=== PATIENT | female | born 1960 | race Caucasian/White ===

== ENCOUNTER 2021-02-25 18:21 | Emergency (ER) | payer MEDICAID, SELFPAY ==
--- NOTE | ~2021-02-25 | XR_ITS ---
EXAMINATION: XR CHEST CLINICAL INFORMATION: Cough with back pain COMPARISON: None TECHNIQUE: 2 views of the chest were obtained. FINDINGS: Multifocal ill-defined patchy peripheral densities are seen in both lungs with a lower lobe predominance. The heart size is normal. No pleural effusions are seen. Degenerative changes noted in the spine. XR/XR chest 2V IMPRESSION: Commonly reported imaging features of Covid 19 or viral pneumonia are present. Other processes such as influenza pneumonia or organizing pneumonia, as can be seen with drug toxicity and connective tissue disease, can cause a similar imaging pattern.
[2021-02-25 19:04] VITALS: BP 133/79; PULSE 82; RESP 16; TEMP 37.1; O2SAT 99; BMI 32.1
--- NOTE | 2021-02-25 19:17 | ED.BACK ---
HPI - Back Pain/Injury General Chief Complaint: Back Pain/Injury Stated Complaint: back pain Time Seen by Provider: 02/25/21 19:17 Source: patient Mode of arrival: ambulatory Limitations: language barrier History of Present Illness HPI Narrative: Patient with history of breast cancer and did a reconstruction and cut her back for reconstruction. Now with pain in the reconstruction area. In addition patient states cough and chills MD elicited complaint: back pain Onset (ago): day(s) Timing: constant Quality: burning Related Data Previous Rx's Medication Instructions Recorded naproxen [Naprosyn] 500 mg PO BID #20 tab 02/25/21 Allergies Allergy/AdvReac Type Severity Reaction Status Date / Time No Known Allergies Allergy Verified 02/25/21 19:08 Review of Systems Constitutional: Constitutional: Reports no additional constitutional complaints Eyes: Eyes: Reports no additional eye complaints ENT: Denies dizziness Cardiovascular: Cardiovascular: Reports no additional cardiovascular complaints Respiratory: Respiratory: Reports as per HPI Gastrointestinal: Gastrointestinal: Reports no additional gastrointestinal complaints Genitourinary: Genitourinary: Reports no additional female genitourinary complaints Musculoskeletal: Musculoskeletal: Reports no additional musculoskeletal complaints Integumentary/Breasts: Skin/Breast: Denies rash Neurologic: Reports system reviewed and no additional complaints, except as documented, Denies dizziness and Denies Sensory deficit (Neuro) Psychiatric: Psychiatric: Denies anxiety PMFSH Past Medical History Medical History Breast calcification, right Diabetes Surgical History History of mastectomy Social History Social History Alcohol intake: never Smoked in Last 30 Days: No Use of substances other than those prescribed or required for medical reasons: No Any prior treatment program specific to substance use: No Advance Directives: No Advance Directives Information Provided: No Patient : No Physical Exam Vital Signs: Vital Signs: Last Vital Signs Temp 98.7 F 02/25/21 19:04 Pulse 82 02/25/21 19:04 Resp 16 02/25/21 19:04 BP 133/79 02/25/21 19:04 Pulse Ox 99 02/25/21 19:04 Body Mass Index 32.1 Const: General: healthy appearing Nutritional Appearance: average body habitus Orientation/consciousness: oriented to person and patient oriented x3 Limitations: no limitations HENMT: Head: Yes normal to inspection Ears: external ears normal General nose exam: Normal external nose present Mouth: Normal oral and palatal mucosa present and oropharynx normal Throat: Yes posterior oropharynx normal Eyes: General: appearance normal, both eyes and all related structures Neck: Other: supple Neck: Yes normal visual inspection Chest: Chest palpation & inspection: normal inspection of the chest Resp: Auscultation: clear to auscultation bilaterally Cardio: Jugular venous distension: no JVD Rate: regular rate Rhythm: regular rhythm Heart sounds: S1 normal heart sound present and S2 normal heart sound present GI: Inspection: Yes normal to inspection Palpation (GI): Soft to palpation, nontender and No hepatosplenomegaly present Auscultation: normal bowel sounds Back/Spine/Pelvis: Other: right latissimus dorsi recontstruction pain just superior to scar. Pain to palpation Skin: General skin exam: no rashes or lesions noted Neuro: General: oriented to person and patient oriented x3 Cranial nerves: Yes CN's II-XII intact bilaterally Motor exam (neuro): 5/5 motor strength present throughout Sensory Exam: No Sensory deficit (Neuro) Extrem: General: Yes normal to inspection Psych: Appearance: grossly normal Course Course Course Narrative: patient with evidence of COVID on xray, she is not hypoxic, will dc home Discharge Plan Discharge Clinical Impression: COVID-19 Thoracic back pain Qualifiers: Chronicity: chronic Back pain laterality: right Qualified Code(s): M54.6 - Pain in thoracic spine Patient Disposition: Home, Self-Care Instructions: Thoracic Back Strain (ED), COVID-19 (Coronavirus Disease 2019) (ED) Prescriptions: New naproxen [Naprosyn] 500 mg tablet 500 mg PO BID Qty: 20 RF: 0 Referrals: Physician,None [Primary Care Provider] - 2 days
[2021-02-25] MEDS: Ketorolac Tromethamine 60 MG/2 ML VIAL IM (20:11)
[2021-02-25 21:15] LABS: Influenza A PCR NEGATIVE (Negative); Influenza B PCR NEGATIVE (Negative); Resp Syncy Virus RNA Qual PCR NEGATIVE (Negative); SARS COV2 PCR INHOUSE POSITIVE (Negative)
== END 2021-02-25 21:18 | disposition home or self-care (01) ==
PROVIDERS: Emergency Provider Emergency Medicine
DX: U07.1 COVID-19 (principal); M54.6 Pain in thoracic spine; E11.9 Type 2 diabetes mellitus without complications; Z85.3 Personal history of malignant neoplasm of breast
CPT/HCPCS: 0241U; 36415; 71046; 96372; 99284; J1885

== ENCOUNTER 2021-06-30 19:14 | Emergency (ER) | payer MEDICAID, SELFPAY ==
--- NOTE | ~2021-06-30 | XR_ITS ---
EXAMINATION: XR KNEE, LEFT CLINICAL INFORMATION: Trauma COMPARISON: None TECHNIQUE: Two views of the left knee. FINDINGS: No significant joint effusion. Mild tricompartmental degenerative changes are seen with minimal joint space loss in the medial compartment. I do not appreciate any acute fracture or dislocation. No bony degenerative or destructive changes. Surrounding soft tissue unremarkable. XR/XR knee LT 2V IMPRESSION: Mild degenerative changes but no acute bony abnormality.
--- NOTE | ~2021-06-30 | XR_ITS ---
EXAMINATION: XR CHEST CLINICAL INFORMATION: Trauma. COMPARISON: Chest x-ray February 25, 2021 TECHNIQUE: 2 views of the chest were obtained. FINDINGS: Lungs are clear. No pulmonary vascular congestion. There is no pleural effusion. The heart size is normal. The cardiac and mediastinal contours are normal. There are calcifications of the thoracic aorta. There are multilevel degenerative changes of dorsal spine. XR/XR chest 2V IMPRESSION: Unremarkable examination.
--- NOTE | ~2021-06-30 | CT_ITS ---
EXAMINATION: CT HEAD WITHOUT CONTRAST CLINICAL INFORMATION: Trauma. COMPARISON: None TECHNIQUE: Contiguous axial imaging was performed from the skull base to vertex without intravenous administration of contrast. This CT examination was performed using dose optimization techniques as appropriate, variously including the following: *Automated exposure control *Adjustment of mA and/or kV according to patient size (this includes techniques or standardized protocols for targeted exams where dose is matched to indication/reason for exam; i.e. extremities or head) *Use of iterative reconstruction technique DLP: 663 mGy-cm FINDINGS: There is no evidence of acute intracranial hemorrhage or territorial infarction. No abnormal mass effect or midline shift is seen. Kowalski to white matter differentiation is well preserved. No extra-axial fluid collections are identified. The ventricles are normal in size. There is no abnormal attenuation within the brain parenchyma. The osseous structures and soft tissues are normal. The mastoid air cells and visualized portions of the paranasal sinuses are well aerated. CT/CT head/brain wo con IMPRESSION: No acute intracranial process seen.
[2021-06-30 21:39] VITALS: BP 139/72; PULSE 78; RESP 16; TEMP 36.9; O2SAT 98; BMI 36.6
--- NOTE | 2021-06-30 21:47 | ED.FALL ---
HPI - Fall General Chief Complaint: Fall Stated Complaint: headache/back pain Time Seen by Provider: 06/30/21 21:40 Source: patient Limitations: no limitations History of Present Illness HPI Narrative: Patient slipped and fell 3 days ago. Since that time she has had left-sided back pain, right-sided chest pain, headache, and left knee pain. She denies loss of consciousness. She complains of pain on the right side of her head and right face. No vision changes. No nausea. No weakness numbness or paresthesias. She has chronic knee pain but complains of worsening pain in her left knee. She has pain in the right chest wall due to the fall as well as the left thoracic back area. No difficulty breathing but it does hurt with deep inspiration. She is able to ambulate at home although with more pain than average. Related Data Previous Rx's Medication Instructions Recorded naproxen 500 mg tablet (Naprosyn) 500 mg PO BID #20 tab 02/25/21 Allergies Allergy/AdvReac Type Severity Reaction Status Date / Time No Known Allergies Allergy Verified 02/25/21 19:08 Review of Systems Constitutional: Constitutional: Denies fever(s), Reports headache(s) and Denies weakness Eyes: Comments: No vision changes ENT: Reports headache(s) Comments: Bruising right side of her face, lateral periorbital area. Cardiovascular: Comments: Right lateral chest wall pain Respiratory: Comments: No significant dyspnea Gastrointestinal: Comments: No abdominal pain Musculoskeletal: Comments: Left knee with tenderness to palpation laterally and over the patella Joint is stable in all 4 directions. No significant effusion. Integumentary/Breasts: Comments: Contusion right side of face. No hematoma. No lacerations or abrasions Neurologic: Reports headache(s) and Denies weakness Comments: Awake alert and oriented. No obvious focal weakness PMFSH Past Medical History Medical History Breast calcification, right Diabetes Surgical History History of mastectomy Social History Social History Alcohol intake: never Advance Directives: No Advance Directives Information Provided: No Physical Exam Vital Signs: Vital Signs: Last Vital Signs Temp 98.4 F 06/30/21 21:39 Pulse 71 06/30/21 22:34 Resp 16 06/30/21 22:34 BP 140/72 H 06/30/21 22:34 Pulse Ox 98 06/30/21 22:34 Body Mass Index 36.6 Const: Other: Awake alert no acute distress HENMT: Other: Ecchymosis right lateral face in the periorbital area. No bony crepitus or deformity. No significant swelling. It is tender over that area. It is also tender over the temporal area with no evidence of significant subgaleal hematoma. No bony crepitus noted Eyes: Other: Pupils equal round reactive to light. Vision grossly intact Neck: Other: No C-spine tenderness Chest: Other: Chest wall tender right lateral ribs. Left posterior ribs mildly tender as well. Resp: Other: Clear and equal bilaterally Cardio: Other: Regular rate and rhythm no murmurs rubs or gallops GI: Other: Soft nontender nondistended. No organomegaly Back/Spine/Pelvis: Other: No midline TL or S spine tenderness Skin: Other: Ecchymosis as noted above. No other significant abnormalities Neuro: Other: No focal deficits Extrem: Other: Left knee tender as mentioned above Course Course Course Narrative: Facial fracture Intracranial hemorrhage Rib fracture Pneumothorax Left knee fracture Left knee contusion CT brain given continued pain after a fall in a 61-year-old female. X-rays of chest and left knee. 11:19 p.m.. Workup shows no evidence of significant injury. Stable for discharge home. Final diagnosis multiple contusions Discharge Plan Discharge Clinical Impression: Contusion Qualifiers: Encounter type: initial encounter Contusion area: head Contusion of head detail: scalp Qualified Code(s): S00.03XA - Contusion of scalp, initial encounter Contusion of knee Qualifiers: Encounter type: initial encounter Laterality: left Qualified Code(s): S80.02XA - Contusion of left knee, initial encounter Patient Disposition: Home, Self-Care Instructions: Contusion in Adults (ED) Additional Instructions: Continue to take Naprosyn. See discharge instructions Prescriptions: No Action naproxen [Naprosyn] 500 mg tablet 500 mg PO BID Qty: 20 RF: 0
[2021-06-30] MEDS: Ibuprofen 800 MG TABLET PO (22:21)
[2021-06-30 22:34] VITALS: BP 140/72; PULSE 71; RESP 16; O2SAT 98
== END 2021-06-30 23:53 | disposition home or self-care (01) ==
PROVIDERS: Emergency Provider Emergency Medicine
DX: S00.03XA Contusion of scalp, initial encounter (principal); S80.02XA Contusion of left knee, initial encounter; M54.5 Low back pain; G44.309 Post-traumatic headache, unspecified, not intractable; M25.562 Pain in left knee; R07.89 Other chest pain; W01.0XXA Fall on same level from slipping, tripping and stumbling without subsequent striking against object, initial encounter; Y93.9 Activity, unspecified; Y92.9 Unspecified place or not applicable; Y99.9 Unspecified external cause status; Z79.899 Other long term (current) drug therapy
CPT/HCPCS: 70450; 71046; 73560; 99284

== ENCOUNTER 2021-12-01 10:45 | Outpatient (REF) | payer OTHER, SELFPAY ==
[2021-12-01 11:07] LABS: MANUAL DIFF FLAG NO
[2021-12-01 11:48] LABS: Basophils Percent Auto 0.4 % (0-2); Eosinophils Absolute Auto 0.3 X10*3/uL (0.0-0.4); Eosinophils Percent Auto 3.7 % (0-4); Hematocrit 37.9 % (37.0-47.0); Hemoglobin 12.1 g/dl (12.0-16.0); Imm Gran Abs Auto 0.01 X10*3/uL (0.00-0.03); Imm Gran Pct Auto 0.1 % (0.0-0.4); Lymphocytes Absolute Auto 2.8 X10*3/uL (1.2-4.9); Lymphocytes Percent Auto 37.4 % (20-40); Mean Corpuscular HGB Conc 31.9 g/dl (31.0-35.0); Mean Corpuscular Hemoglobin 25.6 pg (27.0-33.0); Mean Corpuscular Volume 80.1 fL (80.0-98.0); Mean Platelet Volume 10.2 fL (9.4-12.3); Monocytes Absolute Auto 0.6 X10*3/uL (0.1-1.2); Monocytes Percent Auto 8.5 % (2-11); Neutrophils Absolute Auto 3.7 x10*3/uL (2.0-8.3); Neutrophils Percent Auto 49.9 % (45-73); Platelet Count 280 X10*3/uL (160-400); Red Blood Count 4.73 X10*6/uL (4.20-5.50); Red Cell Distribution Width 13.3 % (11.0-16.0); White Blood Count 7.4 X10*3/uL (4.8-10.8)
[2021-12-01 11:54] LABS: Estimated Average Glucose 226 mg/dL; Hemoglobin A1c % 9.5 %
[2021-12-01 12:10] LABS: Alanine Aminotransferase 12 U/L (0-31); Albumin Level 3.9 g/dL (3.5-5.0); Alkaline Phosphatase 157 U/L (39-117); Anion Gap 11 (12-20); Aspartate Amino Transferase 18 U/L (5-31); Bilirubin Total 0.5 mg/dL (0.0-1.0); Blood Urea Nitrogen 19 mg/dL (9-16); Calcium 9.8 mg/dL (8.4-10.2); Carbon Dioxide 29 mmol/L (22-29); Chloride 105 mmol/L (96-108); Cholesterol 201 mg/dL; Estimated Glomerular Filt Rate 54; Glucose Fasting 102 mg/dL (60-99); HDL Cholesterol 52 mg/dL; LDL Cholesterol Calculated 128 mg/dl; Potassium 4.6 mmol/L (3.3-5.1); Sodium 140 mmol/L (135-145); Triglycerides 109 mg/dL
[2021-12-01 12:12] LABS: Creatinine Urine 73.95 mg/dL; Microalbum/Creatinine Ratio Ur 22.9 ug/mg cr
== END 2021-12-01 10:46 | disposition home or self-care (01) ==
LOC: HO.LAB 10:45
PROVIDERS: Visit Provider Nurse Practitioner Family
DX: E11.9 Type 2 diabetes mellitus without complications (principal); Z76.89 Persons encountering health services in other specified circumstances
CPT/HCPCS: 36415; 80053; 80061; 82043; 83036; 85025

== ENCOUNTER 2021-12-03 11:11 | Outpatient (REF) | payer OTHER, SELFPAY ==
[2021-12-04 13:32] LABS: C Peptide 1.35 ng/mL (0.80-3.85)
[2021-12-07 21:06] LABS: Glutamic acid decarboxylase Ab <5 IU/mL (<5)
== END 2021-12-03 11:12 | disposition home or self-care (01) ==
LOC: HO.LAB 11:11
PROVIDERS: PCP Internal Medicine; Visit Provider Internal Medicine
DX: E11.9 Type 2 diabetes mellitus without complications (principal)
CPT/HCPCS: 36415; 84681; 86341

== ENCOUNTER 2021-12-31 13:03 | Outpatient (REF) | payer OTHER, SELFPAY ==
--- NOTE | ~2021-12-31 | MM_ITS ---
EXAMINATION: MM SCREENING DIGITAL BREAST TOMOSYNTHESIS, BILATERAL CLINICAL INFORMATION: Screening mammography. History of right breast lumpectomy with bilateral breast implants. COMPARISON: Mammography: None. Old films in [place]. TECHNIQUE: Digital mammography is performed in craniocaudal and mediolateral oblique views along with computer-aided detection (CAD). Digital breast tomosynthesis is performed in implant-displaced craniocaudal and implant-displaced mediolateral oblique views along with computer-aided detection (CAD). Synthesized 2D images are generated from the tomosynthesis. FINDINGS: The breasts are heterogeneously dense, which may obscure small masses (ACR BI-RADS breast composition Category c). Patient appears be status post previous left breast lumpectomy with radiation therapy. There is region of architectural distortion seen about the medial aspect of the right breast which may be postoperative in nature. There are numerous bilateral benign-appearing calcifications present. A marking clip is seen about the inferior aspect of the right breast. There are 2 groupings of left breast calcifications about the deep inferior aspect adjacent to the capsule and mid inferior medial left breast which may be dystrophic. If old studies cannot be obtained, then I would recommend spot magnification film to ensure that they are vascular. MM/MM tomosynthesis screen imp BI IMPRESSION: 1. Postsurgical and radiation change right breast. 2. Probable dystrophic calcifications of the left breast for which spot magnification views are recommended if previous studies cannot be obtained for comparison. ASSESSMENT: BI-RADS 0: Incomplete - Need Additional Imaging Evaluation. RECOMMENDATION: 1. Additional views of the left breast. 2. Targeted ultrasound if warranted after review of the additional views. 3. Radiology department staff will contact the patient for additional imaging. This patient's information was entered into a reminder system with a target due date for their next mammogram.
== END 2021-12-31 13:04 | disposition home or self-care (01) ==
LOC: HO.MAMMO 13:03
PROVIDERS: PCP Nurse Practitioner Family; Visit Provider Nurse Practitioner Family
DX: Z12.31 Encounter for screening mammogram for malignant neoplasm of breast (principal)
CPT/HCPCS: 77063; 77067

== ENCOUNTER 2022-01-07 08:52 | Outpatient (REF) | payer OTHER, SELFPAY ==
--- NOTE | ~2022-01-07 | MM_ITS ---
EXAMINATION: MM DIAGNOSTIC DIGITAL MAMMOGRAPHY, LEFT CLINICAL INFORMATION: Calcifications. COMPARISON: Mammography: 12/31/2021. TECHNIQUE: Digital mammography is performed in the following views: Spot magnification views in craniocaudal and 90-degree mediolateral projections. FINDINGS: The breasts are heterogeneously dense, which may obscure small masses (ACR BI-RADS breast composition Category c). The views demonstrate some benign calcifications as well as probable dystrophic calcifications about the inferior medial aspect of the left breast. Recommend 6 month follow up magnification views of the left breast for further surveillance. Results are provided to the patient at time of visit by the technologist. MM/MM added views LT IMPRESSION: Probably benign left breast calcifications for six-month follow up magnification views. ASSESSMENT: BI-RADS 3: Probably Benign. RECOMMENDATION: Diagnostic mammography in 6 months. This patient's information was entered into a reminder system with a target due date for their next mammogram.
== END 2022-01-07 08:53 | disposition home or self-care (01) ==
LOC: HO.MAMMO 08:52
PROVIDERS: Visit Provider Nurse Practitioner Family
DX: R92.1 Mammographic calcification found on diagnostic imaging of breast (principal)
CPT/HCPCS: 77065

== ENCOUNTER 2022-02-04 13:18 | Outpatient (REF) | payer OTHER, SELFPAY ==
[2022-02-05 12:09] LABS: CT PCR NOT DETECTED (Not Detect.); NG PCR NOT DETECTED (Not Detect.)
[2022-02-05 14:44] LABS: BV Int Neg Control Negative (Negative); BV Int Pos Control Positive (Positive)
[2022-02-10 04:17] LABS: HPV 16 RNA NOT DETECTED (NOT DETECTED); HPV mRNA E6/E7 rflx Detected (Not Detected)
== END 2022-02-04 13:19 | disposition home or self-care (01) ==
LOC: HO.LAB 13:18
PROVIDERS: PCP Nurse Practitioner Family; Visit Provider Advanced Practice Midwife
DX: Z01.419 Encounter for gynecological examination (general) (routine) without abnormal findings (principal); Z11.51 Encounter for screening for human papillomavirus (HPV); Z20.2 Contact with and (suspected) exposure to infections with a predominantly sexual mode of transmission
CPT/HCPCS: 87480; 87491; 87510; 87591; 87624; 87625; 87660; 88142

== ENCOUNTER 2022-05-17 11:02 | Outpatient (REF) | payer OTHER, SELFPAY ==
--- NOTE | ~2022-05-17 | XR_ITS ---
EXAMINATION: XR LUMBOSACRAL SPINE CLINICAL INFORMATION: Lower back pain. COMPARISON: None TECHNIQUE: AP and lateral views of the lumbar spine and lateral view of the lumbosacral junction. FINDINGS: Vertebral body heights are normal. There is a minimal lumbar rotatory levoscoliosis. At L4-L5, there is a 2 mm anterolisthesis. The remaining disc spaces are relatively well-maintained. No acute fracture or spondylolisthesis is seen. There is multi-level thoracolumbar spondylosis, most pronounced at L1-L2, where it is severe. The posterior elements are intact. The paravertebral soft tissues are unremarkable. XR/XR lumbar spine 2-3V IMPRESSION: 1. There is very mild degenerative disc disease L4-L5. 2. There is multi-level thoracolumbar spondylosis, most pronounced at L1-L2, where it is severe. 3. There is a minimal lumbar levoscoliosis, with rotatory component.
--- NOTE | 2022-05-17 11:16 | ECG_ITS ---
Test Reason : PREOP Blood Pressure : / mmHG Vent. Rate : 067 BPM Atrial Rate : 067 BPM P-R Int : 158 ms QRS Dur : 070 ms QT Int : 398 ms P-R-T Axes : 057 035 068 degrees QTc Int : 420 ms Normal sinus rhythm Normal ECG No previous ECGs available Referred By: Maye Hu Electronically Signed By:ANAMIKA GARCIA MD
[2022-05-17 11:50] LABS: Hematocrit 36.8 % (37.0-47.0); Hemoglobin 11.9 g/dl (12.0-16.0); Mean Corpuscular HGB Conc 32.3 g/dl (31.0-35.0); Mean Corpuscular Hemoglobin 25.5 pg (27.0-33.0); Mean Corpuscular Volume 78.8 fL (80.0-98.0); Mean Platelet Volume 10.3 fL (9.4-12.3); Platelet Count 264 X10*3/uL (160-400); Red Blood Count 4.67 X10*6/uL (4.20-5.50); Red Cell Distribution Width 14.3 % (11.0-16.0)
[2022-05-17 11:57] LABS: Estimated Average Glucose 123 mg/dL; Hemoglobin A1c % 5.9 %
[2022-05-17 12:02] LABS: Prothrombin Time 10.9 SEC (10.0-13.1)
[2022-05-17 12:38] LABS: Anion Gap 16 (12-20); Blood Urea Nitrogen 20 mg/dL (9-16); Calcium 9.4 mg/dL (8.4-10.2); Carbon Dioxide 22 mmol/L (22-29); Chloride 106 mmol/L (96-108); Estimated Glomerular Filt Rate 47; Glucose Random 160 mg/dL (60-115); Potassium 4.7 mmol/L (3.3-5.1); Sodium 139 mmol/L (135-145); TSH reflex Free T4 2.64 uIU/mL (0.32-4.0)
== END 2022-05-17 11:03 | disposition home or self-care (01) ==
LOC: HO.LAB 11:02
PROVIDERS: Absent Provider Internal Medicine; PCP Internal Medicine; Visit Provider Nurse Practitioner Family
DX: Z01.818 Encounter for other preprocedural examination (principal); M54.50 Low back pain, unspecified
CPT/HCPCS: 36415; 72100; 80048; 83036; 84443; 85027; 85610; 93005

== ENCOUNTER 2022-07-08 13:49 | Outpatient (REF) | payer OTHER, SELFPAY ==
--- NOTE | ~2022-07-08 | MM_ITS ---
EXAMINATION: MM DIAGNOSTIC DIGITAL BREAST TOMOSYNTHESIS, LEFT CLINICAL INFORMATION: Short interval follow-up probable benign calcifications superior medial left breast mid and posterior depth. Prior history contralateral right lumpectomy and radiation. COMPARISON: Mammography: 01/07/2022, 12/31/2021 (new baseline, BI-RADS 0). TECHNIQUE: Digital mammography is performed in craniocaudal and mediolateral oblique views. Digital breast tomosynthesis is performed in implant-displaced craniocaudal and implant-displaced mediolateral oblique views. Synthesized 2D images are generated from the tomosynthesis. Computer-aided detection (CAD) is performed for this exam. Additional left MLO view, magnification left CC and magnification left ML views are obtained. FINDINGS: The breasts are heterogeneously dense, which may obscure small masses (ACR BI-RADS breast composition Category c). There is a left implant with similar implant contours to prior new baseline exam. Parenchymal pattern is similar to the prior study. There is no interval mass or architectural abnormality or abnormal calcifications. Again, there are benign round and rim calcifications. Other benign appearing dystrophic calcifications mid lower inner left breast and posterior lower inner left breast are similar to prior diagnostic exam. Results are provided to the patient at time of visit by the technologist. MM/MM tomosynthesis diag imp LT IMPRESSION: No significant changes from prior study. ASSESSMENT: BI-RADS 3: Probably Benign RECOMMENDATION: Diagnostic mammography at time of bilateral mammography, due in 6 months. This patient's information was entered into a reminder system with a target due date for their next mammogram.
== END 2022-07-08 13:50 | disposition home or self-care (01) ==
LOC: HO.MAMMO 13:49
PROVIDERS: PCP Internal Medicine; Visit Provider Internal Medicine
DX: R92.1 Mammographic calcification found on diagnostic imaging of breast (principal)
CPT/HCPCS: 77061; 77065

== ENCOUNTER 2022-07-15 07:57 | Day surgery (SDC) | payer OTHER, SELFPAY ==
[2022-07-12 09:51] VITALS: BMI 35.4
--- NOTE | 2022-07-14 11:43 | HO.ANESPROP2 ---
Documented by User: Clare Mathur NP 07/14/22 11:47 HPI - Anesthesia Eval Consult details Narrative: 62yo F for Colonoscopy PMFSH Active Problems Active Problems: All Active Problems (Updated 07/12/22 @ 09:43 by Caryl Herrera RN) COVID-19 (Acute) Encounter to establish care (Acute ~11/19/21) BMI 33.0-33.9,adult (Acute) Diabetes type 2, controlled (Acute) Environmental and seasonal allergies (Acute) Preoperative examination (Acute) Cataract (Acute) Low back pain with left-sided sciatica (Acute) Anemia (Acute) Dyslipidemia (Acute) Lumbar degenerative disc disease (Acute) Allergic rhinitis (Acute) Constipation (Acute) Cancer of right breast (Acute) Obesity (BMI 30-39.9) (Acute) Diabetes mellitus with hyperglycemia (Acute) Past Medical History Medical History (Updated 07/12/22 @ 09:43 by Caryl Herrera RN) Allergic rhinitis Calcification of left breast Cancer of right breast Constipation Diabetes mellitus with hyperglycemia History of COVID-19 Lumbar degenerative disc disease Malignant neoplasm of breast Obesity (BMI 30-39.9) Family History Family History Sister Breast cancer Surgical History Surgical History (Updated 07/12/22 @ 09:48 by Caryl Herrera RN) History of cataract surgery History of mastectomy Social History Social History Housing: Apartment Alcohol intake: never Patient Tobacco Use Status: Never used Tobacco e-Cigarette/Vaping Use: Never Used Second Hand Smoke Exposure: No Use of substances other than those prescribed or required for medical reasons: No Are you DNR?: No Advance Directives: No Advance Directives Information Provided: Yes service: No Current occupational status: employed Cognitive needs: No Hearing needs: No Vision needs: Yes Meds Allergies Allergy/AdvReac Type Severity Reaction Status Date / Time No Known Allergies Allergy Verified 07/08/22 15:49 Exam Exam Date and Time: July 14, 2022 1143 Height,Weight and Vital Signs: Height 5 ft 2 in Weight 87.997 kg Pertinent Lab Results Pertinent Lab Results: Laboratory Tests 05/17/22 05/17/22 11:15 11:15 WBC 7.0 Hgb 11.9 L Hct 36.8 L Plt Count 264 Sodium 139 Potassium 4.7 Chloride 106 Carbon Dioxide 22 BUN 20 H Creatinine 1.16 Narrative Narrative: EKG 05/2022 Vent. Rate : 067 BPM ? ? Atrial Rate : 067 BPM ?? P-R Int : 158 ms? QRS Dur : 070 ms ? ? QT Int : 398 ms ? ? ? P-R-T Axes : 057 035 068 degrees ?? QTc Int : 420 ms ? Normal sinus rhythm Normal ECG No previous ECGs available Assessment and Plan Assessment Anesthesia Assessment: Chart Reviewed Documented by User: Patricia Colvin MD 07/15/22 09:11 PMFSH Past Medical History Medical History (Updated 07/12/22 @ 09:43 by Caryl Herrera RN) Allergic rhinitis Calcification of left breast Cancer of right breast Constipation Diabetes mellitus with hyperglycemia History of COVID-19 Lumbar degenerative disc disease Malignant neoplasm of breast Obesity (BMI 30-39.9) Family History Family History Sister Breast cancer Family history of problems with anesthesia: No Surgical History Surgical History (Updated 07/12/22 @ 09:48 by Caryl Herrera RN) History of cataract surgery History of mastectomy History of Problems with Anesthesia: No Social History Social History Housing: Apartment Alcohol intake: never Patient Tobacco Use Status: Never used Tobacco e-Cigarette/Vaping Use: Never Used Second Hand Smoke Exposure: No Use of substances other than those prescribed or required for medical reasons: No Are you DNR?: No Advance Directives: No Advance Directives Information Provided: Yes service: No Current occupational status: employed Cognitive needs: No Hearing needs: No Vision needs: Yes Meds Allergies Allergy/AdvReac Type Severity Reaction Status Date / Time No Known Allergies Allergy Verified 07/08/22 15:49 Exam Airway Mallampati Class: II TM Dist: >3cm Neck ROM: Full Heart: rrr Lungs: cta Assessment and Plan Assessment Anesthesia Assessment: Anesthesia Plan Discussed Final Anesthetic Review Family History of Problems with Anesthesia: No History of Problems with Anesthesia: No NPO: Yes ASA Class: II Final Preanesthetic Review: No Changes in Pt Med Stat, Meds/Allgs Chart Reviewed and Consent Obtained/Reviewed Patient Risk: Intermediate Procedure Risk: Intermediate Anesthetic Plan Anesthetic Plan: MAC: Disposition: Standard PACU
[2022-07-15 08:18] VITALS: PULSE 79; RESP 18; TEMP 36.8; O2SAT 97
--- NOTE | 2022-07-15 08:37 | P.HPSUR_ITS ---
Pre-Procedural Eval Section A Date of Service: 07/15/22 The patient is an INPATIENT: No The History & Physical has been completed within 30 days and I have reviewed it.: No Section B Chief Complaint: screening Relevant Family History (Specify if Yes): No Relevant Social History: None Present Medications: see Short Stay Collaborative assessment Medical History: Significant History (Allergic rhinitis Calcification of left breast Cancer of right breast Constipation Diabetes mellitus with hyperglycemia Lumbar degenerative disc disease Malignant neoplasm of breast Obesity (BMI 30- 39.9)) History of Previous Operations: Relevant previous surgery/procedure and date(s) (History of cataract surgery History of mastectomy) Allergies: Allergies Allergy/AdvReac Type Severity Reaction Status Date / Time No Known Allergies Allergy Verified 07/08/22 15:49 Review of Systems Sugical H&P ROS: Negative: Constitution, Cardiovascular, Respiratory and Gastrointestinal Exam Surgical H&P Exam: Normal: Heart, Normal: Lungs, Normal: Extremities and Normal: Abdomen Plan Diagnosis/Plan: Unchanged I have reviewed the history and physical and performed a pertinent physical examination on my patient. No changes have occurred unless specified.
[2022-07-15] MEDS: Lactated Ringers 1,000 ML 100 ML IVCONT (08:49)
--- NOTE | 2022-07-15 09:17 | W.PM.OPN ---
Operative Note Operative Note Date of Service: 07/15/22 Narrative: Pre-op diagnosis: Colon cancer screening.? Patient denies any GI symptoms, personal of family history of colon cancer. Per patient negative colonoscopy 20 years ago. Post-op diagnosis:?other (Colon polyps, diverticulosis) Procedure: COLONOSCOPY TILL CECUM WITH BIOPSIES, SNARE POLYPECTOMY, SUBMUCOSAL INJECTION AND HEMOCLIP PLACEMENT Consent: Indications for the procedure and potential complications of bleeding, perforation, reaction to medications and missed diagnosis were discussed with the patient and informed consent was obtained. Instrument: Olympus PCF H 190 L variable stiffness pediatric colonoscope Monitoring: Vital signs and clinical assessment, intermittent blood pressure monitoring, continuous EKG monitoring, Pulse oximetry and Carbon Dioxide monitoring were done throughout the procedure. Colon withdrawl time was 22 minutes. Procedure: The patient was placed in the left lateral decubitis position and pre-procedure medications were administered. After a digital rectal examination of the ano-rectum, the video colonoscope was inserted into the rectum and advanced through the colon to the cecum. The colonoscope was slowly withdrawn in a retrograde panoramic fashion and the colon mucosa was carefully examined including a retroflexed view of the rectum. Findings and interventions are described below. Procedure Difficulty: Without difficulty Findings: Terminal Ileum: Not evaluated Cecum:? A 4-5 mm diminutive appearing polyp close to the appendicular orifice - removed with a cold bx Ascending Colon:? Normal Transverse Colon:? A 15 mm flat polyp in the distal TC at 75 cms.? Polyp was raised with 3 cc of orise solution and removed with a hot snare.? Polypectomy site was closed with 1 hemoclip. Descending Colon:? Normal Sigmoid Colon:? Moderate diverticulosis Rectum:? Normal Ano-rectum:? Normal Colon preparation:? Good? Impression and Post Procedure Diagnosis: Colonoscopy Findings: One small and one medium sized polyps removed Moderate diverticulosis seen in the sigmoid colon Plan: I will send a letter with pathology results Repeat Colonoscopy interval based on path results - in 3 years if polyps are adenomatous and 10 years if polyps are hyperplastic. Above findings were reviewed with the patient and colon polyps and diverticulosis handouts were given in the discharge area Surgeon: Mira Reagan MD Anesthesia:?MAC Was an Clinical Reimbursement Specialist used for this Procedure?:?Yes Clinical Reimbursement Specialist:?Karel Truong Estimated blood loss (mL):?0 Pathology:?other (A- CECAL POLYP? B- TRANSVERSE COLON POLYP? O-RISE USED) Condition:?stable Disposition:?PACU
[2022-07-15 09:55] VITALS: BP 114/68; PULSE 91; RESP 16; TEMP 36.7; O2SAT 96
[2022-07-15 10:10] VITALS: BP 136/78; PULSE 86; RESP 14; TEMP 36.6; O2SAT 98
[2022-07-15 10:47] LABS: Glucose, Whole Blood 178 mg/dL (60-115)
== END 2022-07-15 10:45 | disposition home or self-care (01) ==
PROVIDERS: PCP Internal Medicine; Visit Provider Internal Medicine Gastroenterology
PROC: 0DJD8ZZ Inspection of Lower Intestinal Tract, Via Natural or Artificial Opening Endoscopic (ICD-10-PCS; CPT 45378; principal; 2022-07-15 09:20)
DX: Z12.11 Encounter for screening for malignant neoplasm of colon (principal); D12.0 Benign neoplasm of cecum; K63.5 Polyp of colon; K57.30 Diverticulosis of large intestine without perforation or abscess without bleeding; E11.9 Type 2 diabetes mellitus without complications; J30.89 Other allergic rhinitis; Z79.84 Long term (current) use of oral hypoglycemic drugs; Z85.3 Personal history of malignant neoplasm of breast; Z90.11 Acquired absence of right breast and nipple; Z86.16 Personal history of COVID-19
CPT/HCPCS: 45385; 45380; 45381; 82947; 88305

== ENCOUNTER 2022-07-22 15:18 | Emergency (ER) | payer OTHER, SELFPAY | END 2022-07-22 20:44 | disposition left against medical advice (07) | PROVIDERS: Emergency Provider Emergency Medicine; PCP Internal Medicine | DX: R50.9 Fever, unspecified (principal) ==

== ENCOUNTER 2022-07-22 15:48 | Outpatient (REF) | payer OTHER, SELFPAY ==
[2022-07-22 16:36] LABS: COVID-19 Test Negative (Negative)
== END 2022-07-22 15:49 | disposition home or self-care (01) ==
LOC: HO.LAB 15:48
PROVIDERS: Visit Provider Internal Medicine
DX: Z20.822 Contact with and (suspected) exposure to COVID-19 (principal)
CPT/HCPCS: 87635; C9803

== ENCOUNTER 2022-10-23 12:00 | Emergency (ER) | payer OTHER, SELFPAY ==
--- NOTE | ~2022-10-23 | XR_ITS ---
EXAMINATION: XR CHEST CLINICAL INFORMATION: Productive cough COMPARISON: Chest radiograph 06/30/2021 TECHNIQUE: 2 views of the chest were obtained. FINDINGS: Normal appearance of the cardiomediastinal structures. No effusions or pneumothoraces. No focal pulmonary consolidation. Normal pattern of pulmonary vasculature. XR/XR chest 2V IMPRESSION: No acute cardiopulmonary abnormalities.
--- NOTE | 2022-10-23 12:05 | ED.URI ---
HPI - URI/Sore Throat General Chief Complaint: Upper Respiratory Symptoms <VELVET López - Last Filed: 10/23/22 12:10> Stated Complaint: flu like symptoms <VELVET López Last Filed: 10/23/22 12:10> Time Seen by Provider: 10/23/22 13:27 <VELVET López Last Filed: 10/23/22 12:10> Source: patient <VELVET Cooney Last Filed: 10/23/22 14:58> Mode of arrival: ambulatory <VELVET Cooney Last Filed: 10/23/22 14:58> History of Present Illness HPI Narrative: 62-year-old female with a past medical history of breast cancer in remission, allergic rhinitis, constipation, diabetes, degenerative disc disease, obesity, presenting to the ED complaining of productive cough, chills, myalgias, SOB, rhinorrhea, sore throat since yesterday. Denies CP, fever, recent travel, pedal edema/ calf pain, denies taking anticoagulation. <VELVET Cooney - Last Filed: 10/23/22 14:58> MD elicited complaint: cough, sore throat, rhinorrhea and nasal congestion <VELVET Cooney Last Filed: 10/23/22 14:58> Onset (ago): hour(s) <VELVET Cooney - Last Filed: 10/23/22 14:58> Related Data Home Medications: Previous Rx's Medication Instructions Recorded blood sugar diagnostic (ReliOn #100 ea 11/19/21 Prime Test Strips) blood-glucose meter (Blood Glucose #1 ea 11/19/21 Monitoring kit) lancets 26 gauge #100 ea 11/19/21 cetirizine 10 mg tablet 10 mg PO DAILY PRN allergy 03/18/22 symptoms 90 days #90 tabs insulin glargine 100 unit/mL (3 20 unit (0.2 mL) subcut BEDTIME 30 03/18/22 mL) subcutaneous pen (Lantus days #6 mL Solostar U-100 Insulin) atorvastatin 10 mg tablet 10 mg PO BEDTIME 30 days #30 tabs 07/08/22 glimepiride 1 mg tablet 1 mg PO QAM 90 days #90 tabs 07/08/22 linagliptin 5 mg tablet (Tradjenta) 5 mg PO QAM 90 days #90 tabs 07/08/22 pen needle, diabetic 32 gauge x #100 ea 07/08/22 (BD Ultra-Fine Beatriz Pen Needle) trazodone 50 mg tablet 50 mg PO BEDTIME PRN sleep 30 days 07/08/22 #30 tabs benzonatate 100 mg capsule 100 mg PO TID PRN cough #14 caps 10/23/22 fluticasone propionate 50 2 spray intranasal DAILY #16 grams 10/23/22 mcg/actuation nasal spray,suspension (Flonase Allergy Relief) hydrocodone-homatropine 5 mg-1.5 5 ml PO Q4-6H PRN cough 3 days #60 10/23/22 mg/5 mL (5 mL) oral syrup (Hycodan) mL <VELVET López Last Filed: 10/23/22 12:10> Allergies/Adverse Reactions: Allergies Allergy/AdvReac Type Severity Reaction Status Date / Time No Known Allergies Allergy Verified 07/08/22 15:49 <VELVET López Last Filed: 10/23/22 12:10> Review of Systems Review of Systems: Constitutional: No Fever, + Chills, No Night Sweats, + Fatigue, No Malaise ENT/Mouth: No Ear Pain, + Nasal Congestion, No Sinus Pain, No Hoarseness, + sore throat, + Rhinorrhea, No Swallowing Difficulty Eyes: No Eye Pain, No Swelling, No Redness,No Vision Changes Cardiovascular: No Chest Pain, + SOB, No Dyspnea on Exertion, No Orthopnea, No Edema, No Palpitations Respiratory: + Cough, + Sputum, No Wheezing, No Dyspnea Gastrointestinal: No Nausea, No Vomiting, No Diarrhea, No Constipation, No Abdominal pain Genitourinary: No Dysuria, No Urinary Frequency, No Hematuria,No Flank Pain Musculoskeletal: No joint pain, No Myalgias, No Joint Swelling Skin: No Skin Lesions, No rash Neuro: No Weakness, No Numbness, No Paresthesias, No Loss of Consciousness, No Dizziness, No Headache <VELVET Cooney Last Filed: 10/23/22 14:58> Yes all other systems are reviewed and are negative <VELVET Cooney Last Filed: 10/23/22 14:58> Constitutional: Constitutional: Reports as per HPI <VELVET Cooney - Last Filed: 10/23/22 14:58> [facility]LY [facility] Past Medical History Attestation statement: The following information was validated with the patient. <VELVET Cooney - Last Filed: 10/23/22 14:58> Medical History: Medical History Allergic rhinitis Calcification of left breast Cancer of right breast Constipation Diabetes mellitus with hyperglycemia History of COVID-19 Lumbar degenerative disc disease Malignant neoplasm of breast Obesity (BMI 30-39.9) <VELVET López - Last Filed: 10/23/22 12:10> Surgical History: Surgical History History of cataract surgery History of mastectomy <VELVET López - Last Filed: 10/23/22 12:10> Family History Family History: Family History Sister Breast cancer <VELVET López - Last Filed: 10/23/22 12:10> Social History Social History: Social History Housing: Apartment Alcohol intake: never Patient Tobacco Use Status: Never used Tobacco e-Cigarette/Vaping Use: Never Used Second Hand Smoke Exposure: No Advance Directives: No Advance Directives Information Provided: Yes service: No Current occupational status: employed Cognitive needs: No Hearing needs: No Vision needs: Yes <VELVET López - Last Filed: 10/23/22 12:10> Physical Exam Vital Signs: Vital Signs: Last Vital Signs Temp 96.3 F L 10/23/22 14:53 Pulse 90 10/23/22 14:53 Resp 18 10/23/22 14:53 BP 140/70 H 10/23/22 14:53 Pulse Ox 99 10/23/22 14:53 O2 Del Method 10/23/22 14:53 BMI result Body Mass Index 32.9 <VELVET López - Last Filed: 10/23/22 12:10> Vital Signs: Last Vital Signs Temp 96.3 F L 10/23/22 14:53 Pulse 90 10/23/22 14:53 Resp 18 10/23/22 14:53 BP 140/70 H 10/23/22 14:53 Pulse Ox 99 10/23/22 14:53 O2 Del Method 10/23/22 14:53 BMI result Body Mass Index 32.9 <VELVET Cooney - Last Filed: 10/23/22 14:58> Const: General: cooperative, healthy appearing and no acute distress <VELVET Cooney - Last Filed: 10/23/22 14:58> Orientation/consciousness: patient oriented x3 <VELVET Cooney - Last Filed: 10/23/22 14:58> Limitations: no limitations <VELVET Cooney - Last Filed: 10/23/22 14:58> HEENT: Head: Yes normal to inspection and Yes atraumatic <VELVET Cooney - Last Filed: 10/23/22 14:58> Ears: hearing grossly normal bilaterally <VELVET Cooney - Last Filed: 10/23/22 14:58> General nose exam: Normal external nose present <VELVET Cooney - Last Filed: 10/23/22 14:58> Face and sinus: Yes normal facial exam <VELVET Cooney - Last Filed: 10/23/22 14:58> Throat: Yes uvula midline, No peritonsillar mass, Yes posterior oropharynx abnormal (mild erythema), No uvula laterally displaced and No uvular edema <VELVET Cooney - Last Filed: 10/23/22 14:58> Eyes: General: appearance normal, both eyes and all related structures <VELVET Cooney - Last Filed: 10/23/22 14:58> EOM: EOMs intact bilaterally <VELVET Cooney - Last Filed: 10/23/22 14:58> Neck: Neck: Yes normal visual inspection and Yes no meningeal signs <VELVET Cooney - Last Filed: 10/23/22 14:58> Resp: Effort & Inspection: normal respiratory effort, Actively coughing Quality: dry and no respiratory distress <VELVET Cooney - Last Filed: 10/23/22 14:58> Auscultation: clear to auscultation bilaterally, no crackles, no rales and no rhonchi <VELVET Cooney - Last Filed: 10/23/22 14:58> Cardio: Rate: regular rate <VELVET Cooney - Last Filed: 10/23/22 14:58> Heart sounds: S1 normal heart sound present and S2 normal heart sound present <VELVET Cooney - Last Filed: 10/23/22 14:58> Skin: Rashes: no rashes <VELVET Cooney - Last Filed: 10/23/22 14:58> Wounds: no wounds <VELVET Cooney - Last Filed: 10/23/22 14:58> Neuro: General: patient oriented x3, tone normal and no meningeal signs <VELVET Cooney - Last Filed: 10/23/22 14:58> Gait exam (Neuro): Normal gait present <VELVET Cooney - Last Filed: 10/23/22 14:58> Extrem: General: Yes normal to inspection, Yes no pedal edema and Yes no calf tenderness <VELVET Cooney - Last Filed: 10/23/22 14:58> Course Course Course Narrative: RME- 12:10pm - 62yoF presenting to the ED c c/o fevers, body aches, headaches, sore throat, nasal congestion, cough c sputum production since yesterday. Sister with similar symptoms although she never came to the hospital and she is better per patient. Denies recent travel. On exam patient is alert and oriented x3. Not in any acute distress. Patient noted to be tachycardic at 115 in triage otherwise all other vitals are within normal limits. Lungs clear to auscultation. Plan: EKG due to Tachycardia. COVID/RSV/FLU ordered at this time. Patient is stable to go back to the waiting room to be evaluated in [facility]. <VELVET López - Last Filed: 10/23/22 12:10> RME- 12:10pm - 62yoF presenting to the ED c c/o fevers, body aches, headaches, sore throat, nasal congestion, cough c sputum production since yesterday. Sister with similar symptoms although she never came to the hospital and she is better per patient. Denies recent travel. On exam patient is alert and oriented x3. Not in any acute distress. Patient noted to be tachycardic at 115 in triage otherwise all other vitals are within normal limits. Lungs clear to auscultation. Plan: EKG due to Tachycardia. COVID/RSV/FLU ordered at this time. Patient is stable to go back to the waiting room to be evaluated in [facility]. -1444-- COVID-19/influenza/ RSV negative. Rapid strep negative. Chest x-ray unremarkable > vital signs improved without intervention. Tachycardia resolved Results discussed with patient with diplomatic interpreter/translator including worrisome signs and symptoms and strict return precautions, and when to return to the emergency department. They verbalized understanding and feel safe for discharge at this time. <VELVET Cooney - Last Filed: 10/23/22 14:58> Medications Administered Discontinued Medications Generic Name Dose Route Start Last Admin Trade Name Freq PRN Reason Stop Dose Admin Albuterol Sulfate 4 puff 10/23/22 13:40 10/23/22 14:19 Albuterol Sulfate 90 Mcg 8 Gm Inhaler INHALE 10/23/22 13:41 4 puff ONCE ONE Administration Benzonatate 100 mg 10/23/22 13:40 10/23/22 14:19 Benzonatate 100 Mg Capsule PO 10/23/22 13:41 100 mg ONCE ONE Administration Hydrocodone Bit/Homatropine Methylb 5 ml 10/23/22 13:40 10/23/22 14:19 Hydrocodone/Homat 5/1.5/5 Ml 5 Ml Syrup PO 10/23/22 13:41 5 ml ONCE ONE Administration <VELVET López - Last Filed: 10/23/22 12:10> Medications Administered Discontinued Medications Generic Name Dose Route Start Last Admin Trade Name Freq PRN Reason Stop Dose Admin Albuterol Sulfate 4 puff 10/23/22 13:40 10/23/22 14:19 Albuterol Sulfate 90 Mcg 8 Gm Inhaler INHALE 10/23/22 13:41 4 puff ONCE ONE Administration Benzonatate 100 mg 10/23/22 13:40 10/23/22 14:19 Benzonatate 100 Mg Capsule PO 10/23/22 13:41 100 mg ONCE ONE Administration Hydrocodone Bit/Homatropine Methylb 5 ml 10/23/22 13:40 10/23/22 14:19 Hydrocodone/Homat 5/1.5/5 Ml 5 Ml Syrup PO 10/23/22 13:41 5 ml ONCE ONE Administration <VLEVET Cooney - Last Filed: 10/23/22 14:58> Medical Decision Making Medical Decision Making MDM Narrative: 62-year-old female with a past medical history of breast cancer in remission, allergic rhinitis, constipation, diabetes, degenerative disc disease, obesity, presenting to the ED complaining of productive cough, chills, myalgias, SOB, rhinorrhea, sore throat since yesterday. On exam mildly tachycardic likely from active cough during evaluation, NAD, nontoxic appearing, lungs CTA, no pedal edema/calf tenderness. Mild posterior or pharyngeal erythema noted without tonsillar exudates. Uvula midline. Concern for viral illness vs bronchitis. Rule out pneumonia. Low suspicion for ACS/ PE. Low suspicion for severe sepsis plan: EKG, COVID 19/influenza/ RSV testing, CXR, albuterol inhaler Please refer to course for remaining clinical decision making, interpretation of labs/imaging results, and discussions with consultants and/or family members. <VELVET Cooney - Last Filed: 10/23/22 14:58> Differential Diagnosis Differential Diagnoses: The differential diagnosis associated with the presentation includes <VELVET Cooney - Last Filed: 10/23/22 14:58> as above <VELVET Cooney - Last Filed: 10/23/22 14:58> Lab Data Labs: Lab Results 10/23/22 10/23/22 Range/Units 13:11 13:11 Influenza Type A (PCR) NEGATIVE (Negative) Influenza Type B (PCR) NEGATIVE (Negative) RSV RNA Qual (PCR) NEGATIVE (Negative) SARS-CoV-2 RNA (RT-PCR) NEGATIVE (Negative) S. pyogenes GrpA MYNOR Negative (Negative) <VELVET López - Last Filed: 10/23/22 12:10> Lab Results 10/23/22 10/23/22 Range/Units 13:11 13:11 Influenza Type A (PCR) NEGATIVE (Negative) Influenza Type B (PCR) NEGATIVE (Negative) RSV RNA Qual (PCR) NEGATIVE (Negative) SARS-CoV-2 RNA (RT-PCR) NEGATIVE (Negative) S. pyogenes GrpA MYNOR Negative (Negative) <VELVET Cooney - Last Filed: 10/23/22 14:58> Independent Interpretation I performed an independent interpretation of an: EKG <VELVET Cooney - Last Filed: 10/23/22 14:58> Interpretation: my interpretation: EKG is sinus tachycardia rate of 102. Artifact present. DE interval 162. QRS 66. QTC 430. No STEMI <VELVET Cooney Last Filed: 10/23/22 14:58> Radiology Impression Discussion of test interpretation with radiology: I have reviewed the radiologist's reading. <VELVET Cooney - Last Filed: 10/23/22 14:58> External Record Review External record reviewed: Office record, Outpatient record, Prior outpatient labs and Prior outpatient radiology <VELVET Cooney Last Filed: 10/23/22 14:58> Prescription Management I considered prescription management with: Antiviral and Antibiotic <VELVET Cooney Last Filed: 10/23/22 14:58> Chronic Conditions Patient?s care impacted by: Diabetes <VELVET Cooney Last Filed: 10/23/22 14:58> breast CA <VELVET Cooney - Last Filed: 10/23/22 14:58> Discharge Plan Discharge Clinical Impression: Acute viral syndrome <VELVET López Last Filed: 10/23/22 12:10> Patient Disposition: Home, Self-Care <VELVET López Last Filed: 10/23/22 12:10> Instructions: Viral Syndrome (ED) <VELVET López Last Filed: 10/23/22 12:10> Additional Instructions: you tested negative for COVID-19, the flu, RSV, and strep throat. Her x-ray does not show pneumonia Use albuterol inhaler you were supplied at home for shortness of breath/wheeze Flonase is a nasal decongestant Tessalon Perles are for cough. Hycodan is a cough medication containing codeine, take as needed for severe cough for the next 3 days please have close follow-up with her doctor. If symptoms persist or worsen return to the emergency department tc negativo en la prueba de COVID-19, gripe, RSV y faringitis estreptoc?cica. Garcia radiograf?a no muestra neumon?a. Use el inhalador de albuterol que le dieron en casa para la dificultad para respirar/sibilancias Flonase es un descongestionante nasal Tessalon Perles son para la tos. Hycodan es un medicamento para la tos que contiene code?na, t?maguire seg?n sea necesario para la tos intensa ly los pr?ximos 3 d?as por favor tenga un seguimiento cercano con garcia m?dico. Si los s?ntomas persisten o empeoran, regrese al servicio de urgencias. <VELVET López - Last Filed: 10/23/22 12:10> Prescriptions: New benzonatate 100 mg capsule 100 mg PO TID PRN (Reason: cough) Qty: 14 0RF fluticasone propionate [Flonase Allergy Relief] 50 mcg/actuation spray,suspension 2 spray intranasal DAILY Qty: 16 0RF Rx Instructions: administer into each nostril hydrocodone-homatropine [Hycodan] 5-1.5 mg/5 mL (5 mL) syrup 5 ml PO Q4-6H PRN (Reason: cough) 3 Days Qty: 60 0RF Rx Instructions: Partial Fill upon patient request. No Action (DME) blood-glucose meter [Blood Glucose Monitoring] Kit See Rx Instructions miscellaneous .MEDSUPPLY Qty: 1 0RF Rx Instructions: As directed (DME) ReliOn Prime Test Strips Strip See Rx Instructions miscellaneous .MEDSUPPLY Qty: 100 0RF Rx Instructions: As directed (DME) lancets 26 gauge misc See Rx Instructions miscellaneous .MEDSUPPLY Qty: 100 0RF Rx Instructions: As directed Lantus Solostar U-100 Insulin 100 unit/mL (3 mL) insulin pen 20 unit subcut BEDTIME 30 Days Qty: 6 3RF cetirizine 10 mg tablet 10 mg PO DAILY PRN (Reason: allergy symptoms) 90 Days Qty: 90 1RF glimepiride 1 mg tablet 1 mg PO QAM 90 Days Qty: 90 1RF Rx Instructions: administer with breakfast Tradjenta 5 mg tablet 5 mg PO QAM 90 Days Qty: 90 1RF (DME) pen needle, diabetic [BD Ultra-Fine Beatriz Pen Needle] 32 gauge x 5/32 needle See Rx Instructions .Route Qty: 100 5RF Rx Instructions: As directed once a day trazodone 50 mg tablet 50 mg PO BEDTIME PRN (Reason: sleep) 30 Days Qty: 30 3RF atorvastatin 10 mg tablet 10 mg PO BEDTIME 30 Days Qty: 30 3RF <VELVET López - Last Filed: 10/23/22 12:10> Referrals: Mehrdad Chavez MD [Primary Care Provider] - 5 days <VELVET López - Last Filed: 10/23/22 12:10> Print Language: Belarusian <VELVET López - Last Filed: 10/23/22 12:10>
[2022-10-23 12:06] VITALS: BP 163/88; PULSE 115; RESP 16; TEMP 36.8; O2SAT 97; BMI 32.9
--- NOTE | 2022-10-23 12:08 | ECG_ITS ---
Test Reason : tackycardia Blood Pressure : / mmHG Vent. Rate : 102 BPM Atrial Rate : 102 BPM P-R Int : 162 ms QRS Dur : 066 ms QT Int : 330 ms P-R-T Axes : 062 033 053 degrees QTc Int : 430 ms Sinus tachycardia Otherwise normal ECG When compared with ECG of 17-MAY-2022 11:14, Vent. rate has increased BY 35 BPM Referred By: Joanna Hines Electronically Signed By:Fred Zaldivar
[2022-10-23 13:24] LABS: IDNOW Serial# 6674DD1D; Strep A Nucleic Acid Negative (Negative)
[2022-10-23 13:56] LABS: Influenza A PCR NEGATIVE (Negative); Influenza B PCR NEGATIVE (Negative); Resp Syncy Virus RNA Qual PCR NEGATIVE (Negative); SARS COV2 PCR INHOUSE NEGATIVE (Negative)
[2022-10-23] MEDS: Albuterol Sulfate 90 MCG 8 GM INHALER 4 PUFF INHALE (14:19)
[2022-10-23] MEDS: Benzonatate 100 MG CAPSULE PO (14:19)
[2022-10-23] MEDS: HYDROcodone/Homat 5/1.5/5 ML 5 ML SYRUP PO (14:19)
[2022-10-23 14:53] VITALS: BP 140/70; PULSE 90; RESP 18; TEMP 35.7; O2SAT 99
== END 2022-10-23 15:15 | disposition home or self-care (01) ==
PROVIDERS: Physician Assistant Medical; Emergency Provider Emergency Medicine Emergency Medical Services; PCP Internal Medicine
DX: B34.9 Viral infection, unspecified (principal); R00.0 Tachycardia, unspecified; R05.9 Cough, unspecified; J02.9 Acute pharyngitis, unspecified; Z20.822 Contact with and (suspected) exposure to COVID-19; Z20.828 Contact with and (suspected) exposure to other viral communicable diseases; Z79.899 Other long term (current) drug therapy
CPT/HCPCS: 0241U; 36415; 71046; 87651; 93005; 99284

== ENCOUNTER 2022-10-26 10:03 | Emergency (ER) | payer OTHER, SELFPAY ==
--- NOTE | 2022-10-26 | ECG_ITS ---
Test Reason : upper respiratory Blood Pressure : / mmHG Vent. Rate : 101 BPM Atrial Rate : 101 BPM P-R Int : 144 ms QRS Dur : 070 ms QT Int : 338 ms P-R-T Axes : 038 011 046 degrees QTc Int : 438 ms Sinus tachycardia Otherwise normal ECG When compared with ECG of 23-OCT-2022 13:15, No significant change was found Referred By: Generic ED Physician Electronically Signed By:Fred Zaldivra
--- NOTE | ~2022-10-26 | XR_ITS ---
EXAMINATION: XR CHEST CLINICAL INFORMATION: Cough x5 days COMPARISON: Chest 10/23/2022 TECHNIQUE: Frontal view of the chest was obtained. FINDINGS: The lungs are well-expanded and clear. The heart size and pulmonary vascularity is normal. There is moderate spondylosis dorsal spine. No aggressive lytic or sclerotic process seen. XR/XR chest 1V IMPRESSION: Unremarkable chest examination.
[2022-10-26 10:14] VITALS: BP 116/73; PULSE 103; RESP 18; TEMP 36.8; O2SAT 95; BMI 32.9
--- NOTE | 2022-10-26 10:38 | ED.URI ---
HPI - URI/Sore Throat General Chief Complaint: Upper Respiratory Symptoms Stated Complaint: Cp, flu symptoms Time Seen by Provider: 10/26/22 10:28 Source: patient Mode of arrival: ambulatory Limitations: language barrier History of Present Illness HPI Narrative: 62-year-old Faroese-speaking female with past medical history of allergic rhinitis, COPD (per patient), and DM, presents to the emergency department screw with complaints of chest pain, cough, and sore throat with a red and bilateral weeping eyes. She reports when she woke this morning she had yellow/adair discharge in bilateral eyes with crusting. She denies any foreign body sensation or pain in the eyes. She states she was here on Monday for similar symptoms and tested negative for influenza, COVID, RSV or strep. Mild posterior and pharyngeal erythema noted without tonsillar exudates and patient treated for viral illness versus bronchitis and discharge with benzonatate capsules, Flonase, and Hycodan cough syrup. Patient says she picked up the benzonatate and Flonase and not the Hycodan cough syrup, however; she states she has not had any decrease or relief in symptoms. She denies any headache, vision changes, nausea, vomiting, or changes in bowel consistency or pattern. MD elicited complaint: cough Onset (ago): day(s) (5) Consistency: constant Severity: moderate Description of mucous: clear Able to tolerate fluids by mouth: Yes Exacerbating factors: deep breaths Relieving factors: nothing Context: sick contacts Associated symptoms: denies other symptoms Treatments prior to arrival: none Related Data Previous Rx's Medication Instructions Recorded blood sugar diagnostic (ReliOn #100 ea 11/19/21 Prime Test Strips) blood-glucose meter (Blood Glucose #1 ea 11/19/21 Monitoring kit) lancets 26 gauge #100 ea 11/19/21 cetirizine 10 mg tablet 10 mg PO DAILY PRN allergy 03/18/22 symptoms 90 days #90 tabs insulin glargine 100 unit/mL (3 20 unit (0.2 mL) subcut BEDTIME 30 03/18/22 mL) subcutaneous pen (Lantus days #6 mL Solostar U-100 Insulin) atorvastatin 10 mg tablet 10 mg PO BEDTIME 30 days #30 tabs 07/08/22 glimepiride 1 mg tablet 1 mg PO QAM 90 days #90 tabs 07/08/22 linagliptin 5 mg tablet (Tradjenta) 5 mg PO QAM 90 days #90 tabs 07/08/22 pen needle, diabetic 32 gauge x #100 ea 07/08/22 (BD Ultra-Fine Beatriz Pen Needle) trazodone 50 mg tablet 50 mg PO BEDTIME PRN sleep 30 days 07/08/22 #30 tabs benzonatate 100 mg capsule 100 mg PO TID PRN cough #14 caps 10/23/22 fluticasone propionate 50 2 spray intranasal DAILY #16 grams 10/23/22 mcg/actuation nasal spray,suspension (Flonase Allergy Relief) hydrocodone-homatropine 5 mg-1.5 5 ml PO Q4-6H PRN cough 3 days #60 10/23/22 mg/5 mL (5 mL) oral syrup (Hycodan) mL albuterol sulfate 90 mcg/actuation 1 inh inhalation Q4-6H PRN 10/26/22 breath activated powder inhaler shortness of breath #1 ea amoxicillin 875 mg-potassium 1 tab PO BID 5 days #10 tabs 10/26/22 clavulanate 125 mg tablet Allergies Allergy/AdvReac Type Severity Reaction Status Date / Time No Known Allergies Allergy Verified 10/26/22 10:18 Review of Systems Review of Systems: In addition to documented HPI above, the additional ROS was obtained: Constitutional: No Weight loss, No Fever, No Chills ENT/Mouth: No Ear Pain, No Nasal Congestion, No Sinus Pain, No Hoarseness, No sore throat, No Rhinorrhea, No Swallowing Difficulty Cardiovascular: No Chest Pain, No SOB Respiratory: No Sputum, No Wheezing Gastrointestinal: No Nausea, No Vomiting, No Diarrhea, No Constipation, No Abdominal pain Genitourinary: No Dysuria, No Urinary Frequency, No Hematuria, No Urinary Incontinence/retention, No Urgency, No Flank Pain Musculoskeletal: No joint pain, No Myalgias, No Joint Swelling Skin: No Skin Lesions, No rash Neuro: No Weakness, No Numbness, No Paresthesias Yes all other systems are reviewed and are negative [facility] Past Medical History Attestation statement: The following information was validated with the patient. Source: old records reviewed and obtained from family Medical History Allergic rhinitis Calcification of left breast Cancer of right breast Constipation Diabetes mellitus with hyperglycemia History of COVID-19 Lumbar degenerative disc disease Malignant neoplasm of breast Obesity (BMI 30-39.9) Surgical History History of cataract surgery History of mastectomy Family History Family History Sister Breast cancer Social History Social History Housing: Apartment Alcohol intake: never Patient Tobacco Use Status: Never used Tobacco Smoked in Last 30 Days: No e-Cigarette/Vaping Use: Never Used Second Hand Smoke Exposure: No Advance Directives: No Advance Directives Information Provided: No Patient : No service: No Current occupational status: employed Cognitive needs: No Hearing needs: No Vision needs: Yes Physical Exam Vital Signs: Vital Signs: Last Vital Signs Temp 100.0 F 10/26/22 11:54 Pulse 104 H 10/26/22 13:56 Resp 16 10/26/22 13:56 BP 131/67 10/26/22 13:56 Pulse Ox 100 10/26/22 13:56 O2 Del Method 10/26/22 13:56 BMI result Body Mass Index 32.9 Nursing notes and vital signs reviewed. GENERAL APPEARANCE: A&0 x 4, generally well appearing, no acute distress HENMT: Normal to inspection, atraumatic, face symmetrical. Normal external ears, nose, and oropharynx clear. EYE: PERRLA, EOM intact, structures appear normal NECK: Supple without lymphadenopathy. No stiffness or restricted ROM. CHEST: Normal to inspection HEART: Normal rate and regular rhythm, normal S1/S2, no M/R/G LUNGS: LS CTA, moving air well. Able to speak in complete sentences. No crackles, wheezes, or rhonchi auscultated ABDOMEN: Soft, nontender, nondistended. Normal bowel sounds noted BACK: No CVAT, no obvious deformity EXTREMITIES: Moving all extremities without difficulty. No cyanosis, clubbing, or edema. Normal capillary refill. NEUROLOGICAL: Alert and oriented, moving all 4 extremities with equal strength. CN not formally tested but appearing grossly intact. Observed to ambulate with normal gait. Cognition normal SKIN: Warm and dry without any lesions, rash, or visible sores PSYCH: Cooperative, normal affect, normal thought process Course Course Course Narrative: 1015: Plan to rule in/out RSV, influenza, COVID-19. Chest x-ray to rule in/out pneumonia or cardio pulmonary disease. EKG ordered 1030: EKG sinus tachycardia at 101 BPM, no significant change found when compared to EKG of 10/23/2022 1245: Chest x-ray unremarkable, lungs well expanded and clear, heart size and pulmonary vascularity normal. Medical Decision Making Medical Decision Making [facility] Narrative: 62-year-old Faroese-speaking female with past medical history of allergic rhinitis, COPD (per patient), and DM, presents to the emergency department screw with complaints of chest pain, cough, and sore throat with a red and bilateral weeping eyes. She reports when she woke this morning she had yellow/daair discharge in bilateral eyes with crusting. She denies any foreign body sensation or pain in the eyes. She states she was here on Monday for similar symptoms and tested negative for influenza, COVID, RSV or strep. Mild posterior and pharyngeal erythema noted without tonsillar exudates and patient treated for viral illness versus bronchitis and discharge with benzonatate capsules, Flonase, and Hycodan cough syrup. Patient says she picked up the benzonatate and Flonase and not the Hycodan cough syrup, however; she states she has not had any decrease or relief in symptoms. Serology negative for influenza a/B, RSV, and COVID-19. Chest x-ray unremarkable with no signs of pneumonia. EKG sinus tachycardia with no changes compared to previous EKG done 10/23/2022. History, physical exam, diagnostic testing consistent with bronchitis secondary to upper respiratory infection. Low suspicion for ACS, PE, pneumonia, or costochondritis. Patient is safe for discharge at this time with plan to manage symptoms the [id number] Tylenol and/or cough/cold medication for relief of symptoms. Plan to continue benzonatate capsules, and Flonase as needed. Five-day course of Augmentin ordered for treatment of bronchitis. HPI, PE, diagnostics, and plan discussed with patient and family with no unanswered questions at this time. Discussed with patient that she has an upper respiratory infection, most likely viral and that no prescriptions are needed at this time. Patient educated to return to the emergency department with chest pain, increased shortness of breath, cough lasting greater than 1 week, fever despite taking antipyretics, or any other concerning emergent symptoms. Recommended to follow-up with her primary care provider for further treatment and management. *Refer to Course for additional information on consultations, diagnostic interpretation, consultations, emergency department stay, conversations with patient and family, shared decision making with patient, and more information on medical decision making* Lab Data MDM Lab Attestation statement: I reviewed the patient's lab results. Labs: Lab Results 10/26/22 Range/Units 10:30 Influenza Type A (PCR) NEGATIVE (Negative) Influenza Type B (PCR) NEGATIVE (Negative) RSV RNA Qual (PCR) NEGATIVE (Negative) SARS-CoV-2 RNA (RT-PCR) NEGATIVE (Negative) Independent Interpretation I performed an independent interpretation of an: EKG Interpretation: Have independently reviewed the EKG showing sinus tachycardia with no changes compared to previous EKG done 10/23/2022. No STEMI noted Vent. Rate : 101 BPM ? ? Atrial Rate : 101 BPM ?? P-R Int : 144 ms? QRS Dur : 070 ms ? ? QT Int : 338 ms ? ? ? P-R-T Axes : 038 011 046 degrees ?? QTc Int : 438 ms ? Sinus tachycardia Otherwise normal ECG When compared with ECG of 23-OCT-2022 13:15, No significant change was found Radiology Impression Discussion of test interpretation with radiology: I have reviewed the radiologist's reading. Radiologist Impression: I have independently reviewed the chest x-ray showing no cardiopulmonary disease. EXAMINATION: XR CHEST CLINICAL INFORMATION: Cough x5 days COMPARISON: Chest 10/23/2022 TECHNIQUE: Frontal view of the chest was obtained. FINDINGS: The lungs are well-expanded and clear. The heart size and pulmonary vascularity is normal. There is moderate spondylosis dorsal spine. No aggressive lytic or sclerotic process seen. XR/XR chest 1V IMPRESSION: Unremarkable chest examination. ? Dictated By: Rojelio Min MD Signed By: <Electronically signed by Rojelio Min MD in [place]> 10/26/22 1237 DD/ 1130 TD/TT:? 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 Your chest x-ray is negative for pneumonia.? Your history, physical exam, and diagnostic exams are consistent with bronchitis.? Plan is for a 5 day course of Augmentin, rescue inhaler for shortness of breath, and recommendation to continue benzonatate capsules.? Please use these medications as prescribed. You are safe for discharge at this time with plan to manage symptoms the [id number] Tylenol, Motrin, and/or cough/cold medication for relief of symptoms. Please return to the emergency department with chest pain, increased shortness of breath, worsening cough, fever despite taking antipyretics, or any other concerning emergent symptoms.? Recommended to follow-up with her primary care provider for further treatment and management. Prescriptions: New amoxicillin-pot clavulanate 875-125 mg tablet 1 tab PO BID 5 Days Qty: 10 0RF albuterol sulfate 90 mcg/actuation aerosol powdr breath activated 1 inh inhalation Q4-6H PRN (Reason: shortness of breath) Qty: 1 0RF No Action benzonatate 100 mg capsule 100 mg PO TID PRN (Reason: cough) Qty: 14 0RF fluticasone propionate [Flonase Allergy Relief] 50 mcg/actuation spray,suspension 2 spray intranasal DAILY Qty: 16 0RF Rx Instructions: administer into each nostril hydrocodone-homatropine [Hycodan] 5-1.5 mg/5 mL (5 mL) syrup 5 ml PO Q4-6H PRN (Reason: cough) 3 Days Qty: 60 0RF Rx Instructions: Partial Fill upon patient request. (DME) blood-glucose meter [Blood Glucose Monitoring] Kit See Rx Instructions miscellaneous .MEDSUPPLY Qty: 1 0RF Rx Instructions: As directed (DME) ReliOn Prime Test Strips Strip See Rx Instructions miscellaneous .MEDSUPPLY Qty: 100 0RF Rx Instructions: As directed (DME) lancets 26 gauge misc See Rx Instructions miscellaneous .MEDSUPPLY Qty: 100 0RF Rx Instructions: As directed Lantus Solostar U-100 Insulin 100 unit/mL (3 mL) insulin pen 20 unit subcut BEDTIME 30 Days Qty: 6 3RF cetirizine 10 mg tablet 10 mg PO DAILY PRN (Reason: allergy symptoms) 90 Days Qty: 90 1RF glimepiride 1 mg tablet 1 mg PO QAM 90 Days Qty: 90 1RF Rx Instructions: administer with breakfast Tradjenta 5 mg tablet 5 mg PO QAM 90 Days Qty: 90 1RF (DME) pen needle, diabetic [BD Ultra-Fine Beatriz Pen Needle] 32 gauge x 5/32 needle See Rx Instructions .Route Qty: 100 5RF Rx Instructions: As directed once a day trazodone 50 mg tablet 50 mg PO BEDTIME PRN (Reason: sleep) 30 Days Qty: 30 3RF atorvastatin 10 mg tablet 10 mg PO BEDTIME 30 Days Qty: 30 3RF
[2022-10-26 11:32] LABS: Influenza A PCR NEGATIVE (Negative); Influenza B PCR NEGATIVE (Negative); Resp Syncy Virus RNA Qual PCR NEGATIVE (Negative); SARS COV2 PCR INHOUSE NEGATIVE (Negative)
--- NOTE | 2022-10-26 11:35 | PC.NURSE ---
patient primary language Vietnamese . assessed with use of library science professor Felipa mata . heart rate regular at 100 beats per minute . breathing even and unlabored . lungs sounds diminished throughout . dry non productive cough . abdomen soft . positive bowel sounds throughout . portable Chest Xray done at bedside . patient aware of plan of care .
[2022-10-26 11:54] VITALS: BP 166/56; PULSE 104; RESP 16; TEMP 37.8; O2SAT 100
[2022-10-26 13:56] VITALS: BP 131/67; PULSE 104; RESP 16; O2SAT 100
--- NOTE | 2022-10-26 15:22 | PC.NURSE ---
patient discharged with use of administrative services manager . VSS . went over discharge instructions as ordered by provider . patient to follow up with primary care . patient to return to ED if symptoms worsen .no questions at this time .
== END 2022-10-26 15:24 | disposition home or self-care (01) ==
PROVIDERS: Emergency Provider Student in an Organized Health Care Education/Training Program; PCP Internal Medicine
DX: J40 Bronchitis, not specified as acute or chronic (principal); R07.89 Other chest pain; Z20.822 Contact with and (suspected) exposure to COVID-19; Z20.828 Contact with and (suspected) exposure to other viral communicable diseases
CPT/HCPCS: 0241U; 71045; 93005; 99283; 99284

== ENCOUNTER 2022-11-11 11:38 | Emergency (ER) | payer OTHER, SELFPAY ==
--- NOTE | ~2022-11-11 | CT_ITS ---
EXAMINATION: CT ABDOMEN AND PELVIS WITHOUT CONTRAST CLINICAL INFORMATION: Right upper quadrant abdominal COMPARISON: None TECHNIQUE: Multidetector volumetric imaging was performed from the superior aspect of the liver through the pubic symphysis. Sagittal and coronal reformatted images were obtained on the technologist's workstation. This CT examination was performed using dose optimization techniques as appropriate, variously including the following: *Automated exposure control *Adjustment of mA and/or kV according to patient size (this includes techniques or standardized protocols for targeted exams where dose is matched to indication/reason for exam; i.e. extremities or head) *Use of iterative reconstruction technique DLP: 929 mGy-cm FINDINGS: LUNG BASES: Mild bronchial wall thickening at the lung bases. No consolidation. Bilateral breast implants partially visualized, asymmetric in appearance. LIVER, GALLBLADDER, AND BILIARY TREE: The liver is normal in size, shape, and attenuation. No focal hepatic lesion or biliary ductal dilatation is present. Cholecystectomy. PANCREAS: Unremarkable. SPLEEN: Unremarkable. ADRENAL GLANDS: Unremarkable. KIDNEYS AND URETERS: The kidneys are normal in size, shape, and attenuation. No hydronephrosis, hydroureter, or calculi seen. No perinephric stranding. Simple cyst at the upper pole of the left kidney. No specific follow-up recommended. BLADDER: Unremarkable. GASTROINTESTINAL TRACT: The stomach is unremarkable. Normal caliber small bowel. No obstruction. No colonic wall thickening or inflammation. Normal appendix. No free air or free fluid. ABDOMINAL WALL: No significant hernia is appreciated. LYMPH NODES: Normal. VASCULAR: Normal caliber aorta with mild atherosclerotic calcification. PELVIC VISCERA: The uterus and adnexa are unremarkable. OSSEOUS STRUCTURES: No acute or suspicious osseous abnormality. Mild degenerative change throughout the spine. CT/CT abdomen pelvis wo IV con IMPRESSION: 1. No acute findings in the abdomen or pelvis. No inflammatory changes. 2. Bronchial wall thickening at the lung bases could be associated with a small airways process such as asthma or atypical/viral infection. Fleischner guidelines were followed.
--- NOTE | ~2022-11-11 | XR_ITS ---
EXAMINATION: XR CHEST CLINICAL INFORMATION: Cough COMPARISON: 10/26/2022 TECHNIQUE: 2 views of the chest were obtained. FINDINGS: The lungs are well expanded. There is no focal consolidation, edema, or effusion. No pneumothorax. The cardiomediastinal silhouette is within normal limits. No acute osseous abnormality. Degenerative change throughout the spine. XR/XR chest 2V IMPRESSION: Clear lungs.
[2022-11-11 11:43] VITALS: BP 133/83; PULSE 92; RESP 18; TEMP 36.4; O2SAT 97; BMI 32.7
--- NOTE | 2022-11-11 11:43 | ED_ITS ---
HPI - General Adult General Chief complaint: Dyspnea <VELVET Thayer - Last Filed: 11/11/22 11:45> Stated complaint: Sore throat <VELVET Thayer - Last Filed: 11/11/22 11:45> Time Seen by Provider: 11/11/22 13:36 <VELVET Thayer - Last Filed: 11/11/22 11:45> Source: patient <VELVET López Last Filed: 11/11/22 15:21> Mode of arrival: ambulatory <VELVET López Last Filed: 11/11/22 15:21> Limitations: language barrier (Sudanese-speaking) <VELVET López Last Filed: 11/11/22 15:21> History of Present Illness HPI narrative: 62-year-old female with a past medical history of breast cancer in remission, degenerative disc disease, obesity, constipation, allergic rhinitis, COPD and diabetes presenting to the ED with complaints of generalized fatigue/malaise, nasal congestion/rhinorrhea, sore throat, productive cough with yellow/green color sputum with intermittent wheezing/shortness of breath and chest tightness since 10/22/2022. Reports that she was seen here and diagnosed with a viral syndrome on 10/23/2022 and then again on 10/26/2022 although she reports no symptomatic relief in her symptoms continued to persist although not worsened in nature. She reports on 10/26/2022 they gave her course of antibiotics and albuterol inhaler and she took them as prescribed although no symptomatic relief. She reports that now she has hoarseness. She also is complaining of right upper quadrant abdominal pain. Reports that she had her gallbladder removed years ago. She denies any fevers, dizziness, headaches, neck pain/stiffness, trouble swallowing, chest pain, dyspnea on exertion, orthopnea, palpitations, paresthesias, nausea/vomiting, diarrhea constipation, black or bloody stools, radiation of the abdominal pain, flank pain, dysuria, hematuria, abnormal vaginal discharge, recent travel or sick contacts that she is aware of or any other symptoms complaints or concerns at this time. <VELVET López Last Filed: 11/11/22 15:21> MD complaint: URI symptoms and abdominal pain <VELVET López Last Filed: 11/11/22 15:21> Related Data Home medications: Previous Rx's Medication Instructions Recorded blood sugar diagnostic (ReliOn #100 ea 11/19/21 Prime Test Strips) blood-glucose meter (Blood Glucose #1 ea 11/19/21 Monitoring kit) lancets 26 gauge #100 ea 11/19/21 cetirizine 10 mg tablet 10 mg PO DAILY PRN allergy 03/18/22 symptoms 90 days #90 tabs insulin glargine 100 unit/mL (3 20 unit (0.2 mL) subcut BEDTIME 30 03/18/22 mL) subcutaneous pen (Lantus days #6 mL Solostar U-100 Insulin) atorvastatin 10 mg tablet 10 mg PO BEDTIME 30 days #30 tabs 07/08/22 glimepiride 1 mg tablet 1 mg PO QAM 90 days #90 tabs 07/08/22 linagliptin 5 mg tablet (Tradjenta) 5 mg PO QAM 90 days #90 tabs 07/08/22 pen needle, diabetic 32 gauge x #100 ea 07/08/2232 (BD Ultra-Fine Beatriz Pen Needle) trazodone 50 mg tablet 50 mg PO BEDTIME PRN sleep 30 days 07/08/22 #30 tabs benzonatate 100 mg capsule 100 mg PO TID PRN cough #14 caps 10/23/22 fluticasone propionate 50 2 spray intranasal DAILY #16 grams 10/23/22 mcg/actuation nasal spray,suspension (Flonase Allergy Relief) hydrocodone-homatropine 5 mg-1.5 5 ml PO Q4-6H PRN cough 3 days #60 10/23/22 mg/5 mL (5 mL) oral syrup (Hycodan) mL albuterol sulfate 90 mcg/actuation 1 inh inhalation Q4-6H PRN 10/26/22 breath activated powder inhaler shortness of breath #1 ea amoxicillin 875 mg-potassium 1 tab PO BID 5 days #10 tabs 10/26/22 clavulanate 125 mg tablet benzonatate 100 mg capsule 100 mg PO TID PRN cough #14 caps 10/26/22 erythromycin 5 mg/gram (0.5 %) eye 0.5 inch ophthalmic (eye) TID #3.5 10/26/22 ointment grams albuterol sulfate 90 mcg/actuation 1 inh inhalation QID PRN shortness 11/11/22 aerosol inhaler of breath or wheezing #8.5 grams azithromycin 250 mg tablet See Rx Instructions PO .COMPLEX #6 11/11/22 tabs codeine 10 mg-guaifenesin 100 mg/5 5 ml PO Q6H PRN cold symptoms #120 11/11/22 mL oral liquid (Guaifenesin AC) mL prednisone 20 mg tablet 40 mg PO DAILY inflammation 5 days 11/11/22 #10 tabs <VELVET Thayer - Last Filed: 11/11/22 11:45> Allergies/adverse reactions: Allergies Allergy/AdvReac Type Severity Reaction Status Date / Time No Known Allergies Allergy Verified 10/26/22 10:18 <VELVET Thayer - Last Filed: 11/11/22 11:45> Review of Systems Review of Systems: Constitutional : + generalize malaise/fatigue, No Weight loss, No Fever, No Chills, No Night Sweats ENT/Mouth : + sore throat/nasal congestion/rhinorrhea, No Hearing loss, No Ear Pain, No Sinus Pain, No Hoarseness, No Swallowing Difficulty Eyes: No Eye Pain, No Swelling, No Redness, No Foreign Body, No Discharge, No Vision Changes Cardiovascular : No Chest Pain, + SOB, No Dyspnea on Exertion, No Orthopnea, No Edema, No Palpitations Respiratory : + Cough, + Sputum, + Wheezing, No Smoke Exposure, + Dyspnea Gastrointestinal : No Nausea, No Vomiting, No Diarrhea, No Constipation, + abdominal Pain, No Hematochezia, No Melena Genitourinary : no irregular bleeding, No Dysuria, No Urinary Frequency, No Hematuria, No Urinary Incontinence, No Urgency, No Flank Pain, No Urinary Flow Changes, No Hesitancy Musculoskeletal : No joint pain, + Myalgias, No Joint Swelling Skin : No Skin Lesions, No rash Neuro : No Weakness, No Numbness, No Paresthesias, No Loss of Consciousness, No Dizziness, No Headache Psych : No Anxiety/Panic, No Depression, No SI/HI/AH/VH, No Social Issues, Heme/Lymph: No Bruising, No Bleeding,No Lymphadenopathy Endocrine : No Polyuria, No Polydipsia, No Temperature Intolerance <VELVET López - Last Filed: 11/11/22 15:21> Yes all other systems are reviewed and are negative <VELVET López - Last Filed: 11/11/22 15:21> [facility] Past Medical History Attestation statement: The following information was validated with the patient. <VELVET López - Last Filed: 11/11/22 15:21> Source: old records reviewed and nursing notes reviewed <VELVET López - Last Filed: 11/11/22 15:21> Medical History: Medical History Allergic rhinitis Calcification of left breast Cancer of right breast Constipation Diabetes mellitus with hyperglycemia History of COVID-19 Lumbar degenerative disc disease Malignant neoplasm of breast Obesity (BMI 30-39.9) <VELVET Thayer - Last Filed: 11/11/22 11:45> Surgical History: Surgical History History of cataract surgery History of mastectomy <VELVET Thayer - Last Filed: 11/11/22 11:45> Family History Family History: Family History Sister Breast cancer <VELVET Thayer - Last Filed: 11/11/22 11:45> Social History Social History: Social History Housing: Apartment Alcohol intake: never Patient Tobacco Use Status: Never used Tobacco e-Cigarette/Vaping Use: Never Used Second Hand Smoke Exposure: No Advance Directives: No Advance Directives Information Provided: No service: No Current occupational status: employed Cognitive needs: No Hearing needs: No Vision needs: Yes <VELVET Thayer - Last Filed: 11/11/22 11:45> Physical Exam ED Vital Signs: Vital Signs - 24 hr 11/11/22 11:43 Temperature 97.5 F Pulse Rate 92 Respiratory Rate 18 Blood Pressure 133/83 Pulse Oximetry 97 Oxygen Delivery Method Room Air BMI result Body Mass Index 32.7 <VELVET Thayer - Last Filed: 11/11/22 11:45> Vital Signs - 24 hr 11/11/22 11:43 Temperature 97.5 F Pulse Rate 92 Respiratory Rate 18 Blood Pressure 133/83 Pulse Oximetry 97 Oxygen Delivery Method Room Air BMI result Body Mass Index 32.7 Vital signs have been reviewed and all within normal limits <VELVET López - Last Filed: 11/11/22 15:21> Appearance: Alert. Oriented X3. No acute distress. Head: Normal external exam. Normocephalic. Eyes: PERRLA. EOMI. Conjunctiva and sclera normal. Eyelids normal. ENT: Tympanic membranes within normal limits. External ear canal within normal limits. Pharynx normal. Uvula midline. Moist mucous membranes. No trismus noted. No drooling noted. No muffled voice noted. Patient with hoarseness. Neck: Normal inspection. Neck supple. FROM. No adenopathy. No meningeal signs. CVS: Normal heart rate and rhythm. Heart sound normal. No murmurs noted. Pulses normal throughout. Respiratory: No respiratory distress. Painless inspiration. Breath sounds normal. No wheezes/rales/rhonchi noted. Chest nontender. No accessory muscle usage noted or decreased air movement noted. Abdomen: Soft and mild tenderness to palpation to right upper quadrant. Nondistended. No guarding. No rigidity. Bowel sounds normal in all 4 quadrants. No distention noted. No organomegaly noted. No visible injury noted. No rebound tenderness. Negative Rovsing sign. Negative obturator's sign. Negative psoas sign. Negative [place] sign. Back: No CVA tenderness. Full range of motion noted. Skin: Skin warm and dry. Normal skin color. Normal skin turgor. No rashes/lesions/lacerations noted. Extremities: Extremities exhibit normal range of motion. Extremities nontender. Neuro: Oriented X 3. No motor deficit. No sensory deficit. Reflexes normal. Normal steady gait. CN's II-XII intact bilaterally? <VELVET López - Last Filed: 11/11/22 15:21> Course Course Course Narrative: RME performed by Lolly Tellez PA-C. Patient is a 62 year old female presenting to the emergency department with a sore throat, cough, and feeling generally unwell. Patient states that she has been here twice for this issue and it does not seem to be getting better. Labs ordered. Patient placed back in the waiting room pending room availability. <VELVET Thayer - Last Filed: 11/11/22 11:45> Reevaluation(s) Reevaluation #1: 62-year-old female with a past medical history of breast cancer in remission, degenerative disc disease, obesity, constipation, allergic rhinitis, COPD and diabetes presenting to the ED with complaints of generalized fatigue/malaise, nasal congestion/rhinorrhea, sore throat, productive cough with yellow/green color sputum with intermittent wheezing/shortness of breath and chest tightness since 10/22/2022. Reports that she was seen here and diagnosed with a viral syndrome on 10/23/2022 and then again on 10/26/2022 although she reports no symptomatic relief in her symptoms continued to persist although not worsened in nature. She reports on 10/26/2022 they gave her course of antibiotics and albuterol inhaler and she took them as prescribed although no symptomatic relief. She reports that now she has hoarseness. She also is complaining of right upper quadrant abdominal pain. Labs reviewed and BUN 21. Random glucose 227. Alkaline phosphate 157. Otherwise all other labs are within normal limits. Respiratory panel still pending at this time although patient has been negative for COVID/RSV/flu twice in the past month. Chest x-ray within normal limits no acute processes are noted. Abdominal CT negative for any acute processes although reviewed bronchial wall thickening at the lung bases which could be related with small airway process such as asthma or atypical/viral infection. Therefore at this time patient will be discharged with antibiotics and steroids and cough medicine for bronchitis with instructions to follow-up with PCP and to return if any new or worsening symptoms patient understands agrees with this plan. <VELVET López - Last Filed: 11/11/22 15:21> Time: 15:16 <VELVET López - Last Filed: 11/11/22 15:21> Medical Decision Making Lab Data MDM Lab Attestation statement: I reviewed the patient's lab results. <VELVET López - Last Filed: 11/11/22 15:21> Result Diagrams: 11/11/22 11:51 11/11/22 11:51 <VELVET Thayer - Last Filed: 11/11/22 11:45> Labs: Lab Results 11/11/22 11/11/22 Range/Units 11:51 11:51 WBC 10.6 (4.8-10.8) X10*3/uL RBC 4.78 (4.20-5.50) X10*6/uL Hgb 12.2 (12.0-16.0) g/dl Hct 37.1 (37.0-47.0) % MCV 77.6 L (80.0-98.0) fL MCH 25.5 L (27.0-33.0) pg MCHC 32.9 (31.0-35.0) g/dl RDW 14.4 (11.0-16.0) % Plt Count 344 D (160-400) X10*3/uL MPV 9.9 (9.4-12.3) fL Immature Gran % (Auto) 0.3 (0.0-0.4) % Neut % (Auto) 55.7 (45-73) % Lymph % (Auto) 33.6 (20-40) % [place] % (Auto) 7.4 (2-11) % Eos % (Auto) 2.4 (0-4) % Baso % (Auto) 0.6 (0-2) % Lymph # (Auto) 3.6 (1.2-4.9) X10*3/uL [place] # (Auto) 0.8 (0.1-1.2) X10*3/uL Eos # (Auto) 0.3 (0.0-0.4) X10*3/uL Baso # (Auto) 0.1 (0.0-0.2) X10*3/uL Abs Immat Gran (auto) 0.03 (0.00-0.03) X10*3/uL Absolute Neuts (auto) 5.9 (2.0-8.3) x10*3/uL Absolute Nucleated RBC 0.000 (0.0-0.012) X10*3/uL Nucleated RBC % (auto) 0.0 (0.0-0.2) /100WBC Sodium 138 (135-145) mmol/L Potassium 4.5 (3.3-5.1) mmol/L Chloride 104 (96-108) mmol/L Carbon Dioxide 25 (22-29) mmol/L Anion Gap 14 (12-20) BUN 21 H (9-16) mg/dL Creatinine 1.32 (0.5-1.4) mg/dL Estim Creat Clear Calc 44.1 Estimated GFR 41 Random Glucose 227 H (60-115) mg/dL Calcium 9.6 (8.4-10.2) mg/dL Magnesium 1.9 (1.6-2.6) mg/dL Total Bilirubin 0.3 (0.0-1.0) mg/dL AST 15 (5-31) U/L ALT 14 (0-31) U/L Alkaline Phosphatase 157 H (39-117) U/L Total Protein 8.1 H (6.5-8.0) g/dL Albumin 3.8 (3.5-5.0) g/dL Lipase 19 (8-78) U/L <VELVET Thayer - Last Filed: 11/11/22 11:45> Lab Results 11/11/22 11/11/22 Range/Units 11:51 11:51 WBC 10.6 (4.8-10.8) X10*3/uL RBC 4.78 (4.20-5.50) X10*6/uL Hgb 12.2 (12.0-16.0) g/dl Hct 37.1 (37.0-47.0) % MCV 77.6 L (80.0-98.0) fL MCH 25.5 L (27.0-33.0) pg MCHC 32.9 (31.0-35.0) g/dl RDW 14.4 (11.0-16.0) % Plt Count 344 D (160-400) X10*3/uL MPV 9.9 (9.4-12.3) fL Immature Gran % (Auto) 0.3 (0.0-0.4) % Neut % (Auto) 55.7 (45-73) % Lymph % (Auto) 33.6 (20-40) % [place] % (Auto) 7.4 (2-11) % Eos % (Auto) 2.4 (0-4) % Baso % (Auto) 0.6 (0-2) % Lymph # (Auto) 3.6 (1.2-4.9) X10*3/uL [place] # (Auto) 0.8 (0.1-1.2) X10*3/uL Eos # (Auto) 0.3 (0.0-0.4) X10*3/uL Baso # (Auto) 0.1 (0.0-0.2) X10*3/uL Abs Immat Gran (auto) 0.03 (0.00-0.03) X10*3/uL Absolute Neuts (auto) 5.9 (2.0-8.3) x10*3/uL Absolute Nucleated RBC 0.000 (0.0-0.012) X10*3/uL Nucleated RBC % (auto) 0.0 (0.0-0.2) /100WBC Sodium 138 (135-145) mmol/L Potassium 4.5 (3.3-5.1) mmol/L Chloride 104 (96-108) mmol/L Carbon Dioxide 25 (22-29) mmol/L Anion Gap 14 (12-20) BUN 21 H (9-16) mg/dL Creatinine 1.32 (0.5-1.4) mg/dL Estim Creat Clear Calc 44.1 Estimated GFR 41 Random Glucose 227 H (60-115) mg/dL Calcium 9.6 (8.4-10.2) mg/dL Magnesium 1.9 (1.6-2.6) mg/dL Total Bilirubin 0.3 (0.0-1.0) mg/dL AST 15 (5-31) U/L ALT 14 (0-31) U/L Alkaline Phosphatase 157 H (39-117) U/L Total Protein 8.1 H (6.5-8.0) g/dL Albumin 3.8 (3.5-5.0) g/dL Lipase 19 (8-78) U/L <VELVET López - Last Filed: 11/11/22 15:21> Independent Interpretation I performed an independent interpretation of an: Plain X-Ray and CT Scan <VELVET López - Last Filed: 11/11/22 15:21> Interpretation: FINDINGS: LUNG BASES: Mild bronchial wall thickening at the lung bases. No consolidation. Bilateral breast implants partially visualized, asymmetric in appearance.? LIVER, GALLBLADDER, AND BILIARY TREE: The liver is normal in size, shape, and attenuation. No focal hepatic lesion or biliary ductal dilatation is present. Cholecystectomy.? PANCREAS: Unremarkable.? SPLEEN: Unremarkable.? ADRENAL GLANDS: Unremarkable.? KIDNEYS AND URETERS: The kidneys are normal in size, shape, and attenuation. No hydronephrosis, hydroureter, or calculi seen. No perinephric stranding. Simple cyst at the upper pole of the left kidney. No specific follow-up recommended.? BLADDER: Unremarkable.? GASTROINTESTINAL TRACT: The stomach is unremarkable. Normal caliber small bowel. No obstruction. No colonic wall thickening or inflammation. Normal appendix. No free air or free fluid.? ABDOMINAL WALL: No significant hernia is appreciated.? LYMPH NODES: Normal. VASCULAR: Normal caliber aorta with mild atherosclerotic calcification. PELVIC VISCERA: The uterus and adnexa are unremarkable.? OSSEOUS STRUCTURES: No acute or suspicious osseous abnormality. Mild degenerative change throughout the spine.? CT/CT abdomen pelvis wo IV con IMPRESSION: 1.? No acute findings in the abdomen or pelvis. No inflammatory changes. 2.? Bronchial wall thickening at the lung bases could be associated with a small airways process such as asthma or atypical/viral infection. ? Fleischner guidelines were followed. FINDINGS: The lungs are well expanded. There is no focal consolidation, edema, or effusion. No pneumothorax. The cardiomediastinal silhouette is within normal limits. No acute osseous abnormality. Degenerative change throughout the spine. XR/XR chest 2V IMPRESSION: Clear lungs. <VELVET López - Last Filed: 11/11/22 15:21> Radiology Impression Discussion of test interpretation with radiology: I have reviewed the radiologist's reading. <VELVET López - Last Filed: 11/11/22 15:21> External Record Review External record reviewed: Inpatient record, Office record, Outpatient record, Prior outpatient labs, Prior outpatient radiology, Primary care record and Outside ED record <VELVET López Last Filed: 11/11/22 15:21> Prescription Management I considered prescription management with: Antibiotic <VELVET López Last Filed: 11/11/22 15:21> Chronic Conditions Patient?s care impacted by: Diabetes <VELVET López Last Filed: 11/11/22 15:21> Discharge Plan Discharge Clinical Impression: Abdominal pain of unknown cause, Acute bronchitis with bronchospasm <VELVET Thayer - Last Filed: 11/11/22 11:45> Patient Disposition: Home, Self-Care <VELVET Thayer - Last Filed: 11/11/22 11:45> Prescriptions: New azithromycin 250 mg tablet See Rx Instructions .ROUTE .COMPLEX Qty: 6 0RF Rx Instructions: take 500 mg today (day 1), then 250 mg for 4 days (days 2-5) codeine-guaifenesin [Guaifenesin AC] 10-100 mg/5 mL liquid 5 ml PO Q6H PRN (Reason: cold symptoms) Qty: 120 0RF albuterol sulfate 90 mcg/actuation HFA aerosol inhaler 1 inh inhalation QID PRN (Reason: shortness of breath or wheezing) Qty: 8.5 0RF prednisone 20 mg tablet 40 mg PO DAILY 5 Days Qty: 10 0RF No Action benzonatate 100 mg capsule 100 mg PO TID PRN (Reason: cough) Qty: 14 0RF fluticasone propionate [Flonase Allergy Relief] 50 mcg/actuation spray,suspension 2 spray intranasal DAILY Qty: 16 0RF Rx Instructions: administer into each nostril hydrocodone-homatropine [Hycodan] 5-1.5 mg/5 mL (5 mL) syrup 5 ml PO Q4-6H PRN (Reason: cough) 3 Days Qty: 60 0RF Rx Instructions: Partial Fill upon patient request. amoxicillin-pot clavulanate 875-125 mg tablet 1 tab PO BID 5 Days Qty: 10 0RF albuterol sulfate 90 mcg/actuation aerosol powdr breath activated 1 inh inhalation Q4-6H PRN (Reason: shortness of breath) Qty: 1 0RF erythromycin 5 mg/gram (0.5 %) ointment 0.5 inch ophthalmic (eye) TID Qty: 3.5 0RF benzonatate 100 mg capsule 100 mg PO TID PRN (Reason: cough) Qty: 14 0RF (DME) blood-glucose meter [Blood Glucose Monitoring] Kit See Rx Instructions miscellaneous .MEDSUPPLY Qty: 1 0RF Rx Instructions: As directed (DME) ReliOn Prime Test Strips Strip See Rx Instructions miscellaneous .MEDSUPPLY Qty: 100 0RF Rx Instructions: As directed (DME) lancets 26 gauge misc See Rx Instructions miscellaneous .MEDSUPPLY Qty: 100 0RF Rx Instructions: As directed Lantus Solostar U-100 Insulin 100 unit/mL (3 mL) insulin pen 20 unit subcut BEDTIME 30 Days Qty: 6 3RF cetirizine 10 mg tablet 10 mg PO DAILY PRN (Reason: allergy symptoms) 90 Days Qty: 90 1RF glimepiride 1 mg tablet 1 mg PO QAM 90 Days Qty: 90 1RF Rx Instructions: administer with breakfast Tradjenta 5 mg tablet 5 mg PO QAM 90 Days Qty: 90 1RF (DME) pen needle, diabetic [BD Ultra-Fine Beatriz Pen Needle] 32 gauge x 5/32 needle See Rx Instructions .Route Qty: 100 5RF Rx Instructions: As directed once a day trazodone 50 mg tablet 50 mg PO BEDTIME PRN (Reason: sleep) 30 Days Qty: 30 3RF atorvastatin 10 mg tablet 10 mg PO BEDTIME 30 Days Qty: 30 3RF <VELVET Thayer - Last Filed: 11/11/22 11:45> Referrals: Mehrdad Chavez MD [Primary Care Provider] - 1 day <VELVET Thayer - Last Filed: 11/11/22 11:45> Print Language: Sudanese <VELVET Thayer - Last Filed: 11/11/22 11:45>
[2022-11-11 11:55] LABS: MANUAL DIFF FLAG NO
[2022-11-11 11:58] LABS: Basophils Absolute Auto 0.1 X10*3/uL (0.0-0.2); Basophils Percent Auto 0.6 % (0-2); Eosinophils Absolute Auto 0.3 X10*3/uL (0.0-0.4); Eosinophils Percent Auto 2.4 % (0-4); Hematocrit 37.1 % (37.0-47.0); Hemoglobin 12.2 g/dl (12.0-16.0); Imm Gran Abs Auto 0.03 X10*3/uL (0.00-0.03); Imm Gran Pct Auto 0.3 % (0.0-0.4); Lymphocytes Absolute Auto 3.6 X10*3/uL (1.2-4.9); Lymphocytes Percent Auto 33.6 % (20-40); Mean Corpuscular HGB Conc 32.9 g/dl (31.0-35.0); Mean Corpuscular Hemoglobin 25.5 pg (27.0-33.0); Mean Corpuscular Volume 77.6 fL (80.0-98.0); Mean Platelet Volume 9.9 fL (9.4-12.3); Monocytes Absolute Auto 0.8 X10*3/uL (0.1-1.2); Monocytes Percent Auto 7.4 % (2-11); Neutrophils Absolute Auto 5.9 x10*3/uL (2.0-8.3); Neutrophils Percent Auto 55.7 % (45-73); Platelet Count 344 X10*3/uL (160-400); Red Blood Count 4.78 X10*6/uL (4.20-5.50); Red Cell Distribution Width 14.4 % (11.0-16.0); White Blood Count 10.6 X10*3/uL (4.8-10.8)
[2022-11-11 12:13] LABS: Alanine Aminotransferase 14 U/L (0-31); Albumin Level 3.8 g/dL (3.5-5.0); Alkaline Phosphatase 157 U/L (39-117); Anion Gap 14 (12-20); Aspartate Amino Transferase 15 U/L (5-31); Bilirubin Total 0.3 mg/dL (0.0-1.0); Blood Urea Nitrogen 21 mg/dL (9-16); Calcium 9.6 mg/dL (8.4-10.2); Carbon Dioxide 25 mmol/L (22-29); Chloride 104 mmol/L (96-108); Creatinine Clr Calc Pharmacy 44.1; Estimated Glomerular Filt Rate 41; Glucose Random 227 mg/dL (60-115); Potassium 4.5 mmol/L (3.3-5.1); Sodium 138 mmol/L (135-145); Total Protein 8.1 g/dL (6.5-8.0)
[2022-11-11 14:27] LABS: Lipase 19 U/L (8-78); Magnesium 1.9 mg/dL (1.6-2.6)
[2022-11-11 15:21] LABS: Adenovirus PCR Not Detected (Not Detect.); Bordetella parapertussis PCR Not Detected (Not Detect.); Bordetella pertussis PCR Not Detected (Not Detect.); Chlamydia pneumoniae PCR Not Detected (Not Detect.); Coronavirus 229E PCR Not Detected (Not Detect.); Coronavirus HKU1 PCR Not Detected (Not Detect.); Coronavirus NL63 PCR Not Detected (Not Detect.); Coronavirus OC43 PCR Not Detected (Not Detect.); Human metapneumovirus PCR Not Detected (Not Detect.); Influenza A PCR Not Detected (Not Detect.); Influenza B PCR Not Detected (Not Detect.); Rhino/Enterovirus PCR Not Detected (Not Detect.); SARS-CoV-2 PCR Not Detected (Not Detect.)
[2022-11-11 15:22] LABS: Mycoplasma pneumoniae PCR Not Detected (Not Detect.); Parainfluenza 1 PCR Not Detected (Not Detect.); Parainfluenza 2 PCR Not Detected (Not Detect.); Parainfluenza 3 PCR Not Detected (Not Detect.); Parainfluenza 4 PCR Not Detected (Not Detect.); RSV PCR Not Detected (Not Detect.)
== END 2022-11-11 15:26 | disposition home or self-care (01) ==
PROVIDERS: Physician Assistant Medical; Emergency Provider Student in an Organized Health Care Education/Training Program; PCP Internal Medicine
DX: J20.9 Acute bronchitis, unspecified (principal); R10.11 Right upper quadrant pain; Z20.822 Contact with and (suspected) exposure to COVID-19; E11.9 Type 2 diabetes mellitus without complications; E78.5 Hyperlipidemia, unspecified; E66.9 Obesity, unspecified; Z68.32 Body mass index [BMI] 32.0-32.9, adult; Z79.4 Long term (current) use of insulin; Z79.899 Other long term (current) drug therapy; Z79.02 Long term (current) use of antithrombotics/antiplatelets
CPT/HCPCS: 36415; 71046; 74176; 80053; 83690; 83735; 85025; 87633; 99282; 99284

== ENCOUNTER 2022-11-21 11:36 | Outpatient (REF) | payer OTHER, SELFPAY ==
[2022-11-21 12:01] LABS: MANUAL DIFF FLAG NO
[2022-11-21 12:29] LABS: Basophils Percent Auto 0.3 % (0-2); Eosinophils Absolute Auto 0.4 X10*3/uL (0.0-0.4); Eosinophils Percent Auto 4.7 % (0-4); Hematocrit 39.2 % (37.0-47.0); Hemoglobin 12.6 g/dl (12.0-16.0); Imm Gran Abs Auto 0.03 X10*3/uL (0.00-0.03); Imm Gran Pct Auto 0.3 % (0.0-0.4); Lymphocytes Absolute Auto 2.9 X10*3/uL (1.2-4.9); Lymphocytes Percent Auto 32.1 % (20-40); Mean Corpuscular HGB Conc 32.1 g/dl (31.0-35.0); Mean Corpuscular Hemoglobin 25.5 pg (27.0-33.0); Mean Corpuscular Volume 79.4 fL (80.0-98.0); Mean Platelet Volume 10.2 fL (9.4-12.3); Neutrophils Absolute Auto 4.6 x10*3/uL (2.0-8.3); Neutrophils Percent Auto 51.6 % (45-73); Platelet Count 281 X10*3/uL (160-400); Red Blood Count 4.94 X10*6/uL (4.20-5.50); Red Cell Distribution Width 14.7 % (11.0-16.0); White Blood Count 8.9 X10*3/uL (4.8-10.8)
[2022-11-21 12:53] LABS: Estimated Average Glucose 203 mg/dL; Hemoglobin A1c % 8.7 %
[2022-11-21 12:58] LABS: Alanine Aminotransferase 28 U/L (0-31); Albumin Level 3.7 g/dL (3.5-5.0); Alkaline Phosphatase 129 U/L (39-117); Anion Gap 15 (12-20); Aspartate Amino Transferase 16 U/L (5-31); Bilirubin Total 0.6 mg/dL (0.0-1.0); Blood Urea Nitrogen 13 mg/dL (9-16); Calcium 9.5 mg/dL (8.4-10.2); Carbon Dioxide 27 mmol/L (22-29); Chloride 105 mmol/L (96-108); Cholesterol 213 mg/dL; Estimated Glomerular Filt Rate 53; Glucose Fasting 179 mg/dL (60-99); HDL Cholesterol 51 mg/dL; LDL Cholesterol Calculated 120 mg/dl; Sodium 142 mmol/L (135-145); Total Protein 7.3 g/dL (6.5-8.0); Triglycerides 212 mg/dL
[2022-11-21 13:16] LABS: TSH reflex Free T4 2.95 uIU/mL (0.32-4.0); Vitamin D 25-OH Total 16.5 ng/mL (>30)
[2022-11-21 14:49] LABS: Appearance Urine Clear; Color Urine Yellow; Glucose Urine UA Negative (Negative); Leukocyte Esterase Urine Negative (Negative); Nitrite Urine Negative (Negative); Specific Gravity - Urine 1.015 (1.005-1.025); Urine Blood Negative (Negative); Urine Ketones Negative (Negative); Urine Protein Negative (Neg-Trace)
[2022-11-21 15:34] LABS: Creatinine Urine 110.18 mg/dL; Microalbum/Creatinine Ratio Ur 26.3 ug/mg cr
== END 2022-11-21 11:37 | disposition home or self-care (01) ==
LOC: HO.LAB 11:36
PROVIDERS: PCP Internal Medicine; Visit Provider Internal Medicine
DX: E11.9 Type 2 diabetes mellitus without complications (principal); E55.9 Vitamin D deficiency, unspecified; I10 Essential (primary) hypertension; E78.00 Pure hypercholesterolemia, unspecified
CPT/HCPCS: 36415; 80053; 80061; 81003; 82043; 82306; 83036; 84443; 85025

== ENCOUNTER 2022-12-15 11:15 | Emergency (ER) | payer OTHER, SELFPAY ==
--- NOTE | ~2022-12-15 | XR_ITS ---
EXAMINATION: XR CHEST CLINICAL INFORMATION: Shortness of breath. COMPARISON: 11/11/2022 chest radiographs. TECHNIQUE: 2 views of the chest were obtained. FINDINGS: No significant abnormality is noted involving the heart, lungs, mediastinum, bony thorax or soft tissues. XR/XR chest 2V IMPRESSION: No acute cardiopulmonary process.
[2022-12-15 11:23] VITALS: BP 138/79; PULSE 111; RESP 20; TEMP 36.6; O2SAT 95; BMI 33.3
--- NOTE | 2022-12-15 11:25 | ED.GENADULT ---
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 Patient denies any sick contacts. Denies history of asthma or COPD. She has been using albuterol inhaler without any relief. Patient was seen on November 11 for similar symptoms and was treated with azithromycin, prednisone, guaifenesin with codeine, prednisone and inhaler. <VELVET Ford - Last Filed: 12/15/22 15:57> Onset (ago): day(s) <VELVET Ford - Last Filed: 12/15/22 15:57> Radiation: non-radiation <VELVET Ford - Last Filed: 12/15/22 15:57> Pain Consistency: intermittent <VELVET Ford Last Filed: 12/15/22 15:57> Relieving factors: none <VELVET Ford Last Filed: 12/15/22 15:57> Exacerbating factors: none <VELVET Ford Last Filed: 12/15/22 15:57> Associated symptoms: cough, fever/chills and headaches <VELVET Ford Last Filed: 12/15/22 15:57> Treatments prior to arrival: none <VELVET Ford - Last Filed: 12/15/22 15:57> Related Data Home medications: Home Medications Medication Instructions Recorded Confirmed omeprazole 20 mg capsule,delayed 20 mg PO DAILY 11/25/22 11/25/22 release Previous Rx's Medication Instructions Recorded blood sugar diagnostic (ReliOn #100 ea 11/19/21 Prime Test Strips) lancets 26 gauge #100 ea 11/19/21 cetirizine 10 mg tablet 10 mg PO DAILY PRN allergy 03/18/22 symptoms 90 days #90 tabs pen needle, diabetic 32 gauge x #100 ea 07/08/2232 (BD Ultra-Fine Beatriz Pen Needle) trazodone 50 mg tablet 50 mg PO BEDTIME PRN sleep 30 days 07/08/22 #30 tabs fluticasone propionate 50 2 spray intranasal DAILY #16 grams 10/23/22 mcg/actuation nasal spray,suspension (Flonase Allergy Relief) albuterol sulfate 90 mcg/actuation 1 inh inhalation Q4-6H PRN 10/26/22 breath activated powder inhaler shortness of breath #1 ea erythromycin 5 mg/gram (0.5 %) eye 0.5 inch ophthalmic (eye) TID #3.5 10/26/22 ointment grams albuterol sulfate 90 mcg/actuation 1 inh inhalation QID PRN shortness 11/11/22 aerosol inhaler of breath or wheezing #8.5 grams atorvastatin 10 mg tablet 10 mg PO BEDTIME 30 days #30 tabs 11/25/22 benzonatate 100 mg capsule 100 mg PO TID PRN cough #14 caps 11/25/22 blood-glucose meter (Blood Glucose #1 ea 11/25/22 Monitoring kit) cholecalciferol (vitamin D3) 50 50 mcg PO DAILY #90 tabs 11/25/22 mcg (2,000 unit) tablet glimepiride 1 mg tablet 1 mg PO QAM 90 days #90 tabs 11/25/22 insulin glargine 100 unit/mL (3 20 unit (0.2 mL) subcut BEDTIME 30 11/25/22 mL) subcutaneous pen (Lantus days #6 mL Solostar U-100 Insulin) linagliptin 5 mg tablet (Tradjenta) 5 mg PO QAM 90 days #90 tabs 11/25/22 azithromycin 250 mg tablet See Rx Instructions PO .COMPLEX #6 12/15/22 (Zithromax Z-Tj) tabs benzonatate 100 mg capsule 100 mg PO TID PRN cough #30 caps 12/15/22 hydrocodone-homatropine 5 mg-1.5 5 ml PO Q4-6H PRN cough #60 mL 12/15/22 mg/5 mL oral syrup prednisone 20 mg tablet 40 mg PO DAILY #8 tabs 12/15/22 <Bridger Chopra - Last Filed: 12/15/22 11:32> Allergies/adverse reactions: Allergies Allergy/AdvReac Type Severity Reaction Status Date / Time No Known Allergies Allergy Verified 11/25/22 10:34 <Bridger Chopra - Last Filed: 12/15/22 11:32> [facility] Past Medical History Medical History: Medical History (Updated 12/15/22 @ 14:45 by VELVET Ford) Allergic rhinitis Calcification of left breast Cancer of right breast Constipation COVID-19 Diabetes mellitus with hyperglycemia History of COVID-19 Lumbar degenerative disc disease Malignant neoplasm of breast Obesity (BMI 30-39.9) <Bridger Chopra - Last Filed: 12/15/22 11:32> Surgical History: Surgical History History of cataract surgery History of mastectomy <Bridger Chopra - Last Filed: 12/15/22 11:32> Family History Family History: Family History Sister Breast cancer <Bridger Chopra - Last Filed: 12/15/22 11:32> Social History Social History: Social History Housing: Apartment Alcohol intake: never Patient Tobacco Use Status: Never used Tobacco e-Cigarette/Vaping Use: Never Used Second Hand Smoke Exposure: No Advance Directives: No service: No Current occupational status: employed Cognitive needs: No Hearing needs: No Vision needs: Yes <Bridger Chopra - Last Filed: 12/15/22 11:32> Physical Exam ED Vital Signs: Vital Signs - 24 hr 12/15/22 11:23 12/15/22 12:25 12/15/22 13:00 Temperature 97.8 F Pulse Rate 111 H 111 H 108 H Respiratory Rate 20 20 20 Blood Pressure 138/79 Pulse Oximetry 95 Oxygen Delivery Method Room Air Oxygen Flow Rate 12/15/22 13:37 Temperature 98.3 F Pulse Rate 109 H Respiratory Rate 18 Blood Pressure 117/61 Pulse Oximetry 100 Oxygen Delivery Method Simple Mask Oxygen Flow Rate 5 BMI result Body Mass Index 33.3 <Bridger Chopra - Last Filed: 12/15/22 11:32> Vital Signs - 24 hr 12/15/22 11:23 12/15/22 12:25 12/15/22 13:00 Temperature 97.8 F Pulse Rate 111 H 111 H 108 H Respiratory Rate 20 20 20 Blood Pressure 138/79 Pulse Oximetry 95 Oxygen Delivery Method Room Air Oxygen Flow Rate 12/15/22 13:37 Temperature 98.3 F Pulse Rate 109 H Respiratory Rate 18 Blood Pressure 117/61 Pulse Oximetry 100 Oxygen Delivery Method Simple Mask Oxygen Flow Rate 5 BMI result Body Mass Index 33.3 <VELVET Ford - Last Filed: 12/15/22 15:57> Appearance: Alert. Oriented X3. No acute distress. HEENT: normal inspection CVS: Normal heart rate and rhythm. Pulses normal. Respiratory: Diffuse inspiratory and expiratory wheezes throughout. No respiratory distress. Skin: Skin warm and dry. Normal skin color. Normal skin turgor. No rashes. Extremities: Moving upper and lower extremities without difficulty. Neuro: Oriented X 3. No motor deficit. No sensory deficit. <VELVET Ford - Last Filed: 12/15/22 15:57> Course Course Course Narrative: 62-year-old female primarily Hong Konger-speaking presents for evaluation of cough, shortness of breath, headache and chest pain while coughing. She is wheezing exam. Reports history of COPD. A viral panel and chest x-ray was ordered. <Bridger Chopra - Last Filed: 12/15/22 11:32> Reevaluation(s) Reevaluation #1: Patient re-evaluated post albuterol updraft. Lung sounds with diffuse inspiratory and expiratory wheezes noted throughout, however better air movement throughout all lung matthews, and patient's symptoms improved. <VELVET Ford - Last Filed: 12/15/22 15:57> Time: 14:36 <VELVET Ford - Last Filed: 12/15/22 15:57> Medications Administered Discontinued Medications Generic Name Dose Route Start Last Admin Trade Name Freq PRN Reason Stop Dose Admin Albuterol Sulfate 5 mg 12/15/22 12:00 12/15/22 12:24 Albuterol Sulfate (0.083%) 2.5 Mg/3 Ml Vial.Neb INHALE 12/15/22 12:01 5 mg ONCE ONE Administration Albuterol Sulfate 5 mg 12/15/22 12:53 12/15/22 13:00 Albuterol Sulfate (0.083%) 2.5 Mg/3 Ml Vial.Neb INHALE 12/15/22 12:54 5 mg ONCE ONE Administration Guaifenesin/Codeine Phosphate 10 ml 12/15/22 12:55 12/15/22 13:11 Guaifen/Codeine Sf 200/20/10ml 10 Ml Liquid PO 12/15/22 12:56 10 ml ONCE ONE Administration Prednisone 40 mg 12/15/22 12:00 12/15/22 12:35 Prednisone 20 Mg Tablet PO 12/15/22 12:01 40 mg ONCE ONE Administration <Bridger Chopra - Last Filed: 12/15/22 11:32> Medications Administered Discontinued Medications Generic Name Dose Route Start Last Admin Trade Name Antonioq PRN Reason Stop Dose Admin Albuterol Sulfate 5 mg 12/15/22 12:00 12/15/22 12:24 Albuterol Sulfate (0.083%) 2.5 Mg/3 Ml Vial.Neb INHALE 12/15/22 12:01 5 mg ONCE ONE Administration Albuterol Sulfate 5 mg 12/15/22 12:53 12/15/22 13:00 Albuterol Sulfate (0.083%) 2.5 Mg/3 Ml Vial.Neb INHALE 12/15/22 12:54 5 mg ONCE ONE Administration Guaifenesin/Codeine Phosphate 10 ml 12/15/22 12:55 12/15/22 13:11 Guaifen/Codeine Sf 200/20/10ml 10 Ml Liquid PO 12/15/22 12:56 10 ml ONCE ONE Administration Prednisone 40 mg 12/15/22 12:00 12/15/22 12:35 Prednisone 20 Mg Tablet PO 12/15/22 12:01 40 mg ONCE ONE Administration <VELVET Ford - Last Filed: 12/15/22 15:57> Medical Decision Making Medical Decision Making MDM Narrative: This is a 78-rhem-zgv-female, with a past medical history diabetes, breast cancer in remission, degenerative disc disease, obesity, constipation, and allergic rhinitis, who presents today with complaints of productive cough, fevers, chest wall pain with coughing, and headache x 4 days. <VELVET Ford - Last Filed: 12/15/22 15:57> Differential Diagnosis Differential Diagnoses: The differential diagnosis associated with the presentation includes <VELVET Ford - Last Filed: 12/15/22 15:57> Upper respiratory infection, pneumonia, bronchitis, COVD-19, influenza, reactive airway disease vs asthma vs COPD exacerbations <VELVET Ford - Last Filed: 12/15/22 15:57> Admission/Observation Consideration of admission/observation: Escalation of care including admission/observation considered <VELVET Ford - Last Filed: 12/15/22 15:57> improved s/p neb x2, comfortable w/ d/c home <VELVET Ford - Last Filed: 12/15/22 15:57> Lab Data MDM Lab Attestation statement: I reviewed the patient's lab results. <VELVET Ford - Last Filed: 12/15/22 15:57> Negative viral panel. <VELVET Ford - Last Filed: 12/15/22 15:57> Labs: Lab Results 12/15/22 Range/Units 11:32 Influenza Type A (PCR) NEGATIVE (Negative) Influenza Type B (PCR) NEGATIVE (Negative) RSV RNA Qual (PCR) NEGATIVE (Negative) SARS-CoV-2 RNA (RT-PCR) NEGATIVE (Negative) <Bridger Chopra - Last Filed: 12/15/22 11:32> Lab Results 12/15/22 Range/Units 11:32 Influenza Type A (PCR) NEGATIVE (Negative) Influenza Type B (PCR) NEGATIVE (Negative) RSV RNA Qual (PCR) NEGATIVE (Negative) SARS-CoV-2 RNA (RT-PCR) NEGATIVE (Negative) <VELVET Ford - Last Filed: 12/15/22 15:57> Independent Interpretation I performed an independent interpretation of an: Plain X-Ray <VELVET Ford - Last Filed: 12/15/22 15:57> Interpretation: Chest x-ray with no acute consolidation or process. Agree with radiology reading. <VELVET Ford - Last Filed: 12/15/22 15:57> Radiology Impression Discussion of test interpretation with radiology: I have reviewed the radiologist's reading. <VELVET Ford - Last Filed: 12/15/22 15:57> Radiologist Impression: XR/XR chest 2V IMPRESSION: No acute cardiopulmonary process. <VELVET Ford - Last Filed: 12/15/22 15:57> External Record Review External record reviewed: Outpatient record and Prior outpatient labs <VELVET oFrd - Last Filed: 12/15/22 15:57> Prescription Management I considered prescription management with: Antibiotic <VELVET Ford - Last Filed: 12/15/22 15:57> Chronic Conditions Patient?s care impacted by: Diabetes <VELVET Ford - Last Filed: 12/15/22 15:57> Critical Care Time Critical Care Time Critical Care Time: Yes <VELVET Ford - Last Filed: 12/15/22 15:57> Total Critical Care Time: 35 <VELVET Ford - Last Filed: 12/15/22 15:57> Attestation: I have personally provided critical care time exclusive of time spent on separately billable procedures. Time includes review of lab data, radiology results, frequent bedside reassessments of cardiopulmonary status and monitoring for potential decompensation. Intervention performed as documented. <VELVET Ford - Last Filed: 12/15/22 15:57> Discharge Plan Discharge Clinical Impression: Upper respiratory infection <Bridger Chopra - Last Filed: 12/15/22 11:32> Patient Disposition: Home, Self-Care <Bridger Chopra - Last Filed: 12/15/22 11:32> Instructions: Upper Respiratory Infection (ED) <Bridger Chopra - Last Filed: 12/15/22 11:32> Additional Instructions: You tested negative for COVID-19, Influenza and RSV. Your chest x-ray performed today was normal. Take the prescribed medications as directed. Follow-up with your doctor on January 05 as scheduled. Recommend following up with a lung doctor and obtaining pulmonary function test. Closely monitor your blood sugar If you develop new or worsening symptoms call 911 or come back to the ER for further evaluation. Jarvis negativo para COVID-19, Influenza y RSV. Garcia radiograf?a de t?rax realizada hoy fue normal. [place] los medicamentos recetados seg?n las indicaciones. Seguimiento con garcia m?dico el seg?n lo programado. Recomendar el seguimiento con un neum?logo y obtener donald prueba de funci?n pulmonar. Controle de cerca garcia nivel de az?car en la james Si desarrolla s?ntomas nuevos o que empeoran, llame al 911 o regrese a la cindy de emergencias para donald evaluaci?n adicional. <Bridger Chopra - Last Filed: 12/15/22 11:32> Prescriptions: New azithromycin [Zithromax Z-Tj] 250 mg tablet See Rx Instructions .ROUTE .COMPLEX Qty: 6 0RF Rx Instructions: take 500 mg today (day 1), then 250 mg for 4 days (days 2-5) prednisone 20 mg tablet 40 mg PO DAILY Qty: 8 0RF hydrocodone-homatropine 5-1.5 mg/5 mL syrup 5 ml PO Q4-6H PRN (Reason: cough) Qty: 60 0RF Rx Instructions: Partial Fill upon patient request. benzonatate 100 mg capsule 100 mg PO TID PRN (Reason: cough) Qty: 30 0RF No Action fluticasone propionate [Flonase Allergy Relief] 50 mcg/actuation spray,suspension 2 spray intranasal DAILY Qty: 16 0RF Rx Instructions: administer into each nostril albuterol sulfate 90 mcg/actuation aerosol powdr breath activated 1 inh inhalation Q4-6H PRN (Reason: shortness of breath) Qty: 1 0RF erythromycin 5 mg/gram (0.5 %) ointment 0.5 inch ophthalmic (eye) TID Qty: 3.5 0RF albuterol sulfate 90 mcg/actuation HFA aerosol inhaler 1 inh inhalation QID PRN (Reason: shortness of breath or wheezing) Qty: 8.5 0RF (DME) ReliOn Prime Test Strips Strip See Rx Instructions miscellaneous .MEDSUPPLY Qty: 100 0RF Rx Instructions: As directed (DME) lancets 26 gauge misc See Rx Instructions miscellaneous .MEDSUPPLY Qty: 100 0RF Rx Instructions: As directed cetirizine 10 mg tablet 10 mg PO DAILY PRN (Reason: allergy symptoms) 90 Days Qty: 90 1RF (DME) pen needle, diabetic [BD Ultra-Fine Beatriz Pen Needle] 32 gauge x 5/32 needle See Rx Instructions .Route Qty: 100 5RF Rx Instructions: As directed once a day trazodone 50 mg tablet 50 mg PO BEDTIME PRN (Reason: sleep) 30 Days Qty: 30 3RF atorvastatin 10 mg tablet 10 mg PO BEDTIME 30 Days Qty: 30 3RF cholecalciferol (vitamin D3) 50 mcg (2,000 unit) tablet 50 mcg PO DAILY Qty: 90 0RF omeprazole 20 mg capsule,delayed release(DR/EC) 20 mg PO DAILY benzonatate 100 mg capsule 100 mg PO TID PRN (Reason: cough) Qty: 14 0RF (DME) blood-glucose meter [Blood Glucose Monitoring] Kit See Rx Instructions miscellaneous .MEDSUPPLY Qty: 1 0RF Rx Instructions: As directed glimepiride 1 mg tablet 1 mg PO QAM 90 Days Qty: 90 1RF Rx Instructions: administer with breakfast Lantus Solostar U-100 Insulin 100 unit/mL (3 mL) insulin pen 20 unit subcut BEDTIME 30 Days Qty: 6 3RF Tradjenta 5 mg tablet 5 mg PO QAM 90 Days Qty: 90 1RF <Bridger Chopra - Last Filed: 12/15/22 11:32> Referrals: [facility] [Provider Group] (?reactive airway disease vs asthma. recurrent wheezing, never smoker) <Bridger Chopra - Last Filed: 12/15/22 11:32> Stand Alone Forms: Work/School Release <Bridger Chopra - Last Filed: 12/15/22 11:32> Print Language: Hong [place]er <Bridger Chopra - Last Filed: 12/15/22 11:32>
[2022-12-15] MEDS: Albuterol Sulfate (0.083%) 2.5 MG/3 ML VIAL.NEB 5 MG INHALE ×2 (12:24→13:00)
[2022-12-15 12:25] VITALS: PULSE 111; RESP 20; O2SAT 98
[2022-12-15 12:28] LABS: Influenza A PCR NEGATIVE (Negative); Influenza B PCR NEGATIVE (Negative); Resp Syncy Virus RNA Qual PCR NEGATIVE (Negative); SARS COV2 PCR INHOUSE NEGATIVE (Negative)
[2022-12-15] MEDS: predniSONE 20 MG TABLET 40 MG PO (12:35)
[2022-12-15 13:00] VITALS: PULSE 108; RESP 20; O2SAT 98
[2022-12-15] MEDS: guaiFEN/Codeine SF 200/20/10ML 10 ML LIQUID PO (13:11)
[2022-12-15 13:37] VITALS: BP 117/61; PULSE 109; RESP 18; TEMP 36.8; O2SAT 100
--- NOTE | 2022-12-15 14:49 | MHC.EDTECH ---
patient ambulated with tech with os sat probe. patients o2 fluctuated from 93% to 96%.
== END 2022-12-15 16:12 | disposition home or self-care (01) ==
PROVIDERS: Physician Assistant; Emergency Provider Student in an Organized Health Care Education/Training Program; PCP Internal Medicine
DX: J06.9 Acute upper respiratory infection, unspecified (principal); R07.89 Other chest pain; R05.9 Cough, unspecified; R50.9 Fever, unspecified; R51.9 Headache, unspecified; Z20.822 Contact with and (suspected) exposure to COVID-19; Z20.828 Contact with and (suspected) exposure to other viral communicable diseases; Z79.899 Other long term (current) drug therapy
CPT/HCPCS: 0241U; 71046; 94640; 99284

== ENCOUNTER 2023-01-06 14:27 | Outpatient (REF) | payer OTHER, SELFPAY ==
--- NOTE | ~2023-01-06 | MM_ITS ---
EXAMINATION: MM DIAGNOSTIC DIGITAL BREAST TOMOSYNTHESIS, BILATERAL. US BREAST, TARGETED, RIGHT CLINICAL INFORMATION: Status post right lumpectomy and radiation therapy and bilateral breast implants. Follow-up of left breast calcifications. COMPARISON: Mammography: 07/08/2022 and 12/31/2021. TECHNIQUE: Digital mammography is performed in craniocaudal and mediolateral oblique views. Digital breast tomosynthesis is performed in implant-displaced craniocaudal and implant-displaced mediolateral oblique views. Synthesized 2D images are generated from the tomosynthesis. Computer-aided detection (CAD) is performed for this exam. Additional spot magnification views of the left breast in craniocaudal and 90 degree mediolateral views performed. Right breast rolled craniocaudal views also performed. FINDINGS: MAMMOGRAM: The breasts are heterogeneously dense, which may obscure small masses (ACR BI-RADS breast composition Category c). The implant contours are unremarkable. There are postsurgical and radiation changes seen within the right breast. Region of architectural distortion likely postoperative in nature is seen in the retroareolar region. There are a few rounded densities present and stable compared to study of 12/31/2021. There is a stable parenchymal pattern of the left breast. There is multiplicity and bilaterality of calcifications in the 2 groupings of calcifications about the inferior medial aspect of the left breast which appear to be related to fat necrosis. No new abnormal dominant mass is appreciated. No new more suspicious grouping of calcifications is noted. ULTRASOUND: Targeted ultrasound evaluation of the right breast was performed for the well-circumscribed rounded densities about the lateral aspect of the right breast. No abnormal cystic or solid lesion is identified. Recommend 1 year diagnostic mammography follow-up. Results are discussed with the patient at time of visit. MM/MM tomosynthesis diag imp BI IMPRESSION: No specific changes to suggest malignancy. Postsurgical change as described. ASSESSMENT: BI-RADS 3: Probably Benign RECOMMENDATION: Diagnostic mammography at time of next annual exam, due in 12 months. This patient's information was entered into a reminder system with a target due date for their next mammogram.
== END 2023-01-06 14:28 | disposition home or self-care (01) ==
LOC: HO.MAMMO 14:27
PROVIDERS: PCP Internal Medicine; Visit Provider Internal Medicine
DX: R92.2 Inconclusive mammogram (principal)
CPT/HCPCS: 76642; 77062; 77066

== ENCOUNTER 2023-02-10 12:57 | Outpatient (REF) | payer OTHER, SELFPAY ==
[2023-02-11 04:36] LABS: CT PCR NOT DETECTED (Not Detect.); NG PCR NOT DETECTED (Not Detect.)
[2023-02-11 11:54] LABS: BV Int Neg Control Negative (Negative); BV Int Pos Control Positive (Positive)
[2023-02-17 04:14] LABS: HPV 16 RNA NOT DETECTED (NOT DETECTED); HPV mRNA E6/E7 rflx Detected (Not Detected)
== END 2023-02-10 12:58 | disposition home or self-care (01) ==
LOC: HO.LNP 12:57
PROVIDERS: PCP Internal Medicine; Visit Provider Advanced Practice Midwife
DX: Z01.419 Encounter for gynecological examination (general) (routine) without abnormal findings (principal); Z11.51 Encounter for screening for human papillomavirus (HPV); R10.2 Pelvic and perineal pain
CPT/HCPCS: 0353U; 87480; 87510; 87624; 87625; 87660; 88142

== ENCOUNTER → 2023-02-24 14:26 | Outpatient (BNVA) | payer OTHER, SELFPAY | PROVIDERS: PCP Internal Medicine; Visit Provider Hospitalist | DX: J45.40 Moderate persistent asthma, uncomplicated (principal); K21.9 Gastro-esophageal reflux disease without esophagitis; R05.8 Other specified cough | CPT/HCPCS: 99202 ==

== ENCOUNTER 2023-02-28 09:51 | Outpatient (REF) | payer OTHER, SELFPAY ==
[2023-02-28 10:19] LABS: MANUAL DIFF FLAG NO
[2023-02-28 11:28] LABS: Basophils Absolute Auto 0.1 X10*3/uL (0.0-0.2); Basophils Percent Auto 0.7 % (0-2); Eosinophils Absolute Auto 0.3 X10*3/uL (0.0-0.4); Eosinophils Percent Auto 3.3 % (0-4); Hematocrit 40.3 % (37.0-47.0); Hemoglobin 13.1 g/dl (12.0-16.0); Imm Gran Abs Auto 0.02 X10*3/uL (0.00-0.03); Imm Gran Pct Auto 0.3 % (0.0-0.4); Lymphocytes Absolute Auto 2.9 X10*3/uL (1.2-4.9); Lymphocytes Percent Auto 38.4 % (20-40); Mean Corpuscular HGB Conc 32.5 g/dl (31.0-35.0); Mean Corpuscular Volume 77.1 fL (80.0-98.0); Mean Platelet Volume 10.3 fL (9.4-12.3); Monocytes Absolute Auto 0.7 X10*3/uL (0.1-1.2); Neutrophils Absolute Auto 3.7 x10*3/uL (2.0-8.3); Neutrophils Percent Auto 48.3 % (45-73); Platelet Count 293 X10*3/uL (160-400); Red Blood Count 5.23 X10*6/uL (4.20-5.50); Red Cell Distribution Width 13.2 % (11.0-16.0); White Blood Count 7.6 X10*3/uL (4.8-10.8)
[2023-02-28 11:31] LABS: Appearance Urine Clear; Color Urine Yellow; Glucose Urine UA 100 mg/dL (Negative); Leukocyte Esterase Urine Negative (Negative); Nitrite Urine Negative (Negative); Urine Blood Negative (Negative); Urine Ketones Negative (Negative); Urine Protein Trace mg/dL (Neg-Trace)
[2023-02-28 11:36] LABS: Estimated Average Glucose 200 mg/dL; Hemoglobin A1c % 8.6 %
[2023-02-28 12:09] LABS: Erythrocyte Sedimentation Rate 19 MM/HR (0-20)
[2023-02-28 12:13] LABS: Alanine Aminotransferase 23 U/L (0-31); Albumin Level 4.1 g/dL (3.5-5.0); Alkaline Phosphatase 144 U/L (39-117); Anion Gap 13 (12-20); Aspartate Amino Transferase 19 U/L (5-31); Bilirubin Total 0.5 mg/dL (0.0-1.0); Blood Urea Nitrogen 18 mg/dL (9-16); Calcium 9.9 mg/dL (8.4-10.2); Carbon Dioxide 28 mmol/L (22-29); Chloride 101 mmol/L (96-108); Cholesterol 179 mg/dL; Estimated Glomerular Filt Rate 48; Glucose Fasting 247 mg/dL (60-99); HDL Cholesterol 40 mg/dL; LDL Cholesterol Calculated 93 mg/dl; Potassium 4.8 mmol/L (3.3-5.1); Sodium 137 mmol/L (135-145); TSH reflex Free T4 2.99 uIU/mL (0.32-4.0); Total Protein 7.8 g/dL (6.5-8.0); Triglycerides 234 mg/dL; Vitamin D 25-OH Total 31.8 ng/mL (>30)
[2023-02-28 12:15] LABS: Alanine Aminotransferase 24 U/L (0-31); Albumin Level 4.2 g/dL (3.5-5.0); Alkaline Phosphatase 145 U/L (39-117); Anion Gap 14 (12-20); Aspartate Amino Transferase 19 U/L (5-31); Bilirubin Total 0.5 mg/dL (0.0-1.0); Blood Urea Nitrogen 17 mg/dL (9-16); Calcium 9.7 mg/dL (8.4-10.2); Carbon Dioxide 26 mmol/L (22-29); Chloride 101 mmol/L (96-108); Cholesterol 180 mg/dL; Estimated Glomerular Filt Rate 50; Glucose Fasting 245 mg/dL (60-99); HDL Cholesterol 41 mg/dL; Iron 42 mcg/dL (30-160); LDL Cholesterol Calculated 92 mg/dl; Percent Iron Saturation 14 % (15-50); Potassium 4.3 mmol/L (3.3-5.1); Sodium 137 mmol/L (135-145); TSH reflex Free T4 3.16 uIU/mL (0.32-4.0); Total Iron Binding Capacity 302 mcg/dL (228-428); Total Protein 7.8 g/dL (6.5-8.0); Triglycerides 235 mg/dL; Unsaturated Iron Binding 260 ug/dL; Vitamin D 25-OH Total 30.4 ng/mL (>30)
[2023-02-28 12:24] LABS: Creatinine Urine 114.53 mg/dL; Microalbum/Creatinine Ratio Ur 47.1 ug/mg cr
[2023-03-01 07:11] LABS: Estimated Average Glucose 200 mg/dL; Hemoglobin A1c % 8.6 %
[2023-03-02 14:38] LABS: Immunoglobulin G Subclass 1 942 mg/dL (382-929); Immunoglobulin G Subclass 2 440 mg/dL (241-700); Immunoglobulin G Subclass 3 79 mg/dL (22-178); Immunoglobulin G Subclass 4 35.4 mg/dL (4-86); Immunoglobulin G Total 1527 mg/dL (600-1540)
== END 2023-02-28 09:52 | disposition home or self-care (01) ==
LOC: HO.LAB 09:51
PROVIDERS: Absent Provider Hospitalist; PCP Internal Medicine; Visit Provider Nurse Practitioner Family
DX: E11.65 Type 2 diabetes mellitus with hyperglycemia (principal); E78.00 Pure hypercholesterolemia, unspecified; I10 Essential (primary) hypertension; E55.9 Vitamin D deficiency, unspecified; J45.909 Unspecified asthma, uncomplicated; R79.89 Other specified abnormal findings of blood chemistry; D64.9 Anemia, unspecified; E78.5 Hyperlipidemia, unspecified
CPT/HCPCS: 36415; 80053; 80061; 81003; 82043; 82306; 82784; 82785; 83036; 83540; 84443; 85025; 85652; 86003

== ENCOUNTER 2023-03-03 11:55 | Outpatient (REF) | payer OTHER, SELFPAY ==
--- NOTE | ~2023-03-03 | US_ITS ---
EXAMINATION: US PELVIS CLINICAL INFORMATION: Pelvic and perineal pain Postmenopausal patient COMPARISON: None available. TECHNIQUE: Ultrasound of the pelvis is performed using both transabdominal and transvaginal transducers along with Doppler. Transvaginal imaging is performed due to inadequate visualization transabdominally. FINDINGS: Uterus: The uterus is anteverted and measures 5.5 x 2.8 x 5.5 cm. The double wall endometrial thickness is 0.3 mm. The uterus is smooth in contour and has normal myometrial echogenicity. There is single subserosal fundal 0.3 x 0.3 x 0.5 cm uterine fibroid seen. Adnexa: Both ovaries are visualized. There is normal color flow to the adnexa. There is no ovarian torsion. There is no pelvic ascites or fluid collection. Right ovary measures 1.7 x 1.8 x 1.3 cm. With a volume of 2.1 mL Left ovary measures not seen. There is no fluid in cul-de-sac. There are a few nabothian cysts visualized. Calcifications seen in the myometrium there is small amount of fluid in endometrial. US/US pelvic and transvaginal IMPRESSION: 1. Small uterine fibroid and small amount of fluid in endometrial canal. 2. Nonvisualization of left ovary.
== END 2023-03-03 11:56 | disposition home or self-care (01) ==
LOC: HO.US 11:55
PROVIDERS: PCP Internal Medicine; Visit Provider Advanced Practice Midwife
DX: R10.2 Pelvic and perineal pain (principal)
CPT/HCPCS: 76830; 76856

== ENCOUNTER → 2023-03-17 11:03 | Outpatient (BNVA) | payer OTHER, SELFPAY | PROVIDERS: PCP Internal Medicine; Visit Provider Surgery | DX: C50.919 Malignant neoplasm of unspecified site of unspecified female breast (principal) | CPT/HCPCS: 99202 ==

== ENCOUNTER → 2023-03-24 10:46 | Outpatient (BNVA) | payer OTHER, SELFPAY | PROVIDERS: PCP Internal Medicine; Visit Provider Advanced Practice Midwife | DX: Z71.2 Person consulting for explanation of examination or test findings (principal); R87.619 Unspecified abnormal cytological findings in specimens from cervix uteri; D25.9 Leiomyoma of uterus, unspecified | CPT/HCPCS: 99212 ==

== ENCOUNTER 2023-06-02 14:00 | Outpatient (RCR) | payer OTHER, SELFPAY ==
--- NOTE | 2023-05-08 12:34 | MHC.PT.EP ---
[facility] [place] Office [place] Office [place] Office [address] Alicia Santa [address] [phone] F: [phone] F: [phone] F: [phone] F: [phone] Physical Therapy Plan of Care Date of Evaluation: Date of Surgery: Diagnosis: LEFT sided low back pain with sciatica Assessment: Patient is a pleasant English-speaking 63 y.o. female who is referred to PT by Dr. Mehrdad Chavez MD, with Dx of LEFT sided LBP with sciatica. On x-ray imaging there is very mild degenerative disc disease L4-L5. At L4-L5 there is a 2 mm anterolisthesis. There is multi-level thoracolumbar spondylosis, most pronounced at L1-L2, where it is severe. Patient impairments include pain, reduced ROM, weakness in hip and core, radiating LE sxs, antalgic gait. Patient current functional limitations are prolonged walking, cleaning home, bending/squatting, prolonged sitting, stairs are difficulty (uses elevator). Patient will benefit from skilled PT to address aforementioned impairments and functional limitations to meet established goals. Frequency and Duration: The patient will be seen 1-2x/week for 4 weeks Short Term Goals: 2 weeks Patient demonstrates consistency and independence with HEP to self manage symptoms. Patient demonstrates ability to centralized LE symptoms with exercise and posturing Prison Goals: 4 weeks Patient presents with increased L hip flexion 4+/5 to be able to perform reciprocal stairs with railing Patient presents with increased lumbar spine flexion 80 degrees to restore mobility for cleaning home. Treatment Plan: Modalities to reduce pain, spasms and effusion. Manual therapy to restore motion and function. Therapeutic exercise to improve strength and flexibility. Neuromuscular re-education for posture and balance. Therapeutic activities to return to functional activities of daily living. Electronically signed by: Rosa M Rocha, PT, DPT Please sign and return to therapist. Thank you for your referral.
--- NOTE | 2023-07-25 11:50 | MHC.PT.DC ---
[facility] [place] Office [place] Office [place] Office [address] Alicia Santa [address] [phone] F: [phone] F: [phone] F: [phone] F: [phone] Physical Therapy Discharge Report Diagnosis: LEFT sided low back pain with sciatica Date of Surgery: Date of Evaluation: 05/05/23 Date of Discharge: 07/25/23 Treatments to Date: 5 Cancellations to Date: 0 No Shows to Date: 1 Discharge Status: Independent with HEP Discharge Summary: Patient was consistent with PT attendance, she has been able to centralize LE symptoms with manual therapy and exercise. She has independent HEP. She ceased attending PT on her own accord as of 06/02/23. Electronically signed by: Rosa M Rocha, PT, DPT Please sign and return to therapist. Thank you for your referral.
== END 2023-07-25 11:50 | disposition home or self-care (01) ==
LOC: HO.PT 14:00
PROVIDERS: PCP Internal Medicine; Visit Provider Internal Medicine
DX: M54.42 Lumbago with sciatica, left side (principal)
CPT/HCPCS: 97110; 97161

== ENCOUNTER 2023-06-07 10:10 | Outpatient (REF) | payer OTHER, SELFPAY ==
[2023-06-07 10:54] LABS: MANUAL DIFF FLAG NO
[2023-06-07 11:06] LABS: Basophils Percent Auto 0.5 % (0-2); Eosinophils Absolute Auto 0.2 X10*3/uL (0.0-0.4); Eosinophils Percent Auto 2.7 % (0-4); Hematocrit 36.5 % (37.0-47.0); Hematocrit 36.8 % (37.0-47.0); Hemoglobin 11.7 g/dl (12.0-16.0); Hemoglobin 11.8 g/dl (12.0-16.0); Imm Gran Abs Auto 0.02 X10*3/uL (0.00-0.03); Imm Gran Abs Auto 0.03 X10*3/uL (0.00-0.03); Imm Gran Pct Auto 0.3 % (0.0-0.4); Imm Gran Pct Auto 0.4 % (0.0-0.4); Lymphocytes Absolute Auto 2.3 X10*3/uL (1.2-4.9); Lymphocytes Absolute Auto 2.4 X10*3/uL (1.2-4.9); Lymphocytes Percent Auto 30.6 % (20-40); Lymphocytes Percent Auto 31.8 % (20-40); Mean Corpuscular HGB Conc 32.1 g/dl (31.0-35.0); Mean Corpuscular Hemoglobin 25.2 pg (27.0-33.0); Mean Corpuscular Volume 78.6 fL (80.0-98.0); Mean Corpuscular Volume 78.7 fL (80.0-98.0); Mean Platelet Volume 10.3 fL (9.4-12.3); Mean Platelet Volume 10.8 fL (9.4-12.3); Monocytes Absolute Auto 0.7 X10*3/uL (0.1-1.2); Monocytes Absolute Auto 0.8 X10*3/uL (0.1-1.2); Monocytes Percent Auto 9.8 % (2-11); Monocytes Percent Auto 9.9 % (2-11); Neutrophils Absolute Auto 4.1 x10*3/uL (2.0-8.3); Neutrophils Absolute Auto 4.2 x10*3/uL (2.0-8.3); Neutrophils Percent Auto 54.4 % (45-73); Neutrophils Percent Auto 56.1 % (45-73); Platelet Count 248 X10*3/uL (160-400); Platelet Count 251 X10*3/uL (160-400); Red Blood Count 4.64 X10*6/uL (4.20-5.50); Red Blood Count 4.68 X10*6/uL (4.20-5.50); Red Cell Distribution Width 14.6 % (11.0-16.0); White Blood Count 7.5 X10*3/uL (4.8-10.8); White Blood Count 7.6 X10*3/uL (4.8-10.8)
[2023-06-07 11:19] LABS: Estimated Average Glucose 214 mg/dL; Hemoglobin A1c % 9.1 % (<6.0)
[2023-06-07 12:01] LABS: Appearance Urine Clear; Color Urine Yellow; Glucose Urine UA Negative (Negative); Leukocyte Esterase Urine Negative (Negative); Nitrite Urine Negative (Negative); PH 5.5 (5.0-9.0); Specific Gravity - Urine 1.015 (1.005-1.025); Urine Blood Negative (Negative); Urine Ketones Negative (Negative); Urine Protein Trace mg/dL (Neg-Trace)
[2023-06-07 12:20] LABS: Alanine Aminotransferase 15 U/L (0-31); Albumin Level 3.8 g/dL (3.5-5.0); Alkaline Phosphatase 142 U/L (39-117); Anion Gap 9 (12-20); Aspartate Amino Transferase 19 U/L (5-31); Bilirubin Total 0.3 mg/dL (0.0-1.0); Blood Urea Nitrogen 13 mg/dL (9-16); Calcium 9.7 mg/dL (8.4-10.2); Carbon Dioxide 28 mmol/L (22-29); Chloride 109 mmol/L (96-108); Cholesterol 181 mg/dL (<200); Estimated Glomerular Filt Rate > 60; Glucose Fasting 70 mg/dL (60-99); HDL Cholesterol 43 mg/dL (>40); LDL Cholesterol Calculated 113 mg/dL (<100); Potassium 4.4 mmol/L (3.3-5.1); Sodium 142 mmol/L (135-145); Total Protein 7.7 g/dL (6.5-8.0); Triglycerides 129 mg/dL (<150); Vitamin D 25-OH Total 29.4 ng/mL (>30)
[2023-06-07 13:12] LABS: Creatinine Urine 101.67 mg/dL; Microalbum/Creatinine Ratio Ur 39.3 ug/mg cr (<30)
[2023-06-08 22:54] LABS: Immunoglobulin E 128 kU/L (<OR=114)
[2023-06-09 12:43] LABS: Immunoglobulin G Subclass 1 876 mg/dL (382-929); Immunoglobulin G Subclass 2 522 mg/dL (241-700); Immunoglobulin G Subclass 3 117 mg/dL (22-178); Immunoglobulin G Subclass 4 41.1 mg/dL (4-86); Immunoglobulin G Total 1477 mg/dL (600-1540)
== END 2023-06-07 10:11 | disposition home or self-care (01) ==
LOC: HO.LAB 10:10
PROVIDERS: Hospitalist; PCP Internal Medicine; Visit Provider Internal Medicine
DX: E78.00 Pure hypercholesterolemia, unspecified (principal); I10 Essential (primary) hypertension; E11.9 Type 2 diabetes mellitus without complications; R30.0 Dysuria; E55.9 Vitamin D deficiency, unspecified; J45.909 Unspecified asthma, uncomplicated
CPT/HCPCS: 36415; 80053; 80061; 81003; 82043; 82306; 82784; 82785; 83036; 84443; 85025

== ENCOUNTER 2023-06-23 13:34 | Outpatient (REF) | payer OTHER, SELFPAY ==
--- NOTE | 2023-06-23 16:27 | PFT_ITS ---
Forced vital capacity 81%, FEV1 79%, FEV1/FVC ratio is 75. [id number] 88% and MVV is 59%. Post bronchodilator therapy, there is no improvement rather slight decrease in the flow volumes. Total lung capacity 82%. Residual volume 92%. Diffusion capacity 72%. CONCLUSION: There is no evidence of obstructive or restrictive pulmonary disorder. No positive response to bronchodilator therapy. Clinical correlation recommended. MD NIRAJ Johns/GERARD / [id number]
== END 2023-06-23 13:35 | disposition home or self-care (01) ==
LOC: HO.RESP 13:34
PROVIDERS: PCP Internal Medicine; Visit Provider Hospitalist
DX: J45.40 Moderate persistent asthma, uncomplicated (principal)
CPT/HCPCS: 94010; 94727; 94729

== ENCOUNTER → 2023-06-23 16:27 | Outpatient (BNV) | payer SELFPAY | PROVIDERS: PCP Internal Medicine; Visit Provider Internal Medicine | DX: J45.909 Unspecified asthma, uncomplicated (principal); Z86.16 Personal history of COVID-19 | CPT/HCPCS: 94060; 94727; 94729 ==

== ENCOUNTER 2023-07-21 10:22 | Outpatient (AMB) | payer OTHER, SELFPAY ==
[2023-07-21 10:35] VITALS: BP 110/60; PULSE 78; O2SAT 98; BMI 32.0
--- NOTE | 2023-07-21 10:35 | MHC.OFFVIS ---
Intake Vital Signs 07/21/23 10:35 Height 5 ft 2 in Weight 175 lb BMI 32.0 BP 110/60 Blood Pressure Location Lt brachial Position Sitting Pulse 78 Pulse Source Pulse Oximeter Pulse Oximetry (%) 98 Oxygen Delivery Method Room Air Intake Visit Reasons: Cough Powder Operator Required: No Allergies No Known Allergies Allergy (Verified 07/21/23 10:37) HPI HPI Comments History of Present Illness Details The patient is a 63 year woman was in the usual state health until sometime in December when she started developing worsening respiratory symptoms. She was diagnosed with acute bronchitis with bronchospasms. The patient was t antibiotics and prednisone. Patient did feel better although she still not at her baseline. Still having frequent coughing have episodes and also at times productive in nature. The mucus is clear. She also also complains of some chest tightness intermittently. Mkey-lb-brdiwrrb severity. She does get relief from using the albuterol inhaler. She does use it between 1 to 2 times a day. Her symptoms usually worse at nighttime. She does not have recent pulmonary function studies. She did have a CT scan of the abdomen back in November very demonstrated that she did have some evidence of thickened bronchial wall suggesting bronchitis at that point. Will go ahead and start her on Symbicort inhaler. In addition to that with his allergy testing blood work and pulmonary function studies. 07/21/2023 the patient is here for a pulmonary follow-up visit. She continues to be about the same. Complains of difficulty breathing and also cough. The Symbicort inhaler was not helpful. The patient did undergo a chest x-ray without any acute disease and also had a pulmonary function study which we reviewed together. It appears that she has very limited inspiratory and expiratory flows suggesting of an upper airway obstruction. Therefore will request a CT scan of the neck to further address for any are upper airway obstruction and then subsequently depending on those results will talk about performing a bronchoscopy. For now will place her on gabapentin to help with muscle relaxation specially at nighttime and she continues to use the Bentson aids cough drops to just give her some relief from the cough. [facility] Medical History (Updated 07/21/23 @ 10:50 by Nikhil Banuelos MD) Upper airway resistance syndrome Uterine fibroid Abnormal cervical cytology Abnormal Pap smear of cervix History of COVID-19 Lumbar degenerative disc disease Allergic rhinitis Constipation Calcification of left breast Malignant neoplasm of breast Obesity (BMI 30-39.9) Diabetes mellitus with hyperglycemia Cancer of right breast COVID-19 Surgical History History of cataract surgery History of mastectomy Family History Sister Breast cancer Father HTN (hypertension) Heart attack Mother Diabetes HTN (hypertension) Social History Household Members: None Housing: Apartment Alcohol intake: never Patient Tobacco Use Status: Never used Tobacco e-Cigarette/Vaping Use: Never Used Second Hand Smoke Exposure: No service: No Current occupational status: employed 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 Sexual orientation: Straight/Heterosexual Gender identity: Female Cognitive needs: No Hearing needs: No Vision needs: Yes Review of Systems Const All systems reviewed & are unremarkable except as noted in HPI and below Denies chills, Denies fever(s), Denies headache(s), Denies poor appetite and Denies weakness ENT Denies headache(s) Card Denies chest pain, Denies irregular heart rhythm, Denies palpitations and Reports dyspnea Resp Reports cough, Denies excessive phlegm production and Reports dyspnea GI Denies abdominal pain, Denies bloating, Denies change in bowel habits, Denies constipation, Denies heartburn, Denies diarrhea, Denies nausea and Denies vomiting Denies urinary frequency Musc Denies back pain, Denies muscle weakness and Denies numbness Skin/Breast Denies changing lesions and Denies unusual bruising Neuro Denies headache(s), Denies numbness, Denies paresthesias and Denies weakness Psych Denies anxiety and Denies depression Endo Denies palpitations Roc/Lymph Denies lymphadenopathy Physical Exam Vital Signs: Last Vital Signs Pulse 78 07/21/23 10:35 BP 110/60 07/21/23 10:35 Pulse Ox 98 07/21/23 10:35 Oxygen Delivery Method Room Air 07/21/23 10:35 BMI result Body Mass Index 32.0 Const General: cooperative, healthy appearing, no acute distress, well developed and alert Orientation/consciousness: patient oriented x3 HEENT Head: Yes normal to inspection Eyes General: appearance normal, both eyes and all related structures Neck Neck: Yes normal visual inspection Thyroid: Thyroid normal Chest Chest palpation & inspection: normal inspection of the chest Resp Effort & Inspection: normal respiratory effort Auscultation: diminished lung sounds GI Palpation (GI): Soft to palpation Skin General skin exam: no rashes or lesions noted Neuro General: patient oriented x3 Cognition (Neuro): normal cognition Extrem General: Yes normal to inspection Psych Attitude: cooperative Thought process: Normal thought process present Assessment & Plan Assessment & Plan (1) Asthma: Code(s): J45.909 - Unspecified asthma, uncomplicated Qualifiers: Asthma complication type: uncomplicated Asthma persistence: persistent Asthma severity: moderate Qualified Code(s): J45.40 - Moderate persistent asthma, uncomplicated (2) Recurrent productive cough: Code(s): R05.8 - Other specified cough (3) GERD (gastroesophageal reflux disease): Code(s): K21.9 - Gastro-esophageal reflux disease without esophagitis Qualifiers: Esophagitis presence: without esophagitis Qualified Code(s): K21.9 - Gastro-esophageal reflux disease without esophagitis (4) Upper airway resistance syndrome: Code(s): G47.8 - Other sleep disorders Plan stopped Symbicort PAUL as needed CT neck to assess for an upper airway obstruction based on the abnormal FVL consider bronchosocpy start Gabapentin at night to help with vocal cord dysfuction F/U 4-6 weeks Orders: Orders Basic Metabolic Panel Today G47.8 - Other sleep disorders CT soft tissue neck w IV con 07/21/23 G47.8 - Other sleep disorders Medications: New benzonatate 200 mg PO BID PRN 60 caps 6RF cough 30 days gabapentin 300 mg PO BEDTIME 30 caps 6RF 30 days Coding Level of Care Code Est Pt Level 4 (05140) Diagnoses Moderate persistent asthma without complication J45.40 Asthma complication type: uncomplicated Asthma persistence: persistent Asthma severity: moderate Recurrent productive cough R05.8 Gastroesophageal reflux disease without esophagitis K21.9 Esophagitis presence: without esophagitis Upper airway resistance syndrome G47.8 Time Spent (min) 18
== END 2023-07-21 10:54 | disposition home or self-care (01) ==
PROVIDERS: PCP Internal Medicine; Visit Provider Hospitalist
DX: J45.40 Moderate persistent asthma, uncomplicated (principal); R05.8 Other specified cough; K21.9 Gastro-esophageal reflux disease without esophagitis; G47.8 Other sleep disorders
CPT/HCPCS: 99214

== ENCOUNTER → 2023-07-21 10:22 | Outpatient (BNVA) | payer OTHER, SELFPAY | PROVIDERS: PCP Internal Medicine; Visit Provider Hospitalist | DX: J45.40 Moderate persistent asthma, uncomplicated (principal); R05.8 Other specified cough; K21.9 Gastro-esophageal reflux disease without esophagitis; G47.8 Other sleep disorders | CPT/HCPCS: 99212 ==

== ENCOUNTER 2023-09-21 08:00 | Outpatient (REF) | payer OTHER, SELFPAY | END 2023-09-21 08:01 | disposition home or self-care (01) | LOC: HO.LNP 08:00 | PROVIDERS: PCP Internal Medicine; Visit Provider Obstetrics & Gynecology | DX: A63.0 Anogenital (venereal) warts (principal) | CPT/HCPCS: 57454; 88305; 88342; 88360 ==

== ENCOUNTER 2023-09-21 08:00 | Outpatient (AMB) | payer OTHER, SELFPAY ==
[2023-09-21 08:13] VITALS: BMI 31.9
--- NOTE | 2023-09-21 08:13 | A.OFFVIS_ITS ---
Intake Vital Signs 09/21/23 08:13 Height 5 ft 2 in Weight 174 lb 2.643 oz BMI 31.9 Intake Visit Reasons: Colpo/Neg pap HPV pos x2/DO NOT RS Cathode Ray Tube Salvage Processor Required: Yes Cathode Ray Tube Salvage Processor Language: Tube Heater Name: Katelyn ROBERTSON Information Interpreted: non-clinical & clinical R D Manager: R D Manager Present (Katelyn ROBERTSON) Accompanied by: Self / Same As Patient Allergies No Known Allergies Allergy (Verified 09/21/23 08:14) Post menopausal: Yes HPI HPI Comments History of Present Illness Details Presenting referred from the [facility] the [facility] regarding Pap smear negative/HPV E6/E7 positive. Patient had Pap smear negative/HPV E6/E7 positive in 02/04, repeated in 02/05 was the same [facility] Medical History (Updated 09/21/23 @ 08:18 by Roman Martin MD) HPV in female Upper airway resistance syndrome Uterine fibroid Abnormal cervical cytology Abnormal Pap smear of cervix History of COVID-19 Lumbar degenerative disc disease Allergic rhinitis Constipation Calcification of left breast Malignant neoplasm of breast Obesity (BMI 30-39.9) Diabetes mellitus with hyperglycemia Cancer of right breast COVID-19 Surgical History History of cataract surgery History of mastectomy Family History Sister Breast cancer Father HTN (hypertension) Heart attack Mother Diabetes HTN (hypertension) Social History Household Members: None Housing: Apartment Alcohol intake: never Patient Tobacco Use Status: Never used Tobacco e-Cigarette/Vaping Use: Never Used Second Hand Smoke Exposure: No service: No Current occupational status: employed Current occupation: [employer] Sexual orientation: Straight/Heterosexual Gender identity: Female Cognitive needs: No Hearing needs: No Vision needs: Yes Review of Systems Const All systems reviewed & are unremarkable except as noted in HPI and below Physical Exam Vital Signs: BMI result Body Mass Index 31.9 General: Yes no CVA tenderness External Female Exam: normal external appearance and normal appearance of the urethra Speculum Exam - Vagina: normal appearance of the vagina, normal palpation, no lesions and no masses Speculum Exam - Cervix: normal appearance of the cervix, normal palpation, no lesions, no masses and nontender Bimanual exam- vagina & uterus: normal bimanual exam, normal palpation, uterine size normal, normal palpation, uterine shape normal, No Cervical tenderness present and non-tender Bimanual Exam- Adnexa, other: normal adnexae Back/Spine/Pelvis Back: no CVA tenderness Office Procedures Colposcopy Before the procedure was started discussed with the patient the procedure, alternatives & all the risks associated with the procedure (bleeding, infection, injury to vagina, bladder, vessels, possible need for transfusion with all its risks) then patient signed the consent Pap smear = negative/HPV E6 E7 positive Speculum inserted, acetic acid used Colposcopy done Transformation zone seen, acetowhite lesions identified at 6+7+11+12+3 o?clock, cervical biopsies taken from 6+7+11+12+3 o?clock, ECC done afterwards. Vaginoscopy of the upper vagina showed no evidence of any aceto-white lesions Monsel solution used for hemostasis. The patient tolerated well . At the end the patient was instructed to call if temp>100.4, abdominal pain, n/v, bleeding; The patient was given the following instructions: nothing per vagina, no intercourse or bath tub use. All questions answered the patient verbalized understanding. Instructed the patient to make an appointment in 2 weeks for follow-up This note was generated with a voice recognition program. Some errors may have been overlooked during the review of this note. Sometimes these errors may affect the content or meaning of a given sentence. [id number]-Sieushlma of cervix including upper vagina with biopsy and ECC Procedure code (CPT) selection complete Assessment & Plan Assessment & Plan (1) HPV in female: Comment: Negative Pap/HPV E6 E7 positive in 02/04 and in 02/05 Code(s): B97.7 - Papillomavirus as the cause of diseases classified elsewhere Plan: Discussed with the patient the result of her recurrent positive HPV, its significance, risk of progression, persistence, and regression. the false positive/negative rate being a screening test, the indication for diagnostic test -colposcopy, biopsy, endocervical curettage. Colpo/ biopsy/ECC done, see procedure note. The patient verbalized understanding and agreed with the plan, all questions answered. Orders: Orders AMB Colposcopy Today B97.7 - Papillomavirus as the cause of diseases classified elsewhere Coding Level of Care Code Procedure Only Diagnoses HPV in female B97.7 CPT Codes Colposcopy - CPT: 98818-Hsovvqumg of cervix including upper vagina with biopsy and ECC ([id number])
== END 2023-09-21 08:35 | disposition home or self-care (01) ==
PROVIDERS: PCP Internal Medicine; Visit Provider Obstetrics & Gynecology
DX: R87.810 Cervical high risk human papillomavirus (HPV) DNA test positive (principal)
CPT/HCPCS: 57454

== ENCOUNTER 2023-10-19 14:07 | Outpatient (AMB) | payer MEDICAID, SELFPAY ==
--- NOTE | 2023-10-19 14:18 | MHC.OFFVIS ---
Intake Vital Signs 10/19/23 14:19 Height 5 ft 2 in Weight 172 lb BMI 31.5 Pulse 78 Pulse Source Pulse Oximeter Pulse Oximetry (%) 99 Oxygen Delivery Method Room Air Intake Visit Reasons: cough:3 month f/u Nurse Leader Required: No Allergies No Known Allergies Allergy (Verified 10/19/23 14:20) HPI HPI Comments History of Present Illness Details The patient is a 63 year woman was in the usual state health until sometime in December when she started developing worsening respiratory symptoms. She was diagnosed with acute bronchitis with bronchospasms. The patient was t antibiotics and prednisone. Patient did feel better although she still not at her baseline. Still having frequent coughing have episodes and also at times productive in nature. The mucus is clear. She also also complains of some chest tightness intermittently. Hwln-ab-fbtttrrv severity. She does get relief from using the albuterol inhaler. She does use it between 1 to 2 times a day. Her symptoms usually worse at nighttime. She does not have recent pulmonary function studies. She did have a CT scan of the abdomen back in November very demonstrated that she did have some evidence of thickened bronchial wall suggesting bronchitis at that point. Will go ahead and start her on Symbicort inhaler. In addition to that with his allergy testing blood work and pulmonary function studies. 07/21/2023 the patient is here for a pulmonary follow-up visit. She continues to be about the same. Complains of difficulty breathing and also cough. The Symbicort inhaler was not helpful. The patient did undergo a chest x-ray without any acute disease and also had a pulmonary function study which we reviewed together. It appears that she has very limited inspiratory and expiratory flows suggesting of an upper airway obstruction. Therefore will request a CT scan of the neck to further address for any are upper airway obstruction and then subsequently depending on those results will talk about performing a bronchoscopy. For now will place her on gabapentin to help with muscle relaxation specially at nighttime and she continues to use the Bentson aids cough drops to just give her some relief from the cough. 10/19/2023 the patient is here for a pulmonary follow-up visit. She still about the same. Still complains of difficulty coughing and shortness of breath. We again talked about his spirometry with very limited inspiratory and also expiratory flows during her spirometry. We did request a CT scan of the neck to better address the possibility of an airway obstruction. Although denied. Therefore the best option would be to perform a bronchoscopy to further visualize the upper airway also visualized the lower airway to further address her respiratory complaints. The patient did have spirometry done today just to see if she continued to have limited flows. It appeared that the expiratory flows were little better although the inspiratory flows continue to be limited. Therefore will go ahead with a bronchoscopy at this time. In the meantime she does have a respiratory medications at partially helpful. After the bronchoscopy will further address her ongoing symptoms. [facility] Medical History (Updated 09/21/23 @ 08:18 by Roman Martin MD) HPV in female Upper airway resistance syndrome Uterine fibroid Abnormal cervical cytology Abnormal Pap smear of cervix History of COVID-19 Lumbar degenerative disc disease Allergic rhinitis Constipation Calcification of left breast Malignant neoplasm of breast Obesity (BMI 30-39.9) Diabetes mellitus with hyperglycemia Cancer of right breast COVID-19 Surgical History History of cataract surgery History of mastectomy Family History Sister Breast cancer Father HTN (hypertension) Heart attack Mother Diabetes HTN (hypertension) Social History Household Members: None Housing: Apartment Alcohol intake: never Patient Tobacco Use Status: Never used Tobacco e-Cigarette/Vaping Use: Never Used Second Hand Smoke Exposure: No service: No Current occupational status: employed 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 Sexual orientation: Straight/Heterosexual Gender identity: Female Cognitive needs: No Hearing needs: No Vision needs: Yes Review of Systems Const All systems reviewed & are unremarkable except as noted in HPI and below Denies chills, Denies fever(s), Denies headache(s), Denies poor appetite and Denies weakness ENT Denies headache(s) Card Denies chest pain, Denies irregular heart rhythm, Denies palpitations and Reports dyspnea Resp Reports cough, Denies excessive phlegm production and Reports dyspnea GI Denies abdominal pain, Denies bloating, Denies change in bowel habits, Denies constipation, Denies heartburn, Denies diarrhea, Denies nausea and Denies vomiting Denies urinary frequency Musc Denies back pain, Denies muscle weakness and Denies numbness Skin/Breast Denies changing lesions and Denies unusual bruising Neuro Denies headache(s), Denies numbness, Denies paresthesias and Denies weakness Psych Denies anxiety and Denies depression Endo Denies palpitations Roc/Lymph Denies lymphadenopathy Physical Exam Vital Signs: Last Vital Signs Pulse 78 10/19/23 14:19 Pulse Ox 99 10/19/23 14:19 Oxygen Delivery Method Room Air 10/19/23 14:19 BMI result Body Mass Index 31.5 Const General: cooperative, healthy appearing, no acute distress, well developed and alert Orientation/consciousness: patient oriented x3 HEENT Head: Yes normal to inspection Eyes General: appearance normal, both eyes and all related structures Neck Neck: Yes normal visual inspection Thyroid: Thyroid normal Chest Chest palpation & inspection: normal inspection of the chest Resp Effort & Inspection: normal respiratory effort Auscultation: diminished lung sounds GI Palpation (GI): Soft to palpation Skin General skin exam: no rashes or lesions noted Neuro General: patient oriented x3 Cognition (Neuro): normal cognition Extrem General: Yes normal to inspection Psych Attitude: cooperative Thought process: Normal thought process present Office Procedures Spirometry Testing Spirometry Comments: spirometry done in the office, Dr. Banuelos has the results results scanned to chart. 85898- Spirometry Results Reviewed Results Reviewed: Assessment & Plan Assessment & Plan (1) Asthma: Code(s): J45.909 - Unspecified asthma, uncomplicated Qualifiers: Asthma complication type: uncomplicated Asthma persistence: persistent Asthma severity: moderate Qualified Code(s): J45.40 - Moderate persistent asthma, uncomplicated (2) Recurrent productive cough: Code(s): R05.8 - Other specified cough (3) GERD (gastroesophageal reflux disease): Code(s): K21.9 - Gastro-esophageal reflux disease without esophagitis Qualifiers: Esophagitis presence: without esophagitis Qualified Code(s): K21.9 - Gastro-esophageal reflux disease without esophagitis (4) Upper airway resistance syndrome: Code(s): G47.8 - Other sleep disorders Plan PAUL as needed bronchosocpy to assess the airways and upper airway obstruction Increase Gabapentin 600mg at night to help with vocal cord dysfuction F/U 4-6 weeks Orders: Orders AMB Spirometry Testing Today J45.909 - Unspecified asthma, uncomplicated Medications: Changed From gabapentin 300 mg PO BEDTIME 30 days 30 caps 6RF To gabapentin 600 mg (2 x 300 mg) PO BEDTIME 30 days 60 caps 6RF Coding Level of Care Code Est Pt Level 4 (79765) Diagnoses Moderate persistent asthma without complication J45.40 Asthma complication type: uncomplicated Asthma persistence: persistent Asthma severity: moderate Recurrent productive cough R05.8 Gastroesophageal reflux disease without esophagitis K21.9 Esophagitis presence: without esophagitis Upper airway resistance syndrome G47.8 CPT Codes Spirometry - CPT: 79304- Spirometry ([id number]) Time Spent (min) 17
[2023-10-19 14:19] VITALS: PULSE 78; O2SAT 99; BMI 31.5
== END 2023-10-19 14:46 | disposition home or self-care (01) ==
PROVIDERS: PCP Internal Medicine; Visit Provider Hospitalist
DX: J45.40 Moderate persistent asthma, uncomplicated (principal); R05.8 Other specified cough; K21.9 Gastro-esophageal reflux disease without esophagitis; G47.8 Other sleep disorders
CPT/HCPCS: 94010; 99214

== ENCOUNTER → 2023-10-19 14:07 | Outpatient (BNVA) | payer OTHER, SELFPAY | PROVIDERS: PCP Internal Medicine; Visit Provider Hospitalist | DX: J45.40 Moderate persistent asthma, uncomplicated (principal); R05.8 Other specified cough; K21.9 Gastro-esophageal reflux disease without esophagitis; G47.8 Other sleep disorders | CPT/HCPCS: 94010; 99212 ==

== ENCOUNTER 2023-10-26 06:43 | Day surgery (SDC) | payer OTHER, SELFPAY ==
[2023-10-26] VITALS (8 sets, daily range): BP systolic 117–136; BP diastolic 71–78; PULSE 75–94; RESP 14–16; TEMP 36.1–37.1; O2SAT 93–97; BMI 34.6
--- NOTE | 2023-10-26 07:18 | MHC.SHP ---
Pre-Procedural Eval Section A Date of Service: 10/26/23 Changes since office visit: No Cold of Flu in the past 2 weeks, No New Medical Problems, No Changes in Medication and No Patient answered all questions The History & Physical has been completed within 30 days and I have reviewed it.: Yes Section B Chief Complaint: Other specified cough Allergies: Allergies Allergy/AdvReac Type Severity Reaction Status Date / Time No Known Allergies Allergy Verified 10/19/23 14:20 Plan I have reviewed the history and physical and performed a pertinent physical examination on my patient. No changes have occurred unless specified. Time Spent With Patient Time: Total time managing care of this patient today ____ minutes.
[2023-10-26 07:47] LABS: Glucose, Whole Blood 136 mg/dL (60-115)
--- NOTE | 2023-10-26 08:09 | HO.ANESPROP2 ---
[facility] Active Problems Active Problems: All Active Problems (Updated 09/21/23 @ 08:18 by Roman Martin MD) HPV in female (Acute) Upper airway resistance syndrome (Acute) Uterine fibroid (Acute) Abnormal cervical cytology (Acute) Malignant neoplasm of breast (Acute) Left-sided low back pain with sciatica (Acute) Breast density (Acute) Asthma (Acute) Recurrent productive cough (Acute) GERD (gastroesophageal reflux disease) (Acute) Left shoulder pain (Acute) Low vitamin D level (Acute) Encounter to establish care (Acute ~11/19/21) BMI 33.0-33.9,adult (Acute) Diabetes type 2, controlled (Acute) Environmental and seasonal allergies (Acute) Preoperative examination (Acute) Cataract (Acute) Low back pain with left-sided sciatica (Acute) Anemia (Acute) Dyslipidemia (Acute) Lumbar degenerative disc disease (Acute) Allergic rhinitis (Acute) Constipation (Acute) Cancer of right breast (Acute) Obesity (BMI 30-39.9) (Acute) Diabetes mellitus with hyperglycemia (Acute) Past Medical History Medical History HPV in female Upper airway resistance syndrome Uterine fibroid Abnormal cervical cytology Abnormal Pap smear of cervix History of COVID-19 Lumbar degenerative disc disease Allergic rhinitis Constipation Calcification of left breast Malignant neoplasm of breast Obesity (BMI 30-39.9) Diabetes mellitus with hyperglycemia Cancer of right breast COVID-19 Functional capacity: independent ambulation Patient : No Family History Family History Sister Breast cancer Father HTN (hypertension) Heart attack Mother Diabetes HTN (hypertension) Family history of problems with anesthesia: No Surgical History Surgical History History of cataract surgery History of mastectomy History of Problems with Anesthesia: No Social History Social History Household Members: None Housing: Apartment Alcohol intake: never Patient Tobacco Use Status: Never used Tobacco e-Cigarette/Vaping Use: Never Used Second Hand Smoke Exposure: No Use of substances other than those prescribed or required for medical reasons: No Are you DNR?: No Advance Directives: No Advance Directives Information Provided: Yes service: No Current occupational status: employed Current occupation: [employer] Sexual orientation: Straight/Heterosexual Gender identity: Female Cognitive needs: No Hearing needs: No Vision needs: Yes Meds Allergies Allergy/AdvReac Type Severity Reaction Status Date / Time No Known Allergies Allergy Verified 10/19/23 14:20 Home Medications Medication Instructions Recorded Confirmed Last Taken Type omeprazole 20 mg capsule,delayed 20 mg PO DAILY 11/25/22 03/20/23 Unknown History release Exam Height,Weight and Vital Signs: Height 5 ft 2 in Weight 85.899 kg Last Vital Signs Temp 98.7 F 10/26/23 07:33 Pulse 75 10/26/23 07:33 Resp 16 10/26/23 07:33 BP 132/73 10/26/23 07:33 Pulse Ox 97 10/26/23 07:33 O2 Del Method Room Air 10/26/23 07:33 Pertinent Lab Results Pertinent Lab Results: Laboratory Tests 10/26/23 07:44 POC Glucose 136 H Airway Mallampati Class: III TM Dist: >3cm Neck ROM: Full Heart: RRR Lungs: CTA Assessment and Plan Assessment Anesthesia Assessment: Anesthesia Plan Discussed Final Anesthetic Review Family History of Problems with Anesthesia: No History of Problems with Anesthesia: No NPO: Yes ASA Class: II Final Preanesthetic Review: Meds/Allgs Chart Reviewed, Consent Obtained/Reviewed and Anes Risks/Benef Reviewed Patient Risk: Low Procedure Risk: Low Anesthetic Plan Anesthetic Plan: MAC: Disposition: Standard PACU
--- NOTE | 2023-10-26 09:22 | PM.OP ---
Brief Operative Note Date of Service: 10/26/23 Pre-op diagnosis: cough, upper airway resistance Post-op diagnosis: other (proximal tracheal stenosis, mild) Procedure: Bronchoscopy with washings Implants: Surgeon: Nikhil Banuelos MD Anesthesia: GLMA Was an Commercial Real Estate Paralegal used for this Procedure?: No Estimated blood loss (mL): 0 Pathology: none sent Condition: stable Disposition: same day
--- NOTE | 2023-10-30 09:30 | OP_ITS ---
DATE OF SERVICE: 10/26/2023 SURGEON: Nikhil Banuelos MD PREOPERATIVE DIAGNOSIS: Upper airway resistance and cough. POSTOPERATIVE DIAGNOSIS: Proximal tracheal stenosis. PROCEDURE PERFORMED: Bronchoscopy with washings. ESTIMATED BLOOD LOSS: None. COMPLICATIONS: None. ANESTHESIA: LMA. ASSISTANTS: None. SPECIMENS: INTERPRETATION: A mild stenosis of the proximal trachea, likely resolving in the findings on the flow volume loop on the spirometry. DESCRIPTION OF PROCEDURE: After the patient was adequately sedated and LMA in placed, the flexible digital bronchoscope was inserted via the LMA to the level of the larynx. The larynx appeared to be normal. The vocal cords were symmetrical. After receiving lidocaine, the bronchoscope was then navigated to the level of the trachea. The subglottic area at the level of the cricoid and proximal trachea, appeared to be some narrowing of the tracheal mucosa, primarily in the posterior membrane, borderline minimal. After that, the trachea patency was normal. Trachea rings appeared normal. No evidence of any obstructions. No evidence of any significant dynamic obstruction either. The bronchoscope was navigated to the entire tracheobronchial tree. No evidence of any bronchial lesions or masses. No evidence of any secretions. A complete survey was done. Bronchial washings were collected bilaterally. The bronchoscope was then removed. The total endoscopic time approximately 10 minutes. The patient tolerated the procedure well. Vital signs were stable throughout the procedure. MD JOAQUINA Steve/GERARD / [id number]
== END 2023-10-26 10:19 | disposition home or self-care (01) ==
PROVIDERS: PCP Internal Medicine; Visit Provider Hospitalist
PROC: 0BJ08ZZ Inspection of Tracheobronchial Tree, Via Natural or Artificial Opening Endoscopic (ICD-10-PCS; CPT 31622; principal; 2023-10-26 08:30)
DX: J45.40 Moderate persistent asthma, uncomplicated (principal); R05.8 Other specified cough; J39.8 Other specified diseases of upper respiratory tract; G47.8 Other sleep disorders; E11.65 Type 2 diabetes mellitus with hyperglycemia; E66.9 Obesity, unspecified; Z68.31 Body mass index [BMI] 31.0-31.9, adult; K21.9 Gastro-esophageal reflux disease without esophagitis; Z85.3 Personal history of malignant neoplasm of breast; Z90.11 Acquired absence of right breast and nipple; Z92.21 Personal history of antineoplastic chemotherapy; Z86.16 Personal history of COVID-19
CPT/HCPCS: 31622; 82947; 87070; 87102; 87116; 87205; 87206; 88112; J0171; J1596; J2250; J2704; J3010

== ENCOUNTER → 2023-10-26 06:43 | Outpatient (BNV) | payer OTHER, SELFPAY | PROVIDERS: PCP Internal Medicine; Visit Provider Hospitalist | DX: J39.8 Other specified diseases of upper respiratory tract (principal); R05.9 Cough, unspecified | CPT/HCPCS: 31623 ==

== ENCOUNTER 2023-11-09 10:29 | Outpatient (AMB) | payer MEDICAID, SELFPAY ==
[2023-11-09 10:38] VITALS: PULSE 85; O2SAT 99; BMI 32.7
--- NOTE | 2023-11-09 10:38 | A.OFFVIS_ITS ---
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 She was diagnosed with acute bronchitis with bronchospasms. The patient was t antibiotics and prednisone. Patient did feel better although she still not at her baseline. Still having frequent coughing have episodes and also at times productive in nature. The mucus is clear. She also also complains of some chest tightness intermittently. Cmjp-fc-fnxzndps severity. She does get relief from using the albuterol inhaler. She does use it between 1 to 2 times a day. Her symptoms usually worse at nighttime. She does not have recent pulmonary function studies. She did have a CT scan of the abdomen back in November very demonstrated that she did have some evidence of thickened bronchial wall suggesting bronchitis at that point. Will go ahead and start her on Symbicort i nhaler. In addition to that with his allergy testing blood work and pulmonary function studies. 07/21/2023 the patient is here for a pulm onary follow-up visit. She continues to be about the same. Complains of difficulty breathing and also cough. The Symbicort inhaler was not helpful. The patient did undergo a chest x-ray without any acute disease and also had a pulmonary function study which we reviewed together. It appears that she has very limited inspiratory and expiratory flows suggesting of an upper airway obstruction. Therefore will request a CT scan of the neck to further address for any are upper airway obstruction and then subsequently depending on those results will talk about performing a bronchoscopy. For now will place her on gabapentin to help with muscle relaxation specially at nighttime and she continues to use the Bentson aids cough drops to just give her some relief from the cough. 10/19/2023 the patient is here for a pulmonary follow-up visit. She still about the same. Still complains of difficulty coughing and shortness of breath. We again talked about his spirometry with very limited inspiratory and also expiratory flows during her spirometry. We did request a CT scan of the neck to better address the possibility of an airway obstruction. Although denied. Therefore the best option would be to perform a bronchoscopy to further visualize the upper airway also visualized the lower airway to further address her respiratory complaints. The patient did have spirometry done today just to see if she continued to have limited flows. It appeared that the expiratory flows were little better although the inspiratory flows continue to be limited. Therefore will go ahead with a bronchoscopy at this time. In the meantime she does have a respiratory medications at partially helpful. After the bronchoscopy will further address her ongoing symptoms. 11/09/2023 the patient is here for a pulm onary follow-up visit. She is status post bronchoscopy. She tolerated procedure well. She continues to cough. The cough is aggravating to her periods moderate severity. She has not using anymore inhalers at this time. She ran out. We did perform a bronchoscopy. It demonstrated mild narrowing at the level of the cricoid area proximal trachea. This could be contributing to her symptoms in addition to the findings on the spirometry flow volume loop. Therefore, the patient was start Trelegy inhaler. She did not respond well to Symbicort. The hope is that we can decrease the swelling of that area and improve her symptoms. She can also try cough medications such as Tessalon Perles which also send to the pharmacy. We can try prednisone but the patient does have diabetes and that can raise her blood sugars and therefore will hold off on that. 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 Upper airway resistance syndrome Uterine fibroid Abnormal cervical cytology Abnormal Pap smear of cervix History of COVID-19 Lumbar degenerative disc disease Allergic rhinitis Constipation Calcification of left breast Malignant neoplasm of breast Obesity (BMI 30-39.9) Diabetes mellitus with hyperglycemia Cancer of right breast COVID-19 Surgical History History of cataract surgery History of mastectomy Family History Sister Breast cancer Father HTN (hypertension) Heart attack Mother Diabetes HTN (hypertension) Social History Household Members: None Housing: Apartment Alcohol intake: never Patient Tobacco Use Status: Never used Tobacco e-Cigarette/Vaping Use: Never Used Second Hand Smoke Exposure: No service: No Current occupational status: employed 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 Sexual orientation: Straight/Heterosexual Gender identity: Female Cognitive needs: No Hearing needs: No Vision needs: Yes Review of Systems Const All systems reviewed & are unremarkable except as noted in HPI and below Denies chills, Denies fever(s), Denies headache(s), Denies poor appetite and De nies weakness ENT Denies headache(s) Card Denies chest pain, Denies irregular heart rhythm, Denies palpitations and Reports dyspnea Resp Reports cough, Denies excessive phlegm production and Reports dyspnea GI Denies abdominal pain, Denies bloating, Denies change in bowel habits, Denies constipation, Denies heartburn, Denies diarrhea, Denies nausea and Denies vomiting Denies urinary frequency Musc Denies back pain, Denies muscle weakness and Denies numbness Skin/Breast Denies changing lesions and Denies unusual bruising Neuro Denies headache(s), Denies numbness, Denies paresthesias and Denies weakness Psych Denies anxiety and Denies depression Endo Denies palpitations Roc/Lymph Denies lymphadenopathy Physical Exam Vital Signs: Last Vital Signs Pulse 85 11/09/23 10:38 Pulse Ox 99 11/09/23 10:38 Oxygen Delivery Method Room Air 11/09/23 10:38 BMI result Body Mass Index 32.7 Const General: cooperative, healthy appearing, no acute distress, well developed and alert Orientation/consciousness: patient oriented x3 HEENT Head: Yes normal to inspection Eyes General: appearance normal, both eyes and all related structures Neck Neck: Yes normal visual inspection Thyroid: Thyroid normal Chest Chest palpation & inspection: normal inspection of the chest Resp Effort & Inspection: normal respiratory effort and Actively coughing Quality: actively coughing Auscultation: diminished lung sounds GI Palpation (GI): Soft to palpation Skin General skin exam: no rashes or lesions noted Neuro General: patient oriented x3 Cognition (Neuro): normal cognition Extrem General: Yes normal to inspection Psych Attitude: cooperative Thought process: Normal thought process present Assessment & Plan Assessment & Plan (1) Asthma: Code(s): J45.909 - Unspecified asthma, uncomplicated Qualifiers: Asthma severity: moderate Asthma persistence: persistent Asthma complication type: uncomplicated Qualified Code(s): J45.40 - Moderate persistent asthma, uncomplicated (2) Recurrent productive cough: Code(s): R05.8 - Other specified cough (3) GERD (gastroesophageal reflux disease): Code(s): K21.9 - Gastro-esophageal reflux disease without esophagitis Qualifiers: Esophagitis presence: without esophagitis Qualified Code(s): K21.9 - Gastro-esophageal reflux disease without esophagitis (4) Upper airway resistance syndrome: Code(s): G47.8 - Other sleep disorders (5) Tracheal stenosis: Comment: mild proximal trachea. Likely inflammatory Code(s): J39.8 - Other specified diseases of upper respiratory tract Plan PAUL as needed start Trelegy daily start Benzonates as needed continue Gabapentin 600mg at night to help with vocal cord dysfuction F/U 4-6 months Medications: New zlobawdphkt-gupedmqpi-lvglhtda 200-62.5-25 mcg (Trelegy Ellipta) 1 inh inhalation DAILY 30 days 60 ea 12RF benzonatate 200 mg PO BID 30 days PRN 60 caps 5RF cough Coding Level of Care Code Est Pt Level 4 (65826) Diagnoses Moderate persistent asthma without complication J45.40 Asthma severity: moderate Asthma persistence: persistent Asthma complication type: uncomplicated Recurrent productive cough R05.8 Gastroesophageal reflux disease without esophagitis K21.9 Esophagitis presence: without esophagitis Upper airway resistance syndrome G47.8 Tracheal stenosis J39.8 Time Spent (min) 17
== END 2023-11-09 11:02 | disposition home or self-care (01) ==
PROVIDERS: PCP Internal Medicine; Visit Provider Hospitalist
DX: J45.40 Moderate persistent asthma, uncomplicated (principal); R05.8 Other specified cough; K21.9 Gastro-esophageal reflux disease without esophagitis; G47.8 Other sleep disorders; J39.8 Other specified diseases of upper respiratory tract
CPT/HCPCS: 99214

== ENCOUNTER → 2023-11-09 10:29 | Outpatient (BNVA) | payer OTHER, SELFPAY | PROVIDERS: PCP Internal Medicine; Visit Provider Hospitalist | DX: J45.40 Moderate persistent asthma, uncomplicated (principal); J39.8 Other specified diseases of upper respiratory tract; R05.8 Other specified cough; G47.8 Other sleep disorders; K21.9 Gastro-esophageal reflux disease without esophagitis | CPT/HCPCS: 99212 ==

== ENCOUNTER 2023-11-13 08:22 | Outpatient (AMB) | payer OTHER, SELFPAY ==
--- NOTE | 2023-11-13 08:49 | MHC.OFFVIS ---
Intake Vital Signs 11/13/23 08:51 Height 5 ft 2 in Weight 178 lb 9.191 oz BMI 32.7 BP 110/72 Intake Visit Reasons: Colpo follow up Mental Health Specialist Required: Yes Mental Health Specialist Language: Defense Travel Administrator Name: Katelyn ROBERTSON Information Interpreted: non-clinical & clinical Research Dairy Farm Supervisor: Research Dairy Farm Supervisor Present Accompanied by: Self / Same As Patient Allergies oyster extract Allergy (Verified 11/13/23 08:51) Anaphylaxis Is last menstrual period known: Yes Last menstrual period: 08/13/20 Post menopausal: Yes Patient : No Do you need a note to return to daycare/school/sports/work: Yes (for surgery on monday) HPI HPI Comments History of Present Illness Details Presenting post colpo for follow-up. The patient is doing well with no complaints. The pathology showed the following: A. Endocervix, curettage: Few superficial strips of endocervical epithelium within normal limits; mucoinflammatory material. B. Cervix, 3 o'clock, biopsy: Inflamed squamous mucosa and endocervical epithelium with reactive changes. C. Cervix, 6 o'clock, biopsy: Squamous mucosa within normal limits; no endocervical epithelium identified. D. Cervix, 7 o'clock, biopsy: Squamous mucosa within normal limits; no endocervical epithelium identified. E. Cervix, 11 o'clock, biopsy: - Low-grade squamous intraepithelial lesion (MILY 1). - No endocervical epithelium identified. F. 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 Upper airway resistance syndrome Uterine fibroid Abnormal cervical cytology Abnormal Pap smear of cervix History of COVID-19 Lumbar degenerative disc disease Allergic rhinitis Constipation Calcification of left breast Malignant neoplasm of breast Obesity (BMI 30-39.9) Diabetes mellitus with hyperglycemia Cancer of right breast COVID-19 Surgical History History of cataract surgery History of mastectomy Family History Sister Breast cancer Father HTN (hypertension) Heart attack Mother Diabetes HTN (hypertension) Social History Household Members: None Housing: Apartment Alcohol intake: never Patient Tobacco Use Status: Never used Tobacco e-Cigarette/Vaping Use: Never Used Second Hand Smoke Exposure: No service: No Current occupational status: employed 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 Sexual orientation: Straight/Heterosexual Gender identity: Female Cognitive needs: No Hearing needs: No Vision needs: Yes Female Reproductive History Menstrual Date of last menstrual period: 08/13/20 Total pregnancies: 2 Full term: 2 Review of Systems Const All systems reviewed & are unremarkable except as noted in HPI and below Reports as per HPI and Reports no additional complaints Card Reports as per HPI and Reports no additional complaints Resp Reports as per HPI and Reports no additional complaints GI Reports no additional complaints Reports no additional complaints Physical Exam Const General: cooperative, healthy appearing and comfortable Resp Effort & Inspection: normal respiratory effort Auscultation: clear to auscultation bilaterally Percussion: percussion normal Cardio Palpation: normal PMI Rate: regular rate Rhythm: regular rhythm Heart sounds: no murmurs and no rubs Peripheral pulses: Peripheral pulses 2+ throughout GI Inspection: Yes normal to inspection Palpation (GI): Soft to palpation, nontender, no guarding, not rigid and No hepatosplenomegaly present Percussion: Yes normal to percussion Auscultation: normal bowel sounds Rectal Exam - Female: deferred Assessment & Plan Assessment & Plan (1) Dysplasia of cervix, low grade (MILY 1): Comment: persistent for than 2 years Code(s): N87.0 - Mild cervical dysplasia Plan: Discussed with the patient the pathology results of the colposcopy biopsies & endocervical curettage ( mild dysplasia-MILY 1). Discussed with the patient the sensitivity specificity, positive and negative predictive value in detecting cervical cancer in addition discussed the regression, persistence and progression rates. Since according to the patient the the MILY 1 lesions are persistent for the last 2 years , no reports available, biopsy done in [place], the options of treatment were discussed with the patient included the following continued observation versus excisional procedures, LEEP with possible cone and post cone ECC. All the pros, cons, risks and benefits of each approach were discussed with the patient, the patient decided to proceed with loop electric excision procedure. Discussed with the patient the procedure, its benefits and risks including bleeding, infection, possible need for blood transfusion with all its risk ( HIV, syphilis, Hepatitis, anaphylaxis shock, others..), injury to bladder, rectum, possible re-excision for positive margins, potential need for hysterectomy, possible positive margin necessitating re-excision. Also discussed the patient options of anesthesia either paracervical block versus IV sedation/MAC, prefers to proceed with IV sedation/MAC. All questions answered, the patient verbalized understanding and signed the consent. Coding Level of Care Code Est Pt Level 3 (47902) Diagnoses Dysplasia of cervix, low grade (MILY 1) N87.0
[2023-11-13 08:51] VITALS: BP 110/72; BMI 32.7
== END 2023-11-13 09:47 | disposition home or self-care (01) ==
LOC: HO.HWS 08:22
PROVIDERS: PCP Internal Medicine; Visit Provider Obstetrics & Gynecology
DX: N87.0 Mild cervical dysplasia (principal)
CPT/HCPCS: 99213

== ENCOUNTER → 2023-11-13 08:22 | Outpatient (BNVA) | payer OTHER, SELFPAY | PROVIDERS: PCP Internal Medicine; Visit Provider Obstetrics & Gynecology | DX: N87.0 Mild cervical dysplasia (principal) | CPT/HCPCS: 99212 ==

== ENCOUNTER 2023-11-24 09:50 | Day surgery (SDC) | payer SELFPAY ==
[2023-11-21 15:35] VITALS: BMI 32.7
--- NOTE | 2023-11-23 09:11 | P.CONAN_ITS ---
Documented by User: Clare Mathur NP 11/23/23 09:17 HPI - Anesthesia Eval Consult details Narrative: 63yo F for LEEP,poss loop electric excision,poss loop electrical,cone and post endocervical curettage s/p bronch 10/2023 with TIVA. Findings: A mild stenosis of the proximal trachea, likely resolving in the findings on the flow volume loop on the spirometry. Anesthesia Pre-Procedure Meds Is the patient on any of the following meds?: Any other SGL-1 drugs or drugs that delay gastric emptying (Linagliptin) PMFSH Active Problems Active Problems: All Active Problems (Updated 11/13/23 @ 09:03 by Roman Martin MD) Dysplasia of cervix, low grade (MILY 1) (Acute) Left-sided low back pain with sciatica (Acute) Breast density (Acute) Asthma (Acute) Recurrent productive cough (Acute) GERD (gastroesophageal reflux disease) (Acute) Left shoulder pain (Acute) Low vitamin D level (Acute) Dyslipidemia (Acute) Anemia (Acute) Low back pain with left-sided sciatica (Acute) Cataract (Acute) Preoperative examination (Acute) Environmental and seasonal allergies (Acute) Diabetes type 2, controlled (Acute) BMI 33.0-33.9,adult (Acute) Encounter to establish care (Acute ~11/19/21) Tracheal stenosis (Acute) HPV in female (Acute) Upper airway resistance syndrome (Acute) Uterine fibroid (Acute) Abnormal cervical cytology (Acute) Malignant neoplasm of breast (Acute) Lumbar degenerative disc disease (Acute) Allergic rhinitis (Acute) Constipation (Acute) Cancer of right breast (Acute) Obesity (BMI 30-39.9) (Acute) Diabetes mellitus with hyperglycemia (Acute) Past Medical History 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 Upper airway resistance syndrome Uterine fibroid Abnormal cervical cytology Abnormal Pap smear of cervix History of COVID-19 Lumbar degenerative disc disease Allergic rhinitis Constipation Calcification of left breast Malignant neoplasm of breast Obesity (BMI 30-39.9) Diabetes mellitus with hyperglycemia Cancer of right breast COVID-19 Family History Family History Sister Breast cancer Father HTN (hypertension) Heart attack Mother Diabetes HTN (hypertension) Family history of problems with anesthesia: No Surgical History Surgical History Hx of cholecystectomy History of bilateral tubal ligation History of bronchoscopy History of cataract surgery History of mastectomy History of Problems with Anesthesia: No Social History Social History Household Members: None Housing: Apartment Alcohol intake: never Patient Tobacco Use Status: Never used Tobacco e-Cigarette/Vaping Use: Never Used Second Hand Smoke Exposure: No service: No Current occupational status: employed Current occupation: [employer] Sexual orientation: Straight/Heterosexual Gender identity: Female Cognitive needs: No Hearing needs: No Vision needs: Yes Meds Allergies Allergy/AdvReac Type Severity Reaction Status Date / Time oyster extract Allergy Anaphylaxis Verified 11/24/23 10:30 Home Medications Medication Instructions Recorded Confirmed Last Taken Type omeprazole 20 mg capsule,delayed 20 mg PO DAILY 11/25/22 11/24/23 Unknown Histor y release Exam Height,Weight and Vital Signs: Height 5 ft 2 in Weight 81 kg Assessment and Plan Assessment Anesthesia Assessment: Chart Reviewed Final Anesthetic Review Family History of Problems with Anesthesia: No History of Problems with Anesthesia: No Documented by User: Esther Paredes MD 11/24/23 12:42 HPI - Anesthesia Eval Anesthesia Pre-Procedure Meds If Yes to any meds - educate patient: Pt education - increased risk of aspiration PMFSH Active Problems Active Problems: All Active Problems (Updated 11/24/23 @ 12:04 by MD Reinaldo) Dysplasia of cervix, low grade (MILY 1) (Acute) Left-sided low back pain with sciatica (Acute) Breast density (Acute) Asthma (Acute) Recurrent productive cough (Acute) GERD (gastroesophageal reflux disease) (Acute) Left shoulder pain (Acute) Low vitamin D level (Acute) Dyslipidemia (Acute) Anemia (Acute) Low back pain with left-sided sciatica (Acute) Cataract (Acute) Preoperative examination (Acute) Environmental and seasonal allergies (Acute) Diabetes type 2, controlled (Acute) BMI 33.0-33.9,adult (Acute) Encounter to establish care (Acute ~11/19/21) Tracheal stenosis (Acute) HPV in female (Acute) Upper airway resistance syndrome (Acute) Uterine fibroid (Acute) Abnormal cervical cytology (Acute) Malignant neoplasm of breast (Acute) Lumbar degenerative disc disease (Acute) Allergic rhinitis (Acute) Constipation (Acute) Cancer of right breast (Acute) Obesity (BMI 30-39.9) (Acute) Diabetes mellitus with hyperglycemia (Acute) Past Medical History 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 Upper airway resistance syndrome Uterine fibroid Abnormal cervical cytology Abnormal Pap smear of cervix History of COVID-19 Lumbar degenerative disc disease Allergic rhinitis Constipation Calcification of left breast Malignant neoplasm of breast Obesity (BMI 30-39.9) Diabetes mellitus with hyperglycemia Cancer of right breast COVID-19 Family History Family History Sister Breast cancer Father HTN (hypertension) Heart attack Mother Diabetes HTN (hypertension) Family history of problems with anesthesia: No Surgical History Surgical History Hx of cholecystectomy History of bilateral tubal ligation History of bronchoscopy History of cataract surgery History of mastectomy History of Problems with Anesthesia: No Social History Social History Household Members: None Housing: Apartment Alcohol intake: never Patient Tobacco Use Status: Never used Tobacco e-Cigarette/Vaping Use: Never Used Second Hand Smoke Exposure: No service: No Current occupational status: employed Current occupation: [employer] Sexual orientation: Straight/Heterosexual Gender identity: Female Cognitive needs: No Hearing needs: No Vision needs: Yes Meds Allergies Allergy/AdvReac Type Severity Reaction Status Date / Time oyster extract Allergy Anaphylaxis Verified 11/24/23 10:30 Home Medications Medication Instructions Recorded Confirmed Last Taken Type omeprazole 20 mg capsule,delayed 20 mg PO DAILY 11/25/22 11/24/23 Unknown History release Exam Height,Weight and Vital Signs: Height 5 ft 2 in Weight 81 kg Vital Signs Temp Pulse Resp BP Pulse Ox O2 Del Method 11/24/23 10:36 97.3 F 68 16 150/84 H 97 Room Air Pertinent Lab Results Pertinent Lab Results: Lab Results 11/24/23 Range/Units 10:51 POC Glucose 117 H (60-115) mg/dL Airway Mallampati Class: II TM Dist: >3cm Neck ROM: Full Loose/Missing/Broken Teeth: Yes (Missing molars. Denies broken or loose teeth) Heart: RRR Lungs: CTAB Assessment and Plan Assessment Anesthesia Assessment: Anesthesia Plan Discussed Final Anesthetic Review Family History of Problems with Anesthesia: No History of Problems with Anesthesia: No NPO: Yes ASA Class: III Final Preanesthetic Review: No Changes in Pt Med Stat, Meds/Allgs Chart Reviewed, Consent Obtained/Reviewed and Anes Risks/Benef Reviewed Patient Risk: Intermediate Procedure Risk: Low Assessment/Block/Sedation in SS: Assess/Block/Sedation-SS Anesthetic Plan Anesthetic Plan: GA Disposition: Standard PACU
[2023-11-24] VITALS (13 sets, daily range): BP systolic 113–150; BP diastolic 49–84; PULSE 63–90; RESP 12–16; TEMP 36.3–36.8; O2SAT 94–98; BMI 33.7
--- NOTE | 2023-11-24 10:40 | MHC.SHP ---
Pre-Procedural Eval Section A - 24 Hr Update-Section A only Date of Service: 11/24/23 The patient is an INPATIENT: No Changes since office visit: No Cold of Flu in the past 2 weeks, No New Medical Problems, No Changes in Medication and No Patient answered all questions The patient has been examined within 24 hours of the surgical procedure. The History & Physical has been completed within 30 days and I have reviewed it.: Yes Section B - Complete if H&P > 30 days Chief Complaint: Mild cervical dysplasia Allergies: Allergies Allergy/AdvReac Type Severity Reaction Status Date / Time oyster extract Allergy Anaphylaxis Verified 11/24/23 10:30 Plan Diagnosis/Plan: Unchanged I have reviewed the history and physical and performed a pertinent physical examination on my patient. No changes have occurred unless specified. Time Spent With Patient Time: Total time managing care of this patient today ____ minutes.
[2023-11-24] MEDS: Lactated Ringers 1,000 ML 100 ML IVCONT (10:49)
[2023-11-24 10:56] LABS: Glucose, Whole Blood 117 mg/dL (60-115)
--- NOTE | 2023-11-24 12:33 | PM.OP ---
Brief Operative Note Date of Service: 11/24/23 Pre-op diagnosis: Persistent MILY 1 Post-op diagnosis: same Procedure: LEEP CONE with post CONE ECC Surgeon: Roman Martin MD Anesthesia: GLMA and other (Paracervical block) Was an Ditto Machine Operator used for this Procedure?: No Estimated blood loss (mL): 0 Pathology: other (Cervical cone, top-hat, Post cone ECC) Condition: stable Disposition: other (Home)
--- NOTE | 2023-11-24 12:34 | P.OP_ITS ---
Operative Note Operative Note Date of Service: 11/24/23 Narrative: Pre op diagnosis: Persistent MILY 1 Operation: Colposcopy, Loop electrical excision procedure cone, top hat endocervical excision, post cone ECC Postop diagnosis: the same Quantitative blood loss: 50 cc Surgeon: Roman Martin MD, FACOG Dewatering Filtering Supervisor: None Pathology: Cervical cone, top-hat endo cervical excision, endo cervical curettage Complications: none Anesthesia: GLMA and Para cervical block Procedure: The patient was put in a dorsal lithotomy position, scrubbed and draped in the usual sterile fashion. A speculum was inserted inside the patient's vagina. The cervix is assessed using the colposcope with acetic acid , the lesions were seen, and at least 1 cm of the squamocolumnar junction was observed. 20 x 5 mm size loop was selected based upon the diameter of the lesion. Lugol solution was used to outline the lesions and area of the transformation zone order to be removed 10 cc of xylocaine with epinephrine were injected submucosally into the surface of the cervix (ectocervix) at the 3, 6, 9, and 12 o'clock positions. The electrosurgical generator is set at 30 to 40 tubbs on blend 1. The loop is carefully passed simultaneously around and under the transformation zone, in order to ensure excising it making sure the lesion is at least 5 mm far from the specimen margins . The loop was allowed to glide through the cervix from one side to the other, allowing the cutting current to divide the tissue. Additional tissue was excised from this area with a smaller-diameter loop , endo cervical top-hat excision was performed An endo cervical curettage is performed following completion of excision, and hemostasis is obtained with a Ball electrode or regular tip cautery. At the end, Monsel's solution was applied to the cone bed. The patient tolerated the procedure well and, all instruments were taken out of the patient vaginal cavity, and the patient was transferred to the PACU in stable condition.
[2023-11-24] MEDS: Ketorolac Tromethamine 30 MG/ML VIAL IVPUSH (13:00)
[2023-11-24] MEDS: Acetaminophen 325 MG TABLET 650 MG PO (13:00)
[2023-11-24] MEDS: ondansetron HCL 4 MG/2 ML VIAL IVPUSH (13:40)
[2023-11-24] MEDS: fentaNYL citrate/PF 100 MCG/2 ML VIAL 25 MCG IVPUSH (14:10)
== END 2023-11-24 14:55 | disposition home or self-care (01) ==
PROVIDERS: PCP Internal Medicine; Visit Provider Obstetrics & Gynecology
PROC: 0UBC7ZZ Excision of Cervix, Via Natural or Artificial Opening (ICD-10-PCS; CPT 57522; principal; 2023-11-24 11:50)
DX: N87.0 Mild cervical dysplasia (principal); E11.9 Type 2 diabetes mellitus without complications; E78.5 Hyperlipidemia, unspecified; Z79.4 Long term (current) use of insulin; Z79.02 Long term (current) use of antithrombotics/antiplatelets; Z79.899 Other long term (current) drug therapy
CPT/HCPCS: 57461; 82947; 88305; 88307; J1885; J2405; J2704; J3010

== ENCOUNTER → 2023-11-24 09:50 | Outpatient (BNV) | payer OTHER, SELFPAY | PROVIDERS: PCP Internal Medicine; Visit Provider Obstetrics & Gynecology | DX: N87.0 Mild cervical dysplasia (principal) | CPT/HCPCS: 57461 ==

== ENCOUNTER 2023-12-06 07:31 | Outpatient (AMB) | payer OTHER, SELFPAY ==
--- NOTE | 2023-12-06 07:32 | MHC.OFFVIS ---
Intake Vital Signs 12/06/23 07:35 Height 5 ft 2 in Weight 174 lb BMI 31.8 BP 132/86 Intake Visit Reasons: post op Operations Manager Assistant Required: Yes Operations Manager Assistant Language: Coloring Machine Operator Name: Katelyn ROBERTSON Information Interpreted: non-clinical & clinical Accompanied by: Self / Same As Patient Allergies oyster extract Allergy (Verified 12/06/23 07:36) Anaphylaxis Post menopausal: Yes HPI HPI Comments History of Present Illness Details The patient is presenting for follow-up post LEEP cone. The patient has no complaints. The patient had persistent MILY 1, LEEP cone with post cone ECC path showed the following: A. Cervix, cone excision: Mildly inflamed cervical transformation zone mucosa with reactive changes. B. Cervix, top hat, excision: Mildly inflamed endocervical mucosa with reactive changes. C. Endocervix, post cone curettage: - Scant strips of benign endocervical epithelium; mucoinflammatory material. - Fragment of benign lower uterine segment endometrium; no atypia identified. 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 Upper airway resistance syndrome Uterine fibroid Abnormal cervical cytology Abnormal Pap smear of cervix History of COVID-19 Lumbar degenerative disc disease Allergic rhinitis Constipation Calcification of left breast Malignant neoplasm of breast Obesity (BMI 30-39.9) Diabetes mellitus with hyperglycemia Cancer of right breast COVID-19 Surgical History Hx of cholecystectomy History of bilateral tubal ligation History of bronchoscopy History of cataract surgery History of mastectomy Family History Sister Breast cancer Father HTN (hypertension) Heart attack Mother Diabetes HTN (hypertension) Social History Household Members: None Housing: Apartment Alcohol intake: never Patient Tobacco Use Status: Never used Tobacco e-Cigarette/Vaping Use: Never Used Second Hand Smoke Exposure: No service: No Current occupational status: employed 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 Sexual orientation: Straight/Heterosexual Gender identity: Female Cognitive needs: No Hearing needs: No Vision needs: Yes Review of Systems Const All systems reviewed & are unremarkable except as noted in HPI and below Reports as per HPI and Reports no additional complaints GI Reports no additional complaints Reports no additional complaints Physical Exam Vital Signs: Last Vital Signs BP 132/86 12/06/23 07:35 BMI result Body Mass Index 31.8 Assessment & Plan Assessment & Plan (1) Dysplasia of cervix, low grade (MILY 1): Comment: persistent for than 2 years status post LEEP cone with post cone ECC was negative pathology with no residual dysplasia Code(s): N87.0 - Mild cervical dysplasia Plan: Discussed with the patient the results the pathology, no residual dysplasia. Sensitivity, specificity false-positive false-negative rate detecting cervical dysplasia assess cancer were discussed with the patient. Instructions given the patient to schedule a co testing appointment in 1 year. All questions answered, the patient verbalized understanding Coding Level of Care Code Est Pt Level 3 (44923) Diagnoses Dysplasia of cervix, low grade (MILY 1) N87.0
[2023-12-06 07:35] VITALS: BP 132/86; BMI 31.8
== END 2023-12-06 10:41 | disposition home or self-care (01) ==
LOC: HO.HWS 07:31
PROVIDERS: PCP Internal Medicine; Visit Provider Obstetrics & Gynecology
DX: N87.0 Mild cervical dysplasia (principal)
CPT/HCPCS: 99213

== ENCOUNTER → 2023-12-06 07:31 | Outpatient (BNVA) | payer OTHER, SELFPAY | PROVIDERS: PCP Internal Medicine; Visit Provider Obstetrics & Gynecology | DX: N87.0 Mild cervical dysplasia (principal) | CPT/HCPCS: 99212 ==

== ENCOUNTER 2023-12-29 13:53 | Outpatient (AMB) | payer OTHER, SELFPAY ==
--- NOTE | 2023-12-29 13:57 | A.OFFPC_ITS ---
Vital Signs 12/29/23 13:59 Height 5 ft 2 in Weight 183 lb 2 oz BMI 33.5 BP 110/70 Blood Pressure Location Lt brachial Position Sitting Pulse 82 Pulse Source Pulse Oximeter Pulse Oximetry (%) 96 Oxygen Delivery Method Room Air Intake Visit Reasons: Annual PE Intake Note: Patient is here today for a physical. Complaint of pain in right hip radiating down the legs and knee pain ongoing for 3 months. PT did not help with pain. Director Of Front Office Required: Yes Director Of Front Office Language: Assistant Professor Of Psychology Name: Jesus ([id number]) Information Interpreted: non-clinical & clinical Agriculture Extension Specialist: Not Required per policy Accompanied by: Self / Same As Patient Allergies oyster extract Allergy (Verified 12/29/23 15:06) Anaphylaxis Medication List - Last Reconciled 12/29/23 by Mehrdad Chavez MD albuterol sulfate 90 mcg/actuation (Ventolin HFA) 1 puff PO QID PRN atorvastatin 10 mg PO BEDTIME benzonatate 200 mg PO BID PRN 30 days blood sugar diagnostic (ReliOn Prime Test Strips) As directed blood-glucose meter (Blood Glucose Monitoring kit) As directed budesonide-formoterol 160-4.5 mcg/actuation (Symbicort) 2 puffs inhalation BID 30 days cetirizine 10 mg PO DAILY PRN 90 days cholecalciferol (vitamin D3) 50 mcg PO DAILY fluticasone propionate 50 mcg/actuation (Flonase Allergy Relief) 2 sprays intranasal DAILY qbnfzvyfgou-szocpvads-uwrtlhaf 200-62.5-25 mcg (Trelegy Ellipta) 1 inh inhalation DAILY 30 days gabapentin 600 mg (2 x 300 mg) PO BEDTIME 30 days glimepiride 1 mg PO QAM 90 days insulin glargine (Lantus Solostar U-100 Insulin) 20 units (0.2 mL) subcut BEDTIME 30 days lancets As directed linagliptin (Tradjenta) 5 mg PO QAM 90 days omeprazole 20 mg PO DAILY pen needle, diabetic (BD Ultra-Fine Beatriz Pen Needle) As directed once a day Tobacco use date assessed: 12/29/23 Dental Screening Dental Screen Date: 12/29/23 Did you have a dental visit in the last 12 months?: No Did you have a dental problem in the last 6 months where you did not have access to dental care?: No Was dental information given to patient?: Patient has dentist HPI Annual PE HPI Details Patient comes in today for her annual physical examination - patient has not been back since 03/03/2023 Relates that she was experiencing increased abdominal pain (involving her epigastric and periumbilical areas) a couple of weeks ago She denies any fever or chills Denies any nausea, vomiting, diarrhea or constipation States that she did not seek any medical attention at the time and her abdominal symptoms gradually subsided on their own Reports also that she has been out of all of her meds for at least the past couple of weeks as her health insurance coverage lapsed and she had a hard time getting it reinstated until recently; will need all of her Rx refilled today She denies any headaches or dizziness Denies any chest pains, no SOB She denies any acute urinary symptoms She is scheduled for her repeat mammogram on 01/12/2024 and her annual gynecology exam and pap smear on 02/15/2024 She had her colonoscopy last done by Dr. 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 Upper airway resistance syndrome Uterine fibroid Abnormal cervical cytology Abnormal Pap smear of cervix History of COVID-19 Lumbar degenerative disc disease Allergic rhinitis Constipation Calcification of left breast Malignant neoplasm of breast Obesity (BMI 30-39.9) Diabetes mellitus with hyperglycemia Cancer of right breast COVID-19 Surgical History Hx of cholecystectomy History of bilateral tubal ligation History of bronchoscopy History of cataract surgery History of mastectomy Family History Sister Breast cancer Father HTN (hypertension) Heart attack Mother Diabetes HTN (hypertension) Social History Household Members: None Housing: Apartment Alcohol intake: never Patient Tobacco Use Status: Never used Tobacco e-Cigarette/Vaping Use: Never Used Second Hand Smoke Exposure: No service: No Current occupational status: employed Current occupation: [employer] Sexual orientation: Straight/Heterosexual Gender identity: Female Cognitive needs: No Hearing needs: No Vision needs: Yes Questionnaire PHQ-9 Over the last 2 weeks, how often have you been bothered by any of the following problems? 1. Little interest or pleasure in doing things: not at all 2. Feeling down, depressed, or hopeless: not at all 3. Trouble falling or staying asleep, or sleeping too much: not at all 4. Feeling tired or having little energy: not at all 5. Poor appetite or overeating: not at all 6. Feeling bad about yourself - or that you are a failure or have let yourself or your family down: not at all 7. Trouble concentrating on things, such as reading the newspaper or watching television: not at all 8. Moving or speaking so slowly that other people could have noticed. Or the opposite - being so fidgety or restless that you have been moving around a lot more than usual: not at all 9. Thoughts that you would be better off or of hurting yourself in some way: not at all Total score: 0 Depression Screening Interpretation: Negative Depression Screening Done: Yes 28093 - PHQ-9 Billing: Yes Source: Developed by Drs. Errol Sheikh, Jimena Fraser, Jeffery Collins and colleagues, with an educational noni from [employer]. Thrive Questionnaire Date Thrive assessed: 12/29/23 I am a: Patient What is your living situation today?: I have a steady place to live Within the past 12 months, did the food you bought not last and you didn't have the money to get more?: Never true Within the past 12 months, did you worry whether your food would run out before you got money to buy more?: Never true Do you have trouble paying for medicines?: No Do you have trouble getting transportation to medical appointments?: No Do you have trouble paying your heating and electricity bill?: No Do you have trouble taking care of your child, family member or friend?: No Do you have trouble with day-to-day activities such as bathing, preparing meals, shopping, managing finances, etc.?: No Are you currently unemployed and looking for a job?: No Are you interested in more education?: No Currently or been in a relationship where the following occur: no concerns reported THRIVE Score: 0 AUDIT C Alcohol Use Questionnaire (AUDIT-C) 1. How often do you have a drink containing alcohol?: Never Total Score: 0 Score Reviewed/Action Taken: Yes LEANDRA-7 AMB Questionnaire LEANDRA-7 Date LEANDRA - 7 assessed: 12/29/23 Feeling nervous, anxious, or on edge: 0 = Not at all Not being able to stop or control worryin = Not at all Worrying too much about different things: 0 = Not at all Trouble relaxin = Not at all Being so restless that it is hard to sit still: 0 = Not at all Becoming easily annoyed or irritable: 0 = Not at all Feeling afraid as if something awful might happen: 0 = Not at all Total LEANDRA-7 score (0-4 normal; 5-9 mild; 10-14 moderate; 15-21 severe): 0 Source: Developed by Drs. Errol Sheikh, Jimena Fraser, Jeffery Collins and colleagues, with an educational noni from [employer]. Review of Systems Const Denies chills, Denies fatigue, Denies fever(s), Denies headache(s) and Denies malaise Eyes Denies blurry vision, Denies change in vision, Denies irritation and Denies itchy eyes ENT Denies dysphagia, Denies dizziness, Denies otalgia, Denies headache(s), Denies nasal congestion, Denies neck pain, Denies odynophagia, Denies sinus pain and Denies sore throat Card Denies chest pain, Denies rapid heart rate, Denies irregular heart rhythm, Denies palpitations and Denies dyspnea Resp Denies chest congestion, Denies cough, Denies dyspnea and Denies wheezing GI Reports abdominal pain (see HPI), Denies bloating, Denies constipation, Denies dysphagia, Denies heartburn, Denies diarrhea, Denies nausea, Denies odynophagia and Denies vomiting Denies hematuria, Denies urinary frequency, Denies dysuria, Denies urinary incontinence and Denies urinary urgency Musc Reports back pain (over the lower back), Denies arthralgias, Denies joint swelling, Denies muscle weakness and Denies neck pain Skin/Breast Denies breast pain, Denies breast mass, Denies change in pigmentation, Denies lesions, Denies rash and Denies unusual bruising Neuro Denies dizziness, Denies headache(s) and Denies paresthesias Psych Denies anxiety and Denies depression Endo Denies fatigue and Denies palpitations Roc/Lymph Denies easy bruising Aller/Immun Denies itchy eyes and Denies wheezing Physical exam (Primary Care) Vital Signs: Last Vital Signs Pulse 82 12/29/23 13:59 BP 110/70 12/29/23 13:59 Pulse Ox 96 12/29/23 13:59 Oxygen Delivery Method Room Air 12/29/23 13:59 BMI result Body Mass Index 33.5 Tobacco/Smoking Status: Tobacco use Status Tobacco use date assessed 12/29/23 12/29/23 14:00 Patient Tobacco Use Status Never used Tobacco 12/29/23 14:00 Tobacco use type 09/21/23 08:36 e-Cigarette/Vaping Use Never Used 12/29/23 14:00 PHQ-9: PHQ-9 Score PHQ-9: Total score 0 12/29/23 15:27 Depression Screening Interpretation: Negative Thrive Assessment: Date of Thrive Assessment Date Thrive assessed 12/29/23 12/29/23 14:00 Currently or been in a relationship where the following occur: no concerns reported Const General: no acute distress, alert and awake Orientation/consciousness: patient oriented x3 HENMT Head: Yes normocephalic and Yes atraumatic Ears: external ears normal, TM's normal bilaterally and EAC's normal General nose exam: No nasal discharge present Face and sinus: Yes normal facial exam and Yes sinuses nontender Teeth and gingiva: dentition normal Throat: Yes posterior oropharynx normal and Yes tonsils normal (no TP congestion) Eyes Eyelids: Yes eyelids normal Conjunctivae: conjunctivae normal Pupils: Equal, round and reactive pupils present EOM: EOMs intact bilaterally Neck Neck: Yes no lymphadenopathy and Yes supple Thyroid: Thyroid normal Resp Auscultation: clear to auscultation bilaterally, no rales and no wheezes Cardio Rate: regular rate Rhythm: regular rhythm Heart sounds: no murmurs GI Palpation (GI): Soft to palpation, nontender (no tenderness is elicited on exam at present) and No hepatosplenomegaly present Auscultation: normal bowel sounds General: Yes no CVA tenderness Back/Spine/Pelvis Back: no CVA tenderness Thoracic/Lumbar Spine: lumbar spinal tenderness Skin Lesions: no lesions Rashes: no rashes Neuro General: patient oriented x3, moves all extremities, no focal motor deficits and CN's II-XI intact bilaterally Cranial nerves: Yes Equal, round and reactive pupils present Cognition (Neuro): normal cognition Gait exam (Neuro): Normal gait present Extrem General: Yes no clubbing, cyanosis or edema Results AMB Hemoglobin A1c AMB Hemoglobin A1c 10.0 % Last Edit by MARCELO Garcia on 12/29/23 14:3 9 Results Reviewed Results Reviewed: Laboratory Last Values Hgb A1c (Clinic) 10.0 % (4.0-6.0) H 12/29/23 13:56 Assessment and Plan Assessment & Plan (1) Annual physical exam: Code(s): Z00.00 - Encounter for general adult medical examination without abnormal findings Plan: Check labs She is currently up-to-date with all of her cancer screenings - she is scheduled for her repeat mammogram on 01/12/2024 and her annual gynecology exam and pap smear on 02/15/2024 She had her colonoscopy last done by Dr. Reagan in 06/2022 - (+) tubular adenoma; was recommended to have repeat colonoscopy done in 3 years (2024) (2) Abdominal pain: Code(s): R10.9 - Unspecified abdominal pain Qualifiers: Abdominal location: upper abdomen, unspecified Qualified Code(s): R10.10 - Upper abdominal pain, unspecified Plan: She reports (+) upper abdominal pain a couple of weeks ago but this appears to have resolved with no recurrence since but she is concerned about why she had abdominal pain in the first place and would like to have some tests done to look into this further Will send her for some labs as well as an abdominal US for further evaluation (3) Diabetes mellitus with hyperglycemia: Code(s): E11.65 - Type 2 diabetes mellitus with hyperglycemia Qualifiers: Diabetes mellitus type: type 2 Diabetes mellitus intermediate project manager insulin use: without longterm use Qualified Code(s): E11.65 - Type 2 diabetes mellitus with hyperglycemia Plan: In-office HgbA1c done today is at 10.0% (HgbA1c was at 8.6% back in February 2023) - goal is <7.0% Patient states has not been able to take her meds for the past couple of months due to problems with her insurance and that it is now back and she would like to get her Rx refilled so she can go back on them immediately Will start her back on Lantus 20 units SQ Q HS, Tradjenta 5 mg QD and Glimepiride 1 mg Q AM for now Reinforced diabetic diet Will recheck her HgbA1c in 3 months for follow up (4) Dyslipidemia: Code(s): E78.5 - Hyperlipidemia, unspecified Plan: Will send patient for labs now to recheck her current fasting lipid profile Reinforced low-cholesterol diet Will start her back on Atorvastatin 10 mg QD Will recheck her labs and fasting lipids in 3 months for follow up (5) Constipation: Code(s): K59.00 - Constipation, unspecified Qualifiers: Constipation type: unspecified constipation type Qualified Code(s): K59.00 - Constipation, unspecified Plan: Encouraged again increased oral fluids and dietary fiber Continue Miralax powder 17 gm QD (6) Allergic rhinitis: Code(s): J30.9 - Allergic rhinitis, unspecified Qualifiers: Allergic rhinitis trigger: pollen Allergic rhinitis seasonality: seasonal Qualified Code(s): J30.1 - Allergic rhinitis due to pollen Plan: Continue Cetirizine 10 mg QD PRN (7) Low back pain with left-sided sciatica: Code(s): M54.42 - Lumbago with sciatica, left side Qualifiers: Chronicity: unspecified Back pain laterality: left Qualified Code(s): M54.42 - Lumbago with sciatica, left side Plan: Reinforced activity and weight-lifting restrictions Lumbar spine x-rays done last year revealed (+) very mild degenerative disc disease at L4-L5 and multi-level thoracolumbar spondylosis, most pronounced at L1-L2, where it is severe She was referred to physical therapy, which she states helped only slightly Discussed option of referring her back to PT or to pain management if her low back pain gets worse Patient opted to hold off on referrals for now and states that she will call if she feels that her low back pain is progressing (8) Obesity (BMI 30-39.9): Code(s): E66.9 - Obesity, unspecified Plan: Reinforced diet/exercise as tolerated/lose weight Plan Follow up in 3 months Orders: Orders Complete Blood Count Auto Diff 3 Months D64.9 - Anemia, unspecified [place]. Panel Fast 12/29/23 E78.00 - Pure hypercholesterolemia, unspecified, Z00.00 - Encounter for general adult medical examination without abnormal findings Vitamin D 25-OH Total 12/29/23 E55.9 - Vitamin D deficiency, unspecified, Z00.00 - Encounter for general adult medical examination without abnormal findings AMB Hemoglobin A1c 12/29/23 E11.9 - Type 2 diabetes mellitus without complications US abdomen complete 12/29/23 R10.9 - Unspecified abdominal pain Lipid Panel 3 Months E78.00 - Pure hypercholesterolemia, unspecified [place]. Panel Fast 3 Months E78.00 - Pure hypercholesterolemia, unspecified Complete Blood Count Auto Diff 12/29/23 D64.9 - Anemia, unspecified, Z00.00 - Encounter for general adult medical examination without abnormal findings Lipid Panel 12/29/23 E78.00 - Pure hypercholesterolemia, unspecified, Z00.00 - Encounter for general adult medical examination without abnormal findings Microalbumin, Random (w Creat) 12/29/23 E11.9 - Type 2 diabetes mellitus without complications, Z00.00 - Encounter for general adult medical examination without abnormal findings TSH reflex Free T4 12/29/23 E78.00 - Pure hypercholesterolemia, unspecified, Z00.00 - Encounter for general adult medical examination without abnormal findings UA CC w/rflx Micro + Cult 12/29/23 R30.0 - Dysuria, Z00.00 - Encounter for general adult medical examination without abnormal findings Lipase 12/29/23 R10.9 - Unspecified abdominal pain Medications: Changed From omeprazole 20 mg PO DAILY To omeprazole 20 mg PO DAILY 90 days 90 caps 1RF Refilled pen needle, diabetic (BD Ultra-Fine Beatriz Pen Needle) As directed once a day 100 ea 5RF E11.65 - Type 2 diabetes mellitus with hyperglycemia lancets As directed 100 ea 0RF zlddvfjrofl-uxsumxbdp-apwbkyjw 200-62.5-25 mcg (Trelegy Ellipta) 1 inh inhalation DAILY 30 days 60 ea 12RF insulin glargine (Lantus Solostar U-100 Insulin) 20 units (0.2 mL) subcut BEDTIME 30 days 6 mL 3RF atorvastatin 10 mg PO BEDTIME 90 tabs 1RF cetirizine 10 mg PO DAILY 90 days PRN 90 tabs 1RF allergy symptoms cholecalciferol (vitamin D3) 50 mcg PO DAILY 90 tabs 0RF R79.89 - Other specified abnormal findings of blood chemistry linagliptin (Tradjenta) 5 mg PO QAM 90 days 90 tabs 1RF Coding Level of Care Code Est Pt Prev Care 40-64y(24691) Diagnoses Annual physical exam Z00.00 Pain of upper abdomen R10.10 Abdominal location: upper abdomen, unspecified Type 2 diabetes mellitus with hyperglycemia, without long-term current use of insulin E11.65 Diabetes mellitus type: type 2 Diabetes mellitus longterm insulin use: without intermediate project manager use Dyslipidemia E78.5 Constipation, unspecified constipation type K59.00 Constipation type: unspecified constipation type Seasonal allergic rhinitis due to pollen J30.1 Allergic rhinitis trigger: pollen Allergic rhinitis seasonality: seasonal Left-sided low back pain with left-sided sciatica, unspecified chronicity M54.42 Chronicity: unspecified Back pain laterality: left Obesity (BMI 30-39.9) E66.9
[2023-12-29 13:59] VITALS: BP 110/70; PULSE 82; O2SAT 96; BMI 33.5
== END 2023-12-29 15:14 | disposition home or self-care (01) ==
PROVIDERS: PCP Internal Medicine; Visit Provider Internal Medicine
DX: Z00.00 Encounter for general adult medical examination without abnormal findings (principal); E11.65 Type 2 diabetes mellitus with hyperglycemia; R10.10 Upper abdominal pain, unspecified; E78.5 Hyperlipidemia, unspecified; K59.00 Constipation, unspecified; J30.1 Allergic rhinitis due to pollen; M54.42 Lumbago with sciatica, left side; E66.9 Obesity, unspecified
CPT/HCPCS: 83036; 99396

== ENCOUNTER 2024-01-19 08:35 | Outpatient (REF) | payer OTHER, SELFPAY ==
--- NOTE | ~2024-01-19 | US_ITS ---
EXAMINATION: US ABDOMEN COMPLETE CLINICAL INFORMATION: Unspecified abdominal pain. COMPARISON: CT abdomen and pelvis 11/11/2022. TECHNIQUE: Real-time imaging of the abdominal viscera. FINDINGS: PANCREAS: Normal. ABDOMINAL AORTA: The proximal, mid, and distal segments are normal in caliber. INFERIOR VENA CAVA: Visualized portions are normal. LIVER: The liver is normal in size. The liver contour is normal. There is diffuse increased liver parenchymal echogenicity, consistent with hepatic steatosis. No focal hepatic lesion. There is no intrahepatic biliary duct dilatation seen. GALLBLADDER: Surgically absent. COMMON BILE DUCT: Normal in caliber measuring 0.5 cm in diameter. RIGHT KIDNEY: Normal. No hydronephrosis. No renal calculi or focal parenchymal lesions. The kidney measures 10.2 cm in maximum dimension. LEFT KIDNEY: No hydronephrosis or renal calculi. The kidney measures 10.6 cm in maximum dimension. Complex 2.8 cm cyst with thin septations and focal 6 mm eccentric mural calcification. SPLEEN: Normal. The spleen measures 10.9 cm in maximum dimension. FREE FLUID: None. US/US abdomen complete IMPRESSION: Hepatic steatosis. No biliary ductal dilatation. Cholecystectomy. 2.8 cm complex septated cyst with mural calcification in the upper left kidney. Recommend further evaluation with renal protocol CT or MR abdomen without and with intravenous contrast to determine Bosniak classification and guide future management.
== END 2024-01-19 08:36 | disposition home or self-care (01) ==
LOC: HO.US 08:35
PROVIDERS: Visit Provider Internal Medicine
DX: R10.9 Unspecified abdominal pain (principal)
CPT/HCPCS: 76700

== ENCOUNTER 2024-02-12 10:20 | Outpatient (AMB) | payer SELFPAY ==
[2024-02-12 10:25] VITALS: BP 120/68; PULSE 100; O2SAT 97; BMI 33.9
--- NOTE | 2024-02-12 10:25 | A.OFFVIS_ITS ---
Vital Signs 02/12/24 10:25 Height 5 ft 2 in Weight 185 lb 3.013 oz BMI 33.9 BP 120/68 Blood Pressure Location Lt brachial Position Sitting Pulse 100 Pulse Source Pulse Oximeter Pulse Oximetry (%) 97 Oxygen Delivery Method Room Air Intake Visit Reasons: COPD Bridge Welder Required: No Supervisor Gas Meter Repair: Supervisor Gas Meter Repair offered & declined Accompanied by: Self / Same As Patient Allergies oyster extract Allergy (Verified 02/12/24 10:30) Anaphylaxis Medication List - Last Reconciled 02/12/24 by Amy El LPN albuterol sulfate 90 mcg/actuation (Ventolin HFA) 1 puff PO QID PRN atorvastatin 10 mg PO BEDTIME benzonatate 200 mg PO BID PRN 30 days blood sugar diagnostic ([email or web address] Prime Test Strips) As directed blood-glucose meter (Blood Glucose Monitoring kit) As directed budesonide-formoterol 160-4.5 mcg/actuation (Symbicort) 2 puffs inhalation BID 30 days cetirizine 10 mg PO DAILY PRN 90 days cholecalciferol (vitamin D3) 50 mcg PO DAILY fluticasone propionate 50 mcg/actuation (Flonase Allergy Relief) 2 sprays intranasal DAILY gbavvthjdcl-ouhhzladz-urqkgdlt 200-62.5-25 mcg (Trelegy Ellipta) 1 inh inhalation DAILY 30 days gabapentin 600 mg (2 x 300 mg) PO BEDTIME 30 days glimepiride 1 mg PO QAM 90 days insulin glargine (Lantus Solostar U-100 Insulin) 20 units (0.2 mL) subcut BEDTIME 30 days lancets As directed linagliptin (Tradjenta) 5 mg PO QAM 90 days omeprazole 20 mg PO DAILY 90 days pen needle, diabetic (BD Ultra-Fine Beatriz Pen Needle) As directed once a day HPI Comments Details: The patient is a 63 year woman was in the usual state health until sometime in December when she started developing worsening respiratory symptoms. She was diagnosed with acute bronchitis with bronchospasms. The patient was t antibiotics and prednisone. Patient did feel better although she still not at her baseline. Still having frequent coughing have episodes and also at times productive in nature. The mucus is clear. She also also complains of some chest tightness intermittently. Dyif-mr-jrsnboqf severity. She does get relief from using the albuterol inhaler. She does use it between 1 to 2 times a day. Her symptoms usually worse at nighttime. She does not have recent pulmonary function studies. She did have a CT scan of the abdomen back in November very demonstrated that she did have some evidence of thickened bronchial wall suggesting bronchitis at that point. Will go ahead and start her on Symbicort inhaler. In addition to that with his allergy testing blood work and pulmonary function studies. 07/21/2023 the patient is here for a pulmonary follow-up visit. She continues to be about the same. Complains of difficulty breathing and also cough. The Symbicort inhaler was not helpful. The patient did undergo a chest x-ray without any acute disease and also had a pulmonary function study which we reviewed together. It appears that she has very limited inspiratory and expiratory flows suggesting of an upper airway obstruction. Therefore will request a CT scan of the neck to further address for any are upper airway obstruction and then subsequently depending on those results will talk about performing a bronchoscopy. For now will place her on gabapentin to help with muscle relaxation specially at nighttime and she continues to use the [place] aids cough drops to just give her some relief from the cough. 10/19/2023 the patient is here for a pulmonary follow-up visit. She still about the same. Still complains of difficulty coughing and shortness of breath. We again talked about his spirometry with very limited inspiratory and also expiratory flows during her spirometry. We did request a CT scan of the neck to better address the possibility of an airway obstruction. Although denied. Therefore the best option would be to perform a bronchoscopy to further visualize the upper airway also visualized the lower airway to further address her respiratory complaints. The patient did have spirometry done today just to see if she continued to have limited flows. It appeared that the expiratory flows were little better although the inspiratory flows continue to be limited. Therefore will go ahead with a bronchoscopy at this time. In the meantime she does have a respiratory medications at partially helpful. After the bronchoscopy will further address her ongoing symptoms. 11/09/2023 the patient is here for a pulmonary follow-up visit. She is status post bronchoscopy. She tolerated procedure well. She continues to cough. The cough is aggravating to her periods moderate severity. She has not using anymore inhalers at this time. She ran out. We did perform a bronchoscopy. It demonstrated mild narrowing at the level of the cricoid area proximal trachea. This could be contributing to her symptoms in addition to the findings on the spirometry flow volume loop. Therefore, the patient was start Trelegy inhaler. She did not respond well to Symbicort. The hope is that we can decrease the swelling of that area and improve her symptoms. She can also try cough medications such as Tessalon Perles which also send to the pharmacy. We can try prednisone but the patient does have diabetes and that can raise her blood suga rs and therefore will hold off on that. 02/12/2024 the patient is here for a pulmonary follow-up visit. Overall she is doing okay. The gabapentin has been helping her. She is coughing little bit la st and she has sleeping a little bit more. Although is very hard for her to sleep. She can not sleep on her bed because she gets episodes of shortness of breath an apnea. She does wake up tired. She does have an elevated [place] score of 12/24. She actually never had a sleep study which I believe is very important for her. Therefore, we did talk about ordering a home sleep study and she is agreeable at this time. She does continue to use inhalers although she states that she does not use it regularly because it caused irritation her mouth. We emphasized making sure she rinses her mouth well after using the inhalers mouthwash or salt water benefit water. The patient also had an ultrasound of the abdomen she is going to be following up with her primary care doctor regarding what appears to be a complex cyst in the left kidney. Will go ahead and follow-up after sleep study at this time. 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 Upper airway resistance syndrome Uterine fibroid Abnormal cervical cytology Abnormal Pap smear of cervix History of COVID-19 Lumbar degenerative disc disease Allergic rhinitis Constipation Calcification of left breast Malignant neoplasm of breast Obesity (BMI 30-39.9) Diabetes mellitus with hyperglycemia Cancer of right breast COVID-19 Surgical History Hx of cholecystectomy History of bilateral tubal ligation History of bronchoscopy History of cataract surgery History of mastectomy Family History Sister Breast cancer Father HTN (hypertension) Heart attack Mother Diabetes HTN (hypertension) Social History Household Members: None Housing: Apartment Alcohol intake: never Patient Tobacco Use Status: Never used Tobacco e-Cigarette/Vaping Use: Never Used Second Hand Smoke Exposure: No service: No Current occupational status: employed 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 Sexual orientation: Straight/Heterosexual Gender identity: Female Cognitive needs: No Hearing needs: No Vision needs: Yes Review of Systems Const All systems reviewed & are unremarkable except as noted in HPI and below Denies chills, Reports daytime sleepiness, Reports difficulty sleeping, Denies fever(s), Reports headache(s), Denies poor appetite, Reports snoring, Reports stops breathing during sleep and Denies weakness ENT Reports headache(s) Card Denies chest pain, Denies irregular heart rhythm, Denies palpitations and Denies dyspnea Resp Reports cough, Denies excessive phlegm production, Denies dyspnea and Reports snoring GI Reports abdominal pain, Denies bloating, Denies change in bowel habits, Denies constipation, Denies heartburn, Denies diarrhea, Denies nausea and Denies vomiting Denies urinary frequency Musc Denies back pain, Denies muscle weakness and Denies numbness Skin/Breast Denies changing lesions and Denies unusual bruising Neuro Reports headache(s), Denies numbness, Denies paresthesias and Denies weakness Psych Denies anxiety and Denies depression Endo Denies palpitations Roc/Lymph Denies lymphadenopathy Physical Exam Vital Signs: Last Vital Signs Pulse 100 02/12/24 10:25 BP 120/68 02/12/24 10:25 Pulse Ox 97 02/12/24 10:25 Oxygen Delivery Method Room Air 02/12/24 10:25 BMI result Body Mass Index 33.9 Const General: cooperative, healthy appearing, no acute distress, well developed and alert Orientation/consciousness: patient oriented x3 HEENT Head: Yes normal to inspection Eyes General: appearance normal, both eyes and all related structures Neck Neck: Yes normal visual inspection Thyroid: Thyroid normal Chest Chest palpation & inspection: normal inspection of the chest Resp Effort & Inspection: normal respiratory effort Auscultation: clear to auscultation bilaterally GI Palpation (GI): Soft to palpation Skin General skin exam: no rashes or lesions noted Neuro General: patient oriented x3 Cognition (Neuro): normal cognition Extrem General: Yes normal to inspection Psych Attitude: cooperative Thought process: Normal thought process present Assessment & Plan Assessment & Plan (1) Asthma: Code(s): J45.909 - Unspecified asthma, uncomplicated Category: Medical Qualifiers: Asthma complication type: uncomplicated Asthma persistence: persistent Asthma severity: moderate Qualified Code(s): J45.40 - Moderate persistent asthma, uncomplicated (2) Recurrent productive cough: Code(s): R05.8 - Other specified cough Category: Medical (3) GERD (gastroesophageal reflux disease): Code(s): K21.9 - Gastro-esophageal reflux disease without esophagitis Category: Medical Qualifiers: Esophagitis presence: without esophagitis Qualified Code(s): K21.9 - Gastro-esophageal reflux disease without esophagitis (4) Upper airway resistance syndrome: Code(s): G47.8 - Other sleep disorders Category: Medical (5) Tracheal stenosis: Comment: mild proximal trachea. Likely inflammatory Code(s): J39.8 - Other specified diseases of upper respiratory tract Category: Medical (6) KAE (obstructive sleep apnea): Code(s): G47.33 - Obstructive sleep apnea (adult) (pediatric) Category: Medical Plan PAUL as needed Trelegy daily Benzonates as needed continue Gabapentin 600mg at night to help with vocal cord dysfuction home sleep study F/U 4-6 months Orders: Orders RT home sleep study Today G47.33 - Obstructive sleep apnea (adult) (pediatric) Medications: Refilled gabapentin 600 mg (2 x 300 mg) PO BEDTIME 30 days 60 caps 11RF Coding Level of Care Code Tele Est Pt Level 4 (92448) Diagnoses Moderate persistent asthma without complication J45.40 Asthma complication type: uncomplicated Asthma persistence: persistent Asthma severity: moderate Recurrent productive cough R05.8 Gastroesophageal reflux disease without esophagitis K21.9 Esophagitis presence: without esophagitis Upper airway resistance syndrome G47.8 Tracheal stenosis J39.8 KAE (obstructive sleep apnea) G47.33 Time Spent (min) 16
== END 2024-02-12 10:41 | disposition home or self-care (01) ==
PROVIDERS: PCP Internal Medicine; Visit Provider Hospitalist
DX: J45.40 Moderate persistent asthma, uncomplicated (principal); R05.8 Other specified cough; K21.9 Gastro-esophageal reflux disease without esophagitis; G47.8 Other sleep disorders; J39.8 Other specified diseases of upper respiratory tract; G47.33 Obstructive sleep apnea (adult) (pediatric)
CPT/HCPCS: 99214

== ENCOUNTER → 2024-02-12 10:20 | Outpatient (BNVA) | payer OTHER, SELFPAY | PROVIDERS: PCP Internal Medicine; Visit Provider Hospitalist | DX: J44.9 Chronic obstructive pulmonary disease, unspecified (principal); J45.40 Moderate persistent asthma, uncomplicated; J39.8 Other specified diseases of upper respiratory tract; R05.8 Other specified cough; K21.9 Gastro-esophageal reflux disease without esophagitis; G47.8 Other sleep disorders; G47.33 Obstructive sleep apnea (adult) (pediatric) | CPT/HCPCS: 99212 ==

== ENCOUNTER 2024-02-15 08:00 | Outpatient (REF) | payer OTHER, SELFPAY ==
[2024-02-23 04:14] LABS: HPV 16 RNA NOT DETECTED (NOT DETECTED); HPV mRNA E6/E7 rflx Detected (Not Detected)
== END 2024-02-15 08:01 | disposition home or self-care (01) ==
LOC: HO.LNP 08:00
PROVIDERS: PCP Internal Medicine; Visit Provider Obstetrics & Gynecology
DX: Z01.419 Encounter for gynecological examination (general) (routine) without abnormal findings (principal); Z11.51 Encounter for screening for human papillomavirus (HPV); N87.0 Mild cervical dysplasia
CPT/HCPCS: 87624; 87625; 88142; 99396

== ENCOUNTER 2024-02-15 08:00 | Outpatient (AMB) | payer OTHER, SELFPAY ==
--- NOTE | 2024-02-15 09:19 | A.OFFVIS_ITS ---
Vital Signs 02/15/24 09:22 Height 5 ft 2 in Weight 184 lb BMI 33.7 BP 150/74 H Intake Visit Reasons: Annual [place] Farmer Required: Yes [place]erne Farmer Language: Trains Dispatcher Supervisor Name: Deanna [phone] Information Interpreted: non-clinical & clinical Blood Bank Business Manager: Blood Bank Business Manager Present (Aidyn) Allergies oyster extract Allergy (Verified 02/15/24 09:24) Anaphylaxis Is last menstrual period known: No Post menopausal: Yes Patient : No HPI Comments Details: Presenting for annual exam. No complaints. 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 Upper airway resistance syndrome Uterine fibroid Abnormal cervical cytology Abnormal Pap smear of cervix History of COVID-19 Lumbar degenerative disc disease Allergic rhinitis Constipation Calcification of left breast Malignant neoplasm of breast Obesity (BMI 30-39.9) Diabetes mellitus with hyperglycemia Cancer of right breast COVID-19 Surgical History Hx of cholecystectomy History of bilateral tubal ligation History of bronchoscopy History of cataract surgery History of mastectomy Family History Sister Breast cancer Father HTN (hypertension) Heart attack Mother Diabetes HTN (hypertension) Social History Household Members: None Housing: Apartment Alcohol intake: never Patient Tobacco Use Status: Never used Tobacco e-Cigarette/Vaping Use: Never Used Second Hand Smoke Exposure: No service: No Current occupational status: employed 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 Sexual orientation: Straight/Heterosexual Gender identity: Female Cognitive needs: No Hearing needs: No Vision needs: Yes Female Reproductive History Menstrual Age of Menarche: 11 control method: permanent sterilization Total pregnancies: 3 Full term: 3 Number of Living Children: 3 Date of last pap smear: 02/10/23 (+HPV) History of abnormal pap smear: Yes Date of Mammogram: 01/06/23 Review of Systems Const All systems reviewed & are unremarkable except as noted in HPI and below Card Reports as per HPI Resp Reports as per HPI GI Reports as per HPI and Reports no additional complaints Reports as per HPI Physical Exam Vital Signs: Last Vital Signs BP 150/74 H 02/15/24 09:22 BMI result Body Mass Index 33.7 Const General: cooperative, healthy appearing and comfortable Chest Chest palpation & inspection: normal inspection of the chest and normal palpation of entire chest wall Breast/axilla inspection: normal inspection of the breasts and normal inspection of the axillae Breast/axilla palpation: normal palpation of the breasts, normal palpation of the axillae and no axillary lymphadenopathy Resp Effort & Inspection: normal respiratory effort Auscultation: clear to auscultation bilaterally Percussion: percussion normal Cardio Palpation: normal PMI Rate: regular rate Rhythm: regular rhythm Heart sounds: no murmurs and no rubs Peripheral pulses: Peripheral pulses 2+ throughout GI Inspection: Yes normal to inspection Palpation (GI): Soft to palpation, nontender, no guarding, not rigid and No hepatosplenomegaly present Percussion: Yes normal to percussion Auscultation: normal bowel sounds Rectal Exam - Female: deferred General: Yes bladder normal to palpation External Female Exam: No lesion Speculum Exam - Vagina: normal appearance of the vagina, normal palpation, normal vaginal discharge and not erythematous Speculum Exam - Cervix: normal appearance of the cervix and normal palpation Bimanual exam- vagina & uterus: normal bimanual exam, normal palpation, uterine size normal, bladder normal to palpation, consistency normal and normal palpation Bimanual Exam- Adnexa, other: normal adnexae, no masses and no tenderness Assessment & Plan Assessment & Plan (1) Well woman exam: Code(s): Z01.419 - Encounter for gynecological examination (general) (routine) without abnormal findings Category: Medical Plan: Co testing done. Counseled the patient about the recommended dietary allowance of 1200 mg of Calcium & 600 IU of vitamin D. Mammogram ordered. The patient was instructed to perform monthly self-breast exams and schedule annual exam in a year. All questions answered and the patient verbalized understanding. Orders: Orders MM tomosynthesis screen imp Today Z12.31 - Encounter for screening mammogram for malignant neoplasm of breast Coding Level of Care Code Est Pt Prev Care 40-64y(00763) Diagnoses Well woman exam Z01.419
[2024-02-15 09:22] VITALS: BP 150/74; BMI 33.7
== END 2024-02-15 10:28 | disposition home or self-care (01) ==
PROVIDERS: PCP Internal Medicine; Visit Provider Obstetrics & Gynecology
DX: Z01.419 Encounter for gynecological examination (general) (routine) without abnormal findings (principal)
CPT/HCPCS: 99396

== ENCOUNTER 2024-03-25 12:48 | Outpatient (REF) | payer MEDICAID, SELFPAY | END 2024-03-25 12:49 | disposition home or self-care (01) | LOC: HO.LNP 12:48 | PROVIDERS: PCP Internal Medicine; Visit Provider Obstetrics & Gynecology | DX: N87.0 Mild cervical dysplasia (principal); B97.7 Papillomavirus as the cause of diseases classified elsewhere | CPT/HCPCS: 57454; 88305 ==

== ENCOUNTER 2024-03-25 12:48 | Outpatient (AMB) | payer MEDICAID, SELFPAY ==
--- NOTE | 2024-03-25 13:00 | A.OFFVIS_ITS ---
Vital Signs 03/25/24 13:06 Height 5 ft 2 in Weight 184 lb BMI 33.7 BP 134/70 Intake Visit Reasons: Colposcopy Shuttle Final Inspector Required: Yes Shuttle Final Inspector Language: Charter Bus Driver Name: Katelyn Thomason Information Interpreted: non-clinical & clinical Insurance Loss Assessor: Insurance Loss Assessor Present (Katelyn) Allergies oyster extract Allergy (Verified 03/25/24 13:10) Anaphylaxis Is last menstrual period known: No Post menopausal: Yes Patient : No HPI Comments Details: Presenting for colposcopy for negative intraepithelial lesion Pap/HPV E6/E7 positive [facility] 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 Upper airway resistance syndrome Uterine fibroid Abnormal cervical cytology Abnormal Pap smear of cervix History of COVID-19 Lumbar degenerative disc disease Allergic rhinitis Constipation Calcification of left breast Malignant neoplasm of breast Obesity (BMI 30-39.9) Diabetes mellitus with hyperglycemia Cancer of right breast COVID-19 Surgical History Hx of cholecystectomy History of bilateral tubal ligation History of bronchoscopy History of cataract surgery History of mastectomy Family History Sister Breast cancer Father HTN (hypertension) Heart attack Mother Diabetes HTN (hypertension) Social History Household Members: None Housing: Apartment Alcohol intake: never Patient Tobacco Use Status: Never used Tobacco e-Cigarette/Vaping Use: Never Used Second Hand Smoke Exposure: No Patient : No service: No Current occupational status: employed Current occupation: [employer] Sexual orientation: Straight/Heterosexual Gender identity: Female Cognitive needs: No Hearing needs: No Vision needs: Yes Female Reproductive History Menstrual Age of Menarche: 11 control method: permanent sterilization Review of Systems Const All systems reviewed & are unremarkable except as noted in HPI and below Reports as per HPI and Reports no additional complaints GI Reports no additional complaints Reports no additional complaints Physical Exam Vital Signs: Last Vital Signs BP 134/70 03/25/24 13:06 BMI result Body Mass Index 33.7 Office Procedures Colposcopy Colposcopy: Pre-Procedure Counseling: Before beginning the procedure, I conducted comprehensive counseling with the patient. We thoroughly discussed the procedure itself, including its details, alternatives, and all associated risks. This included but not limited to the following complications such as bleeding, infection, and injury to the vagina, bladder, and vessels, as well as the potential need for transfusion with all its associated risks. Subsequently, the patient sign the consent. Pap smear result: Negative intraepithelial lesion, HPV E6/E7 positive, HPV 16/18/45 negative Procedure: During the procedure, the following steps were performed: A speculum was inserted, and acetic acid was applied. Colposcopy was conducted, allowing visualization of the transformation zone. Acetowhite lesions were identified at the 5+6+7+12 o'clock position. Cervical biopsies were obtained from the 5+6+7+12 o'clock position, followed by an endocervical curettage (ECC). Vaginoscopy of the upper vagina revealed no evidence of aceto-white lesions. Hemostasis was achieved using Monsel solution, and the patient tolerated the procedure well. Post-Procedure Instructions: The patient was advised to promptly contact the office or the after hours answering service or go to the emergency room if experiencing a temperature exceeding 100.4?F, abdominal pain, nausea/vomiting, or bleeding. Additionally, the patient was instructed to abstain from vaginal intercourse and bathtub use. The patient confirmed understanding of these instructions. Discharge Instructions: The patient was instructed to schedule a follow-up appointment in 2 weeks for further evaluation and management. Please note that this note was generated using a voice recognition program, and errors may have occurred during pinion sorter. [id number] of cervix including upper vagina with biopsy and ECC Procedure code (CPT) selection complete Assessment & Plan Assessment & Plan (1) HPV in female: Comment: Prior to 2021 multiple abnormal Pap smear, biopsies according to patient no reports available 02/04 Negative Pap/HPV E6 E7 positive , negative HPV 16/45/18 02/05 Negative Pap/HPV E6 E7 positive , negative HPV 16/45/18, colpo biopsy MILY 1 status post LEEP cone with post cone ECC in 12/09 03/08 Negative Pap/HPV E6 E7 positive , negative HPV 16/45/18 Code(s): B97.7 - Papillomavirus as the cause of diseases classified elsewhere Category: Medical Plan: Colposcopy done, see procedure note Orders: Orders AMB Colposcopy Today B97.7 - Papillomavirus as the cause of diseases classified elsewhere Coding Level of Care Code Procedure Only Diagnoses HPV in female B97.7 CPT Codes Colposcopy - CPT: 22533-Kaqhojbbr of cervix including upper vagina with biopsy and ECC ([id number])
[2024-03-25 13:06] VITALS: BP 134/70; BMI 33.7
== END 2024-03-25 13:38 | disposition home or self-care (01) ==
PROVIDERS: PCP Internal Medicine; Visit Provider Obstetrics & Gynecology
DX: R87.810 Cervical high risk human papillomavirus (HPV) DNA test positive (principal)
CPT/HCPCS: 57454

== ENCOUNTER 2024-04-25 13:03 | Outpatient (AMB) | payer OTHER, SELFPAY ==
--- NOTE | 2024-04-25 13:24 | MHC.OFFVIS ---
Intake Visit Reasons: Colpo Results Allergies oyster extract Allergy (Verified 03/25/24 13:10) Anaphylaxis HPI Comments Details: Presenting post colpo for follow-up. The patient is doing well with no complaints. The pathology showed the following: A. Endocervix, curettage: - Low-grade squamous intraepithelial lesion (MILY 1). - Mildly inflamed endocervical mucosa; otherwise within normal limits. B. Cervix, 5 o'clock, biopsy: - Mildly inflamed squamous mucosa with reactive changes. - No endocervical epithelium identified. C. Cervix, 6 o'clock, biopsy: - Mildly inflamed squamous mucosa with reactive changes. - Rare strips of endocervical epithelium within normal limits. D. Cervix, 7 o'clock, biopsy: - Mildly inflamed squamous mucosa with reactive changes. - No endocervical epithelium identified. E. Cervix, 12 o'clock, biopsy: - Mildly inflamed squamous mucosa with reactive changes. - No endocervical epithelium identified. 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 Upper airway resistance syndrome Uterine fibroid Abnormal cervical cytology Abnormal Pap smear of cervix History of COVID-19 Lumbar degenerative disc disease Allergic rhinitis Constipation Calcification of left breast Malignant neoplasm of breast Obesity (BMI 30-39.9) Diabetes mellitus with hyperglycemia Cancer of right breast COVID-19 Surgical History Hx of cholecystectomy History of bilateral tubal ligation History of bronchoscopy History of cataract surgery History of mastectomy Family History Sister Breast cancer Father HTN (hypertension) Heart attack Mother Diabetes HTN (hypertension) Social History Household Members: None Housing: Apartment Alcohol intake: never Patient Tobacco Use Status: Never used Tobacco e-Cigarette/Vaping Use: Never Used Second Hand Smoke Exposure: No service: No Current occupational status: employed 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 Sexual orientation: Straight/Heterosexual Gender identity: Female Cognitive needs: No Hearing needs: No Vision needs: Yes Female Reproductive History Menstrual Age of Menarche: 11 Review of Systems Const All systems reviewed & are unremarkable except as noted in HPI and below Reports as per HPI and Reports no additional complaints GI Reports no additional complaints Reports no additional complaints Assessment & Plan Assessment & Plan (1) Dysplasia of cervix, low grade (MILY 1): Code(s): N87.0 - Mild cervical dysplasia Category: Medical Plan: Discussed with the patient the pathology results of the colposcopy biopsies & endocervical curettage ( mild dysplasia-MILY 1). Discussed with the patient the sensitivity specificity, positive and negative predictive value in detecting cervical cancer in addition discussed the regression, persistence and progression rates. Recommended co-testing in 12 months, if cytology and or HPV are abnormal will proceed was colposcopy biopsy and endocervical curettage, if lesions gets worse or stays persistent for 2 years will proceed with loop electric excision procedure. Instructions given to the patient to schedule a co test appointment in 1 year. All questions answered the patient verbalized understanding. Coding Level of Care Code Est Pt Level 3 (83180) Diagnoses Dysplasia of cervix, low grade (MILY 1) N87.0
== END 2024-04-25 14:30 | disposition home or self-care (01) ==
LOC: HO.HWS 13:03
PROVIDERS: PCP Internal Medicine; Visit Provider Obstetrics & Gynecology
DX: N87.0 Mild cervical dysplasia (principal)
CPT/HCPCS: 99213

== ENCOUNTER → 2024-04-25 13:03 | Outpatient (BNVA) | payer OTHER, SELFPAY | PROVIDERS: PCP Internal Medicine; Visit Provider Obstetrics & Gynecology ==

== ENCOUNTER 2024-05-13 | Outpatient (REF) | payer OTHER, SELFPAY ==
--- NOTE | ~2024-05-13 | MM_ITS ---
EXAMINATION: MM DIAGNOSTIC DIGITAL BREAST TOMOSYNTHESIS, BILATERAL CLINICAL INFORMATION: Recommended 1 year interval follow-up of both breasts. COMPARISON: Mammography: This study is compared to prior examinations dating back to 2021. TECHNIQUE: Digital mammography is performed in craniocaudal and mediolateral oblique views. Digital breast tomosynthesis is performed in implant-displaced craniocaudal and implant-displaced mediolateral oblique views. Synthesized 2D images are generated from the tomosynthesis. Computer-aided detection (CAD) is performed for this exam. FINDINGS: There are scattered areas of fibroglandular density (ACR BI-RADS breast composition Category b). There are mammographically intact silicone breast implants. There are postsurgical changes in the right breast. There are bilateral benign calcifications. There are no mammographic signs of malignancy in either breast at the current time. There are no significant masses, abnormal calcifications, or other abnormalities. MM/MM tomosynthesis diag imp BI IMPRESSION: There are no significant changes from prior study. ASSESSMENT: BI-RADS BI-RADS 2 - Benign Findings RECOMMENDATION: 1 year F/U Results were provided to the patient at time of visit by the technologist. This patient's information was entered into a reminder system with a target due date for their next mammogram.
== END 2024-05-13 00:01 | disposition home or self-care (01) ==
LOC: HO.MAMMO
PROVIDERS: PCP Internal Medicine; Visit Provider Internal Medicine
DX: R92.2 Inconclusive mammogram (principal)
CPT/HCPCS: 77062; 77066

== ENCOUNTER → 2024-05-13 11:00 | Outpatient (BNV) | payer OTHER, SELFPAY | PROVIDERS: PCP Internal Medicine; Visit Provider Radiology Diagnostic Radiology | DX: R92.1 Mammographic calcification found on diagnostic imaging of breast (principal) | CPT/HCPCS: 77062; 77066 ==

== ENCOUNTER → 2024-05-31 11:11 | Outpatient (BNVA) | payer OTHER, SELFPAY | PROVIDERS: PCP Internal Medicine; Visit Provider Surgery ==

== ENCOUNTER 2024-06-07 11:39 | Outpatient (AMB) | payer OTHER, SELFPAY ==
--- NOTE | 2024-06-07 11:45 | MHC.OFFVIS ---
Vital Signs 06/07/24 11:59 Height 5 ft 2 in Weight 189 lb BMI 34.6 BP 153/74 H Blood Pressure Location Lt brachial Position Sitting Pulse 92 Intake Visit Reasons: breast discomfort Intake Note: Patient is seen in office for breast discomfort. Pt c/o: bilateral breast pulsating pain, denies any other concerns Cosmetic Account Coordinator Required: Yes Cosmetic Account Coordinator Language: [facility] Promoter Services: Cosmetic Account Coordinator Present Cosmetic Account Coordinator Name: Che ROBERTSON Information Interpreted: non-clinical & clinical Psychiatric Cns: Psychiatric Cns Present Accompanied by: Self / Same As Patient Allergies oyster extract Allergy (Verified 06/07/24 11:48) Anaphylaxis HPI Comments Details: 64-year-old female patient presenting for a breast cancer follow-up examination. She is a new patient to our office with a previous history of right breast cancer, s/p lumpectomy with axillary node biopsy, followed by radiation therapy. She subsequently underwent bilateral breast augmentation with implants. She is uncertain which type of implants were placed. All her breast surgery was performed in [place] when she was 47 years old. She recently underwent a diagnostic mammogram and ultrasound on 01/06/2023 which revealed a round well-circumscribed density in the lateral aspect of the right breast. Bilateral calcifications were noted as well. Findings were felt to be probably benign (BI-RAD 3). Subsequent follow-up mammogram of 05/13/2024 revealed intact silicone implants with postsurgical changes in the right breast and benign calcifications bilaterally and no significant changes from the prior mammogram (BI-RADS 2). One year follow-up is recommended. 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 Upper airway resistance syndrome Uterine fibroid Abnormal cervical cytology Abnormal Pap smear of cervix History of COVID-19 Lumbar degenerative disc disease Allergic rhinitis Constipation Calcification of left breast Malignant neoplasm of breast Obesity (BMI 30-39.9) Diabetes mellitus with hyperglycemia Cancer of right breast COVID-19 Surgical History Hx of cholecystectomy History of bilateral tubal ligation History of bronchoscopy History of cataract surgery History of mastectomy Family History Sister Breast cancer Father HTN (hypertension) Heart attack Mother Diabetes HTN (hypertension) Social History Household Members: None Housing: Apartment Alcohol intake: never Patient Tobacco Use Status: Never used Tobacco e-Cigarette/Vaping Use: Never Used Second Hand Smoke Exposure: No service: No Current occupational status: employed Current occupation: [email or web address] Sexual orientation: Straight/Heterosexual Gender identity: Female Cognitive needs: No Hearing needs: No Vision needs: Yes Female Reproductive History Menstrual Age of Menarche: 11 Review of Systems Const All systems reviewed & are unremarkable except as noted in HPI and below Denies chills, Denies fever(s), Denies headache(s), Denies poor appetite and Denies weakness ENT Denies headache(s) Card Denies chest pain, Denies irregular heart rhythm, Denies palpitations and Denies dyspnea Resp Denies cough, Denies excessive phlegm production and Denies dyspnea GI Denies abdominal pain, Denies bloating, Denies change in bowel habits, Denies constipation, Denies heartburn, Denies diarrhea, Denies nausea and Denies vomiting Denies urinary frequency Musc Denies back pain, Denies muscle weakness and Denies numbness Skin/Breast Denies changing lesions and Denies unusual bruising Neuro Denies headache(s), Denies numbness, Denies paresthesias and Denies weakness Psych Denies anxiety and Denies depression Endo Denies palpitations Roc/Lymph Denies lymphadenopathy Physical Exam Const General: cooperative and no acute distress Nutritional Appearance: well nourished Orientation/consciousness: patient oriented x3 Limitations: no limitations HEENT Head: Yes normocephalic and Yes atraumatic Ears: hearing grossly normal bilaterally Chest Chest/axillae images: 1. shifted implant to right 2. incision lower inner quadrant right breast 3. axillary dissection incision Resp Effort & Inspection: normal respiratory effort, no audible wheezes, no cough and no respiratory distress Cardio Jugular venous distension: no JVD GI Inspection: Yes normal to inspection Skin Other: Warm, dry, no rash Neuro Other: Mobility Assessment: 1. 3 meter assessment time (seconds):6 2. Gait observations: Normal balance and gait General: patient oriented x3 Extrem General: Yes no clubbing, cyanosis or edema Assessment & Plan Assessment & Plan (1) Malignant neoplasm of breast: Code(s): C50.919 - Malignant neoplasm of unspecified site of unspecified female breast Category: Medical Qualifiers: Breast location: lower inner quadrant of breast Estrogen receptor status: unspecified Patient sex: female Laterality: right Qualified Code(s): C50.311 - Malignant neoplasm of lower-inner quadrant of right female breast Plan 64-year-old female patient with a prior history of right breast cancer s/p right breast lumpectomy with axillary dissection in 2006 followed by bilateral breast augmentation both performed in [place]. Examination today revealed no suspicious findings in either breast. The right breast implant does appear to be migrating laterally. Her most recent mammogram dated 05/13/2024 reveals intact silicone breast implants without evidence of leak. Postsurgical changes are noted in the right breast but no suspicious findings are noted on either side (BI-RADS 2). We have referred her to [facility] for further evaluation of the implant migration. She should follow up in 1 year for routine breast examination. Coding Level of Care Code Est Pt Level 3 (78343) Diagnoses Malignant neoplasm of lower-inner quadrant of right female breast, unspecified estrogen receptor status C50.311 Breast location: lower inner quadrant of breast Estrogen receptor status: unspecified Patient sex: female Laterality: right
[2024-06-07 11:59] VITALS: BP 153/74; PULSE 92; BMI 34.6
== END 2024-06-07 12:04 | disposition home or self-care (01) ==
PROVIDERS: PCP Internal Medicine; Visit Provider Surgery
DX: N64.4 Mastodynia (principal)
CPT/HCPCS: 99213

== ENCOUNTER → 2024-06-07 11:39 | Outpatient (BNVA) | payer OTHER, SELFPAY | PROVIDERS: PCP Internal Medicine; Visit Provider Surgery | DX: C50.311 Malignant neoplasm of lower-inner quadrant of right female breast (principal) | CPT/HCPCS: 99212 ==

== ENCOUNTER 2024-06-08 14:52 | Emergency (ER) | payer OTHER, SELFPAY ==
--- NOTE | ~2024-06-08 | CT_ITS ---
EXAMINATION: CT ABDOMEN AND PELVIS WITHOUT CONTRAST CLINICAL INFORMATION: Back and abdominal pain. Rule out renal stone. COMPARISON: Abdominal ultrasound January 19, 2024, CT abdomen and pelvis November 11, 2022 TECHNIQUE: Multidetector volumetric imaging was performed from the superior aspect of the liver through the pubic symphysis. Sagittal and coronal reformatted images were obtained on the technologist's workstation. This CT examination was performed using dose optimization techniques as appropriate, variously including the following: *Automated exposure control *Adjustment of mA and/or kV according to patient size (this includes techniques or standardized protocols for targeted exams where dose is matched to indication/reason for exam; i.e. extremities or head) *Use of iterative reconstruction technique DLP: 720 mGy-cm FINDINGS: LUNG BASES: The visualized lung bases are unremarkable. LIVER, GALLBLADDER, AND BILIARY TREE: The liver is normal in size, shape, and attenuation. No focal hepatic lesion or biliary ductal dilatation is present. Gallbladder is surgically absent. PANCREAS: Unremarkable. SPLEEN: Unremarkable. ADRENAL GLANDS: Unremarkable. KIDNEYS AND URETERS: The kidneys are normal in size, shape, and attenuation. Punctate stone in the mid right kidney. No hydronephrosis. No perinephric stranding. BLADDER: Unremarkable. GASTROINTESTINAL TRACT: The stomach and proximal duodenum are distended with gastric contents. The large and small bowel are normal in caliber. The appendix is normal. ABDOMINAL WALL: No significant hernia is appreciated. LYMPH NODES: Normal. VASCULAR: Unremarkable. PELVIC VISCERA: Unremarkable. OSSEOUS STRUCTURES: Degenerative changes of the lumbar spine. CT/CT abdomen pelvis wo IV con IMPRESSION: Punctate stone in the mid right kidney. No hydronephrosis. Fleischner guidelines were followed. Electronically signed by: Jin Ashby MD 06/08/2024 05:53 PM EDT
[2024-06-08 15:15] VITALS: BP 153/88; PULSE 88; RESP 20; TEMP 36.9; O2SAT 98; BMI 34.6
--- NOTE | 2024-06-08 15:18 | ED.ABDPAIN ---
HPI - Abdominal Pain General Chief Complaint: Abdominal Pain Stated Complaint: abd, back and leg pain Time Seen by Provider: 06/08/24 18:15 Source: patient Mode of arrival: ambulatory Limitations: language barrier History of Present Illness ED Provider: Dr. Kwabena Powell HPI narrative: 64-year-old female with a history of diabetes mellitus, breast cancer, obstructive sleep apnea, GERD, dyslipidemia, anemia, who presents emergency department for evaluation of lower abdominal pain, lower back pain and right leg pain x1 week. She states the pain came on gradually 1 week prior and has been constant. She describes the pain is a dull ache which is 8/10 at its worst. She states that the right lower back is worse than the left. The pain does radiate down the back of her right leg to her foot. She denies numbness but does have weakness of the right leg. She denied loss of bowel or bladder control. Patient states she has had similar pain in the past and was told that it was secondary to arthritis of her back. Patient did take Advil with no improvement of her pain. She denied fever, chills, nausea, vomiting, diarrhea, frequency, urgency or dysuria. Related Data Previous Rx's ?Medication ?Instructions ?Recorded fluticasone propionate 50 2 spray intranasal DAILY #16 grams 10/23/22 mcg/actuation nasal spray,suspension (Flonase Allergy Relief) blood-glucose meter (Blood Glucose #1 ea 11/25/22 Monitoring kit) budesonide-formoterol HFA 160 2 puff inhalation BID 30 days 02/24/23 mcg-4.5 mcg/actuation aerosol #10.2 grams inhaler (Symbicort) albuterol sulfate 90 mcg/actuation 1 puff PO QID PRN for wheezing #18 04/10/23 aerosol inhaler (Ventolin HFA) ea benzonatate 200 mg capsule 200 mg PO BID PRN cough 30 days 07/21/23 #60 caps blood sugar diagnostic (ReliOn #100 ea 11/09/23 Prime Test Strips) glimepiride 1 mg tablet 1 mg PO QAM 90 days #90 tabs 11/09/23 atorvastatin 10 mg tablet 10 mg PO BEDTIME #90 tabs 12/29/23 cetirizine 10 mg tablet 10 mg PO DAILY PRN allergy 12/29/23 symptoms 90 days #90 tabs cholecalciferol (vitamin D3) 50 50 mcg PO DAILY #90 tabs 12/29/23 mcg (2,000 unit) tablet fluticasone fur. 200 mcg-umeclid 1 inh inhalation DAILY 30 days #60 12/29/23 62.5 mcg-vilant 25 mcg ea inhalat.powder (Trelegy Ellipta) insulin glargine 100 unit/mL (3 20 unit (0.2 mL) subcut BEDTIME 30 12/29/23 mL) subcutaneous pen (Lantus days #6 mL Solostar U-100 Insulin) lancets 26 gauge #100 ea 12/29/23 linagliptin 5 mg tablet (Tradjenta) 5 mg PO QAM 90 days #90 tabs 12/29/23 omeprazole 20 mg capsule,delayed 20 mg PO DAILY 90 days #90 caps 12/29/23 release pen needle, diabetic 32 gauge x #100 ea 12/29/23 (BD Ultra-Fine Beatriz Pen Needle) gabapentin 300 mg capsule 600 mg (2 x 300 mg) PO BEDTIME 30 02/12/24 days #60 caps cyclobenzaprine 10 mg tablet 10 mg PO TID PRN muscle pain or 06/08/24 spasm #20 tabs Allergies Allergy/AdvReac Type Severity Reaction Status Date / Time oyster extract Allergy Anaphylaxis Verified 06/08/24 15:16 Review of Systems Review of Systems Yes all other systems are reviewed and are negative [facility] Past Medical History [facility] Narrative: Social history: She denies tobacco, alcohol and drug use. 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 Upper airway resistance syndrome Uterine fibroid Abnormal cervical cytology Abnormal Pap smear of cervix History of COVID-19 Lumbar degenerative disc disease Allergic rhinitis Constipation Calcification of left breast Malignant neoplasm of breast Obesity (BMI 30-39.9) Diabetes mellitus with hyperglycemia Cancer of right breast COVID-19 Surgical History Hx of cholecystectomy History of bilateral tubal ligation History of bronchoscopy History of cataract surgery History of mastectomy Family History Family History Sister Breast cancer Father HTN (hypertension) Heart attack Mother Diabetes HTN (hypertension) Social History Social History Household Members: None Housing: Apartment Alcohol intake: never Patient Tobacco Use Status: Never used Tobacco Smoked in Last 30 Days: No e-Cigarette/Vaping Use: Never Used Second Hand Smoke Exposure: No Advance Directives: No Advance Directives Information Provided: No Do you have a plan to hurt others: No Plan service: No Current occupational status: employed Current occupation: [employer] Sexual orientation: Straight/Heterosexual Gender identity: Female Cognitive needs: No Hearing needs: No Vision needs: Yes Physical Exam ED Vital Signs: Vital Signs - 24 hr 06/08/24 15:15 06/08/24 18:00 Temperature 98.4 F 98.3 F Pulse Rate 88 76 Respiratory Rate 20 18 Blood Pressure 153/88 H 172/81 H Pulse Oximetry 98 99 Oxygen Delivery Method Room Air Room Air BMI result Body Mass Index 34.6 Vital signs revealed an elevated blood pressure of 153/88 otherwise unremarkable. Exam: General: Awake, alert in no distress Head: Normocephalic, atraumatic EENT: PERRL, Lids normal, sclera normal, conjunctiva normal, nose normal , ears normal, throat without erythema or exudates Neck: Supple, no adenopathy Lung: breath sounds symmetric, no wheezing, rales or rhonchi Chest: symmetric movement, nontender Heart: regular rate and rhythm, normal S1, S2 no murmurs or rubs Abdomen: soft, mild to moderate lower abdominal tenderness, nondistended, normal bowel sounds, no rebound Back: Patient has tenderness palpation over her lumbar vertebral vertebrae with no point tenderness, she also has tenderness palpation of her lumbar sacral paraspinal muscles with spasm of these muscles. She has a negative left straight leg raise but a positive right straight leg raise. Extremities: no deformities, moves all extremities symmetrically Neuro: Awake, alert, oriented, normal speech, cranial nerves intact, moves all extremities symmetrically Psych: Pleasant, cooperative Course Course Course Narrative: This is a rapid medical exam. Deferred additional HPI, ROS, PE to primary provider. 64 yo female with history of DM, KAE, GERD, HLD here with complaints of lower back pain/lower abdominal pain and pain in right leg. Will obtain labs, UA, viral testing ALESHA Barahona APRN Medical Decision Making Medical Decision Making [facility] Narrative: 64-year-old female with a history of diabetes mellitus, breast cancer, obstructive sleep apnea, GERD, dyslipidemia, anemia, who presents emergency department for evaluation of lower abdominal pain, lower back pain and right leg pain x1 week. She states the pain came on gradually 1 week prior and has been constant. She describes the pain is a dull ache which is 8/10 at its worst. She states that the right lower back is worse than the left. The pain does radiate down the back of her right leg to her foot. She denies numbness but does have weakness of the right leg. Patient was had similar pain in the past and was told that was secondary to arthritis of her back. Physical examination did reveal tenderness palpation of her lumbar spine as well as tenderness palpation of the paraspinal lumbar muscles with spasm of these muscles. Patient had a positive right straight leg raise but a negative left straight leg raise. Differential diagnosis: ?Includes but is not limited to appendicitis, diverticulitis, pancreatitis, bladder infection, musculoskeletal back pain, sciatica, radiculopathy, anemia, electrolyte abnormalities Course: My independent interpretation patient's laboratory evaluation is as follows: White blood count was normal 9000 200. Patient has a microcytic anemia with an H&H of 11.9 and 36.1 MCV of 76-this is chronic. BUN was elevated 23 with an elevated creatinine of 1.61. Glucose was elevated 289. Alk-phos elevated 175. COVID-19, RSV and influenza were negative. Patient was given Toradol 60 mg IM with improvement of her pain. CT scan of the abdomen pelvis without IV contrast did not reveal any acute findings of the abdomen to explain her abdominal pain however she does have degenerative changes of the lumbar spine. Given the fact that the patient's pain radiates down her right leg I suspect that the patient has either disc disease or inflammation of the lumbar nerves causing her pain. I did discuss this with her. Patient was advised to take ibuprofen 400 mg pills every 6 hours as needed for pain. She was also advised to take Tylenol 1000 mg every 6 hours as needed for pain. She was also prescribed Flexeril 10 mg pills, 1 pill every 6 hours as needed for pain or spasm. She was given printed and verbal instructions discharged home. Admission/Observation Consideration of admission/observation: Escalation of care including admission/observation considered Lab Data [facility] Lab Attestation statement: I reviewed the patient's lab results. 06/08/24 15:30 06/08/24 15:30 Labs: Lab Results 06/08/24 Range/Units 15:30 WBC 9.2 (4.8-10.8) X10*3/uL RBC 4.70 (4.20-5.50) X10*6/uL Hgb 11.9 L (12.0-16.0) g/dl Hct 36.1 L (37.0-47.0) % MCV 76.8 L (80.0-98.0) fL MCH 25.3 L (27.0-33.0) pg MCHC 33.0 (31.0-35.0) g/dl RDW 13.3 (11.0-16.0) % Plt Count 251 (160-400) X10*3/uL MPV 10.2 (9.4-12.3) fL Immature Gran % (Auto) 0.2 (0.0-0.4) % Neut % (Auto) 54.1 (45-73) % Lymph % (Auto) 35.2 (20-40) % [place] % (Auto) 7.8 (2-11) % Eos % (Auto) 2.4 (0-4) % Baso % (Auto) 0.3 (0-2) % Lymph # (Auto) 3.3 (1.2-4.9) X10*3/uL [place] # (Auto) 0.7 (0.1-1.2) X10*3/uL Eos # (Auto) 0.2 (0.0-0.4) X10*3/uL Baso # (Auto) 0.0 (0.0-0.2) X10*3/uL Abs Immat Gran (auto) 0.02 (0.00-0.03) X10*3/uL Absolute Neuts (auto) 5.0 (2.0-8.3) x10*3/uL Absolute Nucleated RBC 0.000 (0.0-0.012) X10*3/uL Nucleated RBC % (auto) 0.0 (0.0-0.2) /100WBC Sodium 139 (135-145) mmol/L Potassium 4.2 (3.3-5.1) mmol/L Chloride 106 (96-108) mmol/L Carbon Dioxide 26 (22-29) mmol/L Anion Gap 11 L (12-20) BUN 23 H (9-16) mg/dL Creatinine 1.61 H (0.5-1.4) mg/dL Estim Creat Clear Calc 36.3 Estimated GFR 32 Random Glucose 289 H (60-115) mg/dL Calcium 9.4 (8.4-10.2) mg/dL Total Bilirubin 0.2 (0.0-1.0) mg/dL Direct Bilirubin < 0.2 (0.0-0.5) mg/dL AST 14 (5-31) U/L ALT 17 (0-31) U/L Alkaline Phosphatase 175 H (39-117) U/L Total Protein 7.8 (6.5-8.0) g/dL Albumin 3.9 (3.5-5.0) g/dL Influenza Type A (PCR) NEGATIVE (Negative) Influenza Type B (PCR) NEGATIVE (Negative) RSV RNA Qual (PCR) NEGATIVE (Negative) SARS-CoV-2 RNA (RT-PCR) NEGATIVE (Negative) Radiology Impression Discussion of test interpretation with radiology: I have reviewed the radiologist's reading. Radiologist Impression: EXAMINATION: CT ABDOMEN AND PELVIS WITHOUT CONTRAST CLINICAL INFORMATION: Back and abdominal pain. Rule out renal stone. COMPARISON: Abdominal ultrasound January 19, 2024, CT abdomen and pelvis November 11, 2022 FINDINGS: GASTROINTESTINAL TRACT: The stomach and proximal duodenum are distended with gastric contents. The large and small bowel are normal in caliber. The appendix is normal. ABDOMINAL WALL: No significant hernia is appreciated. OSSEOUS STRUCTURES: Degenerative changes of the lumbar spine. IMPRESSION: Punctate stone in the mid right kidney. No hydronephrosis. Dictated By: Jin Ashby MD Prescription Management I considered prescription management with: Other (Anti muscle spasm medication-Flexeril) Chronic Conditions Patient?s care impacted by: Diabetes Discharge Plan Discharge Clinical Impression: Acute right lumbar radiculopathy Patient Disposition: Home, Self-Care Instructions: Lumbar Radiculopathy (ED) Additional Instructions: Your blood work was unremarkable. The CT scan of your abdomen pelvis did not reveal any clear cause for your abdominal pain which is reassuring. You do have arthritis of the bones of your lumbar spine and this is probably what is causing the pain in your lower back, abdomen and the pain that is going down your leg Take ibuprofen 200 mg pills, 2 pills every 6 hours as needed for pain or fever. Take Tylenol (acetaminophen) 500 mg pills, 2 pills every 6 hours as needed for pain or fever. Take Flexeril (cyclobenzaprine) 10 mg pills, 1 pill every 6-8 hours as needed for pain or spasm. ?This medication will make you sleepy. ?Do not drive or work while taking this medication. Apply ice for 15 minutes to your lower back. 1 hour layer then apply a heating pad for 15 minutes. Repeat this 4 to 6 times a day. Follow-up with your doctor in 2 days. Please return to the emergency department if your symptoms get worse or if you develop any symptoms that are concerning to you. Prescriptions: New cyclobenzaprine 10 mg tablet 10 mg PO TID PRN (Reason: muscle pain or spasm) Qty: 20 0RF No Action albuterol sulfate [Ventolin HFA] 90 mcg/actuation HFA aerosol inhaler 1 puff PO QID PRN (Reason: for wheezing) Qty: 18 2RF (DME) ReliOn Prime Test Strips Strip See Rx Instructions miscellaneous .MEDSUPPLY Qty: 100 3RF Rx Instructions: As directed glimepiride 1 mg tablet 1 mg PO QAM 90 Days Qty: 90 1RF Rx Instructions: administer with breakfast fluticasone propionate [Flonase Allergy Relief] 50 mcg/actuation spray,suspension 2 spray intranasal DAILY Qty: 16 0RF Rx Instructions: administer into each nostril (DME) pen needle, diabetic [BD Ultra-Fine Beatriz Pen Needle] 32 gauge x 5/32 needle See Rx Instructions .Route Qty: 100 5RF Rx Instructions: As directed once a day (DME) lancets 26 gauge misc See Rx Instructions miscellaneous .MEDSUPPLY Qty: 100 0RF Rx Instructions: As directed atorvastatin 10 mg tablet 10 mg PO BEDTIME Qty: 90 1RF cetirizine 10 mg tablet 10 mg PO DAILY PRN (Reason: allergy symptoms) 90 Days Qty: 90 1RF cholecalciferol (vitamin D3) 50 mcg (2,000 unit) tablet 50 mcg PO DAILY Qty: 90 0RF Trelegy Ellipta 200-62.5-25 mcg blister with device 1 inh inhalation DAILY 30 Days Qty: 60 12RF insulin glargine [Lantus Solostar U-100 Insulin] 100 unit/mL (3 mL) insulin pen 20 unit subcut BEDTIME 30 Days Qty: 6 3RF Tradjenta 5 mg tablet 5 mg PO QAM 90 Days Qty: 90 1RF omeprazole 20 mg capsule,delayed release(DR/EC) 20 mg PO DAILY 90 Days Qty: 90 1RF (DME) blood-glucose meter [Blood Glucose Monitoring] Kit See Rx Instructions miscellaneous .MEDSUPPLY Qty: 1 0RF Rx Instructions: As directed budesonide-formoterol [Symbicort] 160-4.5 mcg/actuation HFA aerosol inhaler 2 puff inhalation BID 30 Days Qty: 10.2 11RF gabapentin 300 mg capsule 600 mg PO BEDTIME 30 Days Qty: 60 11RF benzonatate 200 mg capsule 200 mg PO BID PRN (Reason: cough) 30 Days Qty: 60 6RF Print Language: [place]
[2024-06-08 15:36] LABS: MANUAL DIFF FLAG NO
[2024-06-08 15:39] LABS: Basophils Percent Auto 0.3 % (0-2); Eosinophils Absolute Auto 0.2 X10*3/uL (0.0-0.4); Eosinophils Percent Auto 2.4 % (0-4); Hematocrit 36.1 % (37.0-47.0); Hemoglobin 11.9 g/dl (12.0-16.0); Imm Gran Abs Auto 0.02 X10*3/uL (0.00-0.03); Imm Gran Pct Auto 0.2 % (0.0-0.4); Lymphocytes Absolute Auto 3.3 X10*3/uL (1.2-4.9); Lymphocytes Percent Auto 35.2 % (20-40); Mean Corpuscular Hemoglobin 25.3 pg (27.0-33.0); Mean Corpuscular Volume 76.8 fL (80.0-98.0); Mean Platelet Volume 10.2 fL (9.4-12.3); Monocytes Absolute Auto 0.7 X10*3/uL (0.1-1.2); Monocytes Percent Auto 7.8 % (2-11); Neutrophils Percent Auto 54.1 % (45-73); Platelet Count 251 X10*3/uL (160-400); Red Cell Distribution Width 13.3 % (11.0-16.0); White Blood Count 9.2 X10*3/uL (4.8-10.8)
[2024-06-08 16:09] LABS: Alanine Aminotransferase 17 U/L (0-31); Albumin Level 3.9 g/dL (3.5-5.0); Alkaline Phosphatase 175 U/L (39-117); Anion Gap 11 (12-20); Aspartate Amino Transferase 14 U/L (5-31); Bilirubin Direct < 0.2 mg/dL (0.0-0.5); Bilirubin Total 0.2 mg/dL (0.0-1.0); Blood Urea Nitrogen 23 mg/dL (9-16); Calcium 9.4 mg/dL (8.4-10.2); Carbon Dioxide 26 mmol/L (22-29); Chloride 106 mmol/L (96-108); Creatinine Clr Calc Pharmacy 36.3; Estimated Glomerular Filt Rate 32; Glucose Random 289 mg/dL (60-115); Potassium 4.2 mmol/L (3.3-5.1); Sodium 139 mmol/L (135-145); Total Protein 7.8 g/dL (6.5-8.0)
[2024-06-08 16:20] LABS: Influenza A PCR NEGATIVE (Negative); Influenza B PCR NEGATIVE (Negative); Resp Syncy Virus RNA Qual PCR NEGATIVE (Negative); SARS COV2 PCR INHOUSE NEGATIVE (Negative)
[2024-06-08 18:00] VITALS: BP 172/81; PULSE 76; RESP 18; TEMP 36.8; O2SAT 99
[2024-06-08] MEDS: Ketorolac Tromethamine 60 MG/2 ML VIAL IM (19:43)
[2024-06-09 00:27] VITALS: BP 172/81; PULSE 76; RESP 18; TEMP 36.8; O2SAT 99
== END 2024-06-08 19:40 | disposition home or self-care (01) ==
PROVIDERS: Nurse Practitioner Family; Emergency Provider Emergency Medicine Emergency Medical Services
DX: M54.16 Radiculopathy, lumbar region (principal); M54.50 Low back pain, unspecified; Z03.818 Encounter for observation for suspected exposure to other biological agents ruled out; E11.9 Type 2 diabetes mellitus without complications; E78.5 Hyperlipidemia, unspecified; D64.9 Anemia, unspecified; Z79.02 Long term (current) use of antithrombotics/antiplatelets; Z79.899 Other long term (current) drug therapy; Z79.4 Long term (current) use of insulin
CPT/HCPCS: 0241U; 36415; 74176; 80048; 80076; 85025; 96372; 99284; J1885

== ENCOUNTER 2024-06-14 13:30 | Outpatient (AMB) | payer OTHER, SELFPAY ==
--- NOTE | 2024-06-14 13:43 | A.OFFVIS_ITS ---
Vital Signs 06/14/24 13:45 Height 5 ft 2 in Weight 191 lb 12.835 oz BMI 35.1 BP 140/88 H Blood Pressure Location Lt brachial Pulse 105 H Pulse Source Pulse Oximeter Intake Visit Reasons: DM Intake Note: New Patient presents today to establish treatment on Type 2 Diabetes Mellitus: Last Diabetic Eye exam: DUE Last Podiatry Exam: Does not see a Behavioral Specialist Most recent HbA1c: 9.4%, 06/14/2024 Random Glucose- 372 mg/dL, Today Vice President Of Software Development Required: Yes Vice President Of Software Development Language: Horticulture Teacher Services: Vice President Of Software Development Present (Via video call) Vice President Of Software Development Name: Vice President Of Software Development: Said [id number] Accompanied by: Self / Same As Patient Allergies oyster extract Allergy (Verified 06/14/24 14:03) Anaphylaxis Medication List - Last Reconciled 06/14/24 by Mariia Quiles PA-C albuterol sulfate 90 mcg/actuation (Ventolin HFA) 1 puff PO QID PRN atorvastatin 10 mg PO BEDTIME benzonatate 200 mg PO BID PRN 30 days blood sugar diagnostic (ReliOn Prime Test Strips) As directed blood-glucose meter (Blood Glucose Monitoring kit) As directed budesonide-formoterol 160-4.5 mcg/actuation (Symbicort) 2 puffs inhalation BID 30 days cetirizine 10 mg PO DAILY PRN 90 days cholecalciferol (vitamin D3) 50 mcg PO DAILY cyclobenzaprine 10 mg PO TID PRN fluticasone propionate 50 mcg/actuation (Flonase Allergy Relief) 2 sprays intranasal DAILY ijyvyaduldk-stqviltoo-qagsfaeh 200-62.5-25 mcg (Trelegy Ellipta) 1 inh inhalation DAILY 30 days gabapentin 600 mg (2 x 300 mg) PO BEDTIME 30 days glimepiride 1 mg PO QAM 90 days insulin glargine (Lantus Solostar U-100 Insulin) 20 units (0.2 mL) subcut BEDTIME 30 days lancets As directed omeprazole 20 mg PO DAILY 90 days pen needle, diabetic (BD Ultra-Fine Beatriz Pen Needle) As directed once a day HPI HPI DM: Details: Patient is a 64-year-old female with a significant past medical history of type 2 diabetes, hyperlipidemia, GERD, anemia presenting today for a diabetic consult. Vice President Of Software Development: Kleber [phone] Endo: Her last A1c was 9.4. She reports being diagnosed with diabetes 2 years ago. She is currently on glimepiride 1 mg daily, Lantus 10 units nightly, Tradjenta 5 mg daily -she was initially put on metformin but did not tolerate this GI distress Glucose monitoring: checks blood sugars 1-2 x a day. She states that they are 200-300. She does have nephrology with ckd and microalbuminuria She has not had any diabetic education. She has a family hx of t1dm (mother, 2 sisters, and 1 grandson) CV: BP today in the office is 140/88. Her last few readings at the offices have been elevated. She attributes this to her increased back pain. She has never been on medication for this before. 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 Upper airway resistance syndrome Uterine fibroid Abnormal cervical cytology Abnormal Pap smear of cervix History of COVID-19 Lumbar degenerative disc disease Allergic rhinitis Constipation Calcification of left breast Malignant neoplasm of breast Obesity (BMI 30-39.9) Diabetes mellitus with hyperglycemia Cancer of right breast COVID-19 Surgical History Hx of cholecystectomy History of bilateral tubal ligation History of bronchoscopy History of cataract surgery History of mastectomy Family History Sister Breast cancer Father HTN (hypertension) Heart attack Mother Diabetes HTN (hypertension) Social History Household Members: None Housing: Apartment Alcohol intake: never Patient Tobacco Use Status: Never used Tobacco e-Cigarette/Vaping Use: Never Used Second Hand Smoke Exposure: No service: No Current occupational status: employed Current occupation: [employer] Sexual orientation: Straight/Heterosexual Gender identity: Female Cognitive needs: No Hearing needs: No Vision needs: Yes Female Reproductive History Menstrual Age of Menarche: 11 Physical Exam Vital Signs: BMI result Body Mass Index 35.1 Const Orientation/consciousness: patient oriented x3 Neck Neck: Yes no lymphadenopathy Thyroid: Thyroid normal Carotids: no bruits Resp Auscultation: clear to auscultation bilaterally Cardio Rate: regular rate Rhythm: regular rhythm Heart sounds: S1 normal heart sound present and S2 normal heart sound present Peripheral pulses: dorsalis pedis present Neuro General: patient oriented x3, gait normal and no focal motor deficits Extrem Other: Monofilament sensation intact bilaterally. Vibratory sensation intact bilaterally. Skin intact. General: Yes normal to inspection Results AMB Hemoglobin A1c AMB Hemoglobin A1c 9.4 % Last Edit by MARCELO Espitia on 06/14/24 14:08 Results Reviewed Results Reviewed: Laboratory Tests 06/07/23 12/29/23 06/08/24 10:52 13:56 15:30 Sodium 139 Potassium 4.2 Chloride 106 Carbon Dioxide 26 Anion Gap 11 L BUN 23 H Creatinine 1.61 H Estim Creat Clear Calc 36.3 Estimated GFR 32 Random Glucose 289 H Hgb A1c (Clinic) 10.0 H AST 14 ALT 17 LDL Cholesterol, Calc 113 H Laboratory Tests 12/03/21 11:43 C-Peptide 1.35 LEANDRA Antibody <5 Laboratory Tests 06/07/23 10:45 Urine Creatinine 101.67 Urine Microalbumin 40.0 Microalb/Creat Ratio 39.3 H Assessment & Plan Assessment & Plan (1) Uncontrolled type 2 diabetes mellitus with hyperglycemia, with long-term current use of insulin: Code(s): E11.65 - Type 2 diabetes mellitus with hyperglycemia; Z79.4 - correction (current) use of insulin Category: Medical Plan: will start ozempic. Discussed risks and benefits and adverse effects of this medication including nausea, vomiting, increased risk of pancreatitis. She will continue with Lantus and glimepiride. lena miles ordered, advised to contact us when she gets this to help with set up Rule of 15s discussed. we spent more than 1 hour in uvkt-ot-xhib time today discussing that her 1st between type 1 diabetes, type 2, reviewing complications associated with diabetes including kidney disease, blindness, neuropathy, increased risk of infections, strokes, heart attacks etc.. We reviewed signs and symptoms of hyper and hypoglycemia that would require emergent medical treatment. We did review that she did have a normal C-peptide a couple years ago and negative LEANDRA antibodies. I will refer her to diabetic Education. We did have a discussion today regarding carbohydrates and some small diet changes that she could make. We did review last labs I referred her to Nephrology. I will start her on an AB-inhibitor given her elevated blood pressure readings as well. We discussed risks and benefits and adverse effects of lisinopril. Advised to start this person start Ozempic in 4-5 days after starting this. I will bring her back in in a few weeks to recheck her blood pressure and review her diabetes. (2) CKD stage 3b, GFR 30-44 ml/min: Code(s): N18.32 - Chronic kidney disease, stage 3b Category: Medical Plan: Advised to avoid NSAIDs. Referral to Nephrology place. (3) Microalbuminuria due to type 2 diabetes mellitus: Code(s): E11.29 - Type 2 diabetes mellitus with other diabetic kidney complication; R80.9 - Proteinuria, unspecified Category: Medical Plan: As above. (4) Family history of type 1 diabetes mellitus: Code(s): Z83.3 - Family history of diabetes mellitus Category: Medical Plan: Reviewed labs Orders: Orders AMB Hemoglobin A1c Today E11.65 - Type 2 diabetes mellitus with hyperglycemia, Z79.4 - correction (current) use of insulin C Peptide Today E11.29 - Type 2 diabetes mellitus with other diabetic kidney complication, E11.65 - Type 2 diabetes mellitus with hyperglycemia, N18.32 - Chronic kidney disease, stage 3b, R80.9 - Proteinuria, unspecified, Z79.4 - correction (current) use of insulin, Z83.3 - Family history of diabetes mellitus Microalbumin, Random (w Creat) Today E11.29 - Type 2 diabetes mellitus with other diabetic kidney complication, E11.65 - Type 2 diabetes mellitus with hyperglycemia, N18.32 - Chronic kidney disease, stage 3b, R80.9 - Proteinuria, unspecified, Z79.4 - correction (current) use of insulin, Z83.3 - Family history of diabetes mellitus Glutamic acid decarboxylase Ab Today E11.29 - Type 2 diabetes mellitus with other diabetic kidney complication, E11.65 - Type 2 diabetes mellitus with hyperglycemia, N18.32 - Chronic kidney disease, stage 3b, R80.9 - Proteinuria, unspecified, Z79.4 - correction (current) use of insulin, Z83.3 - Family history of diabetes mellitus Islet Cell Antibody Scrn/Titer Today E11.29 - Type 2 diabetes mellitus with other diabetic kidney complication, E11.65 - Type 2 diabetes mellitus with hyperglycemia, N18.32 - Chronic kidney disease, stage 3b, R80.9 - Proteinuria, unspecified, Z79.4 - executive administrator (current) use of insulin, Z83.3 - Family history of diabetes mellitus UA CC w/rflx Micro + Cult Today E11.29 - Type 2 diabetes mellitus with other diabetic kidney complication, E11.65 - Type 2 diabetes mellitus with hyperglycemia, N18.32 - Chronic kidney disease, stage 3b, R80.9 - Proteinuria, unspecified, Z79.4 - correction (current) use of insulin, Z83.3 - Family history of diabetes mellitus Basic Metabolic Panel Today E11.29 - Type 2 diabetes mellitus with other diabetic kidney complication, E11.65 - Type 2 diabetes mellitus with hyperglycemia, N18.32 - Chronic kidney disease, stage 3b, R80.9 - Proteinuria, unspecified, Z79.4 - executive administrator (current) use of insulin, Z83.3 - Family history of diabetes mellitus Referrals Diabetes Education Referral E11.65 - Type 2 diabetes mellitus with hyperglycemia, Z79.4 - executive administrator (current) use of insulin Nephrology Referral E11.29 - Type 2 diabetes mellitus with other diabetic kidney complication, N18.32 - Chronic kidney disease, stage 3b, R80.9 - Proteinuria, unspecified Medications: New semaglutide (Ozempic) for 4 weeks 0.25 mg (0.368 mL) subcut QWEEK 3 mL 3RF lisinopril 10 mg PO DAILY 90 tabs 0RF blood-glucose sensor (FreeStyle Maricel 3 Sensor device) Apply every 14 days As directed to monitor blood glucose 2 ea 11RF E11.9 - Type 2 diabetes mellitus without complications, Z79.4 - correction (current) use of insulin blood-glucose meter,continuous (FreeStyle Maricel 3 [place]) Use daily As directed to monitor blood glucose 1 ea 0RF Discontinued linagliptin (Tradjenta) Discontinued Reason: Doctor's Order 5 mg PO QAM 90 days 90 tabs 1RF Coding Level of Care Code New Pt Level 5 (99357) Complex EM visit Add On G2211 Diagnoses Uncontrolled type 2 diabetes mellitus with hyperglycemia, with long-term current use of insulin E11.65; Z79.4 CKD stage 3b, GFR 30-44 ml/min N18.32 Microalbuminuria due to type 2 diabetes mellitus E11.29; R80.9 Family history of type 1 diabetes mellitus Z83.3 Time Spent (min) 85
[2024-06-14 13:45] VITALS: BP 140/88; PULSE 105; BMI 35.1
[2024-06-14 13:54] LABS: Glucose, Whole Blood 372 mg/dL (60-115)
== END 2024-06-14 14:31 | disposition home or self-care (01) ==
PROVIDERS: Visit Provider Physician Assistant
DX: E11.65 Type 2 diabetes mellitus with hyperglycemia (principal); Z79.4 Long term (current) use of insulin; E11.29 Type 2 diabetes mellitus with other diabetic kidney complication; N18.32 Chronic kidney disease, stage 3b; R80.9 Proteinuria, unspecified; Z83.3 Family history of diabetes mellitus
CPT/HCPCS: 99205; G2211

== ENCOUNTER → 2024-06-14 13:30 | Outpatient (BNVA) | payer OTHER, SELFPAY | PROVIDERS: Visit Provider Physician Assistant | DX: E11.65 Type 2 diabetes mellitus with hyperglycemia (principal); E11.29 Type 2 diabetes mellitus with other diabetic kidney complication; R80.9 Proteinuria, unspecified; N18.32 Chronic kidney disease, stage 3b; Z83.3 Family history of diabetes mellitus; Z79.4 Long term (current) use of insulin | CPT/HCPCS: 82947; 83036; 99202 ==

== ENCOUNTER 2024-07-01 10:45 | Outpatient (REF) | payer OTHER, SELFPAY ==
[2024-07-01 11:08] LABS: MANUAL DIFF FLAG NO
[2024-07-01 11:59] LABS: Basophils Absolute Auto 0.1 X10*3/uL (0.0-0.2); Basophils Percent Auto 0.6 % (0-2); Eosinophils Absolute Auto 0.3 X10*3/uL (0.0-0.4); Eosinophils Percent Auto 3.4 % (0-4); Hematocrit 38.2 % (37.0-47.0); Hemoglobin 12.5 g/dl (12.0-16.0); Imm Gran Abs Auto 0.02 X10*3/uL (0.00-0.03); Imm Gran Pct Auto 0.2 % (0.0-0.4); Lymphocytes Absolute Auto 2.9 X10*3/uL (1.2-4.9); Lymphocytes Percent Auto 33.2 % (20-40); Mean Corpuscular HGB Conc 32.7 g/dl (31.0-35.0); Mean Corpuscular Hemoglobin 25.2 pg (27.0-33.0); Mean Corpuscular Volume 76.9 fL (80.0-98.0); Mean Platelet Volume 10.5 fL (9.4-12.3); Monocytes Absolute Auto 0.8 X10*3/uL (0.1-1.2); Neutrophils Absolute Auto 4.6 x10*3/uL (2.0-8.3); Neutrophils Percent Auto 53.6 % (45-73); Platelet Count 285 X10*3/uL (160-400); Red Blood Count 4.97 X10*6/uL (4.20-5.50); Red Cell Distribution Width 13.4 % (11.0-16.0); White Blood Count 8.6 X10*3/uL (4.8-10.8)
[2024-07-01 12:45] LABS: Appearance Urine Clear; Color Urine Yellow; Glucose Urine UA Negative (Negative); Leukocyte Esterase Urine Small (1+) (Negative); Nitrite Urine Negative (Negative); PH 5.5 (5.0-9.0); UMIC TRIGGER UACC YES; Urine Blood Negative (Negative); Urine Ketones Negative (Negative); Urine Protein 30 (1+) mg/dL (Neg-Trace)
[2024-07-01 13:07] LABS: Bacteria Urine 1+ (None Seen); Hyaline Casts Urine 0-2 /LPF (0-2); RBC Urine 0-2 /HPF (0-2); UACC Culture Trigger YES; WBC Urine >50 /HPF (0-5)
[2024-07-01 13:11] LABS: Alanine Aminotransferase 22 U/L (0-31); Alkaline Phosphatase 140 U/L (39-117); Anion Gap 16 (12-20); Aspartate Amino Transferase 18 U/L (5-31); Bilirubin Total 0.3 mg/dL (0.0-1.0); Blood Urea Nitrogen 18 mg/dL (9-16); Calcium 9.7 mg/dL (8.4-10.2); Carbon Dioxide 24 mmol/L (22-29); Chloride 104 mmol/L (96-108); Cholesterol 190 mg/dL (<200); Estimated Glomerular Filt Rate 46; Glucose Fasting 142 mg/dL (60-99); Glucose Random 141 mg/dL (60-115); HDL Cholesterol 41 mg/dL (>40); LDL Cholesterol Calculated 117 mg/dL (<100); Lipase 19 U/L (8-78); Sodium 140 mmol/L (135-145); Total Protein 8.1 g/dL (6.5-8.0); Triglycerides 162 mg/dL (<150)
[2024-07-01 13:26] LABS: Creatinine Urine 135.06 mg/dL; Microalbum/Creatinine Ratio Ur 52.5 ug/mg cr (<30)
[2024-07-01 13:40] LABS: TSH reflex Free T4 1.95 uIU/mL (0.32-4.0); Vitamin D 25-OH Total 16.7 ng/mL (>30)
[2024-07-04 22:33] LABS: Glutamic acid decarboxylase Ab <5 IU/mL (<5)
[2024-07-06 23:34] LABS: Islet Cell Antibody Screen NEGATIVE (NEGATIVE)
== END 2024-07-01 10:46 | disposition home or self-care (01) ==
LOC: HO.LAB 10:45
PROVIDERS: PCP Internal Medicine; Referring Provider Internal Medicine; Visit Provider Physician Assistant
DX: Z00.00 Encounter for general adult medical examination without abnormal findings (principal); E11.65 Type 2 diabetes mellitus with hyperglycemia; D64.9 Anemia, unspecified; E78.00 Pure hypercholesterolemia, unspecified; E55.9 Vitamin D deficiency, unspecified; E11.9 Type 2 diabetes mellitus without complications; R10.9 Unspecified abdominal pain; Z79.4 Long term (current) use of insulin; N18.32 Chronic kidney disease, stage 3b; E11.29 Type 2 diabetes mellitus with other diabetic kidney complication; R80.9 Proteinuria, unspecified; Z83.3 Family history of diabetes mellitus
CPT/HCPCS: 36415; 80048; 80053; 80061; 81001; 82043; 82306; 82570; 83690; 84443; 84681; 85025; 86341; 87086; 87088; 87186

== ENCOUNTER 2024-07-05 08:48 | Outpatient (AMB) | payer OTHER, SELFPAY ==
[2024-07-05 09:00] VITALS: BP 138/74; PULSE 81; BMI 33.9
--- NOTE | 2024-07-05 09:00 | A.OFFVIS_ITS ---
Vital Signs 07/05/24 09:00 Height 5 ft 2 in Weight 185 lb 3.013 oz BMI 33.9 BP 138/74 Blood Pressure Location Rt brachial Pulse 81 Pulse Source Pulse Oximeter Intake Visit Reasons: dm and bp Intake Note: Patient presents today for a follow-up on Type 2 Diabetes Mellitus: Last Diabetic Eye exam: DUE Last Podiatry Exam: Does not see a Union Organiser Most recent HbA1c: 9.4%, 06/14/2024 Random Glucose- 267 mg/dL, Today Sea Captain Required: Yes Sea Captain Language: Strip Mill Operator Services: Sea Captain Present (Via video call) Sea Captain Name: MARCELO Espitia/BRANDON Ortiz Information Interpreted: non-clinical & clinical Accompanied by: Self / Same As Patient Allergies oyster extract Allergy (Verified 07/05/24 09:04) Anaphylaxis Medication List - Last Reconciled 07/05/24 by Mariia Quiles PA-C albuterol sulfate 90 mcg/actuation (Ventolin HFA) 1 puff PO QID PRN atorvastatin 10 mg PO BEDTIME benzonatate 200 mg PO BID PRN 30 days blood sugar diagnostic (ReliOn Prime Test Strips) As directed blood-glucose meter (Blood Glucose Monitoring kit) As directed blood-glucose meter,continuous (FreeStyle Maricel 3 [place]) Use daily As directed to monitor blood glucose blood-glucose sensor (FreeStyle Maricel 3 Sensor device) Apply every 14 days As directed to monitor blood glucose budesonide-formoterol 160-4.5 mcg/actuation (Symbicort) 2 puffs inhalation BID 30 days cetirizine 10 mg PO DAILY PRN 90 days cholecalciferol (vitamin D3) 50 mcg PO DAILY cyclobenzaprine 10 mg PO TID PRN dulaglutide (Trulicity) 0.75 mg (0.5 mL) subcut QWEEK fluticasone propionate 50 mcg/actuation (Flonase Allergy Relief) 2 sprays intranasal DAILY aeyxjqbhpsa-phfixbkal-tpedmdal 200-62.5-25 mcg (Trelegy Ellipta) 1 inh i nhalation DAILY 30 days gabapentin 600 mg (2 x 300 mg) PO BEDTIME 30 days glimepiride 1 mg PO QAM 90 days insulin glargine (Lantus Solostar U-100 Insulin) 10 units subcut BEDTIME lancets As directed lisinopril 10 mg PO DAILY nitrofurantoin monohyd/m-cryst 100 mg (Macrobid) 100 mg PO Q12H 7 days omeprazole 20 mg PO DAILY 90 days pen needle, diabetic (BD Ultra-Fine Beatriz Pen Needle) As directed once a day HPI HPI dm and bp: Details: araceli is a 64-year-old female with a significant past medical history of type 2 diabetes, hyperlipidemia, GERD, anemia presenting today for a diabetic consult. Sea Captain: Debbie [place]: Her last A1c was 9.4. She reports being diagnosed with diabetes 2 years ago. She is currently on glimepiride 1 mg daily, Lantus 10 units nightly, and trulicity .75 mg weekly. She thought that she was supposed to stop the lantus so has not been taking this or the glimepiride. -she was initially put on metformin but did not tolerate this GI distress Glucose monitoring: checks blood sugars 1-2 x a day. She states that they are 200-300. She did have the Maricel approved however, it is on back order. She does have nephrology with ckd and microalbuminuria She has not had any diabetic education. She has a family hx of t1dm (mother, 2 sisters, and 1 grandson). The LEANDRA antibodies are negative, C-peptide normal -she did her labs a few days prior to this appointment and states that she was having some urinary symptoms with increased frequency and urgency. It did show that she had a UTI. Started her on Macrobid. Tolerating well is states that she is feeling better. She just started the medication yesterday. CV: BP today in the office is 138/78. 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 Upper airway resistance syndrome Uterine fibroid Abnormal cervical cytology Abnormal Pap smear of cervix History of COVID-19 Lumbar degenerative disc disease Allergic rhinitis Constipation Calcification of left breast Malignant neoplasm of breast Obesity (BMI 30-39.9) Diabetes mellitus with hyperglycemia Cancer of right breast COVID-19 Surgical History Hx of cholecystectomy History of bilateral tubal ligation History of bronchoscopy History of cataract surgery History of mastectomy Family History Sister Breast cancer Father HTN (hypertension) Heart attack Mother Diabetes HTN (hypertension) Social History Household Members: None Housing: Apartment Alcohol intake: never Patient Tobacco Use Status: Never used Tobacco e-Cigarette/Vaping Use: Never Used Second Hand Smoke Exposure: No service: No Current occupational status: employed Current occupation: [employer] Sexual orientation: Straight/Heterosexual Gender identity: Female Cognitive needs: No Hearing needs: No Vision needs: Yes Female Reproductive History Menstrual Age of Menarche: 11 Physical Exam Vital Signs: Last Vital Signs Pulse 81 07/05/24 09:00 BP 138/74 07/05/24 09:00 BMI result Body Mass Index 33.9 Const Orientation/consciousness: patient oriented x3 HEENT Ears: hearing grossly normal bilaterally Neck Thyroid: Thyroid normal Lymphatic: no lymphadenopathy noted Resp Auscultation: clear to auscultation bilaterally Cardio Rate: regular rate Rhythm: regular rhythm Heart sounds: S1 normal heart sound present and S2 normal heart sound present GI Inspection: Yes normal to inspection Palpation (GI): Soft to palpation and Other GI palpation findings present (nontender, no cva tenderness) Auscultation: normoactive bowel sounds Rectal Exam - Female: deferred Skin General skin exam: no rashes or lesions noted Neuro General: patient oriented x3, gait normal and no focal motor deficits Results Reviewed Results Reviewed: Laboratory Last Values Glucose (Clinic) 267 mg/dL (60-115) H 07/05/24 09:04 Laboratory Tests 07/01/24 07/01/24 07/05/24 10:56 11:07 09:04 Creatinine 1.18 Estimated GFR 46 Glucose (Clinic) 267 H C-Peptide 1.00 Urine Creatinine 135.06 Urine Microalbumin 71.0 Microalb/Creat Ratio 52.5 H Islet Cell Ab Screen Pending LEANDRA Antibody <5 Assessment & Plan Assessment & Plan (1) Uncontrolled type 2 diabetes mellitus with hyperglycemia, with long-term current use of insulin: Code(s): E11.65 - Type 2 diabetes mellitus with hyperglycemia; Z79.4 - senior living (current) use of insulin Category: Medical Plan: Continue Trulicity. Start Lantus and glimepiride. Freestyle Maricel was approved however it is on back order. Freestyle Maricel 3+ ordered. Follow up in 1 month. Sooner if needed. She will call me if she is unable to get the sensors. (2) UTI (urinary tract infection): Code(s): N39.0 - Urinary tract infection, site not specified Plan Improved with Macrobid. Continue current regimen. Follow up if anything worsens or changes. Patient understands and agrees with the plan. Medications: New blood-glucose sensor (FreeStyle Maricel 3 Plus Sensor device) Use daily As directed to monitor glucose 2 ea 5RF Mariia Quiles PA-C E08.29 - Diabetes mellitus due to underlying condition with other diabetic kidney complication, R80.9 - Proteinuria, unspecified, Z79.4 - senior living (current) use of insulin Changed From insulin glargine (Lantus Solostar U-100 Insulin) 20 units (0.2 mL) subcut BEDTIME 30 days 6 mL 3RF To insulin glargine (Lantus Solostar U-100 Insulin) 10 units subcut BEDTIME Mehrdad Chavez MD Coding Level of Care Code Est Pt Level 4 (59084) Complex EM visit Add On G2211 Diagnoses Uncontrolled type 2 diabetes mellitus with hyperglycemia, with long-term current use of insulin E11.65; Z79.4 UTI (urinary tract infection) N39.0
[2024-07-05 09:08] LABS: Glucose, Whole Blood 267 mg/dL (60-115)
== END 2024-07-05 09:28 | disposition home or self-care (01) ==
PROVIDERS: Visit Provider Physician Assistant
DX: E11.65 Type 2 diabetes mellitus with hyperglycemia (principal); Z79.4 Long term (current) use of insulin; N39.0 Urinary tract infection, site not specified

== ENCOUNTER → 2024-07-05 08:48 | Outpatient (BNVA) | payer OTHER, SELFPAY | PROVIDERS: Visit Provider Physician Assistant | DX: N17.9 Acute kidney failure, unspecified (principal); E11.65 Type 2 diabetes mellitus with hyperglycemia; N39.0 Urinary tract infection, site not specified; Z79.4 Long term (current) use of insulin | CPT/HCPCS: 82947; 99202; 99212 ==

== ENCOUNTER 2024-07-05 15:43 | Outpatient (AMB) | payer OTHER, SELFPAY ==
[2024-07-05 15:45] VITALS: BP 124/70; PULSE 97; O2SAT 97; BMI 33.8
--- NOTE | 2024-07-05 15:45 | HO.NEPHOV_ITS ---
Vital Signs 07/05/24 15:45 Height 5 ft 2 in Weight 185 lb BMI 33.8 BP 124/70 Blood Pressure Location Lt brachial Position Sitting Pulse 97 Pulse Source Pulse Oximeter Pulse Oximetry (%) 97 Oxygen Delivery Method Room Air Intake Visit Reasons: CKD STG 3B/ Conf Back Line Cook Required: Yes Back Line Cook Name: [id number] demario Accompanied by: Self / Same As Patient Allergies oyster extract Allergy (Verified 07/05/24 15:47) Anaphylaxis Medication List - Last Reconciled 07/05/24 by Jonathon Chandler MD albuterol sulfate 90 mcg/actuation (Ventolin HFA) 1 puff PO QID PRN atorvastatin 10 mg PO BEDTIME benzonatate 200 mg PO BID PRN 30 days blood sugar diagnostic (ReliOn Prime Test Strips) As directed blood-glucose meter (Blood Glucose Monitoring kit) As directed blood-glucose meter,continuous (FreeStyle Maricel 3 [place]) Use daily As directed to monitor blood glucose blood-glucose sensor (FreeStyle Maricel 3 Sensor device) Apply every 14 days As directed to monitor blood glucose blood-glucose sensor (FreeStyle Maricel 3 Plus Sensor device) Use daily As directed to monitor glucose budesonide-formoterol 160-4.5 mcg/actuation (Symbicort) 2 puffs inhalation BID 30 days cetirizine 10 mg PO DAILY PRN 90 days cholecalciferol (vitamin D3) 50 mcg PO DAILY cyclobenzaprine 10 mg PO TID PRN dulaglutide (Trulicity) 0.75 mg (0.5 mL) subcut QWEEK fluticasone propionate 50 mcg/actuation (Flonase Allergy Relief) 2 sprays intranasal DAILY jzwisniiaet-xnpvvoecb-xbuegnck 200-62.5-25 mcg (Trelegy Ellipta) 1 inh inhalation DAILY 30 days gabapentin 600 mg (2 x 300 mg) PO BEDTIME 30 days glimepiride 1 mg PO QAM 90 days insulin glargine (Lantus Solostar U-100 Insulin) 10 units subcut BEDTIME lancets As directed lisinopril 10 mg PO DAILY nitrofurantoin monohyd/m-cryst 100 mg (Macrobid) 100 mg PO Q12H 7 days omeprazole 20 mg PO DAILY 90 days pen needle, diabetic (BD Ultra-Fine Beatriz Pen Needle) As directed once a day HPI Comments Details: Pleasant 64-year-old man with a history of right renal stone has been referred for renal evaluation. Recently she has been having lower back pain. She has a positive for UTI. Currently on antibiotics and pain has improved. 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 Upper airway resistance syndrome Uterine fibroid Abnormal cervical cytology Abnormal Pap smear of cervix History of COVID-19 Lumbar degenerative disc disease Allergic rhinitis Constipation Calcification of left breast Malignant neoplasm of breast Obesity (BMI 30-39.9) Diabetes mellitus with hyperglycemia Cancer of right breast COVID-19 Surgical History Hx of cholecystectomy History of bilateral tubal ligation History of bronchoscopy History of cataract surgery History of mastectomy Family History Sister Breast cancer Father HTN (hypertension) Heart attack Mother Diabetes HTN (hypertension) Social History Household Members: None Housing: Apartment Alcohol intake: never Patient Tobacco Use Status: Never used Tobacco e-Cigarette/Vaping Use: Never Used Second Hand Smoke Exposure: No service: No Current occupational status: employed 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 Sexual orientation: Straight/Heterosexual Gender identity: Female Cognitive needs: No Hearing needs: No Vision needs: Yes Female Reproductive History Menstrual Age of Menarche: 11 Review of Systems Const Denies fever(s) and Denies weight loss Card Denies chest pain Resp Denies cough and Denies hemoptysis GI Denies abdominal pain, Denies diarrhea and Denies nausea Musc Denies back pain Neuro Denies focal weakness Physical Exam Vital Signs: Last Vital Signs Pulse 97 07/05/24 15:45 BP 124/70 07/05/24 15:45 Pulse Ox 97 07/05/24 15:45 Oxygen Delivery Method Room Air 07/05/24 15:45 BMI result Body Mass Index 33.8 Const General: comfortable; No acute distress Orientation/consciousness: patient oriented x3 Eyes General: appearance normal, both eyes and all related structures Visual Szymanski: normal visual szymanski by confrontation Neck Neck: Yes supple and Yes no JVD Resp Effort & Inspection: normal respiratory effort and respiratory effort not decreased Auscultation: rhonchi Cardio Palpation: no palpable S3 and no palpable S4 Heart sounds: no rubs GI Inspection: Yes normal to inspection Palpation (GI): Soft to palpation Percussion: Yes normal to percussion Auscultation: normal bowel sounds General: Yes no CVA tenderness Back/Spine/Pelvis Back: no CVA tenderness Skin General skin exam: no petechiae and no purpura Neuro General: patient oriented x3 and no focal motor deficits Extrem General: No clubbing and No edema Results Reviewed Nephrology Results: Hgb 12.5 g/dl (12.0-16.0) 07/01/24 WBC 8.6 X10*3/uL (4.8-10.8) 07/01/24 Plt Count 285 X10*3/uL (160-400) 07/01/24 Sodium 140 mmol/L (135-145) 07/01/24 Potassium 4.0 mmol/L (3.3-5.1) 07/01/24 Chloride 104 mmol/L (96-108) 07/01/24 Carbon Dioxide 24 mmol/L (22-29) 07/01/24 BUN 18 mg/dL (9-16) H 07/01/24 Creatinine 1.18 mg/dL (0.5-1.4) 07/01/24 Calcium 9.7 mg/dL (8.4-10.2) 07/01/24 Urine Protein 30 (1+) mg/dL (Neg-Trace) H 07/01/24 Urine Creatinine 135.06 mg/dL 07/01/24 Assessment & Plan Assessment & Plan (1) ANEL (acute kidney injury): Code(s): N17.9 - Acute kidney failure, unspecified Category: Medical Plan Middle-aged woman with diabetes mellitus and mild CKD. She had an episode of acute kidney injury due to hypoperfusion with a creatinine peaking at 1.6. Creatinine is improved and acute kidney injury is resolved. Recent CT scan did not reveal any obstruction. She she had punctate calcification in the right kidney. Microalbuminuria in the serum diabetes mellitus Agree with AB inhibitors. Overall blood pressure control For now I would encouraged her to stay on low-sodium diet Increase p.o. fluid intake. Complete antibiotic course with a UTI. Further workup will be determined by the outcome of the baseline investigations. Orders: Orders Basic Metabolic Panel 2 Weeks N17.9 - Acute kidney failure, unspecified Total Protein Urine Random 2 Weeks N17.9 - Acute kidney failure, unspecified UA and rflx microscopic 2 Weeks N17.9 - Acute kidney failure, unspecified Creatinine Urine 2 Weeks N17.9 - Acute kidney failure, unspecified Coding Level of Care Code New Pt Level 4 (77831) Diagnoses ANEL (acute kidney injury) N17.9
== END 2024-07-05 16:06 | disposition home or self-care (01) ==
PROVIDERS: PCP Internal Medicine; Referring Provider Physician Assistant; Visit Provider Internal Medicine Hypertension Specialist
DX: N17.9 Acute kidney failure, unspecified (principal); E11.22 Type 2 diabetes mellitus with diabetic chronic kidney disease; N18.32 Chronic kidney disease, stage 3b
CPT/HCPCS: 99204

== ENCOUNTER 2024-07-29 09:52 | Outpatient (AMB) | payer OTHER, SELFPAY ==
[2024-07-29 09:54] VITALS: BP 110/70; PULSE 94; O2SAT 97; BMI 33.6
--- NOTE | 2024-07-29 09:54 | A.OFFPC_ITS ---
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 Upper airway resistance syndrome Uterine fibroid Abnormal cervical cytology Abnormal Pap smear of cervix History of COVID-19 Lumbar degenerative disc disease Allergic rhinitis Constipation Calcification of left breast Malignant neoplasm of breast Obesity (BMI 30-39.9) Diabetes mellitus with hyperglycemia Cancer of right breast COVID-19 Surgical History Hx of cholecystectomy History of bilateral tubal ligation History of bronchoscopy History of cataract surgery History of mastectomy Family History Sister Breast cancer Father HTN (hypertension) Heart attack Mother Diabetes HTN (hypertension) Social History Household Members: None Housing: Apartment Alcohol intake: never Patient Tobacco Use Status: Never used Tobacco e-Cigarette/Vaping Use: Never Used Second Hand Smoke Exposure: No service: No Current occupational status: employed 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 Sexual orientation: Straight/Heterosexual Gender identity: Female Cognitive needs: No Hearing needs: No Vision needs: Yes Female Reproductive History Menstrual Age of Menarche: 11 Questionnaire PHQ-9 Over the last 2 weeks, how often have you been bothered by any of the following problems? 1. Little interest or pleasure in doing things: not at all 2. Feeling down, depressed, or hopeless: not at all 3. Trouble falling or staying asleep, or sleeping too much: not at all 4. Feeling tired or having little energy: not at all 5. Poor appetite or overeating: not at all 6. Feeling bad about yourself - or that you are a failure or have let yourself or your family down: not at all 7. Trouble concentrating on things, such as reading the newspaper or watching television: not at all 8. Moving or speaking so slowly that other people could have noticed. Or the opposite - being so fidgety or restless that you have been moving around a lot more than usual: not at all 9. Thoughts that you would be better off or of hurting yourself in some wa y: not at all Total score: 0 Depression Screening Interpretation: Negative Depression Screening Done: Yes 27768 - PHQ-9 Billing: Yes Source: Developed by Drs. Errol Sheikh, Jimena Fraser, Jeffery Collins and colleagues, with an educational noni from [employer]. Thrive Questionnaire Date Thrive assessed: 07/29/24 I am a: Patient What is your living situation today?: I have a steady place to live Within the past 12 months, did the food you bought not last and you didn't have the money to get more?: Never true Within the past 12 months, did you worry whether your food would run out before you got money to buy more?: Never true Do you have trouble paying for medicines?: No Do you have trouble getting transportation to medical appointments?: No Do you have trouble paying your heating and electricity bill?: No Do you have trouble taking care of your child, family member or friend?: No Do you have trouble with day-to-day activities such as bathing, preparing meals, shopping, managing finances, etc.?: No Are you currently unemployed and looking for a job?: No Are you interested in more education?: No Please select the resources that you would like help with: None Currently or been in a relationship where the following occur: No concerns reported THRIVE Score: 0 AUDIT C Alcohol Use Questionnaire (AUDIT-C) 1. How often do you have a drink containing alcohol?: Never Total Score: 0 Score Reviewed/Action Taken: Yes LEANDRA-7 AMB Questionnaire LEANDRA-7 Date LEANDRA - 7 assessed: 07/29/24 Feeling nervous, anxious, or on edge: 0 = Not at all Not being able to stop or control worryin = Not at all Worrying too much about different things: 0 = Not at all Trouble relaxin = Not at all Being so restless that it is hard to sit still: 0 = Not at all Becoming easily annoyed or irritable: 0 = Not at all Feeling afraid as if something awful might happen: 0 = Not at all Total LEANDRA-7 score (0-4 normal; 5-9 mild; 10-14 moderate; 15-21 severe): 0 Source: Developed by Drs. Errol Sheikh, Jimena Fraser, Jeffery Collins and colleagues, with an educational noni from [employer]. Physical exam (Primary Care) Vital Signs: Last Vital Signs Pulse 94 07/29/24 09:54 BP 110/70 07/29/24 09:54 Pulse Ox 97 07/29/24 09:54 Oxygen Delivery Method Room Air 07/29/24 09:54 BMI result Body Mass Index 33.6 Tobacco/Smoking Status: Tobacco use Status Tobacco use date assessed 07/29/24 07/29/24 09:58 Patient Tobacco Use Status Never used Tobacco 07/29/24 09:58 Tobacco use type 02/23/24 13:07 e-Cigarette/Vaping Use Never Used 07/29/24 09:58 PHQ-9: PHQ-9 Score PHQ-9: Total score 0 07/29/24 09:58 Depression Screening Interpretation: Negative Thrive Assessment: Date of Thrive Assessment Date Thrive assessed 07/29/24 07/29/24 09:58 Currently or been in a relationship where the following occur: No concerns reported Office Procedures Flu Questionnaire Does the patient have a severe egg allergy?: No Immunizations Fluarix Triv [id number] (PF) 45 mcg (15 mcg x 3)/0.5 mL IM syringe Performing Provider: Mehrdad Chavez MD Performing Location[facility] Documented (not given) by: MARCELO Varma on 07/29/24 10:00 Reason Not Given: Received Previously Coding Assessment & Plan Assessment & Plan Orders: Orders XR wrist RT min 3V Today M25.531 - Pain in right wrist Influenza [id number] Immunization Today Z23 - Encounter for immunization [place] upper GI series Today R10.13 - Epigastric pain Comprehensive Dovray. Panel Fast 3 Months E78.00 - Pure hypercholesterolemia, unspecified Lipid Panel 3 Months E78.00 - Pure hypercholesterolemia, unspecified Hemoglobin A1c 3 Months E11.9 - Type 2 diabetes mellitus without complications Medications: Refilled atorvastatin 10 mg PO BEDTIME 90 tabs 1RF
== END 2024-07-29 10:35 | disposition home or self-care (01) ==
PROVIDERS: PCP Internal Medicine; Visit Provider Internal Medicine
DX: Z23 Encounter for immunization (principal)

== ENCOUNTER → 2024-07-29 09:52 | Outpatient (BNVA) | payer OTHER, SELFPAY | PROVIDERS: PCP Internal Medicine; Visit Provider Internal Medicine | DX: M25.531 Pain in right wrist (principal); R10.13 Epigastric pain; E78.00 Pure hypercholesterolemia, unspecified; E11.9 Type 2 diabetes mellitus without complications | CPT/HCPCS: 90471; 96127 ==

== ENCOUNTER 2024-08-05 09:48 | Outpatient (REF) | payer OTHER, SELFPAY ==
[2024-08-05 11:25] LABS: Anion Gap 11 (12-20); Blood Urea Nitrogen 15 mg/dL (9-16); Calcium 9.8 mg/dL (8.4-10.2); Carbon Dioxide 27 mmol/L (22-29); Chloride 107 mmol/L (96-108); Estimated Glomerular Filt Rate 51; Glucose Random 187 mg/dL (60-115); Potassium 4.5 mmol/L (3.3-5.1); Sodium 140 mmol/L (135-145)
[2024-08-05 11:55] LABS: Appearance Urine Clear; Color Urine Yellow; Glucose Urine UA Negative (Negative); Leukocyte Esterase Urine Negative (Negative); Nitrite Urine Negative (Negative); PH 5.5 (5.0-9.0); Specific Gravity - Urine 1.015 (1.005-1.025); Urine Blood Negative (Negative); Urine Ketones Negative (Negative); Urine Protein Trace mg/dL (Neg-Trace)
[2024-08-05 12:43] LABS: Creatinine Urine 109.54 mg/dL; Total Protein Urine Random 18 mg/dL (<12)
== END 2024-08-05 09:49 | disposition home or self-care (01) ==
LOC: HO.LAB 09:48
PROVIDERS: PCP Internal Medicine; Visit Provider Internal Medicine Hypertension Specialist
DX: N17.9 Acute kidney failure, unspecified (principal)
CPT/HCPCS: 36415; 80048; 81003; 82570; 84156

== ENCOUNTER 2024-08-08 09:52 | Outpatient (AMB) | payer OTHER, SELFPAY ==
[2024-08-08 10:07] VITALS: BP 114/70; PULSE 96; O2SAT 99; BMI 33.7
--- NOTE | 2024-08-08 10:07 | HO.NEPHOV ---
Vital Signs 08/08/24 10:07 Height 5 ft 2 in Weight 184 lb BMI 33.7 BP 114/70 Blood Pressure Location Lt brachial Position Sitting Pulse 96 Pulse Source Pulse Oximeter Pulse Oximetry (%) 99 Oxygen Delivery Method Room Air Intake Visit Reasons: CKD STG 3B/ Unable to reach Associate Director Of Nursing Required: Yes Associate Director Of Nursing Name: Pearl [id number] Accompanied by: Self / Same As Patient Allergies oyster extract Allergy (Verified 08/08/24 10:11) Anaphylaxis Medication List - Last Reconciled 08/08/24 by Jonathon Chandler MD albuterol sulfate 90 mcg/actuation (Ventolin HFA) 1 puff PO QID PRN atorvastatin 10 mg PO BEDTIME benzonatate 200 mg PO BID PRN 30 days blood sugar diagnostic (ReliOn Prime Test Strips) As directed blood-glucose meter (Blood Glucose Monitoring kit) As directed blood-glucose meter,continuous (FreeStyle Maricel 3 [place]) Use daily As directed to monitor blood glucose blood-glucose sensor (FreeStyle Maricel 3 Sensor device) Apply every 14 days As directed to monitor blood glucose blood-glucose sensor (FreeStyle Maricel 3 Plus Sensor device) Use daily As directed to monitor glucose budesonide-formoterol 160-4.5 mcg/actuation (Symbicort) 2 puffs inhalation BID 30 days cetirizine 10 mg PO DAILY PRN 90 days cholecalciferol (vitamin D3) 50 mcg PO DAILY cyclobenzaprine 10 mg PO TID PRN dulaglutide (Trulicity) 0.75 mg (0.5 mL) subcut QWEEK fluticasone propionate 50 mcg/actuation (Flonase Allergy Relief) 2 sprays intranasal DAILY xbtjnwaajsm-wealrcjoa-timwygxd 200-62.5-25 mcg (Trelegy Ellipta) 1 inh inhalation DAILY 30 days gabapentin 600 mg (2 x 300 mg) PO BEDTIME 30 days glimepiride 1 mg PO QAM 90 days insulin glargine (Lantus Solostar U-100 Insulin) 10 units subcut BEDTIME lancets As directed lisinopril 10 mg PO DAILY nitrofurantoin monohyd/m-cryst 100 mg (Macrobid) 100 mg PO Q12H 7 days omeprazole 20 mg PO DAILY 90 days pen needle, diabetic (BD Ultra-Fine Beatriz Pen Needle) As directed once a day HPI Comments Details: Pleasant 64-year-old man with a history of right renal stone has been referred for renal evaluation. Recently she has been having lower back pain. She has a positive for UTI. Currently on antibiotics and pain has improved. 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 Upper airway resistance syndrome Uterine fibroid Abnormal cervical cytology Abnormal Pap smear of cervix History of COVID-19 Lumbar degenerative disc disease Allergic rhinitis Constipation Calcification of left breast Malignant neoplasm of breast Obesity (BMI 30-39.9) Diabetes mellitus with hyperglycemia Cancer of right breast COVID-19 Surgical History Hx of cholecystectomy History of bilateral tubal ligation History of bronchoscopy History of cataract surgery History of mastectomy Family History Sister Breast cancer Father HTN (hypertension) Heart attack Mother Diabetes HTN (hypertension) Social History Household Members: None Housing: Apartment Alcohol intake: never Patient Tobacco Use Status: Never used Tobacco e-Cigarette/Vaping Use: Never Used Second Hand Smoke Exposure: No service: No Current occupational status: employed 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 Sexual orientation: Straight/Heterosexual Gender identity: Female Cognitive needs: No Hearing needs: No Vision needs: Yes Female Reproductive History Menstrual Age of Menarche: 11 Physical Exam Vital Signs: Last Vital Signs Pulse 96 08/08/24 10:07 BP 114/70 08/08/24 10:07 Pulse Ox 99 08/08/24 10:07 Oxygen Delivery Method Room Air 08/08/24 10:07 BMI result Body Mass Index 33.7 Const General: comfortable; No acute distress Orientation/consciousness: patient oriented x3 Eyes General: appearance normal, both eyes and all related structures Visual Szymanski: normal visual szymanski by confrontation Neck Neck: Yes supple and Yes no JVD Resp Effort & Inspection: normal respiratory effort and respiratory effort not decreased Auscultation: rhonchi Cardio Palpation: no palpable S3 and no palpable S4 Heart sounds: no rubs GI Inspection: Yes normal to inspection Palpation (GI): Soft to palpation Percussion: Yes normal to percussion Auscultation: normal bowel sounds General: Yes no CVA tenderness Back/Spine/Pelvis Back: no CVA tenderness Skin General skin exam: no petechiae and no purpura Neuro General: patient oriented x3 and no focal motor deficits Extrem General: No clubbing and No edema Results Reviewed Nephrology Results: Hgb 12.5 g/dl (12.0-16.0) 07/01/24 WBC 8.6 X10*3/uL (4.8-10.8) 07/01/24 Plt Count 285 X10*3/uL (160-400) 07/01/24 Sodium 140 mmol/L (135-145) 08/05/24 Potassium 4.5 mmol/L (3.3-5.1) 08/05/24 Chloride 107 mmol/L (96-108) 08/05/24 Carbon Dioxide 27 mmol/L (22-29) 08/05/24 BUN 15 mg/dL (9-16) 08/05/24 Creatinine 1.08 mg/dL (0.5-1.4) 08/05/24 Calcium 9.8 mg/dL (8.4-10.2) 08/05/24 Urine Protein Trace mg/dL (Neg-Trace) 08/05/24 Urine Creatinine 109.54 mg/dL 08/05/24 Assessment & Plan Assessment & Plan (1) ANEL (acute kidney injury): Code(s): N17.9 - Acute kidney failure, unspecified Category: Medical (2) Microalbuminuria due to type 2 diabetes mellitus: Code(s): E11.29 - Type 2 diabetes mellitus with other diabetic kidney complication; R80.9 - Proteinuria, unspecified Category: Medical Plan Middle-aged woman with diabetes mellitus and mild CKD. She had an episode of acute kidney injury due to hypoperfusion with a creatinine peaking at 1.6. Creatinine is improved and acute kidney injury is resolved. Recent CT scan did not reveal any obstruction. She she had punctate calcification in the right kidney. Microalbuminuria in the serum diabetes mellitus Agree with AB inhibitors. Maintian BP < 130/80 and A1C < 7% Overall blood pressure control For now I would encouraged her to stay on low-sodium diet Increase p.o. fluid intake. Orders: Orders Total Protein Urine Random 6 Months E11. - Type 2 diabetes mellitus with other diabetic kidney complication, R80.9 - Proteinuria, unspecified Basic Metabolic Panel 6 Months . - Type 2 diabetes mellitus with other diabetic kidney complication, R80.9 - Proteinuria, unspecified UA and rflx microscopic 6 Months . - Type 2 diabetes mellitus with other diabetic kidney complication, R80.9 - Proteinuria, unspecified Creatinine Urine 6 Months . - Type 2 diabetes mellitus with other diabetic kidney complication, R80.9 - Proteinuria, unspecified Coding Level of Care Code Est Pt Level 4 (14795) Diagnoses ANEL (acute kidney injury) N17.9 Microalbuminuria due to type 2 diabetes mellitus ; R80.9
== END 2024-08-08 10:26 | disposition home or self-care (01) ==
PROVIDERS: PCP Internal Medicine; Visit Provider Internal Medicine Hypertension Specialist
DX: N17.9 Acute kidney failure, unspecified (principal); E11.22 Type 2 diabetes mellitus with diabetic chronic kidney disease; N18.2 Chronic kidney disease, stage 2 (mild); R80.9 Proteinuria, unspecified
CPT/HCPCS: 99214

== ENCOUNTER → 2024-08-08 09:52 | Outpatient (BNVA) | payer OTHER, SELFPAY | PROVIDERS: PCP Internal Medicine; Visit Provider Internal Medicine Hypertension Specialist | DX: E11.22 Type 2 diabetes mellitus with diabetic chronic kidney disease (principal); E11.29 Type 2 diabetes mellitus with other diabetic kidney complication; N18.32 Chronic kidney disease, stage 3b; N17.9 Acute kidney failure, unspecified; R80.9 Proteinuria, unspecified | CPT/HCPCS: 99212 ==

== ENCOUNTER 2024-08-09 09:20 | Outpatient (AMB) | payer OTHER, SELFPAY ==
[2024-08-09 09:21] VITALS: BP 118/76; PULSE 72; BMI 33.9
--- NOTE | 2024-08-09 09:21 | A.OFFVIS_ITS ---
Vital Signs 08/09/24 09:21 Height 5 ft 2 in Weight 185 lb 3.013 oz BMI 33.9 BP 118/76 Blood Pressure Location Rt brachial Position Sitting Pulse 72 Pulse Source Pulse Oximeter Intake Visit Reasons: dm f/u Intake Note: Patient presents today for a follow-up on Type 2 Diabetes Mellitus: Last Diabetic Eye exam: DUE Last Podiatry Exam: Does not see a Space Systems Operations Craftsman Most recent HbA1c: 9.4%, 06/14/2024 Random Glucose- 314 mg/dL, Today Meat Press Operator Required: Yes Meat Press Operator Language: Cytotechnologist Services: Meat Press Operator Present (Via video call) Information Interpreted: non-clinical & clinical Accompanied by: Self / Same As Patient Allergies oyster extract Allergy (Verified 08/09/24 09:44) Anaphylaxis HPI Comments Details: Patient is a 64-year-old female with a significant past medical history of type 2 diabetes, hyperlipidemia, GERD, anemia presenting today for diabetic management. She was seen for her initial consult by Mariia Quiles PA-C in June. Meat Press Operator: Debbie Orona: Her last A1c was 9.4 06/14/24. She reports being diagnosed with diabetes 2 years ago. She is currently on glimepiride 1 mg daily, Lantus 10 units nightly, and Trulicity 0.75 mg weekly. She endorses compliance with her medication since her consult visit. Metformin discontinued in the past due to GI distress. She does not have glucometer with her today. Patient reports her blood sugar was 164 this morning before she ate, but then she had warm bread and breakfast, and her blood sugars 314 now. She says this is higher than the readings she has been seeing since taking her medications. Denies hypoglycemia. Libre3 placed on patient today, but the miles on her phone did not work today. Does not have a reader. She does have nephrology with ckd and microalbuminuria She has a family hx of t1dm (mother, 2 sisters, and 1 grandson). Patient's LEANDRA antibodies are negative, C-peptide normal. ROS: Constitutional: No unexplained weight loss, fever, chills, fatigue or night sweats. Eyes: No vision changes, blurry vision, double vision Gastrointestinal: No anorexia, nausea, vomiting or diarrhea. No abdominal pain Neurologic: No headache, dizziness, syncope Physical exam: Constitutional: Alert, in no distress. Neck: Supple, Full range of motion. No lymphadenopathy Respiratory: Clear to auscultation. Cardiovascular: S1 S2 regular. No murmurs. Extremities: Warm and well perfused. No clubbing, cyanosis or edema. [facility] 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 Upper airway resistance syndrome Uterine fibroid Abnormal cervical cytology Abnormal Pap smear of cervix History of COVID-19 Lumbar degenerative disc disease Allergic rhinitis Constipation Calcification of left breast Malignant neoplasm of breast Obesity (BMI 30-39.9) Diabetes mellitus with hyperglycemia Cancer of right breast COVID-19 Surgical History Hx of cholecystectomy History of bilateral tubal ligation History of bronchoscopy History of cataract surgery History of mastectomy Family History Sister Breast cancer Father HTN (hypertension) Heart attack Mother Diabetes HTN (hypertension) Social History Household Members: None Housing: Apartment Alcohol intake: never Patient Tobacco Use Status: Never used Tobacco e-Cigarette/Vaping Use: Never Used Second Hand Smoke Exposure: No service: No Current occupational status: employed 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 Sexual orientation: Straight/Heterosexual Gender identity: Female Cognitive needs: No Hearing needs: No Vision needs: Yes Female Reproductive History Menstrual Age of Menarche: 11 Physical Exam Vital Signs: Last Vital Signs Pulse 72 08/09/24 09:21 BP 118/76 08/09/24 09:21 BMI result Body Mass Index 33.9 Results Reviewed Results Reviewed: Laboratory Last Values Glucose (Clinic) 314 mg/dL (60-115) H 08/09/24 09:36 Assessment & Plan Assessment & Plan (1) Uncontrolled type 2 diabetes mellitus with hyperglycemia, with long-term current use of insulin: Code(s): E11.65 - Type 2 diabetes mellitus with hyperglycemia; Z79.4 - senior care (current) use of insulin Category: Medical (2) Microalbuminuria due to type 2 diabetes mellitus: Code(s): E11.29 - Type 2 diabetes mellitus with other diabetic kidney complication; R80.9 - Proteinuria, unspecified Category: Medical Plan In summary this is a 64-year-old female with 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 Libre3 sensor put on patient today, but her phone miles is not working. Advised patient I have sent the reader to the pharmacy-insurance had already approved it. Pharmacies sometimes have to order this so it may not be available same day. She is going to contact her pharmacy today and let us know. She can come back in the afternoon to set up the reader otherwise she will call Monday about this. I sent a new fingerstick glucometer and supplies. She will continue to check her blood sugars. Advised patient to bring glucometer to visits to review information. We will schedule a short term follow up appointment in 2 weeks to further adjust her diabetic regimen after reviewing data. Medications: New lancets (FreeStyle Lancets) Use to monitor blood glucose 5 times daily. 200 ea 5RF blood-glucose meter (FreeStyle Lite Meter kit) Use to monitor blood glucose five times daily 1 ea 0RF E11.9 - Type 2 diabetes mellitus without complications glucose (Dex4 Glucose) until symptoms of low blood sugar are controlled 16 grams (4 x 4 gram) PO Q15M PRN 60 tabs 1RF hypoglycemia blood sugar diagnostic (FreeStyle Lite Strips) As directed to check blood glucose 5 times daily 200 ea 5RF Refilled blood-glucose meter,continuous (FreeStyle Maricel 3 [place]) Use daily As directed to monitor blood glucose 1 ea 0RF Discontinued blood sugar diagnostic (ReliOn Prime Test Strips) Discontinued Reason: Doctor's Order As directed 100 ea 3RF Coding Level of Care Code Est Pt Level 4 (68753) Complex EM visit Add On G2211 Diagnoses Uncontrolled type 2 diabetes mellitus with hyperglycemia, with long-term current use of insulin E11.65; Z79.4 Microalbuminuria due to type 2 diabetes mellitus E11.29; R80.9
[2024-08-09 09:40] LABS: Glucose, Whole Blood 314 mg/dL (60-115)
== END 2024-08-09 10:17 | disposition home or self-care (01) ==
PROVIDERS: Visit Provider Physician Assistant Medical
DX: E11.65 Type 2 diabetes mellitus with hyperglycemia (principal); Z79.4 Long term (current) use of insulin; E11.29 Type 2 diabetes mellitus with other diabetic kidney complication; R80.9 Proteinuria, unspecified

== ENCOUNTER → 2024-08-09 09:20 | Outpatient (BNVA) | payer OTHER, SELFPAY | PROVIDERS: Visit Provider Physician Assistant Medical | DX: E11.65 Type 2 diabetes mellitus with hyperglycemia (principal); E11.29 Type 2 diabetes mellitus with other diabetic kidney complication; R80.9 Proteinuria, unspecified; Z79.4 Long term (current) use of insulin | CPT/HCPCS: 82947; 99212 ==

== ENCOUNTER 2024-08-23 11:22 | Outpatient (AMB) | payer OTHER, SELFPAY ==
--- NOTE | 2024-08-23 11:23 | A.OFFVIS_ITS ---
Vital Signs 08/23/24 11:24 Height 5 ft 2 in Weight 182 lb 15.739 oz BMI 33.5 BP 124/70 Blood Pressure Location Rt brachial Position Sitting Pulse 102 H Pulse Source Pulse Oximeter Intake Visit Reasons: Type 2 DM/UNABLE TO LVM Intake Note: Patient presents today for a follow-up on Type 2 Diabetes Mellitus: Last Diabetic Eye exam: DUE Last Podiatry Exam: Does not see a Clinical Project Leader Most recent HbA1c: 9.4%, 06/14/2024 Random Glucose- 273 mg/dL, Today Timber Framer Required: Yes Timber Framer Language: Manager Voice Services: Timber Framer Present (Via video call) Timber Framer Name: MARCELO Espitia/BRANDON GALLEGO Information Interpreted: non-clinical & clinical Accompanied by: Self / Same As Patient Allergies oyster extract Allergy (Verified 08/09/24 09:44) Anaphylaxis HPI Comments Details: Patient is a 64-year-old female with a significant past medical history of type 2 diabetes, hyperlipidemia, GERD, anemia presenting today for diabetic management. She was seen for her initial consult by Mariia Quiles PA-C in June. Timber Framer: Nafisa Orona: Her last A1c was 9.4 06/14/24. She reports being diagnosed with diabetes 2 years ago. She is currently on glimepiride 1 mg daily, Lantus 10 units nightly, and Trulicity 0.75 mg weekly. Metformin discontinued in the past due to GI distress. Patient taking Lantus almost every night, but she did not understand that she was supposed to take it every night. She does not have her glucometer today. AM glucose: 200-300s Afternoon 150-200 She received the Maricel 3 miles, and Maricel 3 was placed on the patient today. She does have nephrology with ckd and microalbuminuria. She has a family hx of t1dm (mother, 2 sisters, and 1 grandson). Patient's LEANDRA antibodies are negative, C-peptide normal. ROS: Constitutional: No unexplained weight loss, fever, chills, fatigue or night sweats. Eyes: No vision changes, blurry vision, double vision Gastrointestinal: No anorexia, nausea, vomiting or diarrhea. No abdominal pain Neurologic: No headache, dizziness, syncope Physical exam: Constitutional: Alert, in no distress. Neck: Supple, Full range of motion. No lymphadenopathy Respiratory: Clear to auscultation. Cardiovascular: S1 S2 regular. No murmurs. Extremities: Warm and well perfused. No clubbing, cyanosis or edema. [facility] 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 Upper airway resistance syndrome Uterine fibroid Abnormal cervical cytology Abnormal Pap smear of cervix History of COVID-19 Lumbar degenerative disc disease Allergic rhinitis Constipation Calcification of left breast Malignant neoplasm of breast Obesity (BMI 30-39.9) Diabetes mellitus with hyperglycemia Cancer of right breast COVID-19 Surgical History Hx of cholecystectomy History of bilateral tubal ligation History of bronchoscopy History of cataract surgery History of mastectomy Family History Sister Breast cancer Father HTN (hypertension) Heart attack Mother Diabetes HTN (hypertension) Social History Household Members: None Housing: Apartment Alcohol intake: never Patient Tobacco Use Status: Never used Tobacco e-Cigarette/Vaping Use: Never Used Second Hand Smoke Exposure: No service: No Current occupational status: employed 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 Sexual orientation: Straight/Heterosexual Gender identity: Female Cognitive needs: No Hearing needs: No Vision needs: Yes Female Reproductive History Menstrual Age of Menarche: 11 Physical Exam Vital Signs: Last Vital Signs Pulse 102 H 08/23/24 11:24 BP 124/70 08/23/24 11:24 BMI result Body Mass Index 33.5 Results Reviewed Results Reviewed: Laboratory Last Values Glucose (Clinic) 273 mg/dL (60-115) H 08/23/24 11:28 Laboratory Tests 07/01/24 07/01/24 07/05/24 10:56 11:07 09:04 Creatinine 1.18 Estimated GFR 46 Glucose (Clinic) 267 H C-Peptide 1.00 Urine Creatinine 135.06 Urine Microalbumin 71.0 Microalb/Creat Ratio 52.5 H Islet Cell Ab Screen Pending LEANDRA Antibody <5 Assessment & Plan Assessment & Plan (1) Uncontrolled type 2 diabetes mellitus with hyperglycemia, with long-term current use of insulin: Code(s): E11.65 - Type 2 diabetes mellitus with hyperglycemia; Z79.4 - intermediate teacher (current) use of insulin Category: Medical (2) Microalbuminuria due to type 2 diabetes mellitus: Code(s): E11.29 - Type 2 diabetes mellitus with other diabetic kidney complication; R80.9 - Proteinuria, unspecified Category: Medical Plan In summary this is a 64-year-old female with 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 Maricel 3 sensor placed on patient today, and the reader was in the warm up when she left. She will increase Lantus to 14 units nightly. She will increase Trulicity to 1.5 mg weekly. Continue glimepiride 1 mg every morning for now. This will be discontinued if she develops hypoglycemia. She will call the office if she has any episodes. Reviewed proper treatment of hypoglycemia and glucose tablets were sent to the pharmacy. She will schedule a follow up in 3 weeks for type 2 diabetes to review CGM data. Medications: New dulaglutide (Trulicity) 1.5 mg (0.5 mL) subcut QWEEK 2 mL 0RF glucose (Dex4 Glucose Quick Dissolve) until symptoms of low blood sugar are controlled and blood glucose is >70 16 grams (4 x 4 gram) PO Q15M PRN 10 tabs 3RF hypoglycemia Changed From insulin glargine (Lantus Solostar U-100 Insulin) 10 units subcut BEDTIME To insulin glargine (Lantus Solostar U-100 Insulin) 14 units (0.14 mL) subcut BEDTIME 15 mL 5RF Refilled pen needle, diabetic (BD Ultra-Fine Beatriz Pen Needle) As directed once a day 100 ea 5RF E11.65 - Type 2 diabetes mellitus with hyperglycemia Discontinued dulaglutide (Trulicity) Discontinued Reason: Doctor's Order 0.75 mg (0.5 mL) subcut QWEEK 2 mL 5RF Coding Level of Care Code Est Pt Level 4 (65904) Complex EM visit Add On G2211 Diagnoses Uncontrolled type 2 diabetes mellitus with hyperglycemia, with long-term current use of insulin E11.65; Z79.4 Microalbuminuria due to type 2 diabetes mellitus E11.29; R80.9
[2024-08-23 11:24] VITALS: BP 124/70; PULSE 102; BMI 33.5
[2024-08-23 11:33] LABS: Glucose, Whole Blood 273 mg/dL (60-115)
== END 2024-08-23 12:00 | disposition home or self-care (01) ==
PROVIDERS: Visit Provider Physician Assistant Medical
DX: E11.65 Type 2 diabetes mellitus with hyperglycemia (principal); Z79.4 Long term (current) use of insulin; E11.29 Type 2 diabetes mellitus with other diabetic kidney complication; R80.9 Proteinuria, unspecified

== ENCOUNTER → 2024-08-23 11:22 | Outpatient (BNVA) | payer OTHER, SELFPAY | PROVIDERS: Visit Provider Physician Assistant Medical | DX: E11.65 Type 2 diabetes mellitus with hyperglycemia (principal); E11.29 Type 2 diabetes mellitus with other diabetic kidney complication; R80.9 Proteinuria, unspecified; Z79.4 Long term (current) use of insulin | CPT/HCPCS: 82947; 99212 ==

== ENCOUNTER 2024-09-20 10:22 | Outpatient (REF) | payer OTHER, SELFPAY ==
[2024-09-20 11:45] LABS: Appearance Urine Clear; Color Urine Yellow; Glucose Urine UA Negative (Negative); Leukocyte Esterase Urine Negative (Negative); Nitrite Urine Negative (Negative); PH 5.5 (5.0-9.0); Urine Blood Negative (Negative); Urine Ketones Negative (Negative); Urine Protein Negative (Neg-Trace)
[2024-09-20 12:36] LABS: Creatinine Urine 52.81 mg/dL; Microalbum/Creatinine Ratio Ur 43.5 ug/mg cr (<30)
== END 2024-09-20 10:23 | disposition home or self-care (01) ==
LOC: HO.XRAY 10:22
PROVIDERS: Absent Provider Internal Medicine; PCP Internal Medicine; Visit Provider Physician Assistant
DX: E11.65 Type 2 diabetes mellitus with hyperglycemia (principal); Z79.4 Long term (current) use of insulin; N18.32 Chronic kidney disease, stage 3b; E11.29 Type 2 diabetes mellitus with other diabetic kidney complication; R80.9 Proteinuria, unspecified; Z83.3 Family history of diabetes mellitus; M25.531 Pain in right wrist
CPT/HCPCS: 73110; 81003; 82043; 82570; 82947; 83036; 99212

== ENCOUNTER 2024-09-20 14:46 | Outpatient (AMB) | payer OTHER, SELFPAY ==
[2024-09-20 15:00] VITALS: BP 116/78; PULSE 61; BMI 33.7
--- NOTE | 2024-09-20 15:00 | A.OFFVIS_ITS ---
Vital Signs 09/20/24 15:00 Height 5 ft 2 in Weight 184 lb 1.376 oz BMI 33.7 BP 116/78 Blood Pressure Location Lt brachial Position Sitting Pulse 61 Pulse Source Pulse Oximeter Intake Visit Reasons: DM/CONF Intake Note: Patient present today to follow up on Type 2 Diabetes Mellitus. Last Diabetic Eye exam: Over 1 year ago Last Podiatry Visit: Does not see a Data Collector Random Glucose:98 mg/dl HgA1C: 8.1% Cash Applications Analyst Required: Yes Cash Applications Analyst Language: Paper Machine Back Tender Services: Cash Applications Analyst Present Cash Applications Analyst Name: Kim Information Interpreted: non-clinical & clinical Accompanied by: Self / Same As Patient Allergies oyster extract Allergy (Verified 09/20/24 15:05) Anaphylaxis HPI Comments Details: Patient is a 64-year-old female with a significant past medical history of type 2 diabetes, hyperlipidemia, GERD, anemia presenting today for diabetic management. Cash Applications Analyst: Kim Her hemoglobin A1c is 8.1% today 10/10/24 down from 9.4% 06/14/2024. Current medication regimen: Glimepiride 1 mg daily, Lantus 14 units nightly, Trulicity 1.5 mg weekly. Metformin discontinued in the past due to GI distress. Compliance: The pharmacy only dispensed her Trulicity a week ago, so she has only had 1 dose at 1.5 mg. She had a low sugar this morning of 62 and she did not take her glimepiride. She felt shaky and drank orange juice to correct it. Her blood sugar currently is 98. She did take her insulin last night. Complications: Nephropathy (CKD in microalbuminuria) Reviewed CGM, but there is not a lot of data because she was just able to spanish moss picker the sensors from the pharmacy. Time active: 29% Average glucose 166 Glucose variability 30.2% Very high 4% High 36% Target range 60% Hypoglycemia 0% She has a family hx of t1dm (mother, 2 sisters, and 1 grandson). Patient's LEANDRA antibodies are negative, C-peptide normal. Patient mentions that she has been coughing and having some wheezing intermittently for the past 4 months. No fevers or chills or sputum production. She is followed by Dr. Banuelos for asthma. She is compliant with her medications. When she takes albuterol the symptoms resolve temporarily. Patient was advised to contact her planner scheduler for a follow up appointment to discuss her symptoms. ROS: Constitutional: No unexplained weight loss, fever, chills, fatigue or night sweats. Eyes: No vision changes Respiratory: No shortness of breath, hemoptysis or sputum production. See HPI. Cardiovascular: No chest pain Gastrointestinal: No anorexia, nausea, vomiting or diarrhea. No abdominal pain Neurologic: No headache, dizziness, syncope Endocrine: No cold or heat intolerance. No polyuria or polydipsia. Physical exam: Constitutional: Alert, in no distress. Neck: Supple, Full range of motion. No lymphadenopathy. Respiratory: Clear to auscultation. Cardiovascular: S1 S2 regular. No murmurs. Extremities: Warm and well perfused. No clubbing, cyanosis or edema. 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 Upper airway resistance syndrome Uterine fibroid Abnormal cervical cytology Abnormal Pap smear of cervix History of COVID-19 Lumbar degenerative disc disease Allergic rhinitis Constipation Calcification of left breast Malignant neoplasm of breast Obesity (BMI 30-39.9) Diabetes mellitus with hyperglycemia Cancer of right breast COVID-19 Surgical History Hx of cholecystectomy History of bilateral tubal ligation History of bronchoscopy History of cataract surgery History of mastectomy Family History Sister Breast cancer Father HTN (hypertension) Heart attack Mother Diabetes HTN (hypertension) Social History Household Members: None Housing: Apartment Alcohol intake: never Patient Tobacco Use Status: Never used Tobacco e-Cigarette/Vaping Use: Never Used Second Hand Smoke Exposure: No service: No Current occupational status: employed 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 Sexual orientation: Straight/Heterosexual Gender identity: Female Cognitive needs: No Hearing needs: No Vision needs: Yes Female Reproductive History Menstrual Age of Menarche: 11 Physical Exam Vital Signs: Last Vital Signs Pulse 61 09/20/24 15:00 BP 116/78 09/20/24 15:00 BMI result Body Mass Index 33.7 Results AMB Hemoglobin A1c AMB Hemoglobin A1c 8.1 % Last Edit by MARCELO Groves on 09/20/24 15:16 Results Reviewed Results Reviewed: Laboratory Last Values Glucose (Clinic) 98 mg/dL (60-115) 09/20/24 15:07 Hgb A1c (Clinic) 8.1 % (4.0-6.0) H 09/20/24 15:10 Assessment & Plan Assessment & Plan (1) Uncontrolled type 2 diabetes mellitus with hyperglycemia, with long-term current use of insulin: Code(s): E11.65 - Type 2 diabetes mellitus with hyperglycemia; Z79.4 - residential (current) use of insulin Category: Medical (2) Microalbuminuria due to type 2 diabetes mellitus: Code(s): E11.29 - Type 2 diabetes mellitus with other diabetic kidney complication; R80.9 - Proteinuria, unspecified Category: Medical Plan In summary this is a 64-year-old female with 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 We reviewed proper treatment of hypoglycemia. She will contact the office if she has continued episodes to reduce dose of Lantus. For now continue Lantus 14 units nightly. Continue Trulicity 1.5 mg weekly. Discontinue glimepiride. We reviewed complications of diabetes. We reviewed lifestyle modifications. She will schedule a follow up in 4 weeks for type 2 diabetes. Orders: Orders AMB Hemoglobin A1c Today E11.65 - Type 2 diabetes mellitus with hyperglycemia, Z13.9 - Encounter for screening, unspecified Medications: Discontinued glimepiride administer with breakfast Discontinued Reason: Doctor's Order 1 mg PO QAM 90 days 90 tabs 1RF Coding Level of Care Code Est Pt Level 4 (23526) Complex EM visit Add On G2211 Diagnoses Uncontrolled type 2 diabetes mellitus with hyperglycemia, with long-term current use of insulin E11.65; Z79.4 Microalbuminuria due to type 2 diabetes mellitus E11.29; R80.9
[2024-09-20 15:10] LABS: Glucose, Whole Blood 98 mg/dL (60-115)
== END 2024-09-20 15:26 | disposition home or self-care (01) ==
PROVIDERS: Visit Provider Physician Assistant Medical
DX: E11.65 Type 2 diabetes mellitus with hyperglycemia (principal); Z79.4 Long term (current) use of insulin; E11.29 Type 2 diabetes mellitus with other diabetic kidney complication; R80.9 Proteinuria, unspecified; Z13.9 Encounter for screening, unspecified

== ENCOUNTER 2024-10-21 08:51 | Outpatient (REF) | payer OTHER, SELFPAY ==
--- NOTE | ~2024-10-21 | FL_ITS ---
EXAMINATION: XR FLUOROSCOPY UPPER GI WITH AIR CLINICAL INFORMATION: Dysphagia. Epigastric pain. COMPARISON: None TECHNIQUE: Fluoroscopic air contrast upper GI examination was performed utilizing standard techniques with thin and thick barium and effervescent granules. Numerous spot images were obtained. FINDINGS: Lateral cine images of the oropharynx and hypopharynx demonstrate normal swallow mechanism with normal epiglottic inversion and soft palate elevation. No tracheal penetration, glottic or subglottic aspiration identified. No nasopharyngeal reflux present. Hypopharyngeal structures appear normal without evidence of mass or diverticulum. There is an anterior bridging osteophyte at C5-C6 that is causing mild posterior indentation of the cervical esophagus. Dual and single contrast images of the esophagus demonstrate normal caliber, contour, and mucosal pattern. No evidence of stricture, mass, or ulcerations identified. Esophageal peristalsis is moderately disorganized. Small type I hiatal hernia is present. Significant gastroesophageal reflux is seen up to the thoracic inlet. Dual contrast and single contrast images of the stomach demonstrated a normal contour. The areae gastricae have a prominent/thickened appearance, suggestive of gastritis. There are multiple focal areas of contrast pooling in the fundus of the stomach that likely represents small mucosal erosions. No masses are present. Contrast freely passed into the gastric antrum and duodenal bulb without delay. Single and air-contrast images of the duodenal bulb demonstrate no abnormality. The duodenal sweep has a normal appearance, course, and mucosal fold appearance. The imaged proximal jejunum has a normal fold pattern and caliber. FLUOROSCOPY TIME: 5 minutes 31 seconds Number of Spot Images: 12 Number of Cine: 14 DOSE AREA PRODUCT: 3803 uGy-m2 (microgray-meter squared) FL/FL upper GI series IMPRESSION: 1. Anterior bridging osteophyte at C5-C6 that is causing mild posterior indentation of the cervical esophagus. 2. Moderate esophageal dysmotility. 3. Small type I hiatal hernia with severe gastroesophageal reflux. 4. Thickened/prominent appearance of the areae gastricae. In addition, there are multiple focal areas of contrast pooling in the fundus of the stomach. These findings are suggestive of erosive gastritis. Recommend correlation with EGD. This procedure was performed by Bridger Cabral PA-C, and supervised by Dr. Min. Electronically signed by: Jonathan Pretty MD 10/25/2024 03:16 [facility] Workstation: [id number]
== END 2024-10-21 08:52 | disposition home or self-care (01) ==
LOC: HO.XRAY 08:51
PROVIDERS: Visit Provider Internal Medicine
DX: R10.13 Epigastric pain (principal)
CPT/HCPCS: 74240

== ENCOUNTER → 2024-10-21 08:54 | Outpatient (BNV) | payer OTHER, SELFPAY | PROVIDERS: Visit Provider Physician Assistant Surgical | DX: R10.13 Epigastric pain (principal); R13.10 Dysphagia, unspecified | CPT/HCPCS: 74246 ==

== ENCOUNTER 2024-10-25 14:49 | Outpatient (AMB) | payer OTHER, SELFPAY ==
--- NOTE | 2024-10-25 14:54 | A.OFFVIS_ITS ---
Vital Signs 10/25/24 14:56 Height 5 ft 2 in Weight 187 lb 2.759 oz BMI 34.2 BP 110/72 Blood Pressure Location Lt radial Position Sitting Pulse 80 Pulse Source Pulse Oximeter Intake Visit Reasons: DM Intake Note: Patient present today for T2DM. Last Diabetic Eye exam: Due Last Podiatry Visit: Does not see a Entry Level Recruiter Random Glucose: 148 mg/dl HgA1C: 8.1% 09/20/2024 Wafer Line Worker Required: Yes Wafer Line Worker Language: Shop Supervisor Services: Wafer Line Worker Present Wafer Line Worker Name: Sin [id number] Information Interpreted: non-clinical & clinical Accompanied by: Self / Same As Patient Allergies oyster extract Allergy (Verified 10/25/24 15:07) Anaphylaxis HPI Comments Details: Patient is a 64-year-old female with a significant past medical history of type 2 diabetes, hyperlipidemia, GERD, anemia presenting today for diabetic management. Her hemoglobin A1c is 8.1%10/10/24 down from 9.4% 06/14/2024. Current medication regimen: Lantus 14 units nightly, Trulicity 1.5 mg weekly. Metformin discontinued in the past due to GI distress. 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 She recalls low sugar events occurred morning after the nights she had dinner at 4pm and did not have anything else after that before bed. She has a family hx of t1dm (mother, 2 sisters, and 1 grandson). Patient's LEANDRA antibodies are negative, C-peptide normal. ROS: Constitutional: No unexplained weight loss, fever, chills, fatigue or night sweats. Eyes: No vision changes Respiratory: No shortness of breath Cardiovascular: No chest pain Gastrointestinal: No anorexia, nausea, vomiting or diarrhea. No abdominal pain Neurologic: No headache, dizziness, syncope Endocrine: No cold or heat intolerance. No polyuria or polydipsia. Physical exam: Constitutional: Alert, in no distress. Neck: Supple, Full range of motion. No lymphadenopathy. Respiratory: Clear to auscultation. Cardiovascular: S1 S2 regular. No murmurs. Extremities: Warm and well perfused. No clubbing, cyanosis or edema. 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 Upper airway resistance syndrome Uterine fibroid Abnormal cervical cytology Abnormal Pap smear of cervix History of COVID-19 Lumbar degenerative disc disease Allergic rhinitis Constipation Calcification of left breast Malignant neoplasm of breast Obesity (BMI 30-39.9) Diabetes mellitus with hyperglycemia Cancer of right breast COVID-19 Surgical History Hx of cholecystectomy History of bilateral tubal ligation History of bronchoscopy History of cataract surgery History of mastectomy Family History Sister Breast cancer Father HTN (hypertension) Heart attack Mother Diabetes HTN (hypertension) Social History Household Members: None Housing: Apartment Alcohol intake: never Patient Tobacco Use Status: Never used Tobacco e-Cigarette/Vaping Use: Never Used Second Hand Smoke Exposure: No service: No Current occupational status: employed 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 Sexual orientation: Straight/Heterosexual Gender identity: Female Cognitive needs: No Hearing needs: No Vision needs: Yes Female Reproductive History Menstrual Age of Menarche: 11 Office Procedures Glucose Monitoring Details Details: see HPI [id number] - Glucose monitoring, continuous-physician I&R Procedure code (CPT) selection complete Results Reviewed Results Reviewed: Laboratory Tests 07/01/24 07/01/24 07/05/24 10:56 11:07 09:04 Creatinine 1.18 Estimated GFR 46 Glucose (Clinic) 267 H C-Peptide 1.00 Urine Creatinine 135.06 Urine Microalbumin 71.0 Microalb/Creat Ratio 52.5 H Islet Cell Ab Screen Pending LEANDRA Antibody <5 Assessment & Plan Assessment & Plan (1) Uncontrolled type 2 diabetes mellitus with hyperglycemia, with long-term current use of insulin: Code(s): E11.65 - Type 2 diabetes mellitus with hyperglycemia; Z79.4 - [facility] (current) use of insulin Category: Medical (2) Microalbuminuria due to type 2 diabetes mellitus: Code(s): E11.29 - Type 2 diabetes mellitus with other diabetic kidney complication; R80.9 - Proteinuria, unspecified Category: Medical Plan In summary this is a 64-year-old female with uncontrolled type 2 diabetes with renal complications with improving glycemic control. Continue Lantus 14 units nightly. Increase Trulicity to 3 mg weekly. If patient eats dinner before before 5pm she is instructed to have a small snack like blueberries with cheese or nuts before going to bed. If she is not going to have a snack she should reduce her dose of Lantus to 12 units at night. We reviewed complications of diabetes. We discussed treatment of hypoglycemia. Glucose tablets sent to pharmacy. We reviewed lifestyle modifications. Follow up in 8 weeks for type 2 diabetes. She will have lab work done before the appointment. Orders: Orders Lipid Panel 2 Months E11.65 - Type 2 diabetes mellitus with hyperglycemia, E78.5 - Hyperlipidemia, unspecified, Z79.4 - [facility] (current) use of insulin Hemoglobin A1c 2 Months E11.65 - Type 2 diabetes mellitus with hyperglycemia, E11.9 - Type 2 diabetes mellitus without complications, Z79.4 - [facility] (current) use of insulin AMB Glucose Monitoring Today E11.9 - Type 2 diabetes mellitus without complications Basic Metabolic Panel 2 Months E11.65 - Type 2 diabetes mellitus with hyperglycemia, Z79.4 - tank terminal gauger (current) use of insulin B Type Natriuretic Peptide Today E11.9 - Type 2 diabetes mellitus without complications Medications: New dulaglutide (Trulicity) 3 mg (0.5 mL) subcut QWEEK 2 mL 3RF glucose (Dex4 Glucose) until blood sugar is >70 (hasta que el nivel de azucar en james [place] superior a 70) 16 grams (4 x 4 gram) PO Q15M PRN 10 tabs 3RF hypoglycemia (hipoglucemia) Refilled insulin glargine (Lantus Solostar U-100 Insulin) 14 units (0.14 mL) subcut BEDTIME 15 mL 5RF Discontinued dulaglutide (Trulicity) Discontinued Reason: Doctor's Order 1.5 mg (0.5 mL) subcut QWEEK 2 mL 0RF Patient Instructions: Aumente Trulicity a 3 mg donald vez por semana. Comience esto donald semana despu?s de george ?ltima dosis de Trulicity. Continuar Lantus 14 unidades por la noche. Si rn teacher antes de las 5 p.m., tome un favio?o refrigerio antes de irse a la cama, lady ar?ndanos o donald galleta baja en carbohidratos con queso o nueces. Si no santo ar?n refrigerio, use solo 12 unidades de Lantus nikhil noche. Coding Level of Care Code Est Pt Level 4 (21066) Diagnoses Uncontrolled type 2 diabetes mellitus with hyperglycemia, with long-term current use of insulin E11.65; Z79.4 Microalbuminuria due to type 2 diabetes mellitus E11.29; R80.9 CPT Codes Details - CPT: 08755 - Glucose monitoring, continuous-physician I&R ([id number])
[2024-10-25 14:56] VITALS: BP 110/72; PULSE 80; BMI 34.2
[2024-10-25 15:10] LABS: Glucose, Whole Blood 148 mg/dL (60-115)
== END 2024-10-25 15:27 | disposition home or self-care (01) ==
PROVIDERS: PCP Internal Medicine; Visit Provider Physician Assistant Medical
DX: E11.65 Type 2 diabetes mellitus with hyperglycemia (principal); Z79.4 Long term (current) use of insulin; E11.29 Type 2 diabetes mellitus with other diabetic kidney complication; R80.9 Proteinuria, unspecified

== ENCOUNTER → 2024-10-25 14:49 | Outpatient (BNVA) | payer OTHER, SELFPAY | PROVIDERS: PCP Internal Medicine; Visit Provider Physician Assistant Medical | DX: E11.65 Type 2 diabetes mellitus with hyperglycemia (principal); E11.29 Type 2 diabetes mellitus with other diabetic kidney complication; R80.9 Proteinuria, unspecified; Z79.4 Long term (current) use of insulin | CPT/HCPCS: 82947; 99212 ==

== ENCOUNTER 2024-11-15 15:17 | Outpatient (AMB) | payer OTHER, SELFPAY ==
--- OUTSIDE RECORDS SUMMARY | 2024-11-15 15:19 | XMS_ITS | Clinical Summary ---
Author Organization [email or web address] Address [address] [place] [address] Care Team Providers Care Civil Engineering Technician Name Role Phone Unavailable Primary Care Provider Unavailabl e Social History Tobacco Use Types Packs/Day Years Used Date Smoking Tobacco: Never Assessed Comments Unknown Sex and Gender Information Value Date Recorded Sex Assigned at Female 12/02/2022 2:17 PM EST Legal Sex Female 2:13 PM EST Gender Identity Female 12/02/2022 2:17 PM EST Sexual Orientation Straight 12/02/2022 2: 17 PM EST Plan of Treatment Health Maintenance Due Date Last Done Comments CT Colonography 1961 Colonoscopy 1961 Colorectal Cancer Screening 1961 Depression Screening 1961 FIT DNA/Cologuard 1961 FIT 1961 FOBT 1961 HIV Screening 1961 SDOH Screening 1961 Sigmoidoscopy 1961 Alcohol/Substance Use Screening 1973 Tobacco Screening 1973 Hepatitis C Screening 1979 DTaP/Tdap/Td Vaccines (1 - Tdap) 1980 Pap Smear 1982 Cervical Cancer Screening 1991 HPV/Cotest 1991 Mammogram 2001 Pneumococcal Vaccine: 50+ Ye ars (1 of 1 - PCV) 2011 Zoster Vaccines (1 of 2) 2011 COVID-19 Vaccine ( - 2023-2 5 season) 2024 Influenza Vaccine (#1) 2024 RSV Patients and Pa tients Aged 60 years or older (1 - 1-dose 75+ series) 2036 HIB Vaccines Aged Out No longer eligi ble based on patient's age to complete this topic HPV Vaccines Aged Out No longer eligi ble based on patient's age to complete this topic Hepatitis A Vaccines Aged Out No long er eligible based on patient's age to complete this topic Hepatitis B Vaccines Aged Out No long er eligible based on patient's age to complete this topic IPV Vaccines Aged Out No longer eligi ble based on patient's age to complete this topic Meningococcal Vaccine Aged Out No rubio mary eligible based on patient's age to complete this topic RSV under 20 months Aged Out No longe r eligible based on patient's age to complete this topic Rotavirus Vaccines Aged Out No longer eligible based on patient's age to complete this topic Insurance [facility]
[2024-11-15 15:21] VITALS: BP 118/76; PULSE 92; TEMP 36.1; O2SAT 99; BMI 33.9
--- NOTE | 2024-11-15 15:21 | MHC.PC.OV ---
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 Required: Yes Professor Of Communication And Writing Language: Divehi Accompanied by: Self / Same As Patient Allergies oyster extract Allergy (Verified 11/15/24 15:57) Anaphylaxis Medication List - Last Reconciled 11/15/24 by Mehrdad Chavez MD albuterol sulfate 90 mcg/actuation (Ventolin HFA) 1 puff PO QID PRN atorvastatin 10 mg PO BEDTIME blood sugar diagnostic (FreeStyle Lite Strips) As directed to check blood glucose 5 times daily blood-glucose meter (Blood Glucose Monitoring kit) As directed blood-glucose meter (FreeStyle Lite Meter kit) Use to monitor blood glucose five times daily blood-glucose meter,continuous (FreeStyle Maricel 3 Roland) Use daily As directed to monitor blood glucose blood-glucose sensor (FreeStyle Maricel 3 Sensor device) Apply every 14 days As directed to monitor blood glucose blood-glucose sensor (FreeStyle Maricel 3 Plus Sensor device) Use daily As directed to monitor glucose budesonide-formoterol 160-4.5 mcg/actuation (Symbicort) 2 puffs inhalation BID 30 days cetirizine 10 mg PO DAILY PRN 90 days cholecalciferol (vitamin D3) 50 mcg PO DAILY cyclobenzaprine 10 mg PO TID PRN dulaglutide (Trulicity) 3 mg (0.5 mL) subcut QWEEK fluticasone propionate 50 mcg/actuation (Flonase Allergy Relief) 2 sprays intranasal DAILY abvjxsnbjrm-cnktfycrl-gmfrtdmt 200-62.5-25 mcg (Trelegy Ellipta) 1 inh inhalation DAILY 30 days gabapentin 600 mg (2 x 300 mg) PO BEDTIME 30 days glucose (Dex4 Glucose) 16 grams (4 x 4 gram) PO Q15M PRN glucose (Dex4 Glucose Quick Dissolve) 16 grams (4 x 4 gram) PO Q15M PRN glucose (Dex4 Glucose) 16 grams (4 x 4 gram) PO Q15M PRN insulin glargine (Lantus Solostar U-100 Insulin) 14 units (0.14 mL) subcut BEDTIME lancets As directed lancets (FreeStyle Lancets) Use to monitor blood glucose 5 times daily. lisinopril 10 mg PO DAILY omeprazole 20 mg PO DAILY 90 days pen needle, diabetic (BD Ultra-Fine Beatriz Pen Needle) As directed once a day Tobacco use date assessed: 11/15/24 Dental Screening Dental Screen Date: 11/15/24 Did you have a dental visit in the last 12 months?: Yes Did you have a dental problem in the last 6 months where you did not have access to dental care?: No Was dental information given to patient?: Patient has dentist HPI 3mth f/u HPI Details Patient comes in today for her follow-up visit States that she feels okay She denies any headaches or dizziness Denies any chest pains, no shortness of breath No nausea/vomiting but she still has on and off epigastric pain and would like to know how her recent upper GI series came out No change in bowel habits noted Needs a couple of her Rx refilled She was not able to get her follow-up labs done prior to her appointment today States that she is still experiencing increased pain over her right wrist - had her x-rays done last month and is wondering if there was anything on the x-rays to help explain her symptoms [facility] Medical History (Updated 11/17/24 @ 07:12 by Mehrdad Chavez MD) Diabetes mellitus Chronic kidney disease, stage III (moderate) Mixed hyperlipidemia Vitamin D deficiency Gastroesophageal reflux disease Elevated cholesterol Arthritis Migraines 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 Upper airway resistance syndrome Uterine fibroid Abnormal cervical cytology Abnormal Pap smear of cervix History of COVID-19 Lumbar degenerative disc disease Allergic rhinitis Constipation Calcification of left breast Malignant neoplasm of breast Obesity (BMI 30-39.9) Diabetes mellitus with hyperglycemia Cancer of right breast COVID-19 Surgical History Hx of cholecystectomy History of bilateral tubal ligation History of bronchoscopy History of cataract surgery History of mastectomy Family History Sister Breast cancer Father HTN (hypertension) Heart attack Mother Diabetes HTN (hypertension) Social History Household Members: None Housing: Apartment Alcohol intake: never Patient Tobacco Use Status: Never used Tobacco e-Cigarette/Vaping Use: Never Used Second Hand Smoke Exposure: No service: No Current occupational status: employed 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 Sexual orientation: Straight/Heterosexual Gender identity: Female Cognitive needs: No Hearing needs: No Vision needs: Yes Female Reproductive History Menstrual Age of Menarche: 11 Questionnaire PHQ-9 Over the last 2 weeks, how often have you been bothered by any of the following problems? 1. Little interest or pleasure in doing things: not at all 2. Feeling down, depressed, or hopeless: not at all 3. Trouble falling or staying asleep, or sleeping too much: not at all 4. Feeling tired or having little energy: not at all 5. Poor appetite or overeating: not at all 6. Feeling bad about yourself - or that you are a failure or have let yourself or your family down: not at all 7. Trouble concentrating on things, such as reading the newspaper or watching television: not at all 8. Moving or speaking so slowly that other people could have noticed. Or the opposite - being so fidgety or restless that you have been moving around a lot more than usual: not at all 9. Thoughts that you would be better off or of hurting yourself in some way: not at all Total score: 0 Depression Screening Interpretation: Negative Depression Screening Done: Yes 93013 - PHQ-9 Billing: Yes Source: Developed by Drs. Errol Sheikh, Jimena Fraser, Jeffery Collins and colleagues, with an educational noni from [employer]. Thrive Questionnaire Date Thrive assessed: 11/15/24 I am a: Patient What is your living situation today?: I have a steady place to live Within the past 12 months, did the food you bought not last and you didn't have the money to get more?: Never true Within the past 12 months, did you worry whether your food would run out before you got money to buy more?: Never true Do you have trouble paying for medicines?: No Do you have trouble getting transportation to medical appointments?: No Do you have trouble paying your heating and electricity bill?: No Do you have trouble taking care of your child, family member or friend?: No Do you have trouble with day-to-day activities such as bathing, preparing meals, shopping, managing finances, etc.?: No Are you currently unemployed and looking for a job?: No Are you interested in more education?: No Please select the resources that you would like help with: None Currently or been in a relationship where the following occur: No concerns reported THRIVE Score: 0 AUDIT C Alcohol Use Questionnaire (AUDIT-C) 1. How often do you have a drink containing alcohol?: Never 3. How often do you have six or more drinks on one occasion?: Never Total Score: 0 Score Reviewed/Action Taken: Yes LEANDRA-7 AMB Questionnaire LEANDRA-7 Date LEANDRA - 7 assessed: 11/15/24 Feeling nervous, anxious, or on edge: 0 = Not at all Not being able to stop or control worryin = Not at all Worrying too much about different things: 0 = Not at all Trouble relaxin = Not at all Being so restless that it is hard to sit still: 0 = Not at all Becoming easily annoyed or irritable: 0 = Not at all Feeling afraid as if something awful might happen: 0 = Not at all Total LEANDRA-7 score (0-4 normal; 5-9 mild; 10-14 moderate; 15-21 severe): 0 Source: Developed by Drs. Errol Sheikh, Jimena Fraser, Jeffery Collins and colleagues, with an educational noni from [employer]. LEANDRA-7 Assessment Billing LEANDRA-7 Assessment Tool: LEANDRA-7 Assessment 68721 Review of Systems Const Denies chills, Denies fatigue, Denies fever(s) and Denies headache(s) ENT Denies dysphagia, Denies dizziness, Denies otalgia, Denies headache(s), Denies neck pain, Denies odynophagia and Denies sore throat Card Denies chest pain, Denies irregular heart rhythm, Denies palpitations and Denies dyspnea Resp Denies chest congestion, Denies cough and Denies dyspnea GI Reports abdominal pain (epigastric, on and off), Denies constipation, Denies dysphagia, Reports heartburn (occasional), Denies diarrhea, Denies nausea, Denies odynophagia and Denies vomiting Denies urinary frequency, Denies dysuria and Denies urinary urgency Musc Reports back pain (over the lower back), Reports arthralgias (over the right wrist) and Denies neck pain Skin/Breast Denies rash Neuro Denies dizziness, Denies headache(s) and Denies paresthesias Psych Denies anxiety and Denies depression Endo Denies fatigue and Denies palpitations Roc/Lymph Denies easy bruising Physical exam (Primary Care) Vital Signs: Last Vital Signs Temp 96.9 F 11/15/24 15:21 Pulse 92 11/15/24 15:21 BP 118/76 11/15/24 15:21 Pulse Ox 99 11/15/24 15:21 Oxygen Delivery Method Room Air 11/15/24 15:21 BMI result Body Mass Index 33.9 Tobacco/Smoking Status: Tobacco use Status Tobacco use date assessed 11/15/24 11/15/24 15:26 Patient Tobacco Use Status Never used Tobacco 11/15/24 15:26 Tobacco use type 02/23/24 13:07 e-Cigarette/Vaping Use Never Used 11/15/24 15:26 PHQ-9: PHQ-9 Score PHQ-9: Total score 0 11/16/24 23:32 Depression Screening Interpretation: Negative Thrive Assessment: Date of Thrive Assessment Date Thrive assessed 11/15/24 11/15/24 15:26 Currently or been in a relationship where the following occur: No concerns reported Const General: no acute distress and alert HENMT Ears: TM's normal bilaterally and EAC's normal Throat: Yes posterior oropharynx normal and Yes tonsils normal (no TP congestion) Neck Neck: Yes supple and No lymphadenopathy Thyroid: Thyroid normal Resp Auscultation: clear to auscultation bilaterally, no rales and no wheezes Cardio Rate: regular rate Rhythm: regular rhythm Heart sounds: no murmurs GI Palpation (GI): Soft to palpation and nontender Auscultation: normal bowel sounds General: Yes no CVA tenderness Back/Spine/Pelvis Back: no CVA tenderness Thoracic/Lumbar Spine: lumbar spinal tenderness Skin Rashes: no rashes Extrem General: Yes no clubbing, cyanosis or edema Right upper extremity: wrist Details: tenderness; no swelling Coding Level of Care Code Est Pt Level 4 (75774) Diagnoses Epigastric pain R10.13 Primary osteoarthritis, right wrist M19.031 Type 2 diabetes mellitus with hyperglycemia, with long-term current use of insulin E11.65; Z79.4 Diabetes mellitus type: type 2 Diabetes mellitus intermediate insulin use: with moth exterminator use Diabetes mellitus complication status: with hyperglycemia Stage 3a chronic kidney disease N18.31 Chronic kidney disease stage 3 subtype: stage 3a (GFR 45-59) Mixed hyperlipidemia E78.2 Moderate persistent asthma without complication J45.40 Asthma severity: moderate Asthma persistence: persistent Asthma complication type: uncomplicated Constipation, unspecified constipation type K59.00 Constipation type: unspecified constipation type Seasonal allergic rhinitis due to pollen J30.1 Allergic rhinitis trigger: pollen Allergic rhinitis seasonality: seasonal Degeneration of intervertebral disc of lumbar region with discogenic back pain and lower extremity pain M51.362 Disc-related pain type: discogenic back pain and lower extremity pain Vitamin D deficiency E55.9 Malignant neoplasm of lower-inner quadrant of right female breast, unspecified estrogen receptor status C50.311 Breast location: lower inner quadrant of breast Estrogen receptor status: unspecified Patient sex: female Laterality: right Obesity (BMI 30-39.9) E66.9 Additional Codes LEANDRA-7 Assessment Billing - LEANDRA-7 Assessment Tool: LEANDRA-7 Assessment 91791 ([id number]) PHQ-9 - 94742 - PHQ-9 Billing: Yes ([id number]) Assessment & Plan Assessment & Plan (1) Epigastric pain: Code(s): R10.13 - Epigastric pain Category: Medical Plan: Upper GI series done a few weeks ago on 10/21/2024 revealed (+) moderate esophageal dysmotility, with a small type I hiatal hernia with severe gastroesophageal reflux. There is a thickened/prominent appearance of the areae gastricae. In addition, there are multiple focal areas of contrast pooling in the fundus of the stomach. These findings are suggestive of erosive gastritis and recommend correlation with EGD Discussed dietary restrictions in GERD with patient Will increase her Omeprazole to 40 mg QD Will also refer her to GI for further management and consideration for EGD (2) Primary osteoarthritis, right wrist: Code(s): M19.031 - Primary osteoarthritis, right wrist Category: Medical Plan: X-rays of the right wrist done last month revealed (+) moderate degenerative changes and (+) areas of cystic lucency/focal demineralization in the carpal bones, particularly prominent in the body of the scaphoid Will start her on Acetaminophen 500 mg Q 8 hours PRN for pain Will also refer patient to orthopedics for further management of her right wrist issues (3) Diabetes mellitus: Code(s): E11.9 - Type 2 diabetes mellitus without complications Category: Medical Qualifiers: Diabetes mellitus type: type 2 Diabetes mellitus intermediate insulin use: with intermediate use Diabetes mellitus complication status: with hyperglycemia Qualified Code(s): E11.65 - Type 2 diabetes mellitus with hyperglycemia; Z79.4 - manager terminal (current) use of insulin Plan: Her in-office HgbA1c was at 8.1% when checked last month on 09/20/2024 at the endocrinology office (she was previously at 9.4% a few months ago) - goal is at least <7.0% Reinforced diabetic diet Continue Lantus 14 u Q HS, to reduce to 12 units Q HS if she is not going to eat her bedtime snack, and Trulicity 3 mg SQ once a week Continue Lisinopril 10 mg QD for renoprotection Follow up with endocrinology as scheduled (4) Chronic kidney disease, stage III (moderate): Code(s): N18.30 - Chronic kidney disease, stage 3 unspecified Category: Medical Qualifiers: Chronic kidney disease stage 3 subtype: stage 3a (GFR 45-59) Qualified Code(s): N18.31 - Chronic kidney disease, stage 3a Plan: Her renal function currently appears stable She developed ANEL, likely due to hypoperfusion, last summer (05/2024) but her renal function appears to have improved since Continue Lisinopril 10 mg QD for renoprotection Follow up with nephrology as scheduled (5) Mixed hyperlipidemia: Code(s): E78.2 - Mixed hyperlipidemia Category: Medical Plan: Patient was not able to get her follow up labs done prior to her visit today Her LDL cholsterol was at 117 mg/dl when last checked in June 2024 - goal is LDL cholesterol of at least <100 mg/dl Reinforced low cholesterol diet Continue Atorvastatin 10 mg QD but have advised patient that if she cannot get her cholesterol numbers improved significantly over the next few months, then we will need to consider increasing the dose of her Atorvastatin Will have patient recheck her labs and fasting lipids in 3 months for follow up (6) Asthma: Code(s): J45.909 - Unspecified asthma, uncomplicated Category: Medical Qualifiers: Asthma severity: moderate Asthma persistence: persistent Asthma complication type: uncomplicated Qualified Code(s): J45.40 - Moderate persistent asthma, uncomplicated Plan: Stable/controlled lately Continue Trelegy 200-62.5-25 mcg 1 inhalation QD and Albuterol HFA 1 to 2 inhalations Q 6 hours PRN Follow up with pulmonary at [facility] [place] as scheduled (7) Constipation: Code(s): K59.00 - Constipation, unspecified Category: Medical Qualifiers: Constipation type: unspecified constipation type Qualified Code(s): K59.00 - Constipation, unspecified Plan: Patient is encouraged again on increased oral fluids and dietary fiber Continue Miralax 17 gm QD (8) Allergic rhinitis: Code(s): J30.9 - Allergic rhinitis, unspecified Category: Medical Qualifiers: Allergic rhinitis trigger: pollen Allergic rhinitis seasonality: seasonal Qualified Code(s): J30.1 - Allergic rhinitis due to pollen Plan: Continue Cetirizine 10 mg QD PRN and Fluticasone 50 mcg nasal spray QD PRN (9) Lumbar degenerative disc disease: Comment: (+) left-sided sciatica at times Code(s): M51.36 - Other intervertebral disc degeneration, lumbar region Category: Medical Qualifiers: Disc-related pain type: discogenic back pain and lower extremity pain Qualified Code(s): M51.362 - Other intervertebral disc degeneration, lumbar region with discogenic back pain and lower extremity pain Plan: Patient has chronic low back pain, with (+) left-sided sciatica at times Lumbar spine x-rays done on 05/17/2022 revealed (+) mild degenerative disc disease L4-L5, with (+) multi-level thoracolumbar spondylosis, most pronounced at L1-L2, where it is severe. There is also (+) minimal lumbar levoscoliosis, with rotatory component seen Reinforced activity and weight-lifting restrictions Continue Cyclobenzaprine 10 mg TID PRN and Gabapentin 600 mg Q HS Can consider referring patient to pain management for further recommendations if her low back pain progresses (10) Vitamin D deficiency: Code(s): E55.9 - Vitamin D deficiency, unspecified Category: Medical Plan: Continue Vitamin D3 2000 units QD (11) Malignant neoplasm of breast: Code(s): C50.919 - Malignant neoplasm of unspecified site of unspecified female breast Category: Medical Qualifiers: Breast location: lower inner quadrant of breast Estrogen receptor status: unspecified Patient sex: female Laterality: right Qualified Code(s): C50.311 - Malignant neoplasm of lower-inner quadrant of right female breast Plan: (+) Hx of right breast cancer (diagnosed in 2008), s/p lumpectomy with axillary node biopsy, followed by radiation therapy and (?) chemotherapy - treatments were all done reportedly in [place] She subsequently underwent bilateral breast augmentation with implants Her most recent mammogram in April 2024 came out negative Follow up with breast surgery/oncology for continuing surveillance (12) Obesity (BMI 30-39.9): Code(s): E66.9 - Obesity, unspecified Category: Medical Plan: Reinforced diet; weight loss and exercise are not realistic given patient's chronic low back pain but she is still advised to try to stay as active as she can Plan Follow up in 3 months Orders: Orders Microalbumin, Random (w Creat) 02/01/25 E11.9 - Type 2 diabetes mellitus without complications TSH reflex Free T4 02/01/25 E78.00 - Pure hypercholesterolemia, unspecified UA CC w/rflx Micro + Cult 02/01/25 R30.0 - Dysuria Vitamin B12 and Folate 02/01/25 E53.8 - Deficiency of other specified B group vitamins Vitamin D 25-OH Total 02/01/25 E55.9 - Vitamin D deficiency, unspecified Complete Blood Count Auto Diff 02/01/25 D64.9 - Anemia, unspecified Referrals Gastroenterology Referral K21.9 - Gastro-esophageal reflux disease without esophagitis, K22.4 - Dyskinesia of esophagus, R10.13 - Epigastric pain Orthopedics Referral M19.031 - Primary osteoarthritis, right wrist Medications: New acetaminophen 500 mg PO Q8H PRN 90 tabs 2RF pain Changed From cholecalciferol (vitamin D3) 50 mcg PO DAILY 90 tabs 0RF R79.89 - Other specified abnormal findings of blood chemistry To cholecalciferol (vitamin D3) 50 mcg PO DAILY 90 days 90 tabs 3RF R79.89 - Other specified abnormal findings of blood chemistry From omeprazole 20 mg PO DAILY 90 days 90 caps 1RF To omeprazole 40 mg PO DAILY 90 days 90 caps 1RF Refilled atorvastatin 10 mg PO BEDTIME 90 tabs 1RF cetirizine 10 mg PO DAILY 90 days PRN 90 tabs 1RF allergy symptoms
== END 2024-11-15 16:09 | disposition home or self-care (01) ==
PROVIDERS: PCP Internal Medicine; Visit Provider Internal Medicine
DX: E11.65 Type 2 diabetes mellitus with hyperglycemia (principal); Z79.4 Long term (current) use of insulin; N18.31 Chronic kidney disease, stage 3a; C50.311 Malignant neoplasm of lower-inner quadrant of right female breast; R10.13 Epigastric pain; M19.031 Primary osteoarthritis, right wrist; E78.2 Mixed hyperlipidemia; J45.40 Moderate persistent asthma, uncomplicated; K59.00 Constipation, unspecified; J30.1 Allergic rhinitis due to pollen; M51.362 Other intervertebral disc degeneration, lumbar region with discogenic back pain and lower extremity pain; E55.9 Vitamin D deficiency, unspecified

== ENCOUNTER → 2024-11-15 15:17 | Outpatient (BNVA) | payer OTHER, SELFPAY | PROVIDERS: PCP Internal Medicine; Visit Provider Internal Medicine | DX: R10.13 Epigastric pain (principal); M19.031 Primary osteoarthritis, right wrist; E11.65 Type 2 diabetes mellitus with hyperglycemia; Z79.4 Long term (current) use of insulin; N18.31 Chronic kidney disease, stage 3a; E78.2 Mixed hyperlipidemia; J45.40 Moderate persistent asthma, uncomplicated; K59.00 Constipation, unspecified; J30.1 Allergic rhinitis due to pollen; M51.362 Other intervertebral disc degeneration, lumbar region with discogenic back pain and lower extremity pain; E55.9 Vitamin D deficiency, unspecified; C50.311 Malignant neoplasm of lower-inner quadrant of right female breast; E66.9 Obesity, unspecified | CPT/HCPCS: 96127; 99212 ==

== ENCOUNTER 2024-12-13 08:48 | Outpatient (REF) | payer OTHER, SELFPAY ==
--- OUTSIDE RECORDS SUMMARY | 2024-12-13 09:07 | XMS_ITS | Clinical Summary ---
Author Organization [employer] Address [address] [place] [address] Care Team Providers Care Manager Of Enterprise Name Role Phone Unavailable Primary Care Provider [...] patient's age to complete this topic Insurance [facility]
== END 2024-12-13 08:49 | disposition home or self-care (01) ==
LOC: HO.HOSX 08:48
DX: Z13.89 Encounter for screening for other disorder (principal)

== ENCOUNTER 2025-01-03 08:08 | Outpatient (REF) | payer OTHER, SELFPAY ==
[2025-01-03 10:25] LABS: MANUAL DIFF FLAG NO
[2025-01-03 11:34] LABS: Basophils Percent Auto 0.6 % (0-2); Eosinophils Absolute Auto 0.2 X10*3/uL (0.0-0.4); Eosinophils Percent Auto 2.7 % (0-4); Hematocrit 36.8 % (37.0-47.0); Hemoglobin 12.3 g/dl (12.0-16.0); Imm Gran Abs Auto 0.02 X10*3/uL (0.00-0.03); Imm Gran Pct Auto 0.3 % (0.0-0.4); Lymphocytes Absolute Auto 2.1 X10*3/uL (1.2-4.9); Lymphocytes Percent Auto 30.8 % (20-40); Mean Corpuscular HGB Conc 33.4 g/dl (31.0-35.0); Mean Corpuscular Hemoglobin 26.1 pg (27.0-33.0); Mean Corpuscular Volume 78.1 fL (80.0-98.0); Mean Platelet Volume 10.4 fL (9.4-12.3); Monocytes Absolute Auto 0.5 X10*3/uL (0.1-1.2); Monocytes Percent Auto 7.7 % (2-11); Neutrophils Absolute Auto 3.9 x10*3/uL (2.0-8.3); Neutrophils Percent Auto 57.9 % (45-73); Platelet Count 227 X10*3/uL (160-400); Red Blood Count 4.71 X10*6/uL (4.20-5.50); Red Cell Distribution Width 13.6 % (11.0-16.0); White Blood Count 6.7 X10*3/uL (4.8-10.8)
[2025-01-03 11:36] LABS: Estimated Average Glucose 169 mg/dL; Hemoglobin A1c % 7.5 % (<6.0)
[2025-01-03 12:05] LABS: B Type Natriuretic Peptide 56 pg/mL (<100)
[2025-01-03 12:13] LABS: Alanine Aminotransferase 16 U/L (0-31); Albumin Level 3.9 g/dL (3.5-5.0); Alkaline Phosphatase 121 U/L (39-117); Anion Gap 12 (12-20); Aspartate Amino Transferase 18 U/L (5-31); Bilirubin Total 0.4 mg/dL (0.0-1.0); Blood Urea Nitrogen 20 mg/dL (9-16); Calcium 9.3 mg/dL (8.4-10.2); Carbon Dioxide 24 mmol/L (22-29); Chloride 108 mmol/L (96-108); Estimated Glomerular Filt Rate 52; Glucose Random 165 mg/dL (60-115); Lipase 16 U/L (8-78); Potassium 4.3 mmol/L (3.3-5.1); Sodium 140 mmol/L (135-145); Total Protein 7.8 g/dL (6.5-8.0)
[2025-01-03 12:42] LABS: Folate 12.2 ng/mL (> or = 4.0); Vitamin B12 287 pg/mL (200-900)
[2025-01-06 17:18] LABS: Immunoglobulin A 403 mg/dL (70-320)
[2025-01-06 18:08] LABS: Transglutaminase IgA <1.0 U/mL
== END 2025-01-03 08:09 | disposition home or self-care (01) ==
LOC: HO.LAB 08:08
PROVIDERS: Physician Assistant Medical; PCP Internal Medicine; Visit Provider Internal Medicine Gastroenterology
DX: E11.65 Type 2 diabetes mellitus with hyperglycemia (principal); E11.29 Type 2 diabetes mellitus with other diabetic kidney complication; Z79.4 Long term (current) use of insulin; R10.10 Upper abdominal pain, unspecified; R80.9 Proteinuria, unspecified
CPT/HCPCS: 36415; 80053; 82607; 82746; 82784; 82947; 83036; 83690; 83880; 85025; 86364; 99212

== ENCOUNTER 2025-01-03 08:08 | Outpatient (AMB) | payer OTHER, SELFPAY ==
--- OUTSIDE RECORDS SUMMARY | 2025-01-03 08:13 | XMS_ITS | Clinical Summary ---
Author Organization [employer] Address [address] [place] [address] Care Team Providers Care Commercial Real Estate Paralegal Name Role Phone Unavailable Primary Care Provider [...] patient's age to complete this topic Insurance [facility]
--- NOTE | 2025-01-03 08:26 | A.OFFVIS_ITS ---
Vital Signs 01/03/25 08:30 Height 5 ft 1 in Weight 184 lb BMI 34.8 BP 147/66 H Blood Pressure Location Lt brachial Position Sitting Pulse 80 Pulse Oximetry (%) 98 Oxygen Delivery Method Room Air Intake Visit Reasons: abdominal pain with GERD. Intake Note: Patient new consult for abdominal pain with GERD. Patient have a Colonoscopy done on [address] Reagan. Patient cc: N/V, early satiety with abdominal pain, no appetite, GERD with burning sensation on her esophagus with chocking sensation, also she is been having accident with her BM. Manager Floral Required: Yes Manager Floral Name: [facility] interpeter Accompanied by: Self / Same As Patient Allergies oyster extract Allergy (Verified 01/03/25 15:47) Anaphylaxis Medication List - Last Reconciled 01/03/25 by Mira Reagan MD acetaminophen 500 mg PO Q8H PRN albuterol sulfate 90 mcg/actuation (Ventolin HFA) 1 puff PO QID PRN atorvastatin 10 mg PO BEDTIME blood sugar diagnostic (FreeStyle Lite Strips) As directed to check blood glucose 5 times daily blood-glucose meter (Blood Glucose Monitoring kit) As directed blood-glucose meter (FreeStyle Lite Meter kit) Use to monitor blood glucose five times daily blood-glucose meter,continuous (FreeStyle Maricel 3 [place]) Use daily As directed to monitor blood glucose blood-glucose sensor (FreeStyle Maricel 3 Sensor device) Apply every 14 days As directed to monitor blood glucose blood-glucose sensor (FreeStyle Maricel 3 Plus Sensor device) Use daily As directed to monitor glucose cetirizine 10 mg PO DAILY PRN 90 days cholecalciferol (vitamin D3) 50 mcg PO DAILY 90 days cyclobenzaprine 10 mg PO TID PRN dulaglutide (Trulicity) 3 mg (0.5 mL) subcut QWEEK fluticasone propionate 50 mcg/actuation (Flonase Allergy Relief) 2 sprays intranasal DAILY fqeauvsznbr-ojlzoszjb-xntjjlnm 200-62.5-25 mcg (Trelegy Ellipta) 1 inh inhalation DAILY 30 days gabapentin 600 mg (2 x 300 mg) PO BEDTIME 30 days glucose (Dex4 Glucose) 16 grams (4 x 4 gram) PO Q15M PRN insulin glargine (Lantus Solostar U-100 Insulin) 14 units (0.14 mL) subcut BEDTIME lancets As directed lancets (FreeStyle Lancets) Use to monitor blood glucose 5 times daily. lisinopril 10 mg PO DAILY omeprazole 40 mg PO DAILY 90 days pen needle, diabetic (BD Ultra-Fine Beatriz Pen Needle) As directed once a day HPI HPI abdominal pain with GERD.: Details: GI clinic visit for this 64-year-old Citizen Of [place]-speaking female for evaluation of GERD and abdominal pain TODAY'S VISIT: [facility] [employer] ManagerFallon Patient cc: N/V, early satiety with abdominal pain, no appetite, GERD with burning sensation on her esophagus with chocking sensation, also she is been having accident with her BM. Pt complains of upper abdominal pain x 2 months - pain is intermittent, pressure like and is 8/10 intensity and radiates to the back Pain gets worse with eating so she stopped eating Also complains of nausea and early satiety and occasional vomiting Patient complains of heartburn and dysphagia. Has to take small bites and drink water to wash it, Has been loosing weight - weighed 200 lbs. Notes fecal incontinence for the past 6 months and has to wear a pad Stools are soft without diarrhea. Denies recent rectal bleeding. Stool can be intermittently dark. 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 Pt complains of intermittent palpitations and denies loud snoring or sleep apnea Denies problems with anesthesia in the past. Denies being on chronic anticoagulation. Patient denies known family history of colon polyps, colon cancer or other GI malignancies. A brother has pancreatic cancer with lungs, kidneys and throat mets at age 72 yrs. LABS IN CATASYS : Reviewed IMAGING STUDIES: 10/21/24 UGI SHOWED: 1. Anterior bridging osteophyte at C5-C6 that is causing mild posterior indentation of the cervical esophagus. 2. Moderate esophageal dysmotility. 3. Small type I hiatal hernia with severe gastroesophageal reflux. 4. Thickened/prominent appearance of the areae gastricae. In addition, there are multiple focal areas of contrast pooling in the fundus of the stomach. These findings are suggestive of erosive gastritis. Recommend correlation with EGD. ENDOSCOPIC STUDIES: 06/2022 COLONOSCOPY SHOWED: One small and one medium sized polyps removed Moderate diverticulosis seen in the sigmoid colon Plan: Repeat Colonoscopy interval based on path results - in 3 years if polyps are adenomatous and 10 years if polyps are hyperplastic. BIOPSIES SHOWED: A. Colon, cecal polyp: Tubular adenoma; negative for high-grade dysplasia and carcinoma. B. 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 Upper airway resistance syndrome Uterine fibroid Abnormal cervical cytology Abnormal Pap smear of cervix History of COVID-19 Lumbar degenerative disc disease Allergic rhinitis Constipation Calcification of left breast Malignant neoplasm of breast Obesity (BMI 30-39.9) Diabetes mellitus with hyperglycemia Cancer of right breast COVID-19 Surgical History Hx of cholecystectomy History of bilateral tubal ligation History of bronchoscopy History of cataract surgery History of mastectomy Family History Sister Breast cancer Father HTN (hypertension) Heart attack Mother Diabetes HTN (hypertension) Social History Household Members: None Housing: Apartment Alcohol intake: never Patient Tobacco Use Status: Never used Tobacco e-Cigarette/Vaping Use: Never Used Second Hand Smoke Exposure: No service: No Current occupational status: employed 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 Sexual orientation: Straight/Heterosexual Gender identity: Female Cognitive needs: No Hearing needs: No Vision needs: Yes Female Reproductive History Menstrual Age of Menarche: 11 Review of Systems Const Reports fatigue, Denies fever(s), Reports headache(s) and Denies weight loss Eyes Denies eye discharge and Denies irritation ENT Reports Normal hearing present, Reports dysphagia, Denies dizziness and Reports headache(s) Card Reports chest pain, Reports irregular heart rhythm, Denies leg edema, Reports dyspnea, Reports dyspnea on exertion and Reports other (Palpitations) Resp Reports cough, Reports dyspnea, Reports dyspnea on exertion and Denies wheezing GI Reports abdominal pain, Reports bloating, Denies change in bowel habits, Reports dysphagia, Reports early satiety, Reports heartburn, Reports nausea and Reports other (loss of appetite) Denies difficulty voiding, Denies dysuria and Reports other (Urinary frequency) Musc Denies back pain, Reports arthralgias and Reports other (Arthritis) Skin/Breast Denies pruritus, Denies rash and Denies jaundice Neuro Reports Normal hearing present, Denies Abnormal speech present, Denies dizziness, Reports headache(s) and Denies seizure-like activity Psych Denies anxiety, Denies depression and Denies panic attacks Endo Denies cold intolerance, Reports fatigue, Denies flushing and Denies heat intolerance Roc/Lymph Denies easy bleeding and Denies easy bruising Aller/Immun Denies wheezing Physical Exam Vital Signs: Last Vital Signs Pulse 80 01/03/25 08:30 BP 147/66 H 01/03/25 08:30 Pulse Ox 98 01/03/25 08:30 Oxygen Delivery Method Room Air 01/03/25 08:30 BMI result Body Mass Index 34.8 Const General: healthy appearing and no acute distress Nutritional Appearance: obese Orientation/consciousness: patient oriented x3 Limitations: language barrier HEENT Head: Yes normal to inspection Ears: hearing grossly normal bilaterally Mouth: Normal oral and palatal mucosa present Eyes Sclerae: sclerae normal Pupils: Equal, round and reactive pupils present Neck Neck: Yes normal visual inspection Chest Chest palpation & inspection: normal inspection of the chest Resp Effort & Inspection: normal respiratory effort Auscultation: clear to auscultation bilaterally Cardio Palpation: normal PMI Rate: regular rate Rhythm: regular rhythm Heart sounds: S1 normal heart sound present, S2 normal heart sound present and no murmurs GI Inspection: Yes scar (RUQ scar of past open cholecystectomy) Palpation (GI): Soft to palpation, Tenderness to palpation present (GI) (Mild epigastric tenderness without rebound) and No hepatosplenomegaly present Auscultation: normal bowel sounds Rectal Exam - Female: deferred Skin General skin exam: no rashes or lesions noted Neuro General: patient oriented x3, gait normal and moves all extremities Cranial nerves: Yes Equal, round and reactive pupils present and Yes Normal hearing present Speech: No Abnormal speech present Psych Appearance: grossly normal Mental Status: mental status grossly normal Assessment & Plan Assessment & Plan (1) Upper abdominal pain: Code(s): R10.10 - Upper abdominal pain, unspecified Category: Medical (2) Gastroesophageal reflux disease: Code(s): K21.9 - Gastro-esophageal reflux disease without esophagitis Category: Medical (3) Fecal incontinence: Code(s): R15.9 - Full incontinence of feces Category: Medical Plan 64 YF DM, hyperlipidemia, chronic kidney disease stage 3 seen for evaluation of upper abdominal pain, early satiety, nausea with occasional vomiting. Pt is on Trulicity and states abd pain was present before she started taking Trulicity. Abd pain can be due to PUD, erosive esophagitis, gastroparesis, celiac sprue or biliary or pancreatic source Patient complains of heartburn and dysphagia. Fecal incontinence ? due to weakness of anal sphincter PLAN: 1. Schedule an Abd CT scan with contrast 2. She was referred to CD for ano-rectal manometry for evaluation of fecal incontinence 3. Patient will be scheduled for an upper endoscopy (GERD, dysphagia) and colonoscopy (fecal incontinence and FU of colon polyps) in 3-4 weeks FU in 3 months - scheduled 03/28/25 Orders: Orders Complete Blood Count Auto Diff Today R10.10 - Upper abdominal pain, unspecified Lipase Today R10.10 - Upper abdominal pain, unspecified Transglutaminase IgA Today R10.10 - Upper abdominal pain, unspecified CT abdomen pelvis w IV con Today R10.10 - Upper abdominal pain, unspecified Comprehensive Met. Panel Today R10.10 - Upper abdominal pain, unspecified Vitamin B12 and Folate Today R10.10 - Upper abdominal pain, unspecified Immunoglobulin A Today R10.10 - Upper abdominal pain, unspecified Referrals Gastroenterology Referral R15.9 - Full incontinence of feces Medications: New sucralfate (Carafate) 10 mL PO BID 30 days 600 mL 1RF K21.9 - Gastro- esophageal reflux disease without esophagitis bisacodyl (Dulcolax (bisacodyl)) Take 4 tablets at 12 pm the day before colonoscopy appointment 20 mg (4 x 5 mg) PO ONCE 1 day 4 tabs 0RF colon prep polyethylene glycol 3350 (Miralax) Mix Miralax with 64 oz(8 cups) of Crystal light. Take 2 tablets of Dulcolax qt 12 pm. Wait to have your 1st bowel movement, then begin drinking Miralax. Drink a glass of Miralax every 10-15 minutes until you are finished. You will drink at least another 4 cups of clear liquid of your choice over the next 2 hours. Please drink as many clear liquids as possible You may have clear liquids up to four hours before your procedure 17 grams PO DAILY 1 day 238 grams 0RF Coding Level of Care Code Est Pt Level 4 (48427) Diagnoses Upper abdominal pain R10.10 Gastroesophageal reflux disease K21.9 Fecal incontinence R15.9 Time Spent (min) 28
[2025-01-03 08:30] VITALS: BP 147/66; PULSE 80; O2SAT 98; BMI 34.8
== END 2025-01-03 09:30 | disposition home or self-care (01) ==
LOC: HO.HGI 08:08
PROVIDERS: PCP Internal Medicine; Visit Provider Internal Medicine Gastroenterology
DX: R10.10 Upper abdominal pain, unspecified (principal); K21.9 Gastro-esophageal reflux disease without esophagitis; R15.9 Full incontinence of feces
CPT/HCPCS: 99214

== ENCOUNTER 2025-01-03 15:42 | Outpatient (AMB) | payer OTHER, SELFPAY ==
--- NOTE | 2025-01-03 15:42 | A.OFFVIS_ITS ---
Vital Signs 01/03/25 15:47 Height 5 ft 1 in Weight 185 lb 3.013 oz BMI 35.0 BP 116/74 Blood Pressure Location Lt radial Position Sitting Pulse 76 Pulse Source Pulse Oximeter Pulse Oximetry (%) 96 Oxygen Delivery Method Room Air Intake Visit Reasons: DM Intake Note: Patient present today to follow up on Type 2 Diabetes Mellitus. Last Diabetic Eye exam: Due, Has an appointment 01/07/25 Last Podiatry Visit: Does not see a Application Architect Random Glucose: 166 mg/dl HgA1C: 7.5% 01/03/2025 Pharmacy Clinical Coordinator Required: Yes Pharmacy Clinical Coordinator Language: Pathology Assistant Services: Pharmacy Clinical Coordinator Present Pharmacy Clinical Coordinator Name: Maxi [id number] Information Interpreted: non-clinical & clinical Accompanied by: Self / Same As Patient Allergies oyster extract Allergy (Verified 01/03/25 15:47) Anaphylaxis Medication List - Last Reconciled 01/03/25 by VELVET Galvin acetaminophen 500 mg PO Q8H PRN albuterol sulfate 90 mcg/actuation (Ventolin HFA) 1 puff PO QID PRN atorvastatin 10 mg PO BEDTIME blood sugar diagnostic (FreeStyle Lite Strips) As directed to check blood glucose 5 times daily blood-glucose meter (Blood Glucose Monitoring kit) As directed blood-glucose meter (FreeStyle Lite Meter kit) Use to monitor blood glucose five times daily blood-glucose meter,continuous (FreeStyle Maricel 3 [place]) Use daily As directed to monitor blood glucose blood-glucose sensor (FreeStyle Maricel 3 Plus Sensor device) Use daily As directed to monitor glucose cetirizine 10 mg PO DAILY PRN 90 days cholecalciferol (vitamin D3) 50 mcg PO DAILY 90 days cyclobenzaprine 10 mg PO TID PRN dulaglutide (Trulicity) 4.5 mg (0.5 mL) subcut QWEEK fluticasone propionate 50 mcg/actuation (Flonase Allergy Relief) 2 sprays intranasal DAILY ywghtdaphec-hzdgexhln-eiizqyyj 200-62.5-25 mcg (Trelegy Ellipta) 1 inh inhalation DAILY 30 days gabapentin 600 mg (2 x 300 mg) PO BEDTIME 30 days glucose (Dex4 Glucose) 16 grams (4 x 4 gram) PO Q15M PRN insulin glargine (Lantus Solostar U-100 Insulin) 6 units subcut BEDTIME lancets As directed lancets (FreeStyle Lancets) Use to monitor blood glucose 5 times daily. lisinopril 10 mg PO DAILY omeprazole 40 mg PO DAILY 90 days pen needle, diabetic (BD Ultra-Fine Beatriz Pen Needle) As directed once a day sucralfate (Carafate) 10 mL PO BID 30 days HPI Comments Details: Patient is a 64-year-old female with a significant past medical history of type 2 diabetes, hyperlipidemia, GERD, anemia presenting today for diabetic management. Video field staff manager used. Her hemoglobin A1c is 7.5% today down from 8.1% 10/10/24. Current medication regimen: Lantus 14 units nightly, Trulicity 3 mg weekly. Denies side effects on medication. Past medication: Metformin discontinued in the past due to GI distress. 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 When she has hypoglycemia she feels shaky and hungry. She treats with 4 oz of orange juice. She has a family hx of t1dm (mother, 2 sisters, and 1 grandson). Patient's LEANDRA antibodies are negative, C-peptide normal. ROS: Constitutional: No unexplained weight loss, fever, chills, fatigue or night sweats. Eyes: No vision changes Respiratory: No shortness of breath Cardiovascular: No chest pain Gastrointestinal: No anorexia, nausea, vomiting or diarrhea. No abdominal pain Neurologic: No headache, dizziness, syncope Endocrine: No cold or heat intolerance. No polyuria or polydipsia. Physical exam: Constitutional: Alert, in no distress. Neck: Supple, Full range of motion. No lymphadenopathy. Respiratory: Clear to auscultation. Cardiovascular: S1 S2 regular. No murmurs. Extremities: Warm and well perfused. No clubbing, cyanosis or edema. 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 Upper airway resistance syndrome Uterine fibroid Abnormal cervical cytology Abnormal Pap smear of cervix History of COVID-19 Lumbar degenerative disc disease Allergic rhinitis Constipation Calcification of left breast Malignant neoplasm of breast Obesity (BMI 30-39.9) Diabetes mellitus with hyperglycemia Cancer of right breast COVID-19 Surgical History Hx of cholecystectomy History of bilateral tubal ligation History of bronchoscopy History of cataract surgery History of mastectomy Family History Sister Breast cancer Father HTN (hypertension) Heart attack Mother Diabetes HTN (hypertension) Social History Household Members: None Housing: Apartment Alcohol intake: never Patient Tobacco Use Status: Never used Tobacco e-Cigarette/Vaping Use: Never Used Second Hand Smoke Exposure: No service: No Current occupational status: employed 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 Sexual orientation: Straight/Heterosexual Gender identity: Female Cognitive needs: No Hearing needs: No Vision needs: Yes Female Reproductive History Menstrual Age of Menarche: 11 Physical Exam Vital Signs: Last Vital Signs Pulse 76 01/03/25 15:47 BP 116/74 01/03/25 15:47 Pulse Ox 96 01/03/25 15:47 Oxygen Delivery Method Room Air 01/03/25 15:47 BMI result Body Mass Index 35.0 Office Procedures Glucose Monitoring Details Details: see HPI 20471 - Glucose monitoring, continuous-physician I&R Procedure code (CPT) selection complete Results Reviewed Results Reviewed: Laboratory Tests 07/01/24 08/05/24 09/20/24 11:07 10:27 10:31 Plt Count Creatinine 1.08 Estimated GFR 51 Hemoglobin A1c % C-Peptide 1.00 AST ALT B-Natriuretic Peptide Vitamin B12 Urine Creatinine 52.81 Urine Microalbumin 23.0 Microalb/Creat Ratio 43.5 H 01/03/25 10:23 Plt Count 227 Creatinine 1.06 Estimated GFR 52 Hemoglobin A1c % 7.5 H C-Peptide AST 18 ALT 16 B-Natriuretic Peptide 56 Vitamin B12 287 Urine Creatinine Urine Microalbumin Microalb/Creat Ratio Fib 4 value 1.25 excluding advanced cirrhosis Assessment & Plan Assessment & Plan (1) Uncontrolled type 2 diabetes mellitus with hyperglycemia, with long-term current use of insulin: Code(s): E11.65 - Type 2 diabetes mellitus with hyperglycemia; Z79.4 - long term (current) use of insulin Category: Medical (2) Microalbuminuria due to type 2 diabetes mellitus: Code(s): E11.29 - Type 2 diabetes mellitus with other diabetic kidney complication; R80.9 - Proteinuria, unspecified Category: Medical Plan In summary this is a 64-year-old female with uncontrolled type 2 diabetes with renal complications with improving glycemic control. Decrease Lantus to 6 units nightly and increase Trulicity to 4.5 mg weekly. Goal is to decrease overnight hypoglycemic events and improve postprandial control. If blood sugars are over 180 she can increase Lantus to 10 units nightly. Diabetic diet reinforced. Reviewed the complications of diabetes with the patient. Reviewed treatment of hypoglycemia. She carries orange juice and glucose tablets with her. Advised not to drive if she does not have a reliable way to check blood sugar or has symptoms of low blood sugar. Follow up in 4 weeks for type 2 diabetes. Orders: Orders AMB Glucose Monitoring Today E11.9 - Type 2 diabetes mellitus without complications Medications: New dulaglutide (Trulicity) 4.5 mg (0.5 mL) subcut QWEEK 2 mL 5RF Refilled blood-glucose sensor (FreeStyle Maricel 3 Plus Sensor device) Use daily As directed to monitor glucose 2 ea 5RF E08.29 - Diabetes mellitus due to underlying condition with other diabetic kidney complication, R80.9 - Proteinuria, unspecified, Z79.4 - long term (current) use of insulin Discontinued dulaglutide (Trulicity) Discontinued Reason: Doctor's Order 3 mg (0.5 mL) subcut QWEEK 2 mL 3RF blood-glucose sensor (FreeStyle Maricel 3 Sensor device) Discontinued Reason: Doctor's Order Apply every 14 days As directed to monitor blood glucose 2 ea 11RF E11.9 - Type 2 diabetes mellitus without complications, Z79.4 - penitentiary (current) use of insulin Patient Instructions: Increase Trulicity to 4.5 mg weekly. Decrease Lantus to 6 units nightly. Target fasting blood sugar 70-130 Target sugar for after meals is less than 180 Aumente la dosis de Trulicity a 4,5 mg por semana. Disminuya la dosis de Lantus a 6 unidades por noche. El objetivo de glucemia en ayunas es de 70-130. El objetivo de glucemia despu?s de las comidas es inferior a 180. Coding Level of Care Code Est Pt Level 4 (04335) Diagnoses Uncontrolled type 2 diabetes mellitus with hyperglycemia, with long-term current use of insulin E11.65; Z79.4 Microalbuminuria due to type 2 diabetes mellitus E11.29; R80.9 CPT Codes Details - CPT: 48337 - Glucose monitoring, continuous-physician I&R ([id number])
[2025-01-03 15:47] VITALS: BP 116/74; PULSE 76; O2SAT 96; BMI 35.0
[2025-01-03 15:58] LABS: Glucose, Whole Blood 166 mg/dL (60-115)
== END 2025-01-03 16:27 | disposition home or self-care (01) ==
LOC: HO.ENCR 15:43
PROVIDERS: PCP Internal Medicine; Visit Provider Physician Assistant Medical
DX: E11.65 Type 2 diabetes mellitus with hyperglycemia (principal); Z79.4 Long term (current) use of insulin; E11.29 Type 2 diabetes mellitus with other diabetic kidney complication; R80.9 Proteinuria, unspecified

== ENCOUNTER 2025-02-07 14:44 | Outpatient (AMB) | payer OTHER, SELFPAY ==
[2025-02-07 14:50] VITALS: BP 104/64; PULSE 88; BMI 34.0
--- NOTE | 2025-02-07 14:50 | A.OFFVIS_ITS ---
Urine Microalbumin Microalb/Creat Ratio Fib 4 value 1.25 excluding advanced cirrhosis Assessment & Plan Assessment & Plan (1) Uncontrolled type 2 diabetes mellitus with hyperglycemia, with long-term current use of insulin: Code(s): E11.65 - Type 2 diabetes mellitus with hyperglycemia; Z79.4 - detention (current) use of insulin Category: Medical (2) Microalbuminuria due to type 2 diabetes mellitus: Code(s): E11.29 - Type 2 diabetes mellitus with other diabetic kidney complication; R80.9 - Proteinuria, unspecified Category: Medical (3) Cough: Code(s): R05.9 - Cough, unspecified Category: Medical (4) Hair loss: Code(s): L65.9 - Nonscarring hair loss, unspecified Category: Medical Plan In summary this is a 64-year-old female with 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 Once she is feeling better she is going to try stopping Lantus and start Jardiance 10 mg daily given her history of nephropathy. Side effects including ANEL and genitourinary infections which can result in hospitalization reviewed with the patient. If she develops any difficulty with the medication she will stop it and call the office. She will have her creatinine checked 10 days after initiating the medication. Continue Trulicity 4.5 mg weekly. Diabetic diet reinforced. Reviewed the complications of diabetes with the patient. Reviewed treatment of hypoglycemia. She carries orange juice and glucose tablets with her. Advised not to drive if she does not have a reliable way to check blood sugar or has symptoms of low blood sugar. Check TSH regarding hair loss. Refer to Dermatology if this is within normal. Patient reported cough with fever for the past 3 days. Patient says she has been afebrile today since taking acetaminophen this morning. She reports taking a COVID test at home. Advised patient I do not have swabs to test for RSV and influenza in the office, and she is not able to get in with her primary care office today and does not wish to go to urgent care. She has asthma, but she has no wheezing on exam or tachypnea and her pulse ox is normal. Defer prednisone at this time. Recommended using albuterol every 4 hours for cough, wheezing and shortness of breath. We will treat with her with Tessalon and a Z- Tj due to report of productive cough with sputum. Side effects and administration of medications reviewed. Advised patient she needs to go to the ER if she develops high fevers, does not respond to albuterol, worsening shortness of breath or chest pain or symptoms do not begin to improve after 48 h ours with this treatment plan. She verbalizes understanding and agreed. Follow up in 6 weeks. Orders: Orders Creatinine Today E11.9 - Type 2 diabetes mellitus without complications TSH reflex Free T4 Today L65.9 - Nonscarring hair loss, unspecified AMB Glucose Monitoring Today E11.9 - Type 2 diabetes mellitus without complications Medications: New empagliflozin (Jardiance) 10 mg PO QAM 30 tabs 1RF azithromycin For 250 mg dose pack: take 500 mg today (day 1), then 250 mg for 4 days (days 2-5) PO 6 tabs 0RF benzonatate 100 mg PO BID-TID PRN 30 caps 0RF cough Patient Instructions: When you feel better, stop Lantus 6 units and start Jardiance 10 mg 1 tablet in the morning. Have lab work 10 days after starting this pill to check your kidney function. Continue Trulicity 4.5 mg weekly. Cuando se sienta mejor, suspenda las 6 unidades de Lantus y comience con Jardiance 10 mg, 1 comprimido por la ma?leonel. Realice an?lisis de laboratorio 10 d?as despu?s de comenzar a patrick esta pastilla para controlar george funci?n renal. Contin?e con Trulicity 4.5 mg semanalmente. Vital Signs 02/07/25 14:50 02/07/25 15:22 Height 5 ft 1 in Weight 180 lb 1.883 oz BMI 34.0 BP 104/64 Blood Pressure Location Lt radial Position Sitting Pulse 88 Pulse Source Pulse Oximeter Pulse Oximetry (%) 99 Intake Visit Reasons: Type II diabetes Intake Note: Patient present today to follow up on Type 2 Diabetes Mellitus. Last Diabetic Eye exam: January 2025 Last Podiatry Visit: Does not see a Shelf Stocker Random Glucose: 119 mg/dl HgA1C: 7.5% 01/03/2025 Professor Of Journalism Required: Yes Professor Of Journalism Language: [employer]: Professor Of Journalism Present Professor Of Journalism Name: Isis [id number] Information Interpreted: non-clinical & clinical Accompanied by: Self / Same As Patient Allergies oyster extract Allergy (Verified 02/07/25 14:54) Anaphylaxis HPI Comments Details: Patient is a 64-year-old female with a significant past medical history of type 2 diabetes, hyperlipidemia, GERD, anemia presenting today for diabetic management. Video site interpreter used. She is not feeling well. She endorses a productive cough for 3 days. The mucus is yellow and clear. She has had a fever up to 101 degrees. She did a test for COVID-19 at home which was negative. She has asthma. She is taking albuterol which alleviates wheezing. Denies shortness of breath. Denies chest pain, but her chest feels sore when she is coughing only. No dizziness or weakness. No nausea, vomiting, diarrhea, sore throat or ear pain. No sick contacts. Patient took acetaminophen this morning , and she has not had a fever today. Her hemoglobin A1c is 7.5% 01/03/2025. Current medication regimen: Lantus 6 units nightly, Trulicity 4.5 mg weekly. Denies side effects on medication. Past medication: Metformin discontinued in the past due to GI distress. Tradjenta - no side effects Glipizide- no side effects Compliance: None Complications: Nephropathy (CKD in microalbuminuria) Reviewed CGM data Average glucose 164 mg/dL G FL 7.2% Very high temp% High 24% Target range 66% 0% hypoglycemia She has postprandial hyperglycemia after breakfast and dinner. Patient reports only rare hypoglycemia since decreasing the dose of her insulin. This occurs overnight. When she has hypoglycemia she feels shaky and hungry. She treats with orange juice. She has a family hx of t1dm (mother, 2 sisters, and 1 grandson). Patient's LEANDRA antibodies are negative, C-peptide normal. Patient also reports hair breakage and thinning over the past 3-5 months. ROS: Constitutional: No night sweats, unexplained weight loss. Endorses fatigue and fever. Eyes: No vision changes, discharge, redness or pain ENT: Denies sore throat, ear pain, sinus pain. +sinus congestion. Respiratory: No hemoptysis, shortness of breath, see HPI Cardiovascular: No chest pain, palpitations or pedal edema. Gastrointestinal: No anorexia, nausea, vomiting or diarrhea. No abdominal pain Neurologic: No headache, dizziness, syncope Endocrine: No cold or heat intolerance. No polyuria or polydipsia. Physical exam: Constitutional: Alert, in no distress. Head: Normocephalic. Ear, Nose and Throat: Canals clear. TMs normal. Normal nasal mucosa. No nasal discharge. No oral lesions. Neck: Supple, Full range of motion. No lymphadenopathy. Respiratory: Clear to auscultation. Patient coughing during examination. No tachypnea. Cardiovascular: S1 S2 regular. No murmurs. Neurologic: No focal neurological deficits. Extremities: Warm and well perfused. No clubbing, cyanosis or edema. 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 Upper airway resistance syndrome Uterine fibroid Abnormal cervical cytology Abnormal Pap smear of cervix History of COVID-19 Lumbar degenerative disc disease Allergic rhinitis Constipation Calcification of left breast Malignant neoplasm of breast Obesity (BMI 30-39.9) Diabetes mellitus with hyperglycemia Cancer of right breast COVID-19 Surgical History Hx of cholecystectomy History of bilateral tubal ligation History of bronchoscopy History of cataract surgery History of mastectomy Family History Sister Breast cancer Father HTN (hypertension) Heart attack Mother Diabetes HTN (hypertension) Social History Household Members: None Housing: Apartment Alcohol intake: never Patient Tobacco Use Status: Never used Tobacco e-Cigarette/Vaping Use: Never Used Second Hand Smoke Exposure: No service: No Current occupational status: employed 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 Sexual orientation: Straight/Heterosexual Gender identity: Female Cognitive needs: No Hearing needs: No Vision needs: Yes Female Reproductive History Menstrual Age of Menarche: 11 Physical Exam Vital Signs: Last Vital Signs Pulse 88 02/07/25 14:50 BP 104/64 02/07/25 14:50 BMI result Body Mass Index 34.0 Office Procedures Glucose Monitoring Details Details: See [facility] [address] - Glucose monitoring, continuous-physician I&R Procedure code (CPT) selection complete Results Reviewed Results Reviewed: Laboratory Last Values Glucose (Clinic) 119 mg/dL (60-115) H 02/07/25 14:59 Laboratory Tests 07/01/24 08/05/24 09/20/24 11:07 10:27 10:31 Plt Count Creatinine 1.08 Estimated GFR 51 Hemoglobin A1c % C-Peptide 1.00 AST ALT B-Natriuretic Peptide Vitamin B12 Urine Creatinine 52.81 Urine Microalbumin 23.0 Microalb/Creat Ratio 43.5 H 01/03/25 10:23 Plt Count 227 Creatinine 1.06 Estimated GFR 52 Hemoglobin A1c % 7.5 H C-Peptide AST 18 ALT 16 B-Natriuretic Peptide 56 Vitamin B12 287 Urine Creatinine Coding Level of Care Code Est Pt Level 4 (43625) Diagnoses Uncontrolled type 2 diabetes mellitus with hyperglycemia, with long-term current use of insulin E11.65; Z79.4 Microalbuminuria due to type 2 diabetes mellitus E11.29; R80.9 Cough R05.9 Hair loss L65.9 CPT Codes Details - CPT: 21753 - Glucose monitoring, continuous-physician I&R ([id number])
[2025-02-07 15:05] LABS: Glucose, Whole Blood 119 mg/dL (60-115)
[2025-02-07 15:22] VITALS: O2SAT 99
--- OUTSIDE RECORDS SUMMARY | 2025-02-07 15:28 | XMS_ITS | Clinical Summary ---
Author Organization [email or web address] Address [address] [place] [address] Care Team Providers Care Nail Mill Worker Name Role Phone Unavailable Primary Care Provider [...] patient's age to complete this topic Insurance [facility]
== END 2025-02-07 15:43 | disposition home or self-care (01) ==
LOC: HO.ENCR 14:45
PROVIDERS: PCP Internal Medicine; Visit Provider Physician Assistant Medical
DX: E11.65 Type 2 diabetes mellitus with hyperglycemia (principal); Z79.4 Long term (current) use of insulin; E11.29 Type 2 diabetes mellitus with other diabetic kidney complication; R80.9 Proteinuria, unspecified; R05.9 Cough, unspecified; L65.9 Nonscarring hair loss, unspecified

== ENCOUNTER → 2025-02-07 14:44 | Outpatient (BNVA) | payer OTHER, SELFPAY | PROVIDERS: PCP Internal Medicine; Visit Provider Physician Assistant Medical | DX: E11.65 Type 2 diabetes mellitus with hyperglycemia (principal); E11.29 Type 2 diabetes mellitus with other diabetic kidney complication; L65.9 Nonscarring hair loss, unspecified; R80.9 Proteinuria, unspecified; R05.9 Cough, unspecified; Z79.4 Long term (current) use of insulin | CPT/HCPCS: 82947; 99212 ==

== ENCOUNTER 2025-02-11 11:51 | Outpatient (REF) | payer OTHER, SELFPAY ==
[2025-02-11 12:17] LABS: MANUAL DIFF FLAG NO
[2025-02-11 12:35] LABS: Basophils Percent Auto 0.3 % (0-2); Eosinophils Absolute Auto 0.2 X10*3/uL (0.0-0.4); Eosinophils Percent Auto 3.3 % (0-4); Hemoglobin 11.1 g/dl (12.0-16.0); Imm Gran Abs Auto 0.01 X10*3/uL (0.00-0.03); Imm Gran Pct Auto 0.1 % (0.0-0.4); Lymphocytes Absolute Auto 2.7 X10*3/uL (1.2-4.9); Lymphocytes Percent Auto 37.2 % (20-40); Mean Corpuscular HGB Conc 33.6 g/dl (31.0-35.0); Mean Corpuscular Hemoglobin 26.4 pg (27.0-33.0); Mean Corpuscular Volume 78.4 fL (80.0-98.0); Mean Platelet Volume 10.2 fL (9.4-12.3); Monocytes Absolute Auto 0.5 X10*3/uL (0.1-1.2); Monocytes Percent Auto 6.8 % (2-11); Neutrophils Absolute Auto 3.8 x10*3/uL (2.0-8.3); Neutrophils Percent Auto 52.3 % (45-73); Platelet Count 216 X10*3/uL (160-400); Red Blood Count 4.21 X10*6/uL (4.20-5.50); Red Cell Distribution Width 13.5 % (11.0-16.0); White Blood Count 7.2 X10*3/uL (4.8-10.8)
[2025-02-11 12:39] LABS: Appearance Urine Clear; Color Urine Yellow; Glucose Urine UA 100 mg/dL (Negative); Leukocyte Esterase Urine Moderate (2+) (Negative); Nitrite Urine Negative (Negative); PH 5.5 (5.0-9.0); UMIC TRIGGER UACC YES; Urine Blood Small (1+) (Negative); Urine Ketones Trace mg/dL (Negative); Urine Protein 30 (1+) mg/dL (Neg-Trace)
[2025-02-11 12:44] LABS: Estimated Average Glucose 169 mg/dL; Hemoglobin A1C 169.1761 umol/L; Hemoglobin A1c % 7.5 % (<6.0); Total Hemoglobin (HGBA1C) 2884.9782 umol/L
[2025-02-11 13:05] LABS: Microalbum/Creatinine Ratio Ur 83.6 ug/mg cr (<30); Total Protein Urine Random 32 mg/dL (<12)
[2025-02-11 13:12] LABS: Anion Gap 11 (12-20); Blood Urea Nitrogen 17 mg/dL (9-16); Calcium 8.9 mg/dL (8.4-10.2); Carbon Dioxide 25 mmol/L (22-29); Chloride 110 mmol/L (96-108); Cholesterol 128 mg/dL (<200); Estimated Glomerular Filt Rate 49; Glucose Random 225 mg/dL (60-115); HDL Cholesterol 33 mg/dL (>40); LDL Cholesterol Calculated 47 mg/dL (<100); Potassium 4.5 mmol/L (3.3-5.1); Sodium 141 mmol/L (135-145); Triglycerides 241 mg/dL (<150)
[2025-02-11 13:13] LABS: Alanine Aminotransferase 21 U/L (0-31); Albumin Level 3.7 g/dL (3.5-5.0); Alkaline Phosphatase 118 U/L (39-117); Anion Gap 10 (12-20); Aspartate Amino Transferase 18 U/L (5-31); Bilirubin Total 0.3 mg/dL (0.0-1.0); Blood Urea Nitrogen 17 mg/dL (9-16); Calcium 8.8 mg/dL (8.4-10.2); Carbon Dioxide 25 mmol/L (22-29); Chloride 110 mmol/L (96-108); Cholesterol 127 mg/dL (<200); Estimated Glomerular Filt Rate 52; Glucose Fasting 223 mg/dL (60-99); Glucose Random 221 mg/dL (60-115); HDL Cholesterol 33 mg/dL (>40); LDL Cholesterol Calculated 47 mg/dL (<100); Potassium 4.6 mmol/L (3.3-5.1); Sodium 140 mmol/L (135-145); Total Protein 6.9 g/dL (6.5-8.0); Triglycerides 237 mg/dL (<150)
[2025-02-11 13:18] LABS: Bacteria Urine 4+ (None Seen); Hyaline Casts Urine 0-2 /LPF (0-2); Squamous Epithelial Cell Urine 0-2 /HPF (0-2); UACC Culture Trigger YES; WBC Urine >50 /HPF (0-5)
[2025-02-11 13:27] LABS: TSH reflex Free T4 0.85 uIU/mL (0.32-4.0)
[2025-02-11 13:31] LABS: TSH reflex Free T4 0.83 uIU/mL (0.32-4.0)
[2025-02-11 13:38] LABS: Folate 13.3 ng/mL (> or = 4.0); Vitamin B12 327 pg/mL (200-900)
== END 2025-02-11 11:52 | disposition home or self-care (01) ==
LOC: HO.LAB 11:51
PROVIDERS: Physician Assistant Medical; PCP Internal Medicine; Visit Provider Internal Medicine Hypertension Specialist
DX: E55.9 Vitamin D deficiency, unspecified (principal); E78.00 Pure hypercholesterolemia, unspecified; E53.8 Deficiency of other specified B group vitamins; D64.9 Anemia, unspecified; E11.29 Type 2 diabetes mellitus with other diabetic kidney complication; R80.9 Proteinuria, unspecified; E78.5 Hyperlipidemia, unspecified; E11.65 Type 2 diabetes mellitus with hyperglycemia; Z79.4 Long term (current) use of insulin; L65.9 Nonscarring hair loss, unspecified
CPT/HCPCS: 36415; 80048; 80053; 80061; 81001; 82043; 82306; 82570; 82607; 82746; 83036; 84156; 84443; 85025; 87086; 87088; 87186

== ENCOUNTER 2025-02-13 10:32 | Outpatient (AMB) | payer OTHER, SELFPAY ==
--- NOTE | 2025-02-13 10:36 | HO.NEPHOV ---
Vital Signs 02/13/25 10:37 Height 5 ft 1 in Weight 177 lb BMI 33.4 BP 126/70 Blood Pressure Location Rt brachial Position Sitting Intake Visit Reasons: Proteinuria/ Conf Intake Note: Patient presents for follow up Allergies oyster extract Allergy (Verified 02/13/25 10:39) Anaphylaxis Medication List - Last Reconciled 02/13/25 by Jonathon Chandler MD acetaminophen 500 mg PO Q8H PRN albuterol sulfate 90 mcg/actuation (Ventolin HFA) 1 puff PO QID PRN atorvastatin 10 mg PO BEDTIME azithromycin For 250 mg dose pack: take 500 mg today (day 1), then 250 mg for 4 days (days 2-5) PO benzonatate 100 mg PO BID-TID PRN bisacodyl (Dulcolax (bisacodyl)) 20 mg (4 x 5 mg) PO ONCE 1 day blood sugar diagnostic (FreeStyle Lite Strips) As directed to check blood glucose 5 times daily blood-glucose meter (Blood Glucose Monitoring kit) As directed blood-glucose meter (FreeStyle Lite Meter kit) Use to monitor blood glucose five times daily blood-glucose sensor (FreeStyle Maricel 3 Plus Sensor device) Use daily As directed to monitor glucose blood-glucose,beam builder,cont (FreeStyle Maricel 3 [place]) Use daily As directed to monitor blood glucose cetirizine 10 mg PO DAILY PRN 90 days cholecalciferol (vitamin D3) 50 mcg PO DAILY 90 days cyclobenzaprine 10 mg PO TID PRN dulaglutide (Trulicity) 4.5 mg (0.5 mL) subcut QWEEK empagliflozin (Jardiance) 10 mg PO QAM fluticasone propionate 50 mcg/actuation (Flonase Allergy Relief) 2 sprays intranasal DAILY exwjtfeoryu-dppegtygl-skoofywo 200-62.5-25 mcg (Trelegy Ellipta) 1 inh inhalation DAILY 30 days gabapentin 600 mg (2 x 300 mg) PO BEDTIME 30 days glucose (Dex4 Glucose) 16 grams (4 x 4 gram) PO Q15M PRN lancets As directed lancets (FreeStyle Lancets) Use to monitor blood glucose 5 times daily. lisinopril 10 mg PO DAILY omeprazole 40 mg PO DAILY 90 days pen needle, diabetic (BD Ultra-Fine Beatriz Pen Needle) As directed once a day polyethylene glycol 3350 (Miralax) 17 grams PO DAILY 1 day sucralfate (Carafate) 10 mL PO BID 90 days HPI Comments Details: Pleasant 64-year-old man with a history of right renal stone has been referred for renal evaluation. Recently she has been having lower back pain. She has a positive for UTI. Currently on antibiotics and pain has improved. 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 Upper airway resistance syndrome Uterine fibroid Abnormal cervical cytology Abnormal Pap smear of cervix History of COVID-19 Lumbar degenerative disc disease Allergic rhinitis Constipation Calcification of left breast Malignant neoplasm of breast Obesity (BMI 30-39.9) Diabetes mellitus with hyperglycemia Cancer of right breast COVID-19 Surgical History Hx of cholecystectomy History of bilateral tubal ligation History of bronchoscopy History of cataract surgery History of mastectomy Family History Sister Breast cancer Father HTN (hypertension) Heart attack Mother Diabetes HTN (hypertension) Social History Household Members: None Housing: Apartment Alcohol intake: never Patient Tobacco Use Status: Never used Tobacco e-Cigarette/Vaping Use: Never Used Second Hand Smoke Exposure: No service: No Current occupational status: employed 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 Sexual orientation: Straight/Heterosexual Gender identity: Female Cognitive needs: No Hearing needs: No Vision needs: Yes Female Reproductive History Menstrual Age of Menarche: 11 Physical Exam Vital Signs: Last Vital Signs BP 126/70 02/13/25 10:37 BMI result Body Mass Index 33.4 Const General: comfortable; No acute distress Orientation/consciousness: patient oriented x3 Eyes General: appearance normal, both eyes and all related structures Visual Szymanski: normal visual szymanski by confrontation Neck Neck: Yes supple and Yes no JVD Resp Effort & Inspection: normal respiratory effort and respiratory effort not decreased Cardio Palpation: no palpable S3 and no palpable S4 Heart sounds: no rubs GI Inspection: Yes normal to inspection Palpation (GI): Soft to palpation Percussion: Yes normal to percussion Auscultation: normal bowel sounds General: Yes no CVA tenderness Back/Spine/Pelvis Back: no CVA tenderness Skin General skin exam: no petechiae and no purpura Neuro General: patient oriented x3 and no focal motor deficits Extrem General: No clubbing and No edema Results Reviewed Nephrology Results: Hgb 11.1 g/dl (12.0-16.0) L 02/11/25 WBC 7.2 X10*3/uL (4.8-10.8) 02/11/25 Plt Count 216 X10*3/uL (160-400) 02/11/25 Sodium 140 mmol/L (135-145) 02/11/25 Potassium 4.6 mmol/L (3.3-5.1) 02/11/25 Chloride 110 mmol/L (96-108) H 02/11/25 Carbon Dioxide 25 mmol/L (22-29) 02/11/25 BUN 17 mg/dL (9-16) H 02/11/25 Creatinine 1.06 mg/dL (0.5-1.4) 02/11/25 Calcium 8.8 mg/dL (8.4-10.2) 02/11/25 Urine Protein 30 (1+) mg/dL (Neg-Trace) H 02/11/25 Urine Creatinine 135.10 mg/dL 02/11/25 Assessment & Plan Assessment & Plan (1) ANEL (acute kidney injury): Code(s): N17.9 - Acute kidney failure, unspecified Category: Medical (2) Microalbuminuria due to type 2 diabetes mellitus: Code(s): E11.29 - Type 2 diabetes mellitus with other diabetic kidney complication; R80.9 - Proteinuria, unspecified Category: Medical Plan Middle-aged woman with diabetes mellitus and mild CKD. She had an episode of acute kidney injury due to hypoperfusion with a creatinine peaking at 1.6. Creatinine is improved and acute kidney injury is resolved. REcent creatinine : 1.12 mg/dL Recent CT scan did not reveal any obstruction. She she had punctate calcification in the right kidney. Microalbuminuria in a setting of diabetes mellitus Agree with AB inhibitors. Maintain BP < 130/80 and A1C < 7% Overall blood pressure is well control encouraged her to stay on low-sodium diet Increase p.o. fluid intake. UTI: Cipro x 1 week ordered Medications: New ciprofloxacin HCl 500 mg PO BID 14 tabs 0RF Discontinued azithromycin Discontinued Reason: Duplicate For 250 mg dose pack: take 500 mg today (day 1), then 250 mg for 4 days (days 2-5) PO 6 tabs 0RF Coding Level of Care Code Est Pt Level 4 (60434) Diagnoses ANEL (acute kidney injury) N17.9 Microalbuminuria due to type 2 diabetes mellitus E11.29; R80.9
[2025-02-13 10:37] VITALS: BP 126/70; BMI 33.4
--- OUTSIDE RECORDS SUMMARY | 2025-02-13 12:08 | XMS_ITS | Clinical Summary ---
Author Organization [employer] Address [address] [place] [address] Care Team Providers Care Elevator Conductor Name Role Phone Unavailable Primary Care Provider [...] patient's age to complete this topic Insurance [facility]
== END 2025-02-13 10:53 | disposition home or self-care (01) ==
LOC: HO.HKA 10:33
PROVIDERS: PCP Internal Medicine; Visit Provider Internal Medicine Hypertension Specialist
DX: N17.9 Acute kidney failure, unspecified (principal); E11.29 Type 2 diabetes mellitus with other diabetic kidney complication; R80.9 Proteinuria, unspecified
CPT/HCPCS: 99214

== ENCOUNTER → 2025-02-13 10:32 | Outpatient (BNVA) | payer OTHER, SELFPAY | PROVIDERS: PCP Internal Medicine; Visit Provider Internal Medicine Hypertension Specialist | DX: E11.29 Type 2 diabetes mellitus with other diabetic kidney complication (principal); N17.9 Acute kidney failure, unspecified; R80.9 Proteinuria, unspecified | CPT/HCPCS: 99212 ==

== ENCOUNTER 2025-02-14 15:32 | Outpatient (AMB) | payer OTHER, SELFPAY ==
--- OUTSIDE RECORDS SUMMARY | 2025-02-14 15:36 | XMS_ITS | Clinical Summary ---
Author Organization [employer] Address [address] [place] [address] Care Team Providers Care Senior Engineering Specialist Name Role Phone Unavailable Primary Care Provider [...] patient's age to complete this topic Insurance [facility]
--- NOTE | 2025-02-14 15:46 | A.OFFPC_ITS ---
Vital Signs 02/14/25 15:47 Height 5 ft 1 in Weight 177 lb 4 oz BMI 33.5 BP 110/78 Blood Pressure Location Lt brachial Position Sitting Pulse 93 Pulse Source Pulse Oximeter Pulse Oximetry (%) 97 Oxygen Delivery Method Room Air Intake Visit Reasons: 3 Months f/u Allergies oyster extract Allergy (Verified 02/14/25 16:04) Anaphylaxis Medication List - Last Reconciled 02/14/25 by Mehrdad Chavez MD acetaminophen 500 mg PO Q8H PRN albuterol sulfate 90 mcg/actuation (Ventolin HFA) 1 puff PO QID PRN atorvastatin 10 mg PO BEDTIME benzonatate 100 mg PO BID-TID PRN bisacodyl (Dulcolax (bisacodyl)) 20 mg (4 x 5 mg) PO ONCE 1 day blood sugar diagnostic (FreeStyle Lite Strips) As directed to check blood glucose 5 times daily blood-glucose meter (Blood Glucose Monitoring kit) As directed blood-glucose meter (FreeStyle Lite Meter kit) Use to monitor blood glucose five times daily blood-glucose sensor (FreeStyle Maricel 3 Plus Sensor device) Use daily As directed to monitor glucose blood-glucose,qualitative executive researcher,cont (FreeStyle Maricel 3 Roselle) Use daily As directed to monitor blood glucose cetirizine 10 mg PO DAILY PRN 90 days cholecalciferol (vitamin D3) 50 mcg PO DAILY 90 days ciprofloxacin HCl 500 mg PO BID cyclobenzaprine 10 mg PO TID PRN dulaglutide (Trulicity) 4.5 mg (0.5 mL) subcut QWEEK empagliflozin (Jardiance) 10 mg PO QAM fluticasone propionate 50 mcg/actuation (Flonase Allergy Relief) 2 sprays intranasal DAILY sthckdlvpgb-suzudkhtw-nrzzcrju 200-62.5-25 mcg (Trelegy Ellipta) 1 inh inhalation DAILY 30 days gabapentin 600 mg (2 x 300 mg) PO BEDTIME 30 days glucose (Dex4 Glucose) 16 grams (4 x 4 gram) PO Q15M PRN lancets As directed lancets (FreeStyle Lancets) Use to monitor blood glucose 5 times daily. lisinopril 10 mg PO DAILY omeprazole 40 mg PO DAILY 90 days pen needle, diabetic (BD Ultra-Fine Beatriz Pen Needle) As directed once a day polyethylene glycol 3350 (Miralax) 17 grams PO DAILY 1 day sucralfate (Carafate) 10 mL PO BID 90 days Tobacco use date assessed: 11/15/24 Dental Screening Dental Screen Date: 11/15/24 Did you have a dental visit in the last 12 months?: Yes Did you have a dental problem in the last 6 months where you did not have access to dental care?: No Was dental information given to patient?: Patient has dentist HPI 3 Months f/u HPI Details Patient comes in today for her follow-up visit States that she feels okay She was seen by nephrology for follow up yesterday and was started on Cipro x 7 days for UTI - her urine culture grew (+) E. 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 Upper airway resistance syndrome Uterine fibroid Abnormal cervical cytology Abnormal Pap smear of cervix History of COVID-19 Lumbar degenerative disc disease Allergic rhinitis Constipation Calcification of left breast Malignant neoplasm of breast Obesity (BMI 30-39.9) Diabetes mellitus with hyperglycemia Cancer of right breast COVID-19 Surgical History Hx of cholecystectomy History of bilateral tubal ligation History of bronchoscopy History of cataract surgery History of mastectomy Family History Sister Breast cancer Father HTN (hypertension) Heart attack Mother Diabetes HTN (hypertension) Social History Household Members: None Housing: Apartment Alcohol intake: never Patient Tobacco Use Status: Never used Tobacco e-Cigarette/Vaping Use: Never Used Second Hand Smoke Exposure: No service: No Current occupational status: employed 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 Sexual orientation: Straight/Heterosexual Gender identity: Female Cognitive needs: No Hearing needs: No Vision needs: Yes Female Reproductive History Menstrual Age of Menarche: 11 Questionnaire PHQ-9 Over the last 2 weeks, how often have you been bothered by any of the following problems? 1. Little interest or pleasure in doing things: several days 2. Feeling down, depressed, or hopeless: not at all 3. Trouble falling or staying asleep, or sleeping too much: not at all 4. Feeling tired or having little energy: several days 5. Poor appetite or overeating: several days 6. Feeling bad about yourself - or that you are a failure or have let yourself or your family down: not at all 7. Trouble concentrating on things, such as reading the newspaper or watching television: not at all 8. Moving or speaking so slowly that other people could have noticed. Or the opposite - being so fidgety or restless that you have been moving around a lot more than usual: not at all 9. Thoughts that you would be better off or of hurting yourself in some way: not at all Total score: 3 Depression Screening Interpretation: Negative Depression Screening Done: Yes 31857 - PHQ-9 Billing: Yes Source: Developed by Drs. Errol Sheikh, Jimena Fraser, Jeffery Collins and colleagues, with an educational noni from [employer]. Thrive Questionnaire Date Thrive assessed: 02/14/25 I am a: Patient What is your living situation today?: I have a steady place to live Within the past 12 months, did the food you bought not last and you didn't have the money to get more?: Sometimes True Within the past 12 months, did you worry whether your food would run out before you got money to buy more?: Sometimes True Do you have trouble paying for medicines?: No Do you have trouble getting transportation to medical appointments?: No Do you have trouble paying your heating and electricity bill?: No Do you have trouble taking care of your child, family member or friend?: No Do you have trouble with day-to-day activities such as bathing, preparing meals, shopping, managing finances, etc.?: No Are you currently unemployed and looking for a job?: No Are you interested in more education?: No Please select the resources that you would like help with: None Currently or been in a relationship where the following occur: I choose not to answer THRIVE Score: 2 AUDIT C Alcohol Use Questionnaire (AUDIT-C) 1. How often do you have a drink containing alcohol?: Never 3. How often do you have six or more drinks on one occasion?: Never Total Score: 0 Score Reviewed/Action Taken: Yes LEANDRA-7 AMB Questionnaire LEANDRA-7 Date LEANDRA - 7 assessed: 02/14/25 Feeling nervous, anxious, or on edge: 0 = Not at all Not being able to stop or control worryin = Not at all Worrying too much about different things: 0 = Not at all Trouble relaxin = Not at all Being so restless that it is hard to sit still: 0 = Not at all Becoming easily annoyed or irritable: 0 = Not at all Feeling afraid as if something awful might happen: 0 = Not at all Total LEANDRA-7 score (0-4 normal; 5-9 mild; 10-14 moderate; 15-21 severe): 0 Source: Developed by Drs. Errol Sheikh, Jimena Fraser, Jeffery Collins and colleagues, with an educational noni from [employer]. Review of Systems Const Denies chills, Denies fatigue, Denies fever(s) and Denies headache(s) ENT Denies dysphagia, Denies dizziness, Denies otalgia, Denies headache(s), Denies neck pain, Denies odynophagia and Denies sore throat Card Denies chest pain, Denies irregular heart rhythm, Denies palpitations and Denies dyspnea Resp Denies chest congestion, Denies cough and Denies dyspnea GI Denies abdominal pain, Denies constipation, Denies dysphagia, Denies heartburn, Denies diarrhea, Denies nausea, Denies odynophagia and Denies vomiting Denies urinary frequency, Denies dysuria and Denies urinary urgency Musc Reports back pain (over the lower back, on and off), Reports arthralgias (over the right wrist) and Denies neck pain Skin/Breast Denies rash Neuro Denies dizziness, Denies headache(s) and Denies paresthesias Psych Denies anxiety and Denies depression Endo Denies fatigue and Denies palpitations Roc/Lymph Denies easy bruising Physical exam (Primary Care) Vital Signs: Last Vital Signs Pulse 93 05/02/25 15:47 BP 110/78 02/14/25 15:47 Pulse Ox 97 02/14/25 15:47 Oxygen Delivery Method Room Air 02/14/25 15:47 BMI result Body Mass Index 33.5 Tobacco/Smoking Status: Tobacco use Status Tobacco use date assessed 11/15/24 02/14/25 15:50 Patient Tobacco Use Status Never used Tobacco 02/14/25 15:50 Tobacco use type 11/18/24 10:31 e-Cigarette/Vaping Use Never Used 02/14/25 15:50 PHQ-9: PHQ-9 Score PHQ-9: Total score 3 02/14/25 16:14 Depression Screening Interpretation: Negative Thrive Assessment: Date of Thrive Assessment Date Thrive assessed 02/14/25 02/14/25 15:50 Currently or been in a relationship where the following occur: I choose not to answer Const General: no acute distress and alert HENMT Ears: TM's normal bilaterally and EAC's normal Throat: Yes posterior oropharynx normal and Yes tonsils normal (no TP congestion) Neck Neck: Yes supple and No lymphadenopathy Thyroid: Thyroid normal Resp Auscultation: clear to auscultation bilaterally, no rales and no wheezes Cardio Rate: regular rate Rhythm: regular rhythm Heart sounds: no murmurs GI Palpation (GI): Soft to palpation and nontender Auscultation: normal bowel sounds General: Yes no CVA tenderness Back/Spine/Pelvis Back: no CVA tenderness Thoracic/Lumbar Spine: lumbar spinal tenderness Skin Rashes: no rashes Extrem General: Yes no clubbing, cyanosis or edema Right upper extremity: wrist Details: tenderness; no swelling Results Reviewed Results Reviewed: Laboratory Tests 02/11/25 02/11/25 12:12 12:16 WBC 7.2 Hgb 11.1 L Hct 33.0 L Plt Count 216 Sodium 140 Potassium 4.6 Creatinine 1.06 Estimated GFR 52 Fasting Glucose 223 H Hemoglobin A1c % 7.5 H Calcium 8.8 AST 18 ALT 21 Triglycerides 237 H Cholesterol 127 LDL Cholesterol, Calc 47 HDL Cholesterol 33 L Vitamin B12 327 25-OH Vitamin D Total 13.0 L TSH 0.83 Ur Specific [place] 1.020 Urine Protein 30 (1+) H Urine Glucose (UA) 100 H Urine Blood Small (1+) H Urine Nitrite Negative Ur Leukocyte Esterase Moderate (2+) H Microalb/Creat Ratio 83.6 H Coding Level of Care Code Est Pt Level 4 (63074) Complex EM visit Add On G2211 Diagnoses Epigastric pain R10.13 Primary osteoarthritis, right wrist M19.031 Type 2 diabetes mellitus with hyperglycemia, with long-term current use of insulin E11.65; Z79.4 Diabetes mellitus type: type 2 Diabetes mellitus continuous churn buttermaker insulin use: with continuous churn buttermaker use Diabetes mellitus complication status: with hyperglycemia Stage 3a chronic kidney disease N18.31 Chronic kidney disease stage 3 subtype: stage 3a (GFR 45-59) Mixed hyperlipidemia E78.2 Moderate persistent asthma without complication J45.40 Asthma severity: moderate Asthma persistence: persistent Asthma complication type: uncomplicated Constipation, unspecified constipation type K59.00 Constipation type: unspecified constipation type Seasonal allergic rhinitis due to pollen J30.1 Allergic rhinitis trigger: pollen Allergic rhinitis seasonality: seasonal Degeneration of intervertebral disc of lumbar region with discogenic back pain and lower extremity pain M51.362 Disc-related pain type: discogenic back pain and lower extremity pain Vitamin D deficiency E55.9 Malignant neoplasm of lower-inner quadrant of right female breast, unspecified estrogen receptor status C50.311 Breast location: lower inner quadrant of breast Estrogen receptor status: unspecified Patient sex: female Laterality: right Obesity (BMI 30-39.9) E66.9 Additional Codes PHQ-9 - 30624 - PHQ-9 Billing: Yes ([id number]) Assessment & Plan Assessment & Plan (1) Epigastric pain: Code(s): R10.13 - Epigastric pain Category: Medical Plan: Upper GI series done back on 10/21/2024 revealed (+) moderate esophageal dysmotility, with a small type I hiatal hernia with severe gastroesophageal reflux. There is a thickened/prominent appearance of the areae gastricae. In addition, there are multiple focal areas of contrast pooling in the fundus of the stomach. These findings are suggestive of erosive gastritis and recommend correlation with EGD Reinforced dietary restrictions in GERD Continue Omeprazole to 40 mg QD She was referred to GI for further management and consideration for EGD She was seen by Dr. Reagan a couple of months ago and was sent for abdominal CT for further evaluation - CT is scheduled for this month on 03/07/25, after which she will then likely be scheduled for EGD (2) Primary osteoarthritis, right wrist: Code(s): M19.031 - Primary osteoarthritis, right wrist Category: Medical Plan: X-rays of the right wrist done a few months ago revealed (+) moderate degenerative changes and (+) areas of cystic lucency/focal demineralization in the carpal bones, particularly prominent in the body of the scaphoid Continue Acetaminophen 500 mg Q 8 hours PRN for pain Follow up with orthopedics as scheduled (3) Diabetes mellitus: Code(s): E11.9 - Type 2 diabetes mellitus without complications Category: Medical Qualifiers: Diabetes mellitus type: type 2 Diabetes mellitus nursing home insulin use: with nursing home use Diabetes mellitus complication status: with hyperglycemia Qualified Code(s): E11.65 - Type 2 diabetes mellitus with hyperglycemia; Z79.4 - shelter (current) use of insulin Plan: Her HgbA1c was at 7.5% on her labs done a few days ago (in-office HgbA1c was at 8.1% back on 09/20/2024 at the endocrinology office) - goal is at least <7.0% Reinforced diabetic diet Continue Lantus 14 u Q HS, reduce to 12 units Q HS if she is not going to eat her bedtime snack, and Trulicity 3 mg SQ once a week Continue Lisinopril 10 mg QD for renoprotection Follow up with endocrinology as scheduled (4) Chronic kidney disease, stage III (moderate): Code(s): N18.30 - Chronic kidney disease, stage 3 unspecified Category: Medical Qualifiers: Chronic kidney disease stage 3 subtype: stage 3a (GFR 45-59) Qualified Code(s): N18.31 - Chronic kidney disease, stage 3a Plan: Her renal function currently appears stable She developed ANEL, likely due to hypoperfusion, last summer (05/2024) but her renal function appears to have improved since Continue Lisinopril 10 mg QD for renoprotection Follow up with nephrology as scheduled (5) Mixed hyperlipidemia: Code(s): E78.2 - Mixed hyperlipidemia Category: Medical Plan: Results of her labs done a few days ago reviewed and discussed with patient - her cholesterol levels have improved significantly from previous, with her LDL cholesterol dropping from 117 mg/dl back in June 2024 to now at 47 mg/dL Reinforced low cholesterol diet Continue Atorvastatin 10 mg QD Will have patient recheck her labs and fasting lipids in 4 months for follow up (6) Asthma: Code(s): J45.909 - Unspecified asthma, uncomplicated Category: Medical Qualifiers: Asthma severity: moderate Asthma persistence: persistent Asthma complication type: uncomplicated Qualified Code(s): J45.40 - Moderate persistent asthma, uncomplicated Plan: Controlled lately Continue Trelegy 200-62.5-25 mcg 1 inhalation QD and Albuterol HFA 1 to 2 inhalations Q 6 hours PRN [place] [facility] [place] (7) Constipation: Code(s): K59.00 - Constipation, unspecified Category: Medical Qualifiers: Constipation type: unspecified constipation type Qualified Code(s): K59.00 - Constipation, unspecified Plan: Patient is encouraged again on increased oral fluids and dietary fiber Continue Miralax 17 gm QD (8) Allergic rhinitis: Code(s): J30.9 - Allergic rhinitis, unspecified Category: Medical Qualifiers: Allergic rhinitis trigger: pollen Allergic rhinitis seasonality: seasonal Qualified Code(s): J30.1 - Allergic rhinitis due to pollen Plan: Continue Cetirizine 10 mg QD PRN and Fluticasone 50 mcg nasal spray QD PRN (9) Lumbar degenerative disc disease: Comment: (+) left-sided sciatica at times Code(s): M51.36 - Other intervertebral disc degeneration, lumbar region Category: Medical Qualifiers: Disc-related pain type: discogenic back pain and lower extremity pain Qualified Code(s): M51.362 - Other intervertebral disc degeneration, lumbar region with discogenic back pain and lower extremity pain Plan: Patient has chronic low back pain, with (+) left-sided sciatica at times Lumbar spine x-rays done on 05/17/2022 revealed (+) mild degenerative disc disease L4-L5, with (+) multi-level thoracolumbar spondylosis, most pronounced at L1-L2, where it is severe. There is also (+) minimal lumbar levoscoliosis, with rotatory component seen Reinforced activity and weight-lifting restrictions Continue Cyclobenzaprine 10 mg TID PRN and Gabapentin 600 mg Q HS Can consider referring patient to pain management for further recommendations if her low back pain progresses (10) Vitamin D deficiency: Code(s): E55.9 - Vitamin D deficiency, unspecified Category: Medical Plan: Continue Vitamin D3 2000 units QD (11) Malignant neoplasm of breast: Code(s): C50.919 - Malignant neoplasm of unspecified site of unspecified female breast Category: Medical Qualifiers: Breast location: lower inner quadrant of breast Estrogen receptor status: unspecified Patient sex: female Laterality: right Qualified Code(s): C50.311 - Malignant neoplasm of lower-inner quadrant of right female breast Plan: (+) Hx of right breast cancer (diagnosed in 2008), s/p lumpectomy with axillary node biopsy, followed by radiation therapy and (?) chemotherapy - treatments were all done reportedly in [place] She subsequently underwent bilateral breast augmentation with implants Her most recent mammogram in April 2024 came out negative Follow up with breast surgery/oncology for continuing surveillance (12) Obesity (BMI 30-39.9): Code(s): E66.9 - Obesity, unspecified Category: Medical Plan: Reinforced diet; weight loss and exercise are not realistic given patient's chronic low back pain but she is still advised to try to stay as active as she can Plan Follow up in 4 months Orders: Orders Complete Blood Count Auto Diff 4 Months D64.9 - Anemia, unspecified TSH reflex Free T4 4 Months E78.00 - Pure hypercholesterolemia, unspecified Comprehensive [place]. Panel Fast 4 Months E78.00 - Pure hypercholesterolemia, unspecified Lipid Panel 4 Months E78.00 - Pure hypercholesterolemia, unspecified UA CC w/rflx Micro + Cult 4 Months R30.0 - Dysuria Vitamin D 25-OH Total 4 Months E55.9 - Vitamin D deficiency, unspecified
[2025-02-14 15:47] VITALS: BP 110/78; PULSE 93; O2SAT 97; BMI 33.5
== END 2025-02-14 16:09 | disposition home or self-care (01) ==
LOC: HO.HMCH 15:33
PROVIDERS: PCP Internal Medicine; Visit Provider Internal Medicine
DX: E11.65 Type 2 diabetes mellitus with hyperglycemia (principal); Z79.4 Long term (current) use of insulin; N18.31 Chronic kidney disease, stage 3a; C50.311 Malignant neoplasm of lower-inner quadrant of right female breast; R10.13 Epigastric pain; M19.031 Primary osteoarthritis, right wrist; E78.2 Mixed hyperlipidemia; J45.40 Moderate persistent asthma, uncomplicated; K59.00 Constipation, unspecified; J30.1 Allergic rhinitis due to pollen; M51.362 Other intervertebral disc degeneration, lumbar region with discogenic back pain and lower extremity pain; E55.9 Vitamin D deficiency, unspecified

== ENCOUNTER → 2025-02-14 15:32 | Outpatient (BNVA) | payer OTHER, SELFPAY | PROVIDERS: PCP Internal Medicine; Visit Provider Internal Medicine | DX: R10.13 Epigastric pain (principal); M19.031 Primary osteoarthritis, right wrist; E11.65 Type 2 diabetes mellitus with hyperglycemia; E11.22 Type 2 diabetes mellitus with diabetic chronic kidney disease; N18.31 Chronic kidney disease, stage 3a; E78.2 Mixed hyperlipidemia; J45.40 Moderate persistent asthma, uncomplicated; K59.00 Constipation, unspecified; J30.1 Allergic rhinitis due to pollen; M51.362 Other intervertebral disc degeneration, lumbar region with discogenic back pain and lower extremity pain; E55.9 Vitamin D deficiency, unspecified; C50.311 Malignant neoplasm of lower-inner quadrant of right female breast; E66.9 Obesity, unspecified; Z79.4 Long term (current) use of insulin; Z68.33 Body mass index [BMI] 33.0-33.9, adult | CPT/HCPCS: 96127; 99212 ==

== ENCOUNTER 2025-02-17 12:01 | Emergency (ER) | payer OTHER, SELFPAY ==
--- NOTE | ~2025-02-17 | CT_ITS ---
CLINICAL HISTORY: epigastric pain, N V hx. erosive esoph GERD CT abdomen and pelvis with contrast Comparison: CT/SR - CT ABDOMEN PELVIS WO IV CON - 06/08/24 17:26 EDT Findings: Small hiatal hernia. Status post cholecystectomy. Left kidney upper pole 1.8 cm low-density lesion measuring simple fluid density likely represent simple cysts. Adjacent subcentimeter low-density lesion is too small to characterize. Multiple areas of cortical scarring is noted of the left kidney. No hydronephrosis or nephrolithiasis. Remainder of the solid organs are within normal limits. Moderate circumferential wall thickening of the gastric antrum and duodenum with mild surrounding mesenteric stranding, concerning for gastritis/duodenitis. Pelvic contents unremarkable. Normal appendix. No acute fracture. IMPRESSION: Moderate circumferential wall thickening of the gastric antrum and duodenum with mild surrounding mesenteric stranding, concerning for gastritis/duodenitis. Small hiatal hernia. Left kidney upper pole 1.8 cm cyst. Adjacent subcentimeter cyst is also present. Left kidney multifocal cortical scarring likely represent prior infection/infarction. No hydronephrosis or nephrolithiasis. This document has been electronically signed by: Kayleigh Torres MD on 02/17/2025 19:44:48
[2025-02-17 12:32] VITALS: BP 135/62; PULSE 88; RESP 18; TEMP 36.6; O2SAT 99; BMI 31.5
--- NOTE | 2025-02-17 12:34 | ECG_ITS ---
Test Reason : EPIGASTRIC ABD PAIN Blood Pressure : */* mmHG Vent. Rate : 84 BPM Atrial Rate : 84 BPM P-R Int : 162 ms QRS Dur : 70 ms QT Int : 370 ms P-R-T Axes : 11 23 37 degrees QTcB Int : 437 ms Normal sinus rhythm Possible Anterior infarct , age undetermined Abnormal ECG When compared with ECG of 26-Oct-2022 10:20, No significant change was found Referred By: Nilesh Lee Electronically Signed By: MENDEZ DUNN
--- NOTE | 2025-02-17 12:35 | ED.GENADULT ---
HPI - General Adult General Chief complaint: Abdominal Pain Stated complaint: vomiting nausea Time Seen by Provider: 02/17/25 18:02 Source: patient Mode of arrival: ambulatory Limitations: no limitations and language barrier (Jamaican speaking director biomedical engineering utilized) History of Present Illness ED Provider: patricia enciso water resources project manager HPI narrative: Patient is a 64-year-old female who presents emergency department for evaluation. She reports that yesterday morning she had a couple of eggs as well as some slices of sarah and a coffee. A few hours later she developed nausea, vomiting, and epigastric abdominal pain with excessive acid reflux and a burning sensation. She is currently following with Gastroenterology outpatient for management of this. She reports that she was able to take her Carafate yesterday morning but has not taken it since due to the nausea and vomiting. Today she tried to drink water and coffee but had worsening of her symptoms. Denies fevers, chills, chest pain, shortness of breath, cough, hematemesis, diarrhea, constipation, hematochezia, melena, dysuria, urinary frequency, urinary urgency, urinary hesitancy, hematuria. Related Data Previous Rx's ?Medication ?Instructions ?Recorded fluticasone propionate 50 2 spray intranasal DAILY #16 grams 10/23/22 mcg/actuation nasal spray,suspension (Flonase Allergy Relief) blood-glucose meter (Blood Glucose #1 ea 11/25/22 Monitoring kit) albuterol sulfate 90 mcg/actuation 1 puff PO QID PRN for wheezing #18 04/10/23 aerosol inhaler (Ventolin HFA) ea fluticasone fur. 200 mcg-umeclid 1 inh inhalation DAILY 30 days #60 12/29/23 62.5 mcg-vilant 25 mcg ea inhalat.powder (Trelegy Ellipta) lancets 26 gauge #100 ea 12/29/23 gabapentin 300 mg capsule 600 mg (2 x 300 mg) PO BEDTIME 30 02/12/24 days #60 caps cyclobenzaprine 10 mg tablet 10 mg PO TID PRN muscle pain or 06/08/24 spasm #20 tabs blood sugar diagnostic (FreeStyle #100 ea 08/09/24 Lite Strips) blood-glucose meter (FreeStyle #1 ea 08/09/24 Lite Meter kit) blood-glucose,mash grinder,cont #1 ea 08/09/24 (FreeStyle Maricel 3 [place]) lancets 28 gauge (FreeStyle #200 ea 08/09/24 Lancets) pen needle, diabetic 32 gauge x #100 ea 08/23/24 (BD Ultra-Fine Beatriz Pen Needle) glucose 4 gram chewable tablet 16 g (4 x 4 gram) PO Q15M PRN 10/25/24 (Dex4 Glucose) hypoglycemia (hipoglucemia) #10 tabs acetaminophen 500 mg tablet 500 mg PO Q8H PRN pain #90 tabs 11/15/24 atorvastatin 10 mg tablet 10 mg PO BEDTIME #90 tabs 11/15/24 cetirizine 10 mg tablet 10 mg PO DAILY PRN allergy 11/15/24 symptoms 90 days #90 tabs cholecalciferol (vitamin D3) 50 50 mcg PO DAILY 90 days #90 tabs 11/15/24 mcg (2,000 unit) tablet omeprazole 40 mg capsule,delayed 40 mg PO DAILY 90 days #90 caps 11/15/24 release lisinopril 10 mg tablet 10 mg PO DAILY #90 tabs 12/11/24 bisacodyl 5 mg tablet,delayed 20 mg (4 x 5 mg) PO ONCE colon 01/03/25 release (Dulcolax (bisacodyl)) prep 1 day #4 tabs blood-glucose sensor (FreeStyle #2 ea 01/03/25 Maricel 3 Plus Sensor device) dulaglutide 4.5 mg/0.5 mL 4.5 mg (0.5 mL) subcut QWEEK #2 mL 01/03/25 subcutaneous pen injector (Trulicity) polyethylene glycol 3350 17 17 g PO DAILY 1 day #238 grams 01/03/25 gram/dose oral powder (Miralax) sucralfate 100 mg/mL oral 10 ml PO BID 90 days #1,800 mL 01/27/25 suspension (Carafate) benzonatate 100 mg capsule 100 mg PO BID-TID PRN cough #30 02/07/25 caps empagliflozin 10 mg tablet 10 mg PO QAM #30 tabs 02/07/25 (Jardiance) ciprofloxacin HCl 500 mg tablet 500 mg PO BID #14 tabs 02/13/25 Allergies Allergy/AdvReac Type Severity Reaction Status Date / Time oyster extract Allergy Anaphylaxis Verified 02/17/25 12:33 Review of Systems Review of Systems: Yes all other systems are reviewed and are negative [facility] Past Medical History Attestation statement: The following information was validated with the patient. 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 Upper airway resistance syndrome Uterine fibroid Abnormal cervical cytology Abnormal Pap smear of cervix History of COVID-19 Lumbar degenerative disc disease Allergic rhinitis Constipation Calcification of left breast Malignant neoplasm of breast Obesity (BMI 30-39.9) Diabetes mellitus with hyperglycemia Cancer of right breast COVID-19 Surgical History Hx of cholecystectomy History of bilateral tubal ligation History of bronchoscopy History of cataract surgery History of mastectomy Family History Family History Sister Breast cancer Father HTN (hypertension) Heart attack Mother Diabetes HTN (hypertension) Social History Social History Household Members: None Housing: Apartment Alcohol intake: never Patient Tobacco Use Status: Never used Tobacco e-Cigarette/Vaping Use: Never Used Second Hand Smoke Exposure: No service: No Current occupational status: employed 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 Sexual orientation: Straight/Heterosexual Gender identity: Female Cognitive needs: No Hearing needs: No Vision needs: Yes Physical Exam ED Vital Signs: Vital Signs - 24 hr 02/17/25 12:32 02/17/25 17:08 02/17/25 20:00 Temperature 98 F 97.0 F 97.8 F Pulse Rate 88 77 72 Respiratory Rate 18 18 18 Blood Pressure 135/62 166/73 H 153/67 H Pulse Oximetry 99 99 99 Oxygen Delivery Method Room Air Room Air Room Air 02/17/25 22:00 02/17/25 22:41 Temperature 98.2 F 98.2 F Pulse Rate 71 71 Respiratory Rate 16 16 Blood Pressure 187/72 H 187/72 H Pulse Oximetry 100 100 Oxygen Delivery Method Room Air Room Air BMI result Body Mass Index 31.5 Appearance: Alert.?Oriented to person, place and time. No acute distress.?Normal affect.?? Neck: Normal inspection.? Neck supple.?? CVS: Heart sounds normal. Normal heart rate and rhythm.? Pulses normal.?? Respiratory: No respiratory distress.? Lung sounds clear to auscultation bilaterally?? Abdomen: Soft with epigastric tenderness upon palpation No rebound tenderness at McBurney's point. Negative psoas sign. Negative Rovsing sign. Negative [place] sign. No CVAT. Normoactive bowel sounds. No pulsatile mass.?? Skin: Skin warm and dry.? Normal skin color.? Extremities: No lower extremity edema.? Neuro: Moves all extremities spontaneously. Sensation intact bilaterally. Ambulates with normal steady gait. Course Course Course Narrative: RME: 64-year-old female presents to ED for nausea, vomiting and epigastric abdominal pain with acid burning sensation. Patient states history of GERD. Patient states no relief with antiacid medication. Positive for mild epigastric tenderness on palpation. Labs EKG ordered Reevaluation(s) Reevaluation #1: CT with findings for gastritis and duodenitis, consistent with prior imaging. Reviewed treatment as prescribed by Gastroenterology, avoidance of triggers such as highly acidic foods. There was incidental finding that her immune system which patient was made aware to discuss with her primary care doctor. All questions answered. She is feeling better after being medicated in the emergency department, tolerating sheldon elpidio and crackers without vomiting. At this time feel that she is stable for discharge. Medications Administered Discontinued Medications Generic Name Dose Route Start Last Admin Trade Name Freq PRN Reason Stop Dose Admin Famotidine 20 mg 02/17/25 18:22 02/17/25 18:36 Famotidine/Pf 20 Mg/2 Ml Vial IVPUSH 02/17/25 18:23 20 mg ONCE ONE Administration Sodium Chloride 1,000 mls @ 999 mls/hr 02/17/25 18:30 02/17/25 19:38 Ns IV 02/17/25 19:30 Infused .Q1H1M AVEILNO Infusion Iohexol 100 ml 02/17/25 18:45 02/17/25 18:45 Iohexol 350 Mg/Ml 100 Ml Infus..Btl IV 02/17/25 18:46 85 ml ONCE ONE Administration Ondansetron HCl 4 mg 02/17/25 18:22 02/17/25 18:36 Ondansetron Hcl 4 Mg/2 Ml Vial IVPUSH 02/17/25 18:23 4 mg ONCE ONE Administration Sucralfate 1 gm 02/17/25 18:22 02/17/25 18:36 Sucralfate Oral Suspension 1 Gm/10 Ml Oral.Susp PO 02/17/25 18:23 1 gm ONCE ONE Administration Medical Decision Making Medical Decision Making MDM Narrative: Patient is a 64-year-old female with past medical history of diabetes, CKD stage 3, hyperlipidemia, GERD, migraine, breast cancer, prior cholecystectomy presenting for evaluation of nausea vomiting epigastric pain symptoms of acute on chronic GERD. Exacerbation of symptoms yesterday, has not been taking her Carafate since yesterday. Consuming acidic foods including fruits in coffee with worsening of symptoms. Has not had any oral intake today due to her symptoms. She follows outpatient with Gastroenterology, in October of 2024 she had an upper GI series which revealed moderate esophageal dysmotility, small type 1 hiatal hernia with severe gastroesophageal reflux, thickened/prominent appearance of the areae gastricae with multiple focal areas of contrast pooling in the fundus of the stomach suggestive of erosive gastritis with recommendation for EGD. By patient's account, the EGD is scheduled for 03/07/2025. Gastroenterology concern that her abdominal pain may be secondary to PUD, erosive esophagitis, gastric paresis, celiac sprue, biliary or pancreatic source, additionally ordered for outpatient a abdominal CT scan which is not scheduled until March of 2025. Next follow-up appointment is 03/28/2025. On evaluation today she does have epigastric tenderness upon palpation, had a small amount of emesis following water that she tried to consume prior to my evaluation. She is without signs of systemic toxicity afebrile and no tachycardia, no hypotension. CBC is without leukocytosis, has a mild microcytic anemia not meeting transfusion criteria, no thrombocytopenia. No significant electrolyte derangement. No ANEL. LFTs and lipase within normal range. Viral serologies are negative. Urinalysis pending at this time, will trial 1 L normal saline IV fluid, Zofran IV, Pepcid IV, as well as Carafate pending CT of the abdomen and pelvis for further evaluation at this time. Differential Diagnosis Differential Diagnoses: The differential diagnosis associated with the presentation includes (Gastritis, esophagitis, GERD, PUD, CBD stone, pancreatitis, ) Admission/Observation Consideration of admission/observation: Escalation of care including admission/observation considered (See narrative above ) Lab Data MDM Lab Attestation statement: I reviewed the patient's lab results. (See narrative above) 02/17/25 12:55 02/17/25 12:55 Labs: Lab Results 02/17/25 Range/Units 12:55 WBC 7.4 (4.8-10.8) X10*3/uL RBC 4.25 (4.20-5.50) X10*6/uL Hgb 11.2 L (12.0-16.0) g/dl Hct 32.9 L (37.0-47.0) % MCV 77.4 L (80.0-98.0) fL MCH 26.4 L (27.0-33.0) pg MCHC 34.0 (31.0-35.0) g/dl RDW 13.3 (11.0-16.0) % Plt Count 258 (160-400) X10*3/uL MPV 9.6 (9.4-12.3) fL Immature Gran % (Auto) 0.3 (0.0-0.4) % Neut % (Auto) 66.9 (45-73) % Lymph % (Auto) 22.7 (20-40) % Hayes % (Auto) 7.6 (2-11) % Eos % (Auto) 2.2 (0-4) % Baso % (Auto) 0.3 (0-2) % Lymph # (Auto) 1.7 (1.2-4.9) X10*3/uL Hayes # (Auto) 0.6 (0.1-1.2) X10*3/uL Eos # (Auto) 0.2 (0.0-0.4) X10*3/uL Baso # (Auto) 0.0 (0.0-0.2) X10*3/uL Abs Immat Gran (auto) 0.02 (0.00-0.03) X10*3/uL Absolute Neuts (auto) 4.9 (2.0-8.3) x10*3/uL Absolute Nucleated RBC 0.000 (0.0-0.012) X10*3/uL Nucleated RBC % (auto) 0.0 (0.0-0.2) /100WBC PT 12.5 H (10.9-12.4) SEC INR 1.1 (0.9-1.1) APTT 30.0 (26.0-36.8) SEC Sodium 143 (135-145) mmol/L Potassium 4.0 (3.3-5.1) mmol/L Chloride 110 H (96-108) mmol/L Carbon Dioxide 23 (22-29) mmol/L Anion Gap 14 (12-20) BUN 21 H (9-16) mg/dL Creatinine 1.32 (0.5-1.4) mg/dL Estim Creat Clear Calc 42.2 Estimated GFR 41 Random Glucose 169 H (60-115) mg/dL Calcium 9.4 (8.4-10.2) mg/dL Total Bilirubin 0.4 (0.0-1.0) mg/dL AST 21 (5-31) U/L ALT 14 (0-31) U/L Alkaline Phosphatase 98 (39-117) U/L Troponin I High Sens < 2.7 (<3.5-17.0) ng/L Total Protein 8.0 (6.5-8.0) g/dL Albumin 4.0 (3.5-5.0) g/dL Lipase 15 (8-78) U/L Influenza Type A (PCR) NEGATIVE (Negative) Influenza Type B (PCR) NEGATIVE (Negative) RSV RNA Qual (PCR) NEGATIVE (Negative) SARS-CoV-2 RNA (RT-PCR) NEGATIVE (Negative) Radiology Impression Discussion of test interpretation with radiology: I have reviewed the radiologist's reading. Radiologist Impression: CT abdomen and pelvis with contrast Comparison: CT/SR - CT ABDOMEN PELVIS WO IV CON - 06/08/24 17:26 EDT Findings: Small hiatal hernia. Status post cholecystectomy. Left kidney upper pole 1.8 cm low-density lesion measuring simple fluid density likely represent simple cysts. Adjacent subcentimeter low-density lesion is too small to characterize. Multiple areas of cortical scarring is noted of the left kidney. No hydronephrosis or nephrolithiasis. Remainder of the solid organs are within normal limits. Moderate circumferential wall thickening of the gastric antrum and duodenum with mild surrounding mesenteric stranding, concerning for gastritis/duodenitis. Pelvic contents unremarkable. Normal appendix. No acute fracture. IMPRESSION: Moderate circumferential wall thickening of the gastric antrum and duodenum with mild surrounding mesenteric stranding, concerning for gastritis/duodenitis. Small hiatal hernia. Left kidney upper pole 1.8 cm cyst. Adjacent subcentimeter cyst is also present. Left kidney multifocal cortical scarring likely represent prior infection/infarction. No hydronephrosis or nephrolithiasis. External Record Review External record reviewed: Outpatient record (See narrative above) Chronic Conditions Patient?s care impacted by: Other (See narrative) Discharge Plan Discharge Clinical Impression: Gastritis and duodenitis, Renal cyst Patient Disposition: Home, Self-Care Instructions: Gastritis (ED), Duodenitis (ED) Additional Instructions: Continue taking your medications as prescribed and follow-up with Gastroenterology for the endoscopy. You may make me aware that you had a CT of the abdomen and pelvis in the emergency department today, they may discontinue the one that is scheduled for March. Avoid triggers such as fatty foods, spicy foods, tomatoes, onions, fruits, coffee, tea, chocolate, and alcohol. Remaining upright after meals for 1-2 hours. Avoid eating at least 3 hours before bedtime. Try sleeping on an incline if possible. There is an incidental finding of a cyst on your kidney when the CAT scan was performed today, if your primary care doctor has not previously been made aware of such finding, please make them aware of this, they may consider further outpatient follow-up /specific renal workup. You may return back to emergency department any new or worsening symptoms or concerns. Prescriptions: No Action albuterol sulfate [Ventolin HFA] 90 mcg/actuation HFA aerosol inhaler 1 puff PO QID PRN (Reason: for wheezing) Qty: 18 2RF (DME) FreeStyle Lite Strips Strip See Rx Instructions .ROUTE .MEDSUPPLY Qty: 100 11RF Rx Instructions: As directed to check blood glucose 5 times daily lisinopril 10 mg tablet 10 mg PO DAILY Qty: 90 0RF sucralfate [Carafate] 100 mg/mL suspension 10 ml PO BID 90 Days Qty: 1800 1RF fluticasone propionate [Flonase Allergy Relief] 50 mcg/actuation spray,suspension 2 spray intranasal DAILY Qty: 16 0RF Rx Instructions: administer into each nostril cyclobenzaprine 10 mg tablet 10 mg PO TID PRN (Reason: muscle pain or spasm) Qty: 20 0RF (DME) lancets 26 gauge misc See Rx Instructions miscellaneous .MEDSUPPLY Qty: 100 0RF Rx Instructions: As directed Treletamra Ellipta 200-62.5-25 mcg blister with device 1 inh inhalation DAILY 30 Days Qty: 60 12RF (DME) blood-glucose meter [Blood Glucose Monitoring] Kit See Rx Instructions miscellaneous .MEDSUPPLY Qty: 1 0RF Rx Instructions: As directed gabapentin 300 mg capsule 600 mg PO BEDTIME 30 Days Qty: 60 11RF (DME) pen needle, diabetic [BD Ultra-Fine Beatriz Pen Needle] 32 gauge x 5/32 needle See Rx Instructions .Route Qty: 100 5RF Rx Instructions: As directed once a day glucose [Dex4 Glucose] 4 gram tablet,chewable 16 g PO Q15M PRN (Reason: hypoglycemia (hipoglucemia)) Qty: 10 3RF Rx Instructions: until blood sugar is >70 (hasta que el nivel de azucar en [place] a 70) bisacodyl [Dulcolax (bisacodyl)] 5 mg tablet,delayed release (DR/EC) 20 mg PO ONCE 1 Days Qty: 4 0RF Rx Instructions: Take 4 tablets at 12 pm the day before colonoscopy appointment polyethylene glycol 3350 [Miralax] 17 gram/dose powder 17 g PO DAILY 1 Days Qty: 238 0RF Rx Instructions: Mix Miralax with 64 oz(8 cups) of Crystal light. Take 2 tablets of Dulcolax qt 12 pm. Wait to have your 1st bowel movement, then begin drinking Miralax. Drink a glass of Miralax every 10-15 minutes until you are finished. You will drink at least another 4 cups of clear liquid of your choice over the next 2 hours. Please drink as many clear liquids as possible You may have clear liquids up to four hours before your procedure (DME) FreeStyle Maricel 3 Plus Sensor Device See Rx Instructions .ROUTE .MEDSUPPLY Qty: 2 5RF Rx Instructions: Use daily As directed to monitor glucose Trulicity 4.5 mg/0.5 mL pen injector 4.5 mg subcut QWEEK Qty: 2 5RF (DME) FreeStyle Maricel 3 [place] Misc See Rx Instructions .ROUTE .MEDSUPPLY Qty: 1 0RF Rx Instructions: Use daily As directed to monitor blood glucose (DME) lancets [FreeStyle Lancets] 28 gauge misc See Rx Instructions .ROUTE .MEDSUPPLY Qty: 200 5RF Rx Instructions: Use to monitor blood glucose 5 times daily. (DME) blood-glucose meter [FreeStyle Lite Meter] Kit See Rx Instructions .ROUTE .MEDSUPPLY Qty: 1 0RF Rx Instructions: Use to monitor blood glucose five times daily acetaminophen 500 mg tablet 500 mg PO Q8H PRN (Reason: pain) Qty: 90 2RF atorvastatin 10 mg tablet 10 mg PO BEDTIME Qty: 90 1RF cetirizine 10 mg tablet 10 mg PO DAILY PRN (Reason: allergy symptoms) 90 Days Qty: 90 1RF cholecalciferol (vitamin D3) 50 mcg (2,000 unit) tablet 50 mcg PO DAILY 90 Days Qty: 90 3RF omeprazole 40 mg capsule,delayed release(DR/EC) 40 mg PO DAILY 90 Days Qty: 90 1RF ciprofloxacin HCl 500 mg tablet 500 mg PO BID Qty: 14 0RF Jardiance 10 mg tablet 10 mg PO QAM Qty: 30 1RF benzonatate 100 mg capsule 100 mg PO BID-TID PRN (Reason: cough) Qty: 30 0RF Referrals: Mehrdad Chavez MD [Primary Care Provider] - Stand Alone Forms: Work/School Release Interventions: ED Discharge Assessment Last Done: 02/17/25 22:41 Discharge Date/Time: 02/17/25 22:42 Print Language: Jamaican
[2025-02-17 12:59] LABS: MANUAL DIFF FLAG NO
[2025-02-17 13:01] LABS: Basophils Percent Auto 0.3 % (0-2); Eosinophils Absolute Auto 0.2 X10*3/uL (0.0-0.4); Eosinophils Percent Auto 2.2 % (0-4); Hematocrit 32.9 % (37.0-47.0); Hemoglobin 11.2 g/dl (12.0-16.0); Imm Gran Abs Auto 0.02 X10*3/uL (0.00-0.03); Imm Gran Pct Auto 0.3 % (0.0-0.4); Lymphocytes Absolute Auto 1.7 X10*3/uL (1.2-4.9); Lymphocytes Percent Auto 22.7 % (20-40); Mean Corpuscular Hemoglobin 26.4 pg (27.0-33.0); Mean Corpuscular Volume 77.4 fL (80.0-98.0); Mean Platelet Volume 9.6 fL (9.4-12.3); Monocytes Absolute Auto 0.6 X10*3/uL (0.1-1.2); Monocytes Percent Auto 7.6 % (2-11); Neutrophils Absolute Auto 4.9 x10*3/uL (2.0-8.3); Neutrophils Percent Auto 66.9 % (45-73); Platelet Count 258 X10*3/uL (160-400); Red Blood Count 4.25 X10*6/uL (4.20-5.50); Red Cell Distribution Width 13.3 % (11.0-16.0); White Blood Count 7.4 X10*3/uL (4.8-10.8)
[2025-02-17 13:07] LABS: INTERNATIONAL NORM RATIO 1.1 (0.9-1.1); Prothrombin Time 12.5 SEC (10.9-12.4)
[2025-02-17 13:22] LABS: Alanine Aminotransferase 14 U/L (0-31); Alkaline Phosphatase 98 U/L (39-117); Anion Gap 14 (12-20); Aspartate Amino Transferase 21 U/L (5-31); Bilirubin Total 0.4 mg/dL (0.0-1.0); Blood Urea Nitrogen 21 mg/dL (9-16); Calcium 9.4 mg/dL (8.4-10.2); Carbon Dioxide 23 mmol/L (22-29); Chloride 110 mmol/L (96-108); Creatinine Clr Calc Pharmacy 42.2; Estimated Glomerular Filt Rate 41; Glucose Random 169 mg/dL (60-115); Lipase 15 U/L (8-78); Sodium 143 mmol/L (135-145)
[2025-02-17 13:27] LABS: Troponin-I High Sensitivity < 2.7 ng/L (<3.5-17.0)
[2025-02-17 13:40] LABS: Influenza A PCR NEGATIVE (Negative); Influenza B PCR NEGATIVE (Negative); Resp Syncy Virus RNA Qual PCR NEGATIVE (Negative); SARS COV2 PCR INHOUSE NEGATIVE (Negative)
[2025-02-17 17:08] VITALS: BP 166/73; PULSE 77; RESP 18; TEMP 36.1; O2SAT 99
--- NOTE | 2025-02-17 17:20 | PC.NURSE ---
Patient is a 64-year-old female presents to ED for nausea, vomiting and epigastric abdominal pain with acid burning sensation. Patient states history of GERD, gastritis and gastric ulcer. Scheduled for a barium swallow on 03/07. Alert and oriented, primarly paraguayan speaking and interpretor utilized. Respirations even and non-labored. Abdomen soft, distended with positive bowel sounds. c/o epigastric pain with assoc N/V. Positive pedal pulses with no edema noted.
--- OUTSIDE RECORDS SUMMARY | 2025-02-17 17:52 | XMS_ITS | Clinical Summary ---
Author Organization [employer] Address [address] [place] [address] Care Team Providers Care Model Home Sales Greeter Name Role Phone Unavailable Primary Care Provider [...] patient's age to complete this topic Insurance [facility] [place] [address]
[2025-02-17] MEDS: Sucralfate Oral Suspension 1 GM/10 ML ORAL.SUSP PO (18:36)
[2025-02-17] MEDS: Famotidine/PF 20 MG/2 ML VIAL IVPUSH (18:36)
[2025-02-17] MEDS: ondansetron HCL 4 MG/2 ML VIAL IVPUSH (18:36)
[2025-02-17] MEDS: 0.9 % Sodium Chloride 1,000 ML 999 ML IV (18:37)
[2025-02-17] MEDS: iohexoL 350 MG/ML 100 ML INFUS..BTL IV (18:45)
[2025-02-17 20:00] VITALS: BP 153/67; PULSE 72; RESP 18; TEMP 36.6; O2SAT 99
[2025-02-17 22:00] VITALS: BP 187/72; PULSE 71; RESP 16; TEMP 36.8; O2SAT 100
[2025-02-17 22:41] VITALS: BP 187/72; PULSE 71; RESP 16; TEMP 36.8; O2SAT 100
--- NOTE | 2025-02-17 22:42 | PC.NURSE ---
Discharge instructions reviewed and patient verbalized understanding. To f/u with GI. Ambulated out of the department with a steady gait.
== END 2025-02-17 22:42 | disposition home or self-care (01) ==
PROVIDERS: Physician Assistant; Emergency Provider Emergency Medicine Emergency Medical Services; PCP Internal Medicine
DX: K29.60 Other gastritis without bleeding (principal); K29.80 Duodenitis without bleeding; N28.1 Cyst of kidney, acquired; R11.2 Nausea with vomiting, unspecified; R10.13 Epigastric pain; K21.9 Gastro-esophageal reflux disease without esophagitis; E11.22 Type 2 diabetes mellitus with diabetic chronic kidney disease; N18.30 Chronic kidney disease, stage 3 unspecified; E78.2 Mixed hyperlipidemia; J45.909 Unspecified asthma, uncomplicated; Z03.818 Encounter for observation for suspected exposure to other biological agents ruled out; Z79.85 Long-term (current) use of injectable non-insulin antidiabetic drugs; Z79.84 Long term (current) use of oral hypoglycemic drugs; Z79.899 Other long term (current) drug therapy
CPT/HCPCS: 0241U; 36415; 74177; 80053; 83690; 84484; 85025; 85610; 85730; 93005; 96361; 96374; 96375; 99284; 99285; J1308; J2405; Q9967

== ENCOUNTER → 2025-02-17 12:34 | Outpatient (BNV) | payer OTHER, SELFPAY | PROVIDERS: Emergency Provider Emergency Medicine Emergency Medical Services; PCP Internal Medicine; Visit Provider Internal Medicine | DX: R94.31 Abnormal electrocardiogram [ECG] [EKG] (principal); R10.13 Epigastric pain | CPT/HCPCS: 93010 ==

== ENCOUNTER → 2025-02-17 18:22 | Outpatient (BNV) | payer OTHER, SELFPAY | PROVIDERS: Emergency Provider Emergency Medicine Emergency Medical Services; PCP Internal Medicine; Visit Provider Student in an Organized Health Care Education/Training Program | DX: K44.9 Diaphragmatic hernia without obstruction or gangrene (principal); K31.89 Other diseases of stomach and duodenum; N28.1 Cyst of kidney, acquired | CPT/HCPCS: 74177 ==

== ENCOUNTER 2025-02-28 11:50 | Outpatient (REF) | payer OTHER, SELFPAY ==
--- OUTSIDE RECORDS SUMMARY | 2025-02-28 11:57 | XMS_ITS | Clinical Summary ---
Author Organization [employer] Address [address] [place] [address] Care Team Providers Care Cnc Lathe Programmer Name Role Phone Unavailable Primary Care Provider [...] patient's age to complete this topic Meningococcal B Vaccine Aged Out No l onger eligible based on patient's age to complete this topic Meningococcal Vaccine Aged Out No rubio mary eligible based on patient's age to complete this topic RSV under 20 months Aged Out No longe r eligible based on patient's age to complete this topic Rotavirus Vaccines Aged Out No longer eligible based on patient's age to complete this topic Insurance [place], [place] [facility] [address] ACO
[2025-02-28 12:36] LABS: Appearance Urine Clear; Color Urine Yellow; Glucose Urine UA >=1000 mg/dL (Negative); Leukocyte Esterase Urine Negative (Negative); Nitrite Urine Negative (Negative); PH 5.5 (5.0-9.0); Specific Gravity - Urine 1.025 (1.005-1.025); UMIC TRIGGER UA YES; UMIC TRIGGER UACC YES; Urine Blood Negative (Negative); Urine Ketones Negative (Negative); Urine Protein Negative (Neg-Trace)
[2025-02-28 12:40] LABS: Bacteria Urine Trace (None Seen); Hyaline Casts Urine 0-2 /LPF (0-2); RBC Urine 0-2 /HPF (0-2); WBC Urine 0-5 /HPF (0-5)
[2025-02-28 12:56] LABS: Estimated Glomerular Filt Rate 49
[2025-02-28 13:40] LABS: Creatinine Urine 53.31 mg/dL
== END 2025-02-28 11:51 | disposition home or self-care (01) ==
LOC: HO.LAB 11:50
PROVIDERS: Internal Medicine Hypertension Specialist; Physician Assistant Medical; PCP Internal Medicine; Visit Provider Internal Medicine
DX: Z00.00 Encounter for general adult medical examination without abnormal findings (principal); E11.29 Type 2 diabetes mellitus with other diabetic kidney complication; R80.9 Proteinuria, unspecified; E11.9 Type 2 diabetes mellitus without complications; R30.0 Dysuria
CPT/HCPCS: 36415; 81001; 82565; 82570

== ENCOUNTER 2025-03-07 05:55 | Outpatient (REF) | payer OTHER, SELFPAY ==
--- NOTE | ~2025-03-07 | CT_ITS ---
CLINICAL HISTORY: R10.10 - Upper abdominal pain, unspecified CT abdomen and pelvis with contrast Comparison: 02/17/2025 Findings: No consolidation or effusion. The appearance of the liver suggests fatty infiltration without focal lesion. Solid organs are otherwise within normal limits. There are no abnormal findings in the gallbladder fossa. No renal stones. No bowel obstruction, pneumoperitoneum, or pneumatosis. Pelvic contents unremarkable. Normal appendix. No acute fracture. IMPRESSION: Hepatic steatosis. This document has been electronically signed by: Jesus Silva MD on 03/07/2025 17:29:08
--- OUTSIDE RECORDS SUMMARY | 2025-03-07 05:58 | XMS_ITS | Clinical Summary ---
Author Organization [employer] Address [address] [place] [address] Care Team Providers Care Sheeting Puller Name Role Phone Unavailable Primary Care Provider [...] Screening 1961 SDOH Screening 1961 Sigmoidoscopy 1961 Disability Screening 1961 Alcohol/Substance Use Screening 1973 Tobacco Screening [...] patient's age to complete this topic Insurance [facility]
[2025-03-07] MEDS: iohexoL 350 MG/ML 100 ML INFUS..BTL IV (09:23)
[2025-03-07] MEDS: Barium Sulfate Oral (Berry) 450 ML ORAL.SUSP 900 ML PO (09:24)
== END 2025-03-07 05:56 | disposition home or self-care (01) ==
LOC: HO.CT 05:55
PROVIDERS: PCP Internal Medicine; Visit Provider Internal Medicine Gastroenterology
DX: R10.10 Upper abdominal pain, unspecified (principal)
CPT/HCPCS: 74177; Q9967

== ENCOUNTER → 2025-03-07 05:58 | Outpatient (BNV) | payer OTHER, SELFPAY | PROVIDERS: PCP Internal Medicine; Visit Provider Specialist | DX: K76.0 Fatty (change of) liver, not elsewhere classified (principal) | CPT/HCPCS: 74177 ==

== ENCOUNTER 2025-03-28 07:36 | Outpatient (REF) | payer OTHER, SELFPAY ==
[2025-03-28 09:14] LABS: Hematocrit 35.9 % (37.0-47.0); Mean Corpuscular HGB Conc 33.4 g/dl (31.0-35.0); Mean Corpuscular Hemoglobin 26.1 pg (27.0-33.0); Mean Corpuscular Volume 78.2 fL (80.0-98.0); Mean Platelet Volume 10.2 fL (9.4-12.3); Platelet Count 231 X10*3/uL (160-400); Red Blood Count 4.59 X10*6/uL (4.20-5.50); Red Cell Distribution Width 13.4 % (11.0-16.0); White Blood Count 6.2 X10*3/uL (4.8-10.8)
[2025-03-28 09:53] LABS: Iron 47 mcg/dL (30-160); Percent Iron Saturation 16 % (15-50); Total Iron Binding Capacity 286 mcg/dL (228-428); Unsaturated Iron Binding 239 ug/dL
[2025-03-28 10:11] LABS: Ferritin 47 ng/mL (10-250); Vitamin D 25-OH Total 18.7 ng/mL (>30)
== END 2025-03-28 07:37 | disposition home or self-care (01) ==
LOC: HO.LAB 07:36
PROVIDERS: PCP Internal Medicine; Visit Provider Internal Medicine Gastroenterology
DX: K59.00 Constipation, unspecified (principal); K21.9 Gastro-esophageal reflux disease without esophagitis; R10.10 Upper abdominal pain, unspecified; R15.9 Full incontinence of feces; D64.9 Anemia, unspecified; E55.9 Vitamin D deficiency, unspecified; E11.65 Type 2 diabetes mellitus with hyperglycemia; E11.29 Type 2 diabetes mellitus with other diabetic kidney complication; R79.89 Other specified abnormal findings of blood chemistry; R21 Rash and other nonspecific skin eruption; Z79.4 Long term (current) use of insulin
CPT/HCPCS: 36415; 82306; 82728; 82947; 83540; 85027; 99212

== ENCOUNTER 2025-03-28 07:36 | Outpatient (AMB) | payer OTHER, SELFPAY ==
--- OUTSIDE RECORDS SUMMARY | 2025-03-28 07:38 | XMS_ITS | Clinical Summary ---
Author Organization [employer] Address [address] [facility] [facility] [address] [place] [address] Care Team Providers Care Phlebotomy Program Coordinator Name Role Phone Unavailable Primary Care Provider [...] - 2023-2 5 season) 2024 Influenza Vaccine (Season Ended) 2025 RSV Patients and Pa tients Aged 60 [...] patient's age to complete this topic Insurance [facility] ACO
--- NOTE | 2025-03-28 07:39 | MHC.OFFVIS ---
Vital Signs 03/28/25 07:43 Height 5 ft 2 in Weight 169 lb BMI 30.9 BP 140/65 H Blood Pressure Location Lt brachial Position Sitting Pulse 78 Intake Visit Reasons: 3 mo f/u Gerd, fecal incontinence Intake Note: Patient 3 mo f/u GERD, fecal incontinence, also lab and CT scan results. Patient cc: nauseas, abdominal pain with bloating, acid reflux with burning sensation on her esophagus, and swallowing difficulty. Donor Relations Officer Required: Yes Donor Relations Officer Name: José Manuel Caballero Accompanied by: Self / Same As Patient Allergies oyster extract Allergy (Verified 03/28/25 15:08) Anaphylaxis Medication List - Last Reconciled 03/28/25 by Mira Reagan MD acetaminophen 500 mg PO Q8H PRN albuterol sulfate 90 mcg/actuation (Ventolin HFA) 1 puff PO QID PRN atorvastatin 10 mg PO BEDTIME benzonatate 100 mg PO BID-TID PRN bisacodyl (Dulcolax (bisacodyl)) 20 mg (4 x 5 mg) PO ONCE 1 day blood sugar diagnostic (FreeStyle Lite Strips) As directed to check blood glucose 5 times daily blood-glucose meter (Blood Glucose Monitoring kit) As directed blood-glucose meter (FreeStyle Lite Meter kit) Use to monitor blood glucose five times daily blood-glucose sensor (FreeStyle Maricel 3 Plus Sensor device) Use daily As directed to monitor glucose blood-glucose,facilities specialist,cont (FreeStyle Maricel 3 [place]) Use daily As directed to monitor blood glucose cetirizine 10 mg PO DAILY PRN 90 days cholecalciferol (vitamin D3) 50 mcg PO DAILY 90 days dulaglutide (Trulicity) 4.5 mg (0.5 mL) subcut QWEEK empagliflozin (Jardiance) 10 mg PO QAM fluticasone propionate 50 mcg/actuation (Flonase Allergy Relief) 2 sprays intranasal DAILY yicgeyfdhxr-dxenlzqcm-csxuvnyk 200-62.5-25 mcg (Trelegy Ellipta) 1 inh inhalation DAILY 30 days gabapentin 600 mg (2 x 300 mg) PO BEDTIME 30 days glucose (Dex4 Glucose) 16 grams (4 x 4 gram) PO Q15M PRN lancets As directed lancets (FreeStyle Lancets) Use to monitor blood glucose 5 times daily. lisinopril 10 mg PO DAILY omeprazole 40 mg PO DAILY 90 days pen needle, diabetic (BD Ultra-Fine Beatriz Pen Needle) As directed once a day polyethylene glycol 3350 (Miralax) 17 grams PO DAILY 1 day sucralfate (Carafate) 10 mL PO BID 90 days HPI HPI 3 mo f/u Gerd, fecal incontinence: Details: GI clinic visit for this 64-year-old [place] African-speaking female for evaluation of GERD and abdominal pain TODAY'S VISIT: Telephone Shirt Cleaner, José Manuel Patient cc: nauseas, abdominal pain with bloating, acid reflux with burning sensation on her esophagus, and swallowing difficulty. Pt states she returned the call to schedule an EGD and colon and did not hear back CT results reviewed - negative except for hepatic steatosis. PAST VISITS: Pt complains of upper abdominal pain x 2 months - pain is intermittent, pressure like and is 8/10 intensity and radiates to the back Pain gets worse with eating so she stopped eating Also complains of nausea and early satiety and occasional vomiting Patient complains of heartburn and dysphagia. Has to take small bites and drink water to wash it, Has been loosing weight - weighed 200 lbs. Notes fecal incontinence for the past 6 months and has to wear a pad Stools are soft without diarrhea. Denies recent rectal bleeding. Stool can be intermittently dark. Denies smoking or ETOH abuse Patient has DM and chronic kidney disease and sees a human geography faculty member. Pt complains of intermittent palpitations and denies loud snoring or sleep apnea Denies problems with anesthesia in the past. Denies being on chronic anticoagulation. Patient denies known family history of colon polyps, colon cancer or other GI malignancies. A brother has pancreatic cancer with lungs, kidneys and throat mets at age 72 yrs. LABS IN [facility]) : Reviewed IMAGING STUDIES: 10/21/24 UGI SHOWED: 1. Anterior bridging osteophyte at C5-C6 that is causing mild posterior indentation of the cervical esophagus. 2. Moderate esophageal dysmotility. 3. Small type I hiatal hernia with severe gastroesophageal reflux. 4. Thickened/prominent appearance of the areae gastricae. In addition, there are multiple focal areas of contrast pooling in the fundus of the stomach. These findings are suggestive of erosive gastritis. Recommend correlation with EGD. ENDOSCOPIC STUDIES: 06/2022 COLONOSCOPY SHOWED: One small and one medium sized polyps removed Moderate diverticulosis seen in the sigmoid colon Plan: Repeat Colonoscopy interval based on path results - in 3 years if polyps are adenomatous and 10 years if polyps are hyperplastic. BIOPSIES SHOWED: A. Colon, cecal polyp: Tubular adenoma; negative for high-grade dysplasia and carcinoma. B. 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 Upper airway resistance syndrome Uterine fibroid Abnormal cervical cytology Abnormal Pap smear of cervix History of COVID-19 Lumbar degenerative disc disease Allergic rhinitis Constipation Calcification of left breast Malignant neoplasm of breast Obesity (BMI 30-39.9) Diabetes mellitus with hyperglycemia Cancer of right breast COVID-19 Surgical History Hx of cholecystectomy History of bilateral tubal ligation History of bronchoscopy History of cataract surgery History of mastectomy Family History Sister Breast cancer Father HTN (hypertension) Heart attack Mother Diabetes HTN (hypertension) Social History Household Members: None Housing: Apartment Alcohol intake: never Patient Tobacco Use Status: Never used Tobacco e-Cigarette/Vaping Use: Never Used Second Hand Smoke Exposure: No service: No Current occupational status: employed 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 Sexual orientation: Straight/Heterosexual Gender identity: Female Cognitive needs: No Hearing needs: No Vision needs: Yes Female Reproductive History Menstrual Age of Menarche: 11 Review of Systems Const All systems reviewed & are unremarkable except as noted in HPI and below Physical Exam Vital Signs: Last Vital Signs Pulse 78 03/28/25 07:43 BP 140/65 H 03/28/25 07:43 BMI result Body Mass Index 30.9 Const General: healthy appearing and no acute distress Nutritional Appearance: obese Orientation/consciousness: patient oriented x3 Limitations: language barrier HEENT Head: Yes normal to inspection Ears: hearing grossly normal bilaterally Eyes Sclerae: sclerae normal Pupils: Equal, round and reactive pupils present Neck Neck: Yes normal visual inspection Chest Chest palpation & inspection: normal inspection of the chest Resp Effort & Inspection: normal respiratory effort Auscultation: clear to auscultation bilaterally Cardio Palpation: normal PMI Rate: regular rate Rhythm: regular rhythm Heart sounds: S1 normal heart sound present, S2 normal heart sound present and no murmurs GI Palpation (GI): Soft to palpation, Tenderness to palpation present (GI) (Mild epigastric and LUQ tenderness without rebound) and No hepatosplenomegaly present Auscultation: normal bowel sounds Rectal Exam - Female: deferred Skin General skin exam: no rashes or lesions noted Neuro General: patient oriented x3, gait normal and moves all extremities Cranial nerves: Yes Equal, round and reactive pupils present Psych Appearance: grossly normal Mental Status: mental status grossly normal Assessment & Plan Assessment & Plan (1) Constipation: Code(s): K59.00 - Constipation, unspecified Category: Medical Qualifiers: Constipation type: unspecified constipation type Qualified Code(s): K59.00 - Constipation, unspecified (2) Gastroesophageal reflux disease: Code(s): K21.9 - Gastro-esophageal reflux disease without esophagitis Category: Medical (3) Upper abdominal pain: Code(s): R10.10 - Upper abdominal pain, unspecified Category: Medical (4) Fecal incontinence: Code(s): R15.9 - Full incontinence of feces Category: Medical (5) Anemia: Code(s): D64.9 - Anemia, unspecified Category: Medical Plan 65 YF DM, hyperlipidemia, chronic kidney disease stage 3 seen for evaluation of upper abdominal pain, early satiety, nausea with occasional vomiting. Pt is on Trulicity and states abd pain was present before she started taking Trulicity. Abd pain can be due to PUD, erosive esophagitis, gastroparesis, celiac sprue or biliary or pancreatic source Patient complains of heartburn and dysphagia. Fecal incontinence ? due to weakness of anal sphincter Labs showed microcytic hypochromic anemia. PLAN: 1. Abd CT scan with contrast - showed hepatic steatosis and no acute findings. 2. She was referred to [facility] for ano-rectal manometry for evaluation of fecal incontinence 3. Patient scheduled for an upper endoscopy (GERD, dysphagia) and colonoscopy (fecal incontinence and FU of colon polyps) on 05/02/25 3. Check iron studies for evaluation of microcytic hypochromic anemia - iron studies were normal with ferritin of 47 Pt was called to schedule EGD and colon and did not return the calls On 01/09/25 @ 08:18 Ira Pinto Wrote To Crystal Da Silva (3) 2nd attempt at calling patient with interp homero [phone] lvm sending letter On 01/07/25 @ 15:31 Crystal Da Silva Wrote To Samson Avila noted Crystal Da Silva removed from item. On 01/07/25 @ 12:29 Ira Pinto Wrote To Crystal Da Silva (2) called pt and lvm for patient to call back called with interkermit zuniga [phone] FU in 2 months - scheduled 05/30/25 Orders: Orders IRON PROFILE Today D64.9 - Anemia, unspecified Ferritin Today D64.9 - Anemia, unspecified Vitamin D 25-OH Total Today E55.9 - Vitamin D deficiency, unspecified Complete Blood Count no Diff Today D64.9 - Anemia, unspecified Coding Level of Care Code Est Pt Level 4 (29597) Diagnoses Constipation, unspecified constipation type K59.00 Constipation type: unspecified constipation type Gastroesophageal reflux disease K21.9 Upper abdominal pain R10.10 Fecal incontinence R15.9 Anemia D64.9 Time Spent (min) 20
[2025-03-28 07:43] VITALS: BP 140/65; PULSE 78; BMI 30.9
== END 2025-03-28 08:43 | disposition home or self-care (01) ==
LOC: HO.HGI 07:37
PROVIDERS: PCP Internal Medicine; Visit Provider Internal Medicine Gastroenterology
DX: K59.00 Constipation, unspecified (principal); K21.9 Gastro-esophageal reflux disease without esophagitis; R10.10 Upper abdominal pain, unspecified; R15.9 Full incontinence of feces; D64.9 Anemia, unspecified
CPT/HCPCS: 99214

== ENCOUNTER 2025-03-28 14:58 | Outpatient (AMB) | payer OTHER, SELFPAY ==
--- NOTE | 2025-03-28 15:03 | MHC.OFFVIS ---
Vital Signs 03/28/25 15:06 Height 5 ft 2 in Weight 170 lb 10.205 oz BMI 31.2 BP 112/70 Blood Pressure Location Lt radial Position Sitting Pulse 75 Pulse Source Pulse Oximeter Pulse Oximetry (%) 97 Oxygen Delivery Method Room Air Intake Visit Reasons: Type II diabetes Intake Note: Patient present today to follow up on Type 2 Diabetes Mellitus. Last Diabetic Eye exam: January 2025 Last Podiatry Visit: Does not see a Crab Backer Random Glucose: 147 mg/dl HgA1C: 7.5% 02/11/2025 Television Newscast Director Required: Yes Television Newscast Director Language: Charge Machine Operator Services: Television Newscast Director Present Television Newscast Director Name: Jamie Lee [phone] Information Interpreted: non-clinical & clinical Accompanied by: Self / Same As Patient Allergies oyster extract Allergy (Verified 03/28/25 15:08) Anaphylaxis Medication List - Last Reconciled 03/28/25 by VELVET Galvin acetaminophen 500 mg PO Q8H PRN albuterol sulfate 90 mcg/actuation (Ventolin HFA) 1 puff PO QID PRN atorvastatin 10 mg PO BEDTIME benzonatate 100 mg PO BID-TID PRN bisacodyl (Dulcolax (bisacodyl)) 20 mg (4 x 5 mg) PO ONCE 1 day blood sugar diagnostic (FreeStyle Lite Strips) As directed to check blood glucose 5 times daily blood-glucose meter (Blood Glucose Monitoring kit) As directed blood-glucose meter (FreeStyle Lite Meter kit) Use to monitor blood glucose five times daily blood-glucose sensor (FreeStyle Maricel 3 Plus Sensor device) Use daily As directed to monitor glucose blood-glucose,quiller operator,cont (FreeStyle Maricel 3 [place]) Use daily As directed to monitor blood glucose cetirizine 10 mg PO DAILY PRN 90 days cholecalciferol (vitamin D3) 100 mcg PO DAILY dulaglutide (Trulicity) 4.5 mg (0.5 mL) subcut QWEEK empagliflozin (Jardiance) 25 mg PO QAM fluticasone propionate 50 mcg/actuation (Flonase Allergy Relief) 2 sprays intranasal DAILY jwonfqnhpwy-djqlfmzii-vgndnure 200-62.5-25 mcg (Trelegy Ellipta) 1 inh inhalation DAILY 30 days gabapentin 600 mg (2 x 300 mg) PO BEDTIME 30 days glucose (Dex4 Glucose) 16 grams (4 x 4 gram) PO Q15M PRN ketoconazole 2% 1 appl topical BID 14 days lancets As directed lancets (FreeStyle Lancets) Use to monitor blood glucose 5 times daily. lisinopril 10 mg PO DAILY omeprazole 40 mg PO DAILY 90 days pen needle, diabetic (BD Ultra-Fine Beatriz Pen Needle) As directed once a day polyethylene glycol 3350 (Miralax) 17 grams PO DAILY 1 day sucralfate (Carafate) 10 mL PO BID 90 days HPI Comments Details: Patient is a 64-year-old female with a significant past medical history of type 2 diabetes, hyperlipidemia, GERD, anemia presenting today for diabetic management. Video packing machine inspector used. Her hemoglobin A1c is 7.5% 02/11/2025. Reviewed Maricel 3 data March 15 to March 28 Average glucose 177 GMI 7.5% Glucose variability 28.2% Very high 8% High 35% Target range 57% 0% hypoglycemia She has a spike in blood sugars around 09:00 and some hyperglycemia throughout the day with improvement in her blood sugars overnight. Current medication regimen: Jardiance 10 mg, Trulicity 4.5 mg weekly. Denies side effects on medication. Denies side effects and genitourinary symptoms on Jardiance. Past medication: Metformin discontinued in the past due to GI distress. 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 Patient's LEANDRA antibodies are negative, C-peptide normal. Vitamin-D level is low. It improved since the last test. She is taking 50 mcg of D3 daily. Endorses scaly itchy rash on the right collarbone for a week. ROS: Constitutional: No night sweats, unexplained weight loss. Endorses fatigue and fever. Eyes: No vision changes, discharge, redness or pain Respiratory: No hemoptysis, shortness of breath, see HPI Cardiovascular: No chest pain, palpitations or pedal edema. Neurologic: No headache, dizziness, syncope Endocrine: No cold or heat intolerance. No polyuria or polydipsia. Physical exam: Constitutional: Alert, in no distress. Head: Normocephalic. Ear, Nose and Throat: Canals clear. TMs normal. Normal nasal mucosa. No nasal discharge. No oral lesions. Neck: Supple, Full range of motion. No lymphadenopathy. Respiratory: Clear to auscultation. Cardiovascular: S1 S2 regular. No murmurs. Neurologic: No focal neurological deficits. Extremities: Warm and well perfused. No clubbing, cyanosis or edema. 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 Upper airway resistance syndrome Uterine fibroid Abnormal cervical cytology Abnormal Pap smear of cervix History of COVID-19 Lumbar degenerative disc disease Allergic rhinitis Constipation Calcification of left breast Malignant neoplasm of breast Obesity (BMI 30-39.9) Diabetes mellitus with hyperglycemia Cancer of right breast COVID-19 Surgical History Hx of cholecystectomy History of bilateral tubal ligation History of bronchoscopy History of cataract surgery History of mastectomy Family History Sister Breast cancer Father HTN (hypertension) Heart attack Mother Diabetes HTN (hypertension) Social History Household Members: None Housing: Apartment Alcohol intake: never Patient Tobacco Use Status: Never used Tobacco e-Cigarette/Vaping Use: Never Used Second Hand Smoke Exposure: No service: No Current occupational status: employed 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 Sexual orientation: Straight/Heterosexual Gender identity: Female Cognitive needs: No Hearing needs: No Vision needs: Yes Female Reproductive History Menstrual Age of Menarche: 11 Physical Exam Vital Signs: Last Vital Signs Pulse 75 03/28/25 15:06 BP 112/70 03/28/25 15:06 Pulse Ox 97 03/28/25 15:06 Oxygen Delivery Method Room Air 03/28/25 15:06 BMI result Body Mass Index 31.2 Office Procedures Glucose Monitoring Details Details: See [facility] [address] - Glucose monitoring, continuous-physician I&R Procedure code (CPT) selection complete Results Reviewed Results Reviewed: Laboratory Last Values Glucose (Clinic) 147 mg/dL (60-115) H 03/28/25 15:14 Laboratory Tests 02/11/25 02/11/25 02/17/25 12:12 12:16 12:55 Plt Count Creatinine Estimated GFR AST 21 ALT 14 Triglycerides 241 H Cholesterol 128 LDL Cholesterol, Calc 47 HDL Cholesterol 33 L Urine Creatinine Urine Microalbumin 113.0 Microalb/Creat Ratio 83.6 H 02/28/25 02/28/25 03/28/25 12:00 12:02 08:53 Plt Count 231 Creatinine 1.12 Estimated GFR 49 AST ALT Triglycerides Cholesterol LDL Cholesterol, Calc HDL Cholesterol Urine Creatinine 53.31 Urine Microalbumin Microalb/Creat Ratio Assessment & Plan Assessment & Plan (1) Uncontrolled type 2 diabetes mellitus with hyperglycemia, with long-term current use of insulin: Code(s): E11.65 - Type 2 diabetes mellitus with hyperglycemia; Z79.4 - senior living (current) use of insulin Category: Medical (2) Microalbuminuria due to type 2 diabetes mellitus: Code(s): E11.29 - Type 2 diabetes mellitus with other diabetic kidney complication; R80.9 - Proteinuria, unspecified Category: Medical (3) Low vitamin D level: Code(s): R79.89 - Other specified abnormal findings of blood chemistry Category: Medical (4) Rash: Code(s): R21 - Rash and other nonspecific skin eruption Category: Medical Plan In summary this is a 64-year-old female with suboptimally controlled type 2 diabetes with renal complications. Increase Jardiance to 25 mg daily. Check renal function in 10-14 days. Continue Trulicity 4.5 mg weekly. Diabetic diet reinforced. Reviewed the complications of diabetes with the patient. Reviewed treatment of hypoglycemia. She carries orange juice and glucose tablets with her. Advised not to drive if she does not have a reliable way to check blood sugar or has symptoms of low blood sugar. Trial of ketoconazole twice daily for 14 days to the rash. Follow up with primary care if symptoms do not resolve. Increase vitamin D3 to 100 mcg daily. Level can be rechecked in 3 months. Follow up in 6 weeks for type 2 diabetes. Orders: Orders Creatinine Today E11.9 - Type 2 diabetes mellitus without complications AMB Glucose Monitoring Today E11.9 - Type 2 diabetes mellitus without complications Medications: New ketoconazole 2% 1 appl topical BID 14 days 15 grams 0RF cholecalciferol (vitamin D3) 100 mcg PO DAILY 90 tabs 0RF empagliflozin (Jardiance) 25 mg PO QAM 90 tabs 1RF Discontinued cholecalciferol (vitamin D3) Discontinued Reason: Doctor's Order 50 mcg PO DAILY 90 days 90 tabs 3RF R79.89 - Other specified abnormal findings of blood chemistry empagliflozin (Jardiance) Discontinued Reason: Doctor's Order 10 mg PO QAM 30 tabs 1RF Patient Instructions: Increase Jardiance to 25 mg once daily. Continue Trulicity 4.5 mg weekly. Apply ketoconazole cream twice daily to the rash for 14 days. Increase Vitamin d3 to 4000 ius once daily (100 mcg daily) Please have blood test for kidney function done in 10-14 days. Aumente la dosis de Jardiance a 25 mg donald vez al d?a. Contin?e con Trulicity 4.5 mg semanalmente. Aplique la crema de ketoconazol dos veces al d?a sobre la erupci?n cut?irene ly 14 d?as. Aumente la vitamina D3 a 4000 UI donald vez al d?a (100 mcg al d?a). Realice un an?lisis de james para la funci?n renal en 10 a 14 d?as. Coding Level of Care Code Est Pt Level 4 (92362) Diagnoses Uncontrolled type 2 diabetes mellitus with hyperglycemia, with long-term current use of insulin E11.65; Z79.4 Microalbuminuria due to type 2 diabetes mellitus E11.29; R80.9 Low vitamin D level R79.89 Rash R21 CPT Codes Details - CPT: 87187 - Glucose monitoring, continuous-physician I&R ([id number])
[2025-03-28 15:06] VITALS: BP 112/70; PULSE 75; O2SAT 97; BMI 31.2
[2025-03-28 15:18] LABS: Glucose, Whole Blood 147 mg/dL (60-115)
== END 2025-03-28 15:43 | disposition home or self-care (01) ==
LOC: HO.ENCR 14:58
PROVIDERS: PCP Internal Medicine; Visit Provider Physician Assistant Medical
DX: E11.65 Type 2 diabetes mellitus with hyperglycemia (principal); Z79.4 Long term (current) use of insulin; E11.29 Type 2 diabetes mellitus with other diabetic kidney complication; R80.9 Proteinuria, unspecified; R79.89 Other specified abnormal findings of blood chemistry; R21 Rash and other nonspecific skin eruption

== ENCOUNTER 2025-04-16 13:12 | Outpatient (AMB) | payer OTHER, SELFPAY ==
--- NOTE | 2025-04-16 13:17 | MHC.PC.OV ---
Vital Signs 04/16/25 13:18 Height 5 ft 2 in Weight 169 lb 2 oz BMI 30.9 BP 120/72 Blood Pressure Location Lt brachial Position Sitting Pulse 83 Pulse Source Pulse Oximeter Temp 97.1 F Temp Source Temporal Artery Scan Pulse Oximetry (%) 95 Oxygen Delivery Method Room Air Intake Visit Reasons: [facility] 05/01 Intake Note: Patient is here for a Pre-op for Eye lids surgery scheduled with [facility] on 04/25/25. Cold Rolling Supervisor Required: Yes Cold Rolling Supervisor Language: Route Inspector Name: Wanda ([id number]) Information Interpreted: non-clinical & clinical Ophthalmic Assistant: Not Required per policy Accompanied by: Self / Same As Patient Allergies oyster extract Allergy (Verified 04/16/25 13:37) Anaphylaxis Medication List - Last Reconciled 04/16/25 by Aylin Rolon PA-C acetaminophen 500 mg PO Q8H PRN albuterol sulfate 90 mcg/actuation (Ventolin HFA) 1 puff PO QID PRN atorvastatin 10 mg PO BEDTIME benzonatate 100 mg PO BID-TID PRN bisacodyl (Dulcolax (bisacodyl)) 20 mg (4 x 5 mg) PO ONCE 1 day blood sugar diagnostic (FreeStyle Lite Strips) As directed to check blood glucose 5 times daily blood-glucose meter (Blood Glucose Monitoring kit) As directed blood-glucose meter (FreeStyle Lite Meter kit) Use to monitor blood glucose five times daily blood-glucose sensor (FreeStyle Maricel 3 Plus Sensor device) Use daily As directed to monitor glucose blood-glucose,leaf binner,cont (FreeStyle Maricel 3 [place]) Use daily As directed to monitor blood glucose cetirizine 10 mg PO DAILY PRN 90 days cholecalciferol (vitamin D3) 100 mcg PO DAILY dulaglutide (Trulicity) 4.5 mg (0.5 mL) subcut QWEEK empagliflozin (Jardiance) 25 mg PO QAM fluticasone propionate 50 mcg/actuation (Flonase Allergy Relief) 2 sprays intranasal DAILY bdnacukblxy-dtqpbtrub-qmhnpqwt 200-62.5-25 mcg (Trelegy Ellipta) 1 inh inhalation DAILY 30 days gabapentin 600 mg (2 x 300 mg) PO BEDTIME 30 days glucose (Dex4 Glucose) 16 grams (4 x 4 gram) PO Q15M PRN ketoconazole 2% 1 appl topical BID 14 days lancets As directed lancets (FreeStyle Lancets) Use to monitor blood glucose 5 times daily. lisinopril 10 mg PO DAILY omeprazole 40 mg PO DAILY 90 days pen needle, diabetic (BD Ultra-Fine Beatriz Pen Needle) As directed once a day polyethylene glycol 3350 (Miralax) 17 grams PO DAILY 1 day sucralfate (Carafate) 10 mL PO BID 90 days Tobacco use date assessed: 04/16/25 Fall risk assessment: No Falls in past year Last assessed Fall Risk: 04/16/25 Dental Screening Dental Screen Date: 11/15/24 HPI [facility] 05/01 HPI Details 65-year-old female with past medical history of diabetes mellitus, obesity, history of breast cancer, dyslipidemia, GERD, asthma, obstructive sleep apnea, chronic kidney disease last seen by Dr. Chavez 02/2025 coming in for a preoperative visit. Patient is scheduled to have eyel[facility]. Diabetes mellitus: Most recent A1c 7.2% - currently on Trulicity 4.5 mg and Jardiance 25 mg Chronic kidney disease: Creatinine is stable clinic office coordinator Wanda ([id number]) for the duration of this visit. No history of NV, CHF, CVA and not currently on disease modifying drugs or blood thinners. She has had surgery and anesthesia in the past without complication. 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 Upper airway resistance syndrome Uterine fibroid Abnormal cervical cytology Abnormal Pap smear of cervix History of COVID-19 Lumbar degenerative disc disease Allergic rhinitis Constipation Calcification of left breast Malignant neoplasm of breast Obesity (BMI 30-39.9) Diabetes mellitus with hyperglycemia Cancer of right breast COVID-19 Surgical History Hx of cholecystectomy History of bilateral tubal ligation History of bronchoscopy History of cataract surgery History of mastectomy Family History Sister Breast cancer Father HTN (hypertension) Heart attack Mother Diabetes HTN (hypertension) Social History Household Members: None Housing: Apartment Alcohol intake: never Patient Tobacco Use Status: Never used Tobacco e-Cigarette/Vaping Use: Never Used Second Hand Smoke Exposure: No service: No Current occupational status: employed 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 Sexual orientation: Straight/Heterosexual Gender identity: Female Cognitive needs: No Hearing needs: No Vision needs: Yes Female Reproductive History Menstrual Age of Menarche: 11 Questionnaire Thrive Questionnaire Date Thrive assessed: 02/14/25 I am a: Patient What is your living situation today?: I have a steady place to live Within the past 12 months, did the food you bought not last and you didn't have the money to get more?: Sometimes True Within the past 12 months, did you worry whether your food would run out before you got money to buy more?: Sometimes True Do you have trouble paying for medicines?: No Do you have trouble getting transportation to medical appointments?: No Do you have trouble paying your heating and electricity bill?: No Do you have trouble taking care of your child, family member or friend?: No Do you have trouble with day-to-day activities such as bathing, preparing meals, shopping, managing finances, etc.?: No Are you currently unemployed and looking for a job?: No Are you interested in more education?: No Please select the resources that you would like help with: None Currently or been in a relationship where the following occur: I choose not to answer THRIVE Score: 2 LEANDRA-7 AMB Questionnaire LEANDRA-7 Date LEANDRA - 7 assessed: 02/14/25 Source: Developed by Drs. Errol Sheikh, Jimena Fraser, Jeffery Collins and colleagues, with an educational noni from [employer]. Review of Systems Const Denies body aches, Denies chills, Denies fever(s), Denies headache(s) and Denies poor appetite Eyes Reports no additional complaints ENT Denies dysphagia, Denies dizziness, Denies headache(s) and Denies odynophagia Card Denies chest pain, Denies syncope, Denies edema, Denies irregular heart rhythm, Denies lightheadedness and Denies dyspnea Resp Denies cough and Denies dyspnea GI Denies abdominal pain, Denies dysphagia, Denies nausea, Denies odynophagia and Denies vomiting Details: no pain/burning with urination Reports no additional complaints Musc Reports no additional complaints and Denies abnormal gait Skin/Breast Reports system reviewed and no additional complaints, except as documented Neuro Denies abnormal gait, Denies dizziness, Denies syncope and Denies headache(s) Psych Reports no additional complaints Physical exam (Primary Care) Vital Signs: Last Vital Signs Temp 97.1 F 04/16/25 13:18 Pulse 83 04/16/25 13:18 BP 120/72 04/16/25 13:18 Pulse Ox 95 04/16/25 13:18 Oxygen Delivery Method Room Air 04/16/25 13:18 BMI result Body Mass Index 30.9 Tobacco/Smoking Status: Tobacco use Status Tobacco use date assessed 04/16/25 04/16/25 13:25 Patient Tobacco Use Status Never used Tobacco 04/16/25 13:25 Tobacco use type 04/07/25 12:21 e-Cigarette/Vaping Use Never Used 04/16/25 13:25 Thrive Assessment: Date of Thrive Assessment Date Thrive assessed 02/14/25 04/16/25 13:25 Currently or been in a relationship where the following occur: I choose not to answer Const General: cooperative, healthy appearing, comfortable and no acute distress Orientation/consciousness: patient oriented x3 HENMT Head: Yes normocephalic Ears: hearing grossly normal bilaterally General nose exam: Normal external nose present Eyes General: appearance normal, both eyes and all related structures Conjunctivae: conjunctivae normal Neck Neck: Yes full ROM and Yes no lymphadenopathy Resp Effort & Inspection: normal respiratory effort Auscultation: clear to auscultation bilaterally, no crackles, no rales, no rhonchi and no wheezes Cardio Rate: regular rate Rhythm: regular rhythm Skin General skin exam: no rashes or lesions noted Neuro General: patient oriented x3 Gait exam (Neuro): Normal gait present Extrem General: Yes normal to inspection, Yes full ROM and No edema Psych Affect: normal affect Attitude: cooperative Insight: Good insight present (Psych) Judgement: Good judgement present (Psych) Results AMB Hemoglobin A1c AMB Hemoglobin A1c 7.2 % Last Edit by MARCELO Garcia on 04/16/25 13:55 Coding Level of Care Code Est Pt Level 3 (31348) Diagnoses Preoperative examination Z01.818 Assessment & Plan Assessment & Plan (1) Preoperative examination: Code(s): Z01.818 - Encounter for other preprocedural examination Category: Medical Plan: Regarding preop clearance, the patient is at moderate risk for proposed surgery due to age and comorbidities. Reviewed with the patient that no surgery is completely free of risk and that this examination is to assist the surgeon in reviewing informed consent. Patient should discontinue Trulicity one week prior to surgery and Jardiance 4 days prior to surgery. Her chart does mention she should no longer be taking insulin per endocrinology. Most recent EKG 02/2025 showing no change from prior EKGs. Blood work has been evaluated and is stable. No further workup needed at this time and patient may proceed with surgery as planned. Thank you for allowing me to partcipate in this patient's care. Plan This note was constructed using voice recognition software. While every effort has been made to ensure accuracy and manager helpdesk, still areas may have been included sometimes these areas may affect the content or meeting of the given symptoms. Total time spent caring for the patient today was 20 minutes. This includes time spent before the visit reviewing the chart, time spent during the visit, and time spent after the visit and documentation. Orders: Orders AMB Hemoglobin A1c Today E11.65 - Type 2 diabetes mellitus with hyperglycemia
[2025-04-16 13:18] VITALS: BP 120/72; PULSE 83; TEMP 36.2; O2SAT 95; BMI 30.9
--- OUTSIDE RECORDS SUMMARY | 2025-04-16 13:48 | XMS_ITS | Clinical Summary ---
Author Organization [employer] Address [address] [place] [address] Care Team Providers Care Director Operations Broadcast Name Role Phone Unavailable Primary Care Provider [...] patient's age to complete this topic Insurance [facility]
== END 2025-04-16 13:54 | disposition home or self-care (01) ==
LOC: HO.HMCH 13:13
PROVIDERS: PCP Internal Medicine
DX: E11.65 Type 2 diabetes mellitus with hyperglycemia (principal)

== ENCOUNTER → 2025-04-16 13:12 | Outpatient (BNVA) | payer OTHER, SELFPAY | PROVIDERS: PCP Internal Medicine | DX: Z01.818 Encounter for other preprocedural examination (principal); E66.9 Obesity, unspecified; E11.65 Type 2 diabetes mellitus with hyperglycemia; E11.22 Type 2 diabetes mellitus with diabetic chronic kidney disease; N18.9 Chronic kidney disease, unspecified; Z68.30 Body mass index [BMI] 30.0-30.9, adult | CPT/HCPCS: 83036; 99212 ==

== ENCOUNTER 2025-05-16 12:47 | Outpatient (REF) | payer OTHER, SELFPAY ==
--- OUTSIDE RECORDS SUMMARY | 2025-05-16 12:50 | XMS_ITS | Clinical Summary ---
Author Organization [employer] Address [address] [place] [address] Care Team Providers Care Mammography Supervisor Name Role Phone Unavailable Primary Care Provider [...] 2023-2 5 season) 2024 Influenza Vaccine (#1) 2025 RSV Patients and Pa tients Aged [...] patient's age to complete this topic Insurance [facility]
== END 2025-05-16 12:48 | disposition home or self-care (01) ==
LOC: HO.MAMMO 12:47
PROVIDERS: Absent Provider Surgery; PCP Internal Medicine; Visit Provider Internal Medicine
DX: Z12.31 Encounter for screening mammogram for malignant neoplasm of breast (principal)
CPT/HCPCS: 77063; 77067

== ENCOUNTER → 2025-05-16 14:00 | Outpatient (BNV) | payer OTHER, SELFPAY | PROVIDERS: Absent Provider Surgery; PCP Internal Medicine; Visit Provider Internal Medicine | DX: Z12.31 Encounter for screening mammogram for malignant neoplasm of breast (principal) | CPT/HCPCS: 77063; 77067 ==

== ENCOUNTER 2025-05-28 12:31 | Emergency (ER) | payer OTHER, SELFPAY ==
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
[2025-05-28 12:40] VITALS: BP 133/62; BP 138/80; PULSE 108; PULSE 116; RESP 20; TEMP 36.7; O2SAT 97; O2SAT 98; BMI 31.1
[2025-05-28 12:52] VITALS: BP 133/62; PULSE 108; RESP 20; TEMP 36.7; O2SAT 98
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
--- OUTSIDE RECORDS SUMMARY | 2025-05-28 14:03 | XMS_ITS | Clinical Summary ---
Author Organization [facility] Address [address] [place] [id number] Phone Care Team Providers Care Plate Glass Installer Name Role Phone Mehrdad Chavez MD Primary Care Provider [phone] Social History Tobacco Use Types Packs/Day Years Used Date Smoking Tobacco: Never Assessed Education Answer Date Recorded Are you interested in more education? Not on dionne e 05/23/2025 Are you concerned about learning? Not on file 05/23/2025 No 05/23/2025 No 05/23/2025 Digital Access Answer Date Recorded No 05/23/2025 No 05/23/2025 Reliable internet access at home? Not on file 05/23/2025 Device with a working camera? Not on file Comments Unknown Sex and Gender Information Value Date Recorded Sex Assigned at Not on file Legal Sex Female 10:59 AM EDT Gender Identity Not on file Sexual Orientation Not on file Plan of Treatment Upcoming Encounters Date Type Department Care Team (Latest Contact Info) Description 06/06/2025 Procedure Pass [facility] Endoscopy Admitting Dept Virtual Department [address] [place] [phone] 06/06/2025 12:00 PM EDT Hospital Encounter [facility] Admitting Dept Virtual Department [address] [place] [phone] Jesus Lewis MD [address] [place] [id number] [email or web address] 06/06/2025 12:00 PM EDT - 06/06/2025 12:30 PM EDT Surgery [facility] Endoscopy Admitting Dept Virtual Department [address] [place] [id number] Jesus Lewis MD [address] [place] [phone] [email or web address] ESOPHAGOGASTRODUODENOSCOPY Scheduled Procedures Name Priority Associated Diagnoses Date/Ti me ESOPHAGOGASTRODUODENOSCOPY EGD/COLON 06/06/2025 12:00 PM EDT COLONOSCOPY EGD/COLON 06/06/2025 12:00 PM EDT Medical Devices Not on file Insurance ACO ACO ACO ACO ACO Care Teams Plate Glass Installer Relationship Specialty Start Date End Date Mehrdad Chavez MD [address] [place] [address] Dr [place] [address] [place] [id number] PCP - General Internal Medicine 05/23/25 Additional Source Comments The information contained in this document represents components of the legal health record. It is not the complete legal health record.[facility]
--- OUTSIDE RECORDS SUMMARY | 2025-05-28 14:03 | XMS_ITS | Clinical Summary ---
Author Organization [employer] Address [address] [facility] [address] [place] [address] Care Team Providers Care Rn Ante Partum Name Role Phone Unavailable Primary Care Provider [...] patient's age to complete this topic Insurance [facility]
[2025-05-28 16:43] VITALS: BP 121/67; PULSE 88; RESP 16; TEMP 36.2; O2SAT 97
[2025-05-28 17:15] VITALS: BP 121/67; PULSE 88; RESP 16; TEMP 36.2; O2SAT 97
== END 2025-05-28 17:16 | disposition home or self-care (01) ==
PROVIDERS: Emergency Provider Emergency Medicine Emergency Medical Services; PCP Internal Medicine
DX: S00.83XA Contusion of other part of head, initial encounter (principal); S80.12XA Contusion of left lower leg, initial encounter; S39.012A Strain of muscle, fascia and tendon of lower back, initial encounter; M79.605 Pain in left leg; R10.2 Pelvic and perineal pain; R51.9 Headache, unspecified; E11.9 Type 2 diabetes mellitus without complications; V43.52XA Car driver injured in collision with other type car in traffic accident, initial encounter; Y93.9 Activity, unspecified; Y92.410 Unspecified street and highway as the place of occurrence of the external cause; Y99.8 Other external cause status; Z79.85 Long-term (current) use of injectable non-insulin antidiabetic drugs; Z79.899 Other long term (current) drug therapy; Z79.4 Long term (current) use of insulin
CPT/HCPCS: 70450; 70486; 72170; 73552; 73590; 96374; 96376; 99284; J2270

== ENCOUNTER → 2025-05-28 13:50 | Outpatient (BNV) | payer OTHER, SELFPAY | PROVIDERS: Emergency Provider Emergency Medicine Emergency Medical Services; PCP Internal Medicine; Visit Provider Radiology Diagnostic Radiology | DX: G50.1 Atypical facial pain (principal); S09.90XA Unspecified injury of head, initial encounter; M16.12 Unilateral primary osteoarthritis, left hip; M79.605 Pain in left leg | CPT/HCPCS: 70450; 70486; 72170; 73552; 73590 ==

== ENCOUNTER 2025-05-30 08:37 | Outpatient (AMB) | payer OTHER, SELFPAY ==
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
--- OUTSIDE RECORDS SUMMARY | 2025-05-30 08:51 | XMS_ITS | Clinical Summary ---
Author Organization [employer] Address [address] [place] [address] Care Team Providers Care Assistant Professor Of Marine Biology Name Role Phone Unavailable Primary Care Provider [...] patient's age to complete this topic Insurance [facility]
[2025-05-30 08:53] VITALS: BP 98/70; PULSE 64; O2SAT 95; BMI 29.6
[2025-05-30 08:55] LABS: Glucose, Whole Blood 217 mg/dL (60-115)
== END 2025-05-30 09:08 | disposition home or self-care (01) ==
LOC: HO.ENCR 08:38
PROVIDERS: PCP Internal Medicine; Visit Provider Physician Assistant Medical
DX: E11.65 Type 2 diabetes mellitus with hyperglycemia (principal); Z79.4 Long term (current) use of insulin; E11.29 Type 2 diabetes mellitus with other diabetic kidney complication; R80.9 Proteinuria, unspecified; R79.89 Other specified abnormal findings of blood chemistry; N76.0 Acute vaginitis

== ENCOUNTER → 2025-05-30 08:37 | Outpatient (BNVA) | payer OTHER, SELFPAY | PROVIDERS: PCP Internal Medicine; Visit Provider Physician Assistant Medical | DX: E11.65 Type 2 diabetes mellitus with hyperglycemia (principal); Z79.4 Long term (current) use of insulin; R79.89 Other specified abnormal findings of blood chemistry; N76.0 Acute vaginitis; R80.9 Proteinuria, unspecified; R39.9 Unspecified symptoms and signs involving the genitourinary system | CPT/HCPCS: 82947; 99212 ==

== ENCOUNTER 2025-06-04 09:00 | Outpatient (AMB) | payer OTHER, SELFPAY ==
--- OUTSIDE RECORDS SUMMARY | 2025-06-03 09:30 | XMS_ITS | Encounter Summary ---
Author Organization [facility] Address [address] [facility] [address] [place] [phone] Phone Care Team Providers Care Law Firm Partner Name Role Phone Mehrdad Chavez MD Primary Care Provider [phone] Encounter Details Date Type Department Care Team (Late st Contact Info) Description 06/03/2025 9:30 AM EDT Pre-Admission Testing Pre Procedure Evaluation [address] [place] [address] Jesus Lewis MD [address] [place] [phone] [email or web address] Social History Tobacco Use Types Packs/Day Years [...] - Inhaled Oxygen Concentration - - Weight 77.1 kg (170 lb) 06/04/2025 9:12 AM EDT Height 157.5 cm (5' 2 ) 06/04/2025 9:12 AM EDT Body Mass Index 31.09 06/04/2025 9:12 AM EDT documented in this encounter Plan of Treatment Upcoming Encounters Date Type Department Care Team (Latest Contact Info) Description 06/06/2025 Procedure Pass [facility] Endoscopy Admitting Dept Virtual Department [address] [place] [phone] 06/06/2025 12:00 PM EDT Hospital Encounter [facility] Admitting Dept Virtual Department [address] [place] [phone] Jesus Lewis MD [address] [place] [phone] [email or web address] 06/06/2025 12:00 PM EDT - 06/06/2025 12:30 PM EDT Surgery [facility] Endoscopy Admitting Dept Virtual Department [address] [place] [phone] Jesus Lewis MD [address] [place] [phone] [email or web address] ESOPHAGOGASTRODUODENOSCOPY Scheduled Procedures Name Priority Associated Diagnoses Date/Ti me ESOPHAGOGASTRODUODENOSCOPY EGD/COLON 06/06/2025 12:00 PM EDT COLONOSCOPY EGD/COLON 06/06/2025 12:00 PM EDT documented as of this encounter Visit Diagnoses Not on filedocumented in this encounter Care Teams Law Firm Partner Relationship Specialty Start Date End Date Mehrdad Chavez MD [address] [place] [address] [facility] [address] [place] [address] PCP - General Internal Medicine 05/23/25 documented as of this encounter Additional Source Comments The information contained in this document represents components of the legal health record. It is not the complete legal health record.[facility]
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
[2025-06-04 09:11] VITALS: BP 118/70; PULSE 76; O2SAT 97; BMI 29.9
--- OUTSIDE RECORDS SUMMARY | 2025-06-04 09:44 | XMS_ITS | Clinical Summary ---
Author Organization [employer] Address [address] [place] [address] Care Team Providers Care Squad Leader Name Role Phone Unavailable Primary Care Provider [...] patient's age to complete this topic Insurance [facility] [place] [address]
== END 2025-06-04 09:55 | disposition home or self-care (01) ==
LOC: HO.HMCH 09:02
PROVIDERS: PCP Internal Medicine
DX: M54.42 Lumbago with sciatica, left side (principal); V89.2XXA Person injured in unspecified motor-vehicle accident, traffic, initial encounter; Z04.3 Encounter for examination and observation following other accident

== ENCOUNTER → 2025-06-04 09:00 | Outpatient (BNVA) | payer OTHER, SELFPAY | PROVIDERS: PCP Internal Medicine | DX: M54.42 Lumbago with sciatica, left side (principal); S00.33XA Contusion of nose, initial encounter; S80.12XA Contusion of left lower leg, initial encounter; S80.11XA Contusion of right lower leg, initial encounter; V89.2XXA Person injured in unspecified motor-vehicle accident, traffic, initial encounter; Y93.9 Activity, unspecified; Y92.9 Unspecified place or not applicable; Y99.9 Unspecified external cause status | CPT/HCPCS: 99212 ==

== ENCOUNTER 2025-06-06 07:58 | Outpatient (REF) | payer OTHER, SELFPAY ==
--- OUTSIDE RECORDS SUMMARY | 2025-06-03 09:30 | XMS_ITS | Encounter Summary ---
Author Organization [facility] Address [address] [place] [phone] Phone Care Team Providers Care Exterminator Termite Name Role Phone Mehrdad Chavez MD Primary Care Provider [phone] Encounter Details Date Type Department Care Team (Late st Contact Info) Description 06/03/2025 9:30 AM EDT Pre-Admission Testing Pre Procedure Evaluation [address] [place] [address] Jesus Lewis MD [address] [place] [id number] [email or web address] Social History Tobacco Use Types Packs/Day Years Used Date Smoking Tobacco: Never Smokeless Tobacco: Never Tobacco Cessation:Counseling Given: Not Answered Alcohol Use Standard Drinks/Week Comments Not Currently 0 (1 standard drink = 0.6 oz pur e alcohol) Education Answer Date Recorded Are you interested [...] on file Sexual Orientation Not on file documented as of this encounter Last Filed Vital Signs Vital Sign Reading Time Taken Comments Blood Pressure - - Pulse - - Temperature - - Respiratory Rate - - Oxygen Saturation - - Inhaled Oxygen Concentration - - Weight 74.4 kg (164 lb) 06/04/2025 11:45 AM EDT Height 157.5 cm (5' 2 ) 06/04/2025 9:12 AM EDT Body Mass Index 30 06/04/2025 9:12 AM EDT documented in this encounter Progress Notes * Eleni Mtz RN - 06/03/2025 9:30 AM EDT Pre-procedure assessment completed using telephone concrete block mason. Prep, location and arrival time reviewed. Diabetes mediations to be adjusted as advised by office. Transportation home arranged. All questions answered. This preprocedure call occurred on June 04, 2025. documented in this encounter Plan of Treatment Scheduled Procedures Name Priority Associated Diagnoses Date/Ti me ESOPHAGOGASTRODUODENOSCOPY EGD/COLON 06/06/2025 12:00 PM EDT COLONOSCOPY EGD/COLON 06/06/2025 12:00 PM EDT documented as of this encounter Visit Diagnoses Not on filedocumented in this encounter Care Teams Exterminator Termite Relationship Specialty Start Date End Date Mehrdad Chavez MD [address] [place] [address] [place] [id number] PCP - General Internal Medicine 05/23/25 documented as of this encounter Additional Source Comments The information contained in this document represents components of the legal health record. It is not the complete legal health record.[facility]
--- NOTE | ~2025-06-06 | XR_ITS ---
EXAMINATION: XR LUMBOSACRAL SPINE CLINICAL INFORMATION: M54.50 - Low back pain, unspecified COMPARISON: May 17, 2022 TECHNIQUE: AP and lateral views. FINDINGS: Multilevel marginal osteophyte formation and syndesmophyte formation involving the included axial skeleton. Multilevel endplate sclerosis and decreased intervertebral disc height involving the lower thoracic and upper lumbar spine. Grade 1 anterolisthesis L4-5. Mild levoconvex curvature apex at L2-3. Spina bifida occulta S1. Nonspecific air-fluid levels in the right hemiabdomen. XR/XR lumbar spine 2-3V IMPRESSION: Multilevel moderate to severe thoracolumbar spondylosis. Grade 1 anterolisthesis L4-5. Mild levoconvex scoliosis. This could be positional. An acute intra-abdominal process should be considered in the correct clinical settings. Findings communicated to the requesting provider (nurse practitioner Amado Camacho ) via [place] [facility] on June 06, 2025 at 9:00 AM. Electronically signed by: Yeyo Leonard MD 06/06/2025 09:01 AM EDT
--- OUTSIDE RECORDS SUMMARY | 2025-06-06 08:02 | XMS_ITS | Clinical Summary ---
Author Organization [employer] Address [address] [place] [address] Care Team Providers Care Wellness Program Administrator Name Role Phone Unavailable Primary Care Provider [...] age to complete this topic Insurance [facility]
[2025-06-06 09:05] LABS: Appearance Urine Cloudy; Glucose Urine UA 250 mg/dL (Negative); PH 5.5 (5.0-9.0); Specific Gravity - Urine 1.020 (1.005-1.025); UMIC TRIGGER UA YES
== END 2025-06-06 07:59 | disposition home or self-care (01) ==
LOC: HO.LAB 07:58
PROVIDERS: Absent Provider Physician Assistant Medical; PCP Internal Medicine
DX: C50.311 Malignant neoplasm of lower-inner quadrant of right female breast (principal); R39.9 Unspecified symptoms and signs involving the genitourinary system; M54.50 Low back pain, unspecified
CPT/HCPCS: 72100; 81001; 87086; 99212

== ENCOUNTER → 2025-06-06 08:29 | Outpatient (BNV) | payer OTHER, SELFPAY | PROVIDERS: Absent Provider Physician Assistant Medical; PCP Internal Medicine; Visit Provider Radiology Diagnostic Radiology | DX: M47.815 Spondylosis without myelopathy or radiculopathy, thoracolumbar region (principal) | CPT/HCPCS: 72100 ==

== ENCOUNTER 2025-06-06 08:55 | Outpatient (AMB) | payer OTHER, SELFPAY ==
--- NOTE | 2025-06-06 08:59 | MHC.OFFVIS ---
Vital Signs 06/06/25 09:07 Height 5 ft 2 in Weight 163 lb BMI 29.8 BP 122/62 Blood Pressure Location Lt brachial Position Sitting Pulse 92 Intake Visit Reasons: yearly breast exam Intake Note: Patient here for yearly breast exam. Patient c/o: no concerns w/breasts. Reports MRI has to be repeated. Rt breast feels tender at times/ bothersome. MM: 05-16-2025 Motor Vehicle Compliance Analyst Required: Yes Accompanied by: Self / Same As Patient Allergies oyster extract Allergy (Verified 06/06/25 09:05) Anaphylaxis Medication List - Last Reconciled 06/06/25 by Espinoza Mota MD acetaminophen 500 mg PO Q8H PRN albuterol sulfate 90 mcg/actuation (Ventolin HFA) 1 puff PO QID PRN atorvastatin 10 mg PO BEDTIME benzonatate 100 mg PO BID-TID PRN bisacodyl (Dulcolax (bisacodyl)) 20 mg (4 x 5 mg) PO ONCE 1 day blood sugar diagnostic (FreeStyle Lite Strips) As directed to check blood glucose 3 times daily. blood-glucose meter (Blood Glucose Monitoring kit) As directed blood-glucose meter (FreeStyle Lite Meter kit) Use to monitor blood glucose five times daily blood-glucose sensor (FreeStyle Maricel 3 Plus Sensor device) Use daily As directed to monitor glucose blood-glucose,mobile sales assistant,cont (FreeStyle Maricel 3 [place]) Use daily As directed to monitor blood glucose cetirizine 10 mg PO DAILY PRN 90 days cholecalciferol (vitamin D3) 100 mcg PO DAILY cyclobenzaprine 10 mg PO TID PRN dulaglutide (Trulicity) 4.5 mg (0.5 mL) subcut QWEEK fluticasone propionate 50 mcg/actuation (Flonase Allergy Relief) 2 sprays intranasal DAILY nzipgsajhbb-zoqsxfyrn-tmkruami 200-62.5-25 mcg (Trelegy Ellipta) 1 inh inhalation DAILY 30 days gabapentin 600 mg (2 x 300 mg) PO BEDTIME 30 days glipizide ER 5 mg PO DAILY glucose (Dex4 Glucose) 16 grams (4 x 4 gram) PO Q15M PRN ketoconazole 2% 1 appl topical BID 14 days lancets As directed lancets (FreeStyle Lancets) Use to monitor blood glucose 5 times daily. lisinopril 10 mg PO DAILY miconazole nitrate (Monistat 1 Combo Pack) place 1 insert into vagina at bedtime day 1;apply cream to area outside vagina twice daily for up to 7 days vaginal omeprazole 40 mg PO DAILY 90 days oxycodone 5 mg PO Q6H PRN pen needle, diabetic (BD Ultra-Fine Beatriz Pen Needle) As directed once a day polyethylene glycol 3350 (Miralax) 17 grams PO DAILY 1 day sucralfate (Carafate) 10 mL PO BID 90 days tramadol 50 mg PO BID PRN HPI Comments Details: 65-year-old female patient presenting for a breast cancer follow-up examination. She has a previous history of right breast cancer, s/p lumpectomy with axillary node biopsy, followed by radiation therapy. She subsequently underwent bilateral breast augmentation with implants. She is uncertain which type of implants were placed. All her breast surgery was performed in [place] when she was 47 years old. She underwent a diagnostic mammogram and ultrasound on 01/06/2023 which revealed a round well-circumscribed density in the lateral aspect of the right breast. Bilateral calcifications were noted as well. Findings were felt to be probably benign (BI-RAD 3). Subsequent follow-up mammogram of 05/13/2024 revealed intact silicone implants with postsurgical changes in the right breast and benign calcifications bilaterally and no significant changes from the prior mammogram (BI-RADS 2). She underwent follow-up mammography on 05/16/2025. An asymmetry was noted in the retroareolar region anterior to middle depth in the MLO implant displaced view on the right breast. Additional images are pending (BI-RADS 0). 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 Upper airway resistance syndrome Uterine fibroid Abnormal cervical cytology Abnormal Pap smear of cervix History of COVID-19 Lumbar degenerative disc disease Allergic rhinitis Constipation Calcification of left breast Malignant neoplasm of breast Obesity (BMI 30-39.9) Diabetes mellitus with hyperglycemia Cancer of right breast COVID-19 Surgical History Hx of cholecystectomy History of bilateral tubal ligation History of bronchoscopy History of cataract surgery History of mastectomy Family History Sister Breast cancer Father HTN (hypertension) Heart attack Mother Diabetes HTN (hypertension) Social History Household Members: None Housing: Apartment Alcohol intake: never Patient Tobacco Use Status: Never used Tobacco e-Cigarette/Vaping Use: Never Used Second Hand Smoke Exposure: No service: No Current occupational status: employed 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 Sexual orientation: Straight/Heterosexual Gender identity: Female Cognitive needs: No Hearing needs: No Vision needs: Yes Female Reproductive History Menstrual Age of Menarche: 11 Review of Systems Const All systems reviewed & are unremarkable except as noted in HPI and below Denies chills, Denies fever(s), Denies headache(s), Denies poor appetite and Denies weakness ENT Denies headache(s) Card Denies chest pain, Denies irregular heart rhythm, Denies palpitations and Denies dyspnea Resp Denies cough, Denies excessive phlegm production and Denies dyspnea GI Denies abdominal pain, Denies bloating, Denies change in bowel habits, Denies constipation, Denies heartburn, Denies diarrhea, Denies nausea and Denies vomiting Denies urinary frequency Musc Denies back pain, Denies muscle weakness and Denies numbness Skin/Breast Denies changing lesions and Denies unusual bruising Neuro Denies headache(s), Denies numbness, Denies paresthesias and Denies weakness Psych Denies anxiety and Denies depression Endo Denies palpitations Roc/Lymph Denies lymphadenopathy Physical Exam Vital Signs: Last Vital Signs Pulse 92 06/06/25 09:07 BP 122/62 06/06/25 09:07 BMI result Body Mass Index 29.8 Const General: cooperative and no acute distress Nutritional Appearance: well nourished Orientation/consciousness: patient oriented x3 Limitations: no limitations HEENT Head: Yes normocephalic and Yes atraumatic Ears: hearing grossly normal bilaterally Chest Chest/axillae images:  1. Incision medial lower breast right side 2. Displaced implant 3. Palpable implant left breast Resp Effort & Inspection: normal respiratory effort, no audible wheezes, no cough and no respiratory distress Cardio Jugular venous distension: no JVD GI Inspection: Yes normal to inspection Skin Other: Warm, dry, no rash Neuro Other: Mobility Assessment: 1. 3 meter assessment time (seconds):6 2. Gait observations: Normal balance and gait General: patient oriented x3 Extrem General: Yes no clubbing, cyanosis or edema Assessment & Plan Assessment & Plan (1) Malignant neoplasm of breast: Code(s): C50.919 - Malignant neoplasm of unspecified site of unspecified female breast Category: Medical Qualifiers: Breast location: lower inner quadrant of breast Estrogen receptor status: unspecified Patient sex: female Laterality: right Qualified Code(s): C50.311 - Malignant neoplasm of lower-inner quadrant of right female breast Plan 65-year-old female patient with a prior history of right breast cancer s/p right breast lumpectomy with axillary dissection in 2006 followed by bilateral breast augmentation both performed in [place]. Examination today revealed no suspicious findings in either breast. The right breast implant does appear to be migrating laterally. Her most recent mammogram of 05/16/2025 reveals an area of asymmetry in the right breast for which additional imaging is planned. (BI-RADS 0). She was scheduled for this imaging on 06/27/2025. I recommended follow-up examination in 1 year. Coding Level of Care Code Est Pt Level 3 (30262) Complex EM visit Add On G2211 Diagnoses Malignant neoplasm of lower-inner quadrant of right female breast, unspecified estrogen receptor status C50.311 Breast location: lower inner quadrant of breast Estrogen receptor status: unspecified Patient sex: female Laterality: right
[2025-06-06 09:07] VITALS: BP 122/62; PULSE 92; BMI 29.8
== END 2025-06-06 09:16 | disposition home or self-care (01) ==
LOC: HO.HGS 08:56
PROVIDERS: PCP Internal Medicine; Visit Provider Surgery
DX: C50.311 Malignant neoplasm of lower-inner quadrant of right female breast (principal)
CPT/HCPCS: 99213

== ENCOUNTER 2025-06-24 13:51 | Outpatient (AMB) | payer OTHER, SELFPAY ==
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
[2025-06-24 13:54] VITALS: BP 130/82; PULSE 96; O2SAT 99; BMI 30.6
--- OUTSIDE RECORDS SUMMARY | 2025-06-24 16:32 | XMS_ITS | Clinical Summary ---
Author Organization [facility] Address [address] [facility] [address] [place] [address] Phone Care Team Providers Care Heat Treat Operator Name Role Phone Mehrdad Castellanos MD Primary Care Provider [phone] [phone] Allergies No known active allergies Medications atorvastatin (LIPITOR) 10 MG tablet Take 10 mg by mouth daily. 5 Active cetirizine (ZYRTEC) 10 MG tablet Take 10 mg by mouth daily as needed. 5 Active cholecalciferol (VITAMIN D3) 2,000 unit capsule TOME 2 C PSULAS POR V A ORAL TODOS LOS D 5 Active TRULICITY 4.5 mg/0.5 mL subcutaneous injection Inject 4.5 mg under the skin every 7 days. 5 Active glipiZIDE (GLUCOTROL XL) 5 MG 24 hr tablet Take 5 mg by mouth daily. 5 Active LANTUS SOLOSTAR U-100 INSULIN 100 unit/mL (3 mL) InPn injection pen Inject under the skin nightly at bedtime. 5 Active lisinopril (PRINIVIL,ZESTRIL ) 10 MG tablet Take 10 mg by mouth daily. 5 Active oxyCODONE 5 MG immediate release tablet Take 5 mg by mouth. 5 Active acetaminophen (TYLENOL) 500 MG tablet Take 500 mg by mouth every 8 (eight) hours as needed. 5 Active omeprazole (PRILOSEC) 40 MG capsule Take 40 mg by mouth daily. 5 Active traMADoL (ULTRAM) 50 mg tablet TOME STEFAN TABLETA POR V A ORAL CADA SEIS HORAS CUANDO SEA NECESARIO PARA EL DOLOR 5 Active sucralfate (CARAFATE) 100 mg/mL suspension Take 10 mL by mouth 2 (two) times a day. Active Encounters Date Type Department Care Team Description 06/06/2025 12:00 PM EDT - 06/06/2025 12:30 PM EDT Surgery [facility] Endoscopy Admitting Dept Virtual Department [address] [place] [address] Jamil Gonzalez MD ESOPHAGOGASTRODUODENOSCOPY 06/06/2025 11:54 AM EDT Anesthesia Event [facility] Endoscopy Admitting Dept Virtual Department [address] [place] [address]21 Che Dash MD 06/06/2025 10:00 AM EDT - 06/06/2025 1:03 PM EDT Hospital Encounter [facility] Endoscopy Admitting Dept Virtual Department [address] [place] [address] Jamil Gonzalez MD Discharge Disposition: Home or Self Care 06/06/2025 Procedure Pass [facility] Endoscopy Admitting Dept Virtual Department [address] [place] [address] 06/03/2025 9:30 AM EDT Pre-Admission Testing Pre Procedure Evaluation [address] [place] [address] Jamil Gonzalez MD from Last 3 Months Social History Tobacco Use Types Packs/Day Years [...] with a working camera? Not on file Intimate Partner Violence Answer Date R ecorded Are you denied basic needs s uch as food, clothing, or medical care? No 06/06/2025 In the past 12 months have y ou been in a relationship with a person who hurts, threatens, or tries to control you? No 06/06/2025 Are you denied basic needs s uch as food, clothing, or medical care? No 06/06/2025 In the past 12 months have y ou been in a relationship with a person who hurts, threatens, or tries to control you? No 06/06/2025 Comments Unknown Sex and Gender Information Value Date Recorded Sex Assigned at Not on file Legal Sex Female 10:59 AM EDT Gender Identity Not on file Sexual Orientation Not on file Last Filed Vital Signs Vital Sign Reading Time Taken Comments Blood Pressure 134/76 06/06/2025 12:42 PM EDT Pulse 88 06/06/2025 12:42 PM EDT Temperature 35.8 C (96.4 F) 06/06/2025 12:32 PM EDT Respiratory Rate 26 06/06/2025 12:42 PM EDT Oxygen Saturation 100% 06/06/2025 12:42 PM EDT Inhaled Oxygen Concentration - - Weight 74.4 kg (164 lb) 06/04/2025 11:45 AM EDT Height 157.5 cm (5' 2 ) 06/04/2025 9:12 AM EDT Body Mass Index 30 06/04/2025 9:12 AM EDT Plan of Treatment Health Maintenance Due Date Last Done Comments CREATININE LEVEL 1961 LIPID PANEL 1961 POTASSIUM LEVEL 1961 DEPRESSION SCREENING 1973 HEPATITIS C SCREENING 1979 HIV ONE-TIME SCREENING (18-6 5 YEARS) 1979 PAP SMEAR 1982 SCREENING FOR DIABETES 1996 MAMMOGRAM 2001 COLOGUARD 2006 FIT TEST 2006 FOBT 2006 SIGMOIDOSCOPY 2006 VIRTUAL COLONOSCOPY 2006 INFLUENZA VACCINE (#1) 2025 , 07/21/2023, 08/06/2022 COVID-19 VACCINE ( - 2024-2 6 season) 2025 08/25/2022, 04/02/2021, 2021 Adult Td,Tdap Booster 11/19/2031 11/19/2021 COLONOSCOPY 06/06/2035 06/06/2025 COLORECTAL CANCER SCREENING 06/06/2035 RSV VACCINE (1 - 1-dose 75+ series) 2036 PNEUMOCOCCAL VACCINES (50+ years) Completed 05/10/2025 ZOSTER VACCINES Completed 05/10/2025, 02/28/2025 SMOKING STATUS SCREENING (On ce After 26 Yrs) Completed 06/06/2025 HEPATITIS A VACCINES Aged Out No long er eligible based on patient's age to complete this topic HIB VACCINES Aged Out No longer eligi ble based on patient's age to complete this topic MENINGOCOCCAL VACCINES (ACWY) Aged Out No longer eligible based on patient's age to complete this topic MENINGOCOCCAL VACCINES (B) Aged Out N o longer eligible based on patient's age to complete this topic Medical Devices Implanted Type Area Access Developer Device Identifier Shelf Expiration Date Model / Serial / Lot Breast Procedures Procedure Name Priority Date/Time Associated Diagnosis Comments [place] COLSC FLX W/RMVL OF TUMOR POLYP LESION SNARE TQ 06/06/2025 11:54 AM EDT EGD/COLON Special Needs INTERPRETERDM-dulaglutideinsuiln [place] COLONOSCOPY W/BIOPSY SINGLE/MULTIPLE 06/06/2025 11:54 AM EDT EGD/COLON Special Needs INTERPRETERDM-dulaglutideinsuiln [place] COLONOSCOPY FLX DX W/IRMA J SPEC WHEN PFRMD 06/06/2025 11:54 AM EDT EGD/COLON Special Needs INTERPRETERDM-dulaglutideinsuiln [place] EDG TRANSORAL BIOPSY SINGLE/MULTIPLE 06/06/2025 11:54 AM EDT EGD/COLON Special Needs INTERPRETERDM-dulaglutideinsuiln KS ESOPHAGOGASTRODUODENOSCOP Y TRANSORAL DIAGNOSTIC 06/06/2025 11:54 AM EDT EGD/COLON Special Needs INTERPRETERDM-dulaglutideinsuiln ENDOSCOPY PROCEDURE 06/06/2025 11:53 AM EDT ENDOSCOPY, COLON 06/06/2025 11:53 AM EDT ANATOMIC PATHOLOGY Routine 06/06/2025 12:00 AM EDT from Last 3 Months Results * ENDOSCOPY PROCEDURE (06/06/2025 11:53 AM EDT) Narrative Transcriptions Jamil Gonzalez MD - 06/06/2025 11:53 AM EDT [facility] Patient Name: Grace Vin Ernst Attending MD:: JAMIL GONZALEZ MD, Procedure Date: 06/06/2025 11:53 AM Date of : 1960 Age: 65 Admit Type: Outpatient Gender: Female Room: [place] [address] Referring MD: MEHRDAD CASTELLANOS MD Exam Type: Upper GI endoscopy Indications: Dysphagia, Heartburn, Suspected esophageal reflux, Nausea Medications: Monitored Anesthesia Care Procedure: Informed consent was obtained from the patientafter discussion of the indications, limitations, alternatives, benefits, and risks of the procedure. Risks specifically discussed include but are not limited to medication reactions, missed lesions, bleeding, perforation, or the need for emergent surgery. Throughout the procedure, the patient's blood pressure, pulse, end-tidal CO2, and oxygensaturations were monitored continuously. The Olympus gastroscope [id number]-[id number] #2 was introduced through the mouth, and advanced to the second partof duodenum. The upper GI endoscopy was accomplished without difficulty. The patient tolerated the procedure fairly well. Complications: No immediate complications. Estimated blood loss: Minimal. Findings: The Z-line was irregular and was found 30 cm fromthe incisors. Biopsies were taken with a cold forcepsfor histology. Estimated blood loss was minimal. A patulous lower esophageal sphincter was found. Patchy moderate inflammation characterized by congestion (edema), erythema, friability and nodularity was found in the gastric fundus and inthe gastric body. Biopsies were taken with a coldforceps for histology. Estimated blood loss was minimal. The cardia and gastric fundus were normal on retroflexion. The examined duodenum was normal. Impression: - Z-line irregular, 30 cm from the incisors.Biopsied. - Patulous lower esophageal sphincter. - Gastritis. Biopsied. - Normal examined duodenum. Recommendation: - I will send results of your biopsy to you and your referringphysician or provider. If you do not receive notification within 3 weeks,please call our office. - Perform a colonoscopy today. JAMIL GONZALEZ MD 06/06/2025 12:19:34 PM This report has been signed electronically. Number of Addenda: 0 Note Initiated On: 06/06/2025 11:53 AM Procedure Code(s): --- Professional --- 37365, Esophagogastroduodenoscopy, flexible, transoral; with biopsy, single or multiple --- Technical --- 24752, Esophagogastroduodenoscopy, flexible, transoral; with biopsy, single or multiple Diagnosis Code(s): --- Professional --- K22.89, Other specified disease of esophagus K29.70, Gastritis, unspecified, without bleeding R13.10, Dysphagia, unspecified R12, Heartburn R11.0, Nausea --- Technical --- K22.89, Other specified disease of esophagus K29.70, Gastritis, unspecified, without bleeding R13.10, Dysphagia, unspecified R12, Heartburn R11.0, Nausea CPT copyright 2021 [employer]. All rights reserved. The codes documented in this report are preliminary and upon outpatient coder reviewmay be revised to meet current compliance requirements. Procedure Date: 06/06/2025 11:53:[address] [place] [address] Mehrdad Castellanos MD GI PROCEDURE ORDERABLES F inal Result * ENDOSCOPY, COLON (06/06/2025 11:53 AM EDT) Narrative Transcriptions Jamil Gonzalez MD - 06/06/2025 11:53 AM EDT [facility] Patient Name: Grace Banuelos Klever Attending MD:: JAMIL GONZALEZ MD, Procedure Date: 06/06/2025 11:53 AM Date of : 1960 Age: 65 Admit Type: Outpatient Gender: Female Room: [place] [address] Referring MD: MEHRDAD CASTELLANOS MD Exam Type: Colonoscopy Indications: Surveillance: Personal history of adenomatouspolyps on last colonoscopy 3 years ago, Last colonoscopy: June 2022, Fecal incontinence Medications: Monitored Anesthesia Care Procedure: Informed consent was obtained from the patientafter discussion of the indications, limitations, alternatives, benefits, and risks of the procedure. Risks specifically discussed include but are not limited to medication reactions, missed lesions, bleeding, perforation, or the need for emergent surgery. Throughout the procedure, the patient's blood pressure, pulse, end-tidal CO2, and oxygensaturations were monitored continuously. The Olympus pediatric variable [id number] #4 was introduced through the anus and advanced tothe cecum, identified by the appendiceal orifice, ileocecal valve and palpation. The colonoscopy was performed without difficulty. The patient tolerated the procedure fairly well. The quality of the bowel preparation was evaluated using the BBPS (BostonBowel Preparation Scale) with scores of: Right Colon = 3, Transverse Colon = 3 and Left Colon = 3 (entiremucosa seen well with no residual staining, smallfragments of stool or opaque liquid). The total BBPS score equals 9. Complications: No immediate complications. Estimated blood loss:None. Findings: The digital rectal exam findings include decreased sphincter tone. Pertinent negatives include no palpable rectal lesions. Retroflexion in the right colon was performed. Non-bleeding internal hemorrhoids were found during retroflexion. The hemorrhoids were small. The exam was otherwise without abnormality ondirect and retroflexion views. Impression: - Decreased sphincter tone found on digital rectal exam. - Non-bleeding internal hemorrhoids. - The examination was otherwise normal on directand retroflexion views. - No specimens collected. Recommendation: - Repeat colonoscopy in 7 years for surveillance. - Use fiber, for example Citrucel, Fibercon, Konsyl or Metamucil. JAMIL GONZALEZ MD 06/06/2025 12:22:31 PM This report has been signed electronically. Number of Addenda: 0 Note Initiated On: 06/06/2025 11:53 AM Procedure Code(s): --- Professional --- 85491, Colonoscopy, flexible; diagnostic, including collection of specimen(s) by brushing or washing, when performed (separateprocedure) --- Technical --- 66290, Colonoscopy, flexible; diagnostic, including collection of specimen(s) by brushing or washing, when performed (separateprocedure) Diagnosis Code(s): --- Professional --- Z86.010, Personal history of colonic polyps K62.89, Other specified diseases of anus andrectum K64.8, Other hemorrhoids R15.9, Full incontinence of feces --- Technical --- Z86.010, Personal history of colonic polyps K62.89, Other specified diseases of anus andrectum K64.8, Other hemorrhoids R15.9, Full incontinence of feces CPT copyright 2021 [employer]. All rights reserved. The codes documented in this report are preliminary and upon outpatient coder reviewmay be revised to meet current compliance requirements. Procedure Date: 06/06/2025 11:53:24 AM [address] [place] [address] us Mehrdad Castellanos MD GI PROCEDURE ORDERABLES F inal Result * Anatomic Pathology (06/06/2025 12:00 AM EDT) 06/06/2025 06/06/2025 1:0 6 PM EDT Narrative SEE NARRATIVE - 06/09/2025 12:36 PM EDT [address] [address] Manager Payer: Efren Patricio MD Surgical Pathology Report FINAL PATHOLOGIC DIAGNOSIS: A. STOMACH, BIOPSY: Inactive chronic gastritis with reactive changes, suggestive of a reactive/chemical gastropathy. B. GASTROESOPHAGEAL JUNCTION AT 30 CM, BIOPSY: Squamocolumnar junction with reactive changes. Negative for intestinal metaplasia and dysplasia. Note: Immunohistochemical stains for H. pylori are performed on the gastric biopsies and DO NOT DEMONSTRATE organisms with the morphologic characteristics of Helicobacter. Electronically Signed Out By Efren Patricio MD By his/her signature above, the pathologist listed as making the Final Diagnosis certifies that he/she has personally reviewed this case and confirmed or corrected the diagnosis. CLINICAL HISTORY Dysphagia, heartburn, suspected esophageal reflux, nausea SPECIMENS SUBMITTED: A: STOMACH, BIOPSY B: GASTROESOPHAGEAL JUNCTION AT 30 CM, BIOPSY GROSS DESCRIPTION A. STOMACH, BIOPSY: Received in formalin are 3 irregular adair-pink soft tissue fragments measuring an average 0.4 x 0.3 x 0.2 cm which are submitted in toto in a single cassette labeled A1. B. GASTROESOPHAGEAL JUNCTION AT 30 CM, BIOPSY: Received in formalin are 2 irregular adair-pink soft tissue fragments measuring on average 0.4 x 0.2 x 0.1 cm which are submitted in toto in a single cassette labeled B1. Grossed by: MARLI Butler, VELVET([facility]) [id number] 06/06/2025 Grossing Staff: [id number] One or more of the reagents used in immunohistochemical testing in this case may not have been cleared or approved by the U.S. Food and Drug Administration (FDA). The FDA has determined that such clearance or approval is not necessary. These tests are used for clinical purposes. This should not be regarded as investigational or for research. These reagents' performance characteristics have been determined by the [facility]. This laboratory is certified under the Clinical Laboratory Improvement Amendments of 1988 (CLIA-88) as qualified to perform high complexity clinical laboratory testing. Immunohistochemistry is performed on formalin-fixed paraffin-embedded sections (unless otherwise specified) and on a Benchmark Ultra immunostainer which utilizes a proprietary polymer detection system. Positive, negative and internal controls, when present, stain appropriately. Patient Name: GRACE KING : 1960 (Age: 65) Sex: F Institution: [facility] Location: [facility] Date of Operation: 06/06/2025 Date of Reported: 06/09/2025 12:36 Results To: Jamil Castellanos MD Jamil Gonzalez MD PATHOLOGY ORDERABLES Final Res ult SEE NARRATIVE from Last 3 Months Insurance ACO ACO ACO ACO [facility] ACO Care Teams Heat Treat Operator Relationship Specialty Start Date End Date Mehrdad Castellanos MD [address] [place] [address] [place] [address] PCP - General Internal Medicine 05/23/25 Additional Source Comments The information contained in this document represents components of the legal health record. It is not the complete legal health record.[facility]
--- OUTSIDE RECORDS SUMMARY | 2025-06-24 16:32 | XMS_ITS | Clinical Summary ---
Author Organization [employer] Address [address] [facility] 7 [place] [address] Care Team Providers Care High School Science Tutor Name Role Phone Unavailable Primary Care Provider [...] COVID-19 Vaccine ( - 2023-2 5 season) 2025 Influenza Vaccine (#1) 2025 RSV Patients and [...] age to complete this topic Insurance [facility] ACO
--- OUTSIDE RECORDS SUMMARY | 2025-06-24 16:32 | XMS_ITS | Encounter Summary ---
Author Organization [facility] Address [address] [place] [address] Phone Care Team Providers Care Threshing Operator Name Role Phone Mehrdad Chavez MD Primary Care Provider [phone] [phone] Encounter Details Date Type Department Care Team (Late st Contact Info) Description 06/06/2025 Procedure Pass [facility] Endoscopy Admitting Dept Virtual Department [address] [place], [place] [id number] Social History Tobacco Use Types Packs/Day Years Used Date Smoking Tobacco: Never Smokeless Tobacco: Never Alcohol Use Standard Drinks/Week Comments Not Currently [...] on file documented as of this encounter Plan of Treatment Not on file documented as of this encounter Visit Diagnoses Not on filedocumented in this encounter Care Teams Threshing Operator Relationship Specialty Start Date End Date Mehrdad Chavez MD [address] [place] [address] Dr [place] [address] [place] [address], [place] [address] PCP - General Internal Medicine 05/23/25 documented as of this encounter Additional Source Comments The information contained in this document represents components of the legal health record. It is not the complete legal health record.[facility]
== END 2025-06-24 14:32 | disposition home or self-care (01) ==
LOC: HO.HMCH 13:51
PROVIDERS: PCP Internal Medicine; Visit Provider Internal Medicine
DX: E11.65 Type 2 diabetes mellitus with hyperglycemia (principal); Z79.4 Long term (current) use of insulin; N18.31 Chronic kidney disease, stage 3a; C50.311 Malignant neoplasm of lower-inner quadrant of right female breast; R10.13 Epigastric pain; M19.031 Primary osteoarthritis, right wrist; E78.2 Mixed hyperlipidemia; J45.40 Moderate persistent asthma, uncomplicated; K59.00 Constipation, unspecified; J30.1 Allergic rhinitis due to pollen; M51.362 Other intervertebral disc degeneration, lumbar region with discogenic back pain and lower extremity pain; E55.9 Vitamin D deficiency, unspecified

== ENCOUNTER → 2025-06-24 13:51 | Outpatient (BNVA) | payer OTHER, SELFPAY | PROVIDERS: PCP Internal Medicine; Visit Provider Internal Medicine | DX: R10.13 Epigastric pain (principal); M54.50 Low back pain, unspecified; M19.031 Primary osteoarthritis, right wrist; E11.65 Type 2 diabetes mellitus with hyperglycemia; N18.31 Chronic kidney disease, stage 3a; E78.2 Mixed hyperlipidemia; J45.40 Moderate persistent asthma, uncomplicated; K59.00 Constipation, unspecified; J30.1 Allergic rhinitis due to pollen; M51.362 Other intervertebral disc degeneration, lumbar region with discogenic back pain and lower extremity pain; E55.9 Vitamin D deficiency, unspecified; C50.311 Malignant neoplasm of lower-inner quadrant of right female breast; E66.9 Obesity, unspecified; Z68.31 Body mass index [BMI] 31.0-31.9, adult; Z79.4 Long term (current) use of insulin | CPT/HCPCS: 96127; 99212 ==

== ENCOUNTER 2025-06-27 09:43 | Outpatient (REF) | payer OTHER, SELFPAY ==
--- NOTE | ~2025-06-27 | US_ITS ---
EXAMINATION: MM DIAGNOSTIC DIGITAL BREAST TOMOSYNTHESIS, RIGHT CLINICAL INFORMATION: Call back from screening for asymmetry in the right breast. COMPARISON: Mammography: Priors on PACS. TECHNIQUE: Digital breast tomosynthesis is performed in both the craniocaudal and mediolateral oblique views along with computer-aided detection (CAD). Synthesized 2D images are generated from the tomosynthesis. FINDINGS: The breasts are heterogeneously dense, which may obscure small masses (ACR BI-RADS breast composition Category c). Right: Asymmetry in the retroareolar region persists on additional imaging projections. No suspicious calcifications or other abnormal findings. Targeted color Doppler ultrasound scanning in the retroareolar region from 90 1:00 and 11-1 o'clock in straight a cystic complicated cyst versus fat necrosis right breast 1:00 7 cm from the nipple measuring approximately 9 x 7 x 3 mm. This is not a definite correlate for the asymmetry on mammography. US/US breast RT limited mamm only IMPRESSION: Asymmetry retroareolar region of the right breast without definite sonographic correlate. Recommend 6 month follow-up for further evaluation of stability. Recommend 6 month follow-up ultrasound to further evaluate complicated cysts. ASSESSMENT: BI-RADS BI-RADS 3 - Probably benign finding(s) - 6 month follow-up suggested RECOMMENDATION: Additional Imaging required Results were provided to the patient at time of visit by the technologist. This patient's information was entered into a reminder system with a target due date for their next mammogram. Electronically signed by: Kelley Dixon DO 06/27/2025 01:27 PM EDT
--- OUTSIDE RECORDS SUMMARY | 2025-06-27 10:54 | XMS_ITS | Clinical Summary ---
Author Organization [facility] Address [address] [facility] [address] [place] [address] Phone Care Team Providers Care Laser Beam Color Scanner Operator Name Role Phone Mehrdad Castellanos MD Primary Care Provider [phone] [phone] Allergies No known active allergies Medications atorvastatin [...] EDT - 06/06/2025 12:30 PM EDT Surgery [facility] Endoscopy Admitting Dept Virtual Department [address] [place] [address] Jamil Gonzalez MD ESOPHAGOGASTRODUODENOSCOPY 06/06/2025 11:54 AM EDT Anesthesia Event [facility] Endoscopy Admitting Dept Virtual Department [address] [place] [address] Ceh Dash MD 06/06/2025 10:00 AM EDT - 06/06/2025 1:03 PM EDT Hospital Encounter [facility] Endoscopy Admitting Dept Virtual Department [address] [place] [address] Jamil Gonzalez MD Discharge Disposition: Home or Self Care 06/06/2025 Procedure Pass [facility] Endoscopy Admitting Dept Virtual Department [address] [place] [address] 06/03/2025 9:30 AM EDT Pre-Admission Testing Pre Procedure Evaluation [address] [place] [address] Jamil Gonzalez MD from Last 3 Months [...] this topic Medical Devices Implanted Type Area Pie Crimping Machine Operator Device Identifier Shelf Expiration Date Model / Serial / Lot Breast Procedures Procedure Name Priority Date/Time Associated Diagnosis Comments [place] COLSC FLX W/RMVL OF TUMOR POLYP LESION SNARE TQ 06/06/2025 11:54 AM EDT EGD/COLON Special Needs INTERPRETERDM-dulaglutideinsuiln [place] COLONOSCOPY W/BIOPSY SINGLE/MULTIPLE 06/06/2025 11:54 AM EDT EGD/COLON Special Needs INTERPRETERDM-dulaglutideinsuiln [place] COLONOSCOPY FLX DX W/IRMA J SPEC WHEN PFRMD 06/06/2025 11:54 AM EDT EGD/COLON Special Needs INTERPRETERDM-dulaglutideinsuiln [place] EDG TRANSORAL BIOPSY SINGLE/MULTIPLE 06/06/2025 11:54 AM EDT EGD/COLON Special Needs INTERPRETERDM-dulaglutideinsuiln CO ESOPHAGOGASTRODUODENOSCOP Y TRANSORAL DIAGNOSTIC 06/06/2025 11:54 AM EDT EGD/COLON Special Needs INTERPRETERDM-dulaglutideinsuiln ENDOSCOPY PROCEDURE 06/06/2025 11:53 AM EDT ENDOSCOPY, COLON 06/06/2025 11:53 AM EDT ANATOMIC PATHOLOGY Routine 06/06/2025 12:00 AM EDT from Last 3 Months Results * ENDOSCOPY PROCEDURE (06/06/2025 11:53 AM EDT) Narrative Transcriptions Jamil Gonzalez MD - 06/06/2025 11:53 AM EDT [facility] Patient Name: Grace Vin Ernst Attending MD:: JAMIL GONZALEZ MD, Procedure Date: 06/06/2025 11:53 AM Date of : 1960 Age: 65 Admit Type: Outpatient Gender: Female Room: [place] [address] Referring MD: MEHRDAD CASTELLANOS MD Exam Type: [...] 11:53 AM Procedure Code(s): --- Professional --- 59248, Esophagogastroduodenoscopy, flexible, transoral; with biopsy, single or multiple --- Technical --- 24369, Esophagogastroduodenoscopy, flexible, transoral; with biopsy, single or multiple Diagnosis Code(s): --- Professional --- K22.89, Other specified disease of esophagus K29.70, Gastritis, unspecified, without bleeding R13.10, Dysphagia, unspecified R12, Heartburn R11.0, Nausea --- Technical --- K22.89, Other specified disease of esophagus K29.70, Gastritis, unspecified, without bleeding R13.10, Dysphagia, unspecified R12, Heartburn R11.0, Nausea CPT copyright 2021 [employer]. All rights reserved. The codes documented in this report are preliminary and upon behavioral health professional reviewmay be revised to meet current compliance requirements. Procedure Date: 06/06/2025 11:53:[address] [place] [address] Mehrdad Castellanos MD GI PROCEDURE ORDERABLES F inal Result * ENDOSCOPY, COLON (06/06/2025 11:53 AM EDT) Narrative Transcriptions Jamil Gonzalez MD - 06/06/2025 11:53 AM EDT [facility] Patient Name: Grace Banuelos Klever Attending MD:: JAMIL GONZALEZ MD, Procedure Date: 06/06/2025 11:53 AM Date of : 1960 Age: 65 Admit Type: Outpatient Gender: Female Room: [place] [address] Referring MD: MEHRDAD CASTELLANOS MD Exam Type: [...] 11:53 AM Procedure Code(s): --- Professional --- 26462, Colonoscopy, flexible; diagnostic, including collection of specimen(s) by brushing or washing, when performed (separateprocedure) --- Technical --- 43745, Colonoscopy, flexible; diagnostic, including collection of specimen(s) [...] Full incontinence of feces CPT copyright 2021 [employer]. All rights reserved. The codes documented in this report are preliminary and upon behavioral health professional reviewmay be revised to meet current compliance requirements. Procedure Date: 06/06/2025 11:53:24 AM [address] [place] [address] us Mehrdad Castellanos MD GI PROCEDURE ORDERABLES F inal Result * Anatomic Pathology (06/06/2025 12:00 AM EDT) 06/06/2025 06/06/2025 1:0 6 PM EDT Narrative SEE NARRATIVE - 06/09/2025 12:36 PM EDT [address] [address] Corporate Director Talent Assessment: Efren Patricio MD Surgical Pathology Report FINAL [...] cassette labeled B1. Grossed by: MARLI Butler, VELVET([facility]) [id number] 06/06/2025 Grossing Staff: [id number] [...] performance characteristics have been determined by the [facility]. This laboratory is certified under the Clinical [...] : 1960 (Age: 65) Sex: F Institution: [facility] Location: [facility] Date of Operation: 06/06/2025 Date of Reported: 06/09/2025 12:36 Results To: Jamil Castellanos MD Jamil Gonzalez MD PATHOLOGY ORDERABLES Final Res ult SEE NARRATIVE from Last 3 Months Insurance ACO ACO ACO ACO [facility] ACO Care Teams Laser Beam Color Scanner Operator Relationship Specialty Start Date End Date Mehrdad Castellanos MD [address] [place] [address] [place] [address] PCP - General Internal Medicine 05/23/25 Additional Source Comments The information contained in this document represents components of the legal health record. It is not the complete legal health record.[facility]
--- OUTSIDE RECORDS SUMMARY | 2025-06-27 10:54 | XMS_ITS | Clinical Summary ---
Author Organization [employer] Address [address] [facility] 7 [place] [address] Care Team Providers Care Binding Printer Name Role Phone Unavailable Primary Care Provider [...] this topic Insurance [facility] [place] [address]
--- OUTSIDE RECORDS SUMMARY | 2025-06-27 10:54 | XMS_ITS | Encounter Summary ---
Author Organization [facility] Address [address] [facility] [place] [address] Phone Care Team Providers Care Automatic Machines Supervisor Name Role Phone Mehrdad Chavez MD Primary Care Provider [phone] Encounter Details Date Type Department Care Team (Late st Contact Info) Description 06/06/2025 Procedure Pass [facility] Endoscopy Admitting Dept Virtual Department [address] [place], [place] [phone] Social History Tobacco Use Types Packs/Day Years [...] on filedocumented in this encounter Care Teams Automatic Machines Supervisor Relationship Specialty Start Date End Date Mehrdad Chavez MD [address] [place] [address] Dr Lawton [address] [place] [address], [place] [address] PCP - General Internal Medicine 05/23/25 documented as of this encounter Additional Source Comments The information contained in this document represents components of the legal health record. It is not the complete legal health record.[facility]
== END 2025-06-27 09:44 | disposition home or self-care (01) ==
LOC: HO.MAMMO 09:43
PROVIDERS: PCP Internal Medicine; Visit Provider Internal Medicine
DX: N64.89 Other specified disorders of breast (principal)
CPT/HCPCS: 76642; 77061; 77065

== ENCOUNTER → 2025-06-27 10:00 | Outpatient (BNV) | payer OTHER, SELFPAY | PROVIDERS: PCP Internal Medicine; Visit Provider Internal Medicine | DX: R92.8 Other abnormal and inconclusive findings on diagnostic imaging of breast (principal) | CPT/HCPCS: 76642; 77061; 77065 ==

== ENCOUNTER 2025-07-04 12:44 | Outpatient (AMB) | payer OTHER, SELFPAY ==
--- NOTE | 2025-07-04 12:48 | A.OFFVIS_ITS ---
Vital Signs 07/04/25 12:52 07/04/25 13:25 Height 5 ft 2 in Weight 166 lb 10.711 oz BMI 30.5 BP 108/72 Blood Pressure Location Lt brachial Position Sitting Pulse 52 96 Pulse Source Pulse Oximeter Pulse Oximetry (%) 100 Oxygen Delivery Method Room Air Intake Visit Reasons: Type II diabetes Intake Note: Patient present today to follow up on Type 2 Diabetes Mellitus. Last Diabetic Eye exam: January 2025 Last Podiatry Visit: Does not see a Buggy Runner Random Glucose: 176 mg/dl HgA1C: 7.2% 04/16/2025 Market Investigator Required: Yes Market Investigator Language: Scientific Informatics Project Leader Services: Market Investigator Present Market Investigator Name: Danial [id number] Information Interpreted: non-clinical & clinical Accompanied by: Self / Same As Patient Allergies oyster extract Allergy (Verified 07/04/25 12:53) Anaphylaxis Medication List - Last Reconciled 07/04/25 by VELVET Galvin acetaminophen 500 mg PO Q8H PRN albuterol sulfate 90 mcg/actuation (Ventolin HFA) 1 puff PO QID PRN atorvastatin 10 mg PO BEDTIME benzonatate 100 mg PO BID-TID PRN bisacodyl (Dulcolax (bisacodyl)) 20 mg (4 x 5 mg) PO ONCE 1 day blood sugar diagnostic (FreeStyle Lite Strips) As directed to check blood glucose 3 times daily. blood-glucose meter (Blood Glucose Monitoring kit) As directed blood-glucose meter (FreeStyle Lite Meter kit) Use to monitor blood glucose five times daily blood-glucose sensor (FreeStyle Maricel 3 Plus Sensor device) Use daily As directed to monitor glucose blood-glucose,electric stop installer,cont (FreeStyle Maricel 3 [place]) Use daily As directed to monitor blood glucose cetirizine 10 mg PO DAILY PRN 90 days cholecalciferol (vitamin D3) 100 mcg PO DAILY cyclobenzaprine 10 mg PO TID PRN dulaglutide (Trulicity) 4.5 mg (0.5 mL) subcut QWEEK fluticasone propionate 50 mcg/actuation (Flonase Allergy Relief) 2 sprays intranasal DAILY kpimhzkbyxo-kisnkcmiw-lltedocn 200-62.5-25 mcg (Trelegy Ellipta) 1 inh inhalation DAILY 30 days gabapentin 600 mg (2 x 300 mg) PO BEDTIME 30 days glucose (Dex4 Glucose) 16 grams (4 x 4 gram) PO Q15M PRN insulin glargine (Lantus Solostar U-100 Insulin) 4 units (0.04 mL) subcut BEDTIME ketoconazole 2% 1 appl topical BID 14 days lancets As directed lancets (FreeStyle Lancets) Use to monitor blood glucose 5 times daily. lisinopril 10 mg PO DAILY miconazole nitrate (Monistat 1 Combo Pack) place 1 insert into vagina at bedtime day 1;apply cream to area outside vagina twice daily for up to 7 days vaginal omeprazole 40 mg PO DAILY 90 days oxycodone 5 mg PO Q6H PRN pen needle, diabetic (BD Ultra-Fine Beatriz Pen Needle) As directed once a day pen needle, diabetic As directed to inject insulin once nightly. polyethylene glycol 3350 (Miralax) 17 grams PO DAILY 1 day sucralfate (Carafate) 10 mL PO BID 90 days tramadol 50 mg PO BID PRN HPI Comments Details: Patient is a 65-year-old female with a significant past medical history of type 2 diabetes, hyperlipidemia, GERD, anemia presenting today for diabetic manag ement. Video cycle repairer used. Her hemoglobin A1c is 7.2%. 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 She has hyperglycemia during the day occasionally. Current medication regimen: Glipizide 5 mg, Trulicity 4.5 mg weekly. Denies side effects on medication. Past medication: Metformin discontinued in the past due to GI distress. 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 Patient's LEANDRA antibodies are negative, C-peptide normal. She has a history of vitamin-D deficiency. She is currently taking a supplement. ROS: Constitutional: No unexplained weight loss, fever, chills Respiratory: No shortness of breath Cardiovascular: No chest pain Neurologic: No numbness or tingling in the extremities. Endocrine: No cold or heat intolerance. No polyuria or polydipsia. Physical exam: Constitutional: Alert, in no distress. Eyes: EOMI Neck: Supple, Full range of motion. No lymphadenopathy. Respiratory: Clear to auscultation. Cardiovascular: S1 S2 regular. No murmurs. 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 Upper airway resistance syndrome Uterine fibroid Abnormal cervical cytology Abnormal Pap smear of cervix History of COVID-19 Lumbar degenerative disc disease Allergic rhinitis Constipation Calcification of left breast Malignant neoplasm of breast Obesity (BMI 30-39.9) Diabetes mellitus with hyperglycemia Cancer of right breast COVID-19 Surgical History Hx of cholecystectomy History of bilateral tubal ligation History of bronchoscopy History of cataract surgery History of mastectomy Family History Sister Breast cancer Father HTN (hypertension) Heart attack Mother Diabetes HTN (hypertension) Social History Household Members: None Housing: Apartment Alcohol intake: never Patient Tobacco Use Status: Never used Tobacco e-Cigarette/Vaping Use: Never Used Second Hand Smoke Exposure: No service: No Current occupational status: employed 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 Sexual orientation: Straight/Heterosexual Gender identity: Female Cognitive needs: No Hearing needs: No Vision needs: Yes Female Reproductive History Menstrual Age of Menarche: 11 Physical Exam Vital Signs: Last Vital Signs Pulse 96 07/04/25 13:25 BP 108/72 07/04/25 12:52 Pulse Ox 100 07/04/25 12:52 Oxygen Delivery Method Room Air 07/04/25 12:52 BMI result Body Mass Index 30.5 Results Reviewed Results Reviewed: Laboratory Last Values Glucose (Clinic) 176 mg/dL (60-115) H 07/04/25 12:58 Laboratory Tests 02/11/25 02/11/25 02/17/25 12:12 12:16 12:55 Plt Count Creatinine Estimated GFR AST 21 ALT 14 Triglycerides 241 H Cholesterol 128 LDL Cholesterol, Calc 47 HDL Cholesterol 33 L Urine Creatinine Urine Microalbumin 113.0 Microalb/Creat Ratio 83.6 H 02/28/25 02/28/25 03/28/25 12:00 12:02 08:53 Plt Count 231 Creatinine 1.12 Estimated GFR 49 AST ALT Triglycerides Cholesterol LDL Cholesterol, Calc HDL Cholesterol Urine Creatinine 53.31 Urine Microalbumin Microalb/Creat Ratio Assessment & Plan Assessment & Plan (1) Uncontrolled type 2 diabetes mellitus with hyperglycemia, with long-term current use of insulin: Code(s): E11.65 - Type 2 diabetes mellitus with hyperglycemia; Z79.4 - FPC (current) use of insulin Category: Medical (2) Microalbuminuria due to type 2 diabetes mellitus: Code(s): E11.29 - Type 2 diabetes mellitus with other diabetic kidney complication; R80.9 - Proteinuria, unspecified Category: Medical (3) Low vitamin D level: Code(s): R79.89 - Other specified abnormal findings of blood chemistry Category: Medical (4) Vaginitis: Code(s): N76.0 - Acute vaginitis Plan In summary this is a 64-year-old female with suboptimally controlled type 2 diabetes with renal complications. Stop glipizide due to hypoglycemia. Start Lantus 4 units nightly. If blood sugars are over 180 she was instructed to call the office. Continue Trulicity 4.5 mg weekly. Diabetic diet reinforced. Reviewed the complications of diabetes with the patient. Reviewed treatment of hypoglycemia. She carries orange juice and glucose tablets with her. Advised not to drive if she does not have a reliable way to c heck blood sugar or has symptoms of low blood sugar. Continue vitamin-D supplementation. Follow up in 4 weeks for type 2 diabetes. Orders: Orders AMB Glucose Monitoring Today E11.9 - Type 2 diabetes mellitus without complications Medications: New insulin glargine (Lantus Solostar U-100 Insulin) 4 units (0.04 mL) subcut BEDTIME 15 mL 5RF pen needle, diabetic As directed to inject insulin once nightly. 100 ea 5RF Refilled dulaglutide (Trulicity) 4.5 mg (0.5 mL) subcut QWEEK 2 mL 5RF Discontinued glipizide ER Discontinued Reason: Doctor's Order 5 mg PO DAILY 90 tabs 0RF Patient Instructions: Stop glipizide. Start Lantus 4 units at bedtime. If you have blood sugars over 180 please call the office for instructions to increase insulin. Continue Trulicity 4.5 mg weekly. Suspenda la glipizida. Inicie Lantus 4 unidades antes de acostarse. Si tiene niveles de glucosa en james superiores a 180, llame al consultorio para obtener instrucciones sobre c?mo aumentar la insulina. Contin?e con Trulicity 4.5 mg semanalmente. Coding Level of Care Code Est Pt Level 4 (09174) Diagnoses Uncontrolled type 2 diabetes mellitus with hyperglycemia, with long-term current use of insulin E11.65; Z79.4 Microalbuminuria due to type 2 diabetes mellitus E11.29; R80.9 Low vitamin D level R79.89 Vaginitis N76.0
--- OUTSIDE RECORDS SUMMARY | 2025-07-04 12:48 | XMS_ITS | Encounter Summary ---
Author Organization [facility] Address [address] [place] [address] Phone Care Team Providers Care Inspector Wire Rope Name Role Phone Mehrdad Chavez MD Primary Care Provider [phone] Encounter Details Date Type Department Care Team (Late st Contact Info) Description 06/06/2025 Procedure Pass [facility] Endoscopy Admitting Dept Virtual Department [address] [place], [place] [phone] Social History Tobacco Use Types Packs/Day Years [...] on filedocumented in this encounter Care Teams Inspector Wire Rope Relationship Specialty Start Date End Date Mehrdad Chavez MD [address] [place] [address] Dr Lawton [address] [place] [address], [place] [address] PCP - General Internal Medicine 05/23/25 documented as of this encounter Additional Source Comments The information contained in this document represents components of the legal health record. It is not the complete legal health record.[facility]
--- OUTSIDE RECORDS SUMMARY | 2025-07-04 12:48 | XMS_ITS | Clinical Summary ---
Author Organization [facility] Address [address] [facility] [address] [place] [address] Phone Care Team Providers Care Homeland Security Program Specialist Name Role Phone Mehrdad Castellanos MD Primary Care Provider [phone] Allergies No known active allergies Medications atorvastatin [...] EDT - 06/06/2025 12:30 PM EDT Surgery [facility] Endoscopy Admitting Dept Virtual Department [address] [place] [address] Jamil Gonzalez MD ESOPHAGOGASTRODUODENOSCOPY 06/06/2025 11:54 AM EDT Anesthesia Event [facility] Endoscopy Admitting Dept Virtual Department [address] [place] [address] Che Dash MD 06/06/2025 10:00 AM EDT - 06/06/2025 1:03 PM EDT Hospital Encounter [facility] Endoscopy Admitting Dept Virtual Department [address] [place] [address] Jamil Gonzalez MD Discharge Disposition: Home or Self Care 06/06/2025 Procedure Pass [facility] Endoscopy Admitting Dept Virtual Department [address] [place] [address] 06/03/2025 9:30 AM EDT Pre-Admission Testing Pre Procedure Evaluation [address] [place] [address] Jamil Gonzalez MD from Last 3 Months [...] this topic Medical Devices Implanted Type Area Carton Stapler Device Identifier Shelf Expiration Date Model / Serial / Lot Breast Procedures Procedure Name Priority Date/Time Associated Diagnosis Comments LA COLSC FLX W/RMVL OF TUMOR POLYP LESION SNARE TQ 06/06/2025 11:54 AM EDT EGD/COLON Special Needs INTERPRETERDM-dulaglutideinsuiln LA COLONOSCOPY W/BIOPSY SINGLE/MULTIPLE 06/06/2025 11:54 AM EDT EGD/COLON Special Needs INTERPRETERDM-dulaglutideinsuiln LA COLONOSCOPY FLX DX W/IRMA J SPEC WHEN PFRMD 06/06/2025 11:54 AM EDT EGD/COLON Special Needs INTERPRETERDM-dulaglutideinsuiln LA EDG TRANSORAL BIOPSY SINGLE/MULTIPLE 06/06/2025 11:54 AM EDT EGD/COLON Special Needs INTERPRETERDM-dulaglutideinsuiln LA ESOPHAGOGASTRODUODENOSCOP Y TRANSORAL DIAGNOSTIC 06/06/2025 11:54 AM EDT EGD/COLON Special Needs INTERPRETERDM-dulaglutideinsuiln ENDOSCOPY PROCEDURE 06/06/2025 11:53 AM EDT ENDOSCOPY, COLON 06/06/2025 11:53 AM EDT ANATOMIC PATHOLOGY Routine 06/06/2025 12:00 AM EDT from Last 3 Months Results * ENDOSCOPY PROCEDURE (06/06/2025 11:53 AM EDT) Narrative Transcriptions Jamil Gonzalez MD - 06/06/2025 11:53 AM EDT [facility] Patient Name: Grace Vin Ernst Attending MD:: JAMIL GONZALEZ MD, Procedure Date: 06/06/2025 11:53 AM Date of : 1960 Age: 65 Admit Type: Outpatient Gender: Female Room: [place] [address] Referring MD: MEHRDAD CASTELLANOS MD Exam Type: [...] 11:53 AM Procedure Code(s): --- Professional --- 29907, Esophagogastroduodenoscopy, flexible, transoral; with biopsy, single or multiple --- Technical --- 26293, Esophagogastroduodenoscopy, flexible, transoral; with biopsy, single or multiple Diagnosis Code(s): --- Professional --- K22.89, Other specified disease of esophagus K29.70, Gastritis, unspecified, without bleeding R13.10, Dysphagia, unspecified R12, Heartburn R11.0, Nausea --- Technical --- K22.89, Other specified disease of esophagus K29.70, Gastritis, unspecified, without bleeding R13.10, Dysphagia, unspecified R12, Heartburn R11.0, Nausea CPT copyright 2021 [employer]. All rights reserved. The codes documented in this report are preliminary and upon oil field equipment mechanic supervisor reviewmay be revised to meet current compliance requirements. Procedure Date: 06/06/2025 11:53:[address] [place] [address] Mehrdad Castellanos MD GI PROCEDURE ORDERABLES F inal Result * ENDOSCOPY, COLON (06/06/2025 11:53 AM EDT) Narrative Transcriptions Jamil Gonzalez MD - 06/06/2025 11:53 AM EDT [facility] Patient Name: Grace Banuelos Klever Attending MD:: JAMIL GONZALEZ MD, Procedure Date: 06/06/2025 11:53 AM Date of : 1960 Age: 65 Admit Type: Outpatient Gender: Female Room: [place] [address] Referring MD: MEHRDAD CASTELLANOS MD Exam Type: [...] 11:53 AM Procedure Code(s): --- Professional --- 79195, Colonoscopy, flexible; diagnostic, including collection of specimen(s) by brushing or washing, when performed (separateprocedure) --- Technical --- 12080, Colonoscopy, flexible; diagnostic, including collection of specimen(s) [...] Full incontinence of feces CPT copyright 2021 [employer]. All rights reserved. The codes documented in this report are preliminary and upon oil field equipment mechanic supervisor reviewmay be revised to meet current compliance requirements. Procedure Date: 06/06/2025 11:53:24 AM [address] [place] [address] us Mehrdad Castellanos MD GI PROCEDURE ORDERABLES F inal Result * Anatomic Pathology (06/06/2025 12:00 AM EDT) 06/06/2025 06/06/2025 1:0 6 PM EDT Narrative SEE NARRATIVE - 06/09/2025 12:36 PM EDT [address] [address] Broaching Machine Repairer: Efren Patricio MD Surgical Pathology Report FINAL [...] cassette labeled B1. Grossed by: MARLI Butler, VELVET([facility]) [id number] 06/06/2025 Grossing Staff: [id number] [...] performance characteristics have been determined by the [facility]. This laboratory is certified under the Clinical [...] : 1960 (Age: 65) Sex: F Institution: [facility] Location: [facility] Date of Operation: 06/06/2025 Date of Reported: 06/09/2025 12:36 Results To: Jamil Castellanos MD Jamil Gonzalez MD PATHOLOGY ORDERABLES Final Res ult SEE NARRATIVE from Last 3 Months Insurance ACO ACO ACO ACO [facility] Care Teams Homeland Security Program Specialist Relationship Specialty Start Date End Date Mehrdad Castellanos MD [address] [place] [address] [place] [address] PCP - General Internal Medicine 05/23/25 Additional Source Comments The information contained in this document represents components of the legal health record. It is not the complete legal health record.[facility]
--- OUTSIDE RECORDS SUMMARY | 2025-07-04 12:48 | XMS_ITS | Clinical Summary ---
Author Organization [employer] Address [address] [facility] 7 [place] [address] Care Team Providers Care Orthopedics Nurse Name Role Phone Unavailable Primary Care Provider [...] patient's age to complete this topic Insurance [facility]
[2025-07-04 12:52] VITALS: BP 108/72; PULSE 52; O2SAT 100; BMI 30.5
[2025-07-04 13:03] LABS: Glucose, Whole Blood 176 mg/dL (60-115)
[2025-07-04 13:25] VITALS: PULSE 96
== END 2025-07-04 13:30 | disposition home or self-care (01) ==
LOC: HO.ENCR 12:45
PROVIDERS: PCP Internal Medicine; Visit Provider Physician Assistant Medical
DX: E11.65 Type 2 diabetes mellitus with hyperglycemia (principal); Z79.4 Long term (current) use of insulin; E11.29 Type 2 diabetes mellitus with other diabetic kidney complication; R80.9 Proteinuria, unspecified; R79.89 Other specified abnormal findings of blood chemistry; N76.0 Acute vaginitis

== ENCOUNTER → 2025-07-04 12:44 | Outpatient (BNVA) | payer OTHER, SELFPAY | PROVIDERS: PCP Internal Medicine; Visit Provider Physician Assistant Medical | DX: E11.65 Type 2 diabetes mellitus with hyperglycemia (principal); Z79.4 Long term (current) use of insulin; R80.9 Proteinuria, unspecified; R79.89 Other specified abnormal findings of blood chemistry; N76.0 Acute vaginitis | CPT/HCPCS: 82947; 99212 ==

== ENCOUNTER 2025-08-01 13:40 | Outpatient (AMB) | payer OTHER, SELFPAY ==
[2025-08-01 13:43] VITALS: BP 118/72; PULSE 99; O2SAT 97; BMI 31.0
--- NOTE | 2025-08-01 13:43 | A.OFFVIS_ITS ---
Vital Signs 08/01/25 13:43 Height 5 ft 2 in Weight 169 lb 5.04 oz BMI 31.0 BP 118/72 Blood Pressure Location Lt brachial Position Sitting Pulse 99 Pulse Source Pulse Oximeter Pulse Oximetry (%) 97 Oxygen Delivery Method Room Air Intake Visit Reasons: Type II Diabetes Intake Note: Patient present today to follow up on Type 2 Diabetes Mellitus.? Last Diabetic Eye exam: January 2025 Last Podiatry Visit: Does not see a Grievance Manager Random Glucose:?211 mg/dl HgA1C: 7.1% 08/01/2025 Trim Line Worker Required: Yes Trim Line Worker Language: Change Control Specialist Services: Trim Line Worker Present Trim Line Worker Name: Miriam [id number] Information Interpreted: non-clinical & clinical Accompanied by: Self / Same As Patient Allergies oyster extract Allergy (Verified 08/01/25 13:47) Anaphylaxis Medication List - Last Reconciled 08/01/25 by VELVET Galvin acetaminophen 500 mg PO Q8H PRN albuterol sulfate 90 mcg/actuation (Ventolin HFA) 1 puff PO QID PRN atorvastatin 10 mg PO BEDTIME benzonatate 100 mg PO BID-TID PRN bisacodyl (Dulcolax (bisacodyl)) 20 mg (4 x 5 mg) PO ONCE 1 day blood sugar diagnostic (FreeStyle Lite Strips) As directed to check blood glucose 3 times daily. blood-glucose meter (Blood Glucose Monitoring kit) As directed blood-glucose meter (FreeStyle Lite Meter kit) Use to monitor blood glucose five times daily blood-glucose sensor (FreeStyle Maricel 3 Plus Sensor device) Use daily As directed to monitor glucose. Change sensor every 15 days. blood-glucose,solid tire tuber machine operator,cont (FreeStyle Maricel 3 [place]) Use daily As directed to monitor blood glucose cetirizine 10 mg PO DAILY PRN 90 days cholecalciferol (vitamin D3) 100 mcg PO DAILY cyclobenzaprine 10 mg PO TID PRN dulaglutide (Trulicity) 4.5 mg (0.5 mL) subcut QWEEK fluticasone propionate 50 mcg/actuation (Flonase Allergy Relief) 2 sprays intranasal DAILY uxqwnydrvbm-sdsksdrjx-zjnoaypv 200-62.5-25 mcg (Trelegy Ellipta) 1 inh inhalation DAILY 30 days gabapentin 600 mg (2 x 300 mg) PO BEDTIME 30 days glucose (Dex4 Glucose) 16 grams (4 x 4 gram) PO Q15M PRN insulin glargine (Lantus Solostar U-100 Insulin) 12 units subcut BEDTIME ketoconazole 2% 1 appl topical BID 14 days lancets As directed lancets (FreeStyle Lancets) Use to monitor blood glucose 5 times daily. lisinopril 10 mg PO DAILY miconazole nitrate (Monistat 1 Combo Pack) place 1 insert into vagina at bedtime day 1;apply cream to area outside vagina twice daily for up to 7 days vaginal omeprazole 40 mg PO DAILY 90 days oxycodone 5 mg PO Q6H PRN pen needle, diabetic (BD Ultra-Fine Beatriz Pen Needle) As directed once a day pen needle, diabetic As directed to inject insulin once nightly. polyethylene glycol 3350 (Miralax) 17 grams PO DAILY 1 day sucralfate (Carafate) 10 mL PO BID 90 days tramadol 50 mg PO BID PRN HPI Comments Details: Patient is a 65-year-old female with a significant past medical history of type 2 diabetes, hyperlipidemia, GERD, anemia presenting today for diabetic management. Video engine monitor used. Her hemoglobin A1c is 7.1% today. 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 Patient reports CGM alerted her to low glucose twice, but she had no symptoms, and she checked a fingerstick, and her blood glucose was in the 90s. Current medication regimen: Lantus 10 units nightly, Trulicity 4.5 mg weekly. Denies side effects on medication. Past medication: Metformin discontinued in the past due to GI distress. 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 Patient's LEANDRA antibodies are negative, C-peptide normal. She has a history of vitamin-D deficiency. She is currently taking a supplement. Hypertension is treated with lisinopril 10 mg daily. Her blood pressure is normal today. Hyperlipidemia is treated with 10 mg of atorvastatin. ROS: Constitutional: No unexplained weight loss, fever, chills Respiratory: No shortness of breath Cardiovascular: No chest pain Neurologic: No numbness or tingling in the extremities. Endocrine: No cold or heat intolerance. No polyuria or polydipsia. Physical exam: Constitutional: Alert, in no distress. Eyes: EOMI Neck: Supple, Full range of motion. No lymphadenopathy. Respiratory: Clear to auscultation. Cardiovascular: S1 S2 regular. No murmurs. 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 Upper airway resistance syndrome Uterine fibroid Abnormal cervical cytology Abnormal Pap smear of cervix History of COVID-19 Lumbar degenerative disc disease Allergic rhinitis Constipation Calcification of left breast Malignant neoplasm of breast Obesity (BMI 30-39.9) Diabetes mellitus with hyperglycemia Cancer of right breast COVID-19 Surgical History Hx of cholecystectomy History of bilateral tubal ligation History of bronchoscopy History of cataract surgery History of mastectomy Family History Sister Breast cancer Father HTN (hypertension) Heart attack Mother Diabetes HTN (hypertension) Social History Household Members: None Housing: Apartment Alcohol intake: never Patient Tobacco Use Status: Never used Tobacco e-Cigarette/Vaping Use: Never Used Second Hand Smoke Exposure: No service: No Current occupational status: employed 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 Sexual orientation: Straight/Heterosexual Gender identity: Female Cognitive needs: No Hearing needs: No Vision needs: Yes Female Reproductive History Menstrual Age of Menarche: 11 Physical Exam Vital Signs: Last Vital Signs Pulse 99 08/01/25 13:43 BP 118/72 08/01/25 13:43 Pulse Ox 97 08/01/25 13:43 Oxygen Delivery Method Room Air 08/01/25 13:43 BMI result Body Mass Index 31.0 Results AMB Hemoglobin A1c AMB Hemoglobin A1c 7.1 % Last Edit by MARCELO Olivia on 08/01/25 14:12 Results Reviewed Results Reviewed: Laboratory Last Values Glucose (Clinic) 211 mg/dL (60-115) H 08/01/25 13:52 Laboratory Tests 02/11/25 02/11/25 02/17/25 12:12 12:16 12:55 Plt Count Creatinine Estimated GFR AST 21 ALT 14 Triglycerides 241 H Cholesterol 128 LDL Cholesterol, Calc 47 HDL Cholesterol 33 L Urine Creatinine Urine Microalbumin 113.0 Microalb/Creat Ratio 83.6 H 02/28/25 02/28/25 03/28/25 12:00 12:02 08:53 Plt Count 231 Creatinine 1.12 Estimated GFR 49 AST ALT Triglycerides Cholesterol LDL Cholesterol, Calc HDL Cholesterol Urine Creatinine 53.31 Urine Microalbumin Microalb/Creat Ratio Assessment & Plan Assessment & Plan (1) Uncontrolled type 2 diabetes mellitus with hyperglycemia, with long-term current use of insulin: Code(s): E11.65 - Type 2 diabetes mellitus with hyperglycemia; Z79.4 - terminal supervisor (current) use of insulin Category: Medical (2) Microalbuminuria due to type 2 diabetes mellitus: Code(s): E11.29 - Type 2 diabetes mellitus with other diabetic kidney complication; R80.9 - Proteinuria, unspecified Category: Medical (3) Low vitamin D level: Code(s): R79.89 - Other specified abnormal findings of blood chemistry Category: Medical (4) Dyslipidemia: Code(s): E78.5 - Hyperlipidemia, unspecified Category: Medical (5) Hypertension: Code(s): I10 - Essential (primary) hypertension Qualifiers: Hypertension type: primary hypertension Qualified Code(s): I10 - Essential (primary) hypertension Plan In summary this is a 65-year-old female with suboptimally controlled type 2 diabetes with renal complications. Increase Lantus to 12 units nightly. If fasting sugars are still greater than 140 increase to 14 units. Continue Trulicity 4.5 mg weekly. Diabetic diet reinforced. Reviewed the complications of diabetes with the patient. Reviewed treatment of hypoglycemia. She carries orange juice and glucose tablets with her. Advised not to drive if she does not have a reliable way to check blood sugar or has symptoms of low blood sugar. Confirm with fingerstick if CGM alerts to low sugar and you have no symptoms. Continue vitamin-D supplementation. Continue lisinopril. Blood pressure is well-controlled. Continue atorvastatin. Mediterranean diet encouraged. Reminded to have lab work completed. Follow up in 6 weeks for type 2 diabetes. Orders: Orders AMB Hemoglobin A1c Today E11.65 - Type 2 diabetes mellitus with hyperglycemia, Z79.4 - FPC (current) use of insulin AMB Glucose Monitoring Today E11.9 - Type 2 diabetes mellitus without complications Medications: Changed From insulin glargine (Lantus Solostar U-100 Insulin) 4 units (0.04 mL) subcut BEDTIME 15 mL 5RF To insulin glargine (Lantus Solostar U-100 Insulin) 12 units subcut BEDTIME Patient Instructions: Increase Lantus to 12 units nightly and continue Trulicity 4.5 mg weekly. If you experience low blood sugar, treat this by eating a chewable fruit candy like skittles or jelly beans (about 8 pieces), 4 ounces (1/2 cup) of fruit juice (not diet), 1 tablespoon of honey or 4 glucose tablets. If your blood sugar is under 50, take double the amount of one of the above. Recheck your blood sugar in 15 minutes. Confirm low bloood sugars with a fingerstick if the sensor alerts you and you have no symptoms of low blood sugar. Aumente la dosis de Lantus a 12 unidades por la noche y contin?e con Trulicity 4.5 mg semanalmente. Si experimenta niveles bajos de az?car en la james, tr?telo con un caramelo masticable de fruta lady Skittles o Jelly Beans (aproximadamente 8 piezas), 113 ml (1/2 taza) de jugo de fruta (no diet?fernanda), 1 cucharada de miel o 4 tabletas de glucosa. Si george nivel de az?car en la james es inferior a 50, tome el doble de la cantidad de luis de los anteriores. Vuelva a medir george nivel de az?car en la james en 15 minutos. Confirme george nivel bajo de az?car en la james con donald punci?n en el dedo si el sensor le avisa y no presenta s?ntomas de nivel bajo de az?car en la james. Coding Level of Care Code Est Pt Level 4 (36893) Diagnoses Uncontrolled type 2 diabetes mellitus with hyperglycemia, with long-term current use of insulin E11.65; Z79.4 Microalbuminuria due to type 2 diabetes mellitus E11.29; R80.9 Low vitamin D level R79.89 Dyslipidemia E78.5 Primary hypertension I10 Hypertension type: primary hypertension
[2025-08-01 13:56] LABS: Glucose, Whole Blood 211 mg/dL (60-115)
--- OUTSIDE RECORDS SUMMARY | 2025-08-01 16:10 | XMS_ITS | Encounter Summary ---
Author Organization [facility] Address [address] [place] [address] Phone Care Team Providers Care Waiter/Waitress First Class Name Role Phone Mehrdad Chavez MD Primary Care Provider [phone] Encounter Details Date Type Department Care Team (Late st Contact Info) Description 06/06/2025 Procedure Pass [facility] Endoscopy Admitting Dept Virtual Department [address] [place], [place] [id number] Social History Tobacco Use Types Packs/Day Years [...] as of this encounter Plan of Treatment Upcoming Encounters Date Type Department Care Team (Late st Contact Info) Description 09/05/2025 10:30 AM EST Office Visit [facility] [address] [place] [address] Unknown, Unknown, Tatum Gotti, RETAIL SALES REPRESENTATIVE [address] [place] [address] [email or web address] documented as of this encounter Visit Diagnoses Not on filedocumented in this encounter Care Teams Waiter/Waitress First Class Relationship Specialty Start Date End Date Mehrdad Chavez MD [address] [place] [address] [place] [address] PCP - General Internal Medicine 05/23/25 documented as of this encounter Additional Source Comments The information contained in this document represents components of the legal health record. It is not the complete legal health record.[facility]
--- OUTSIDE RECORDS SUMMARY | 2025-08-01 16:10 | XMS_ITS | Clinical Summary ---
Author Organization [employer] Address [address] [facility] 7 [place] [address] Care Team Providers Care Bacon Skinner Name Role Phone Unavailable Primary Care Provider [...] patient's age to complete this topic Insurance [facility] ACO
--- OUTSIDE RECORDS SUMMARY | 2025-08-01 16:10 | XMS_ITS | Clinical Summary ---
Author Organization [facility] Address [address] [place] [address] Phone Care Team Providers Care Chain Saw Operator Name Role Phone Mehrdad Castellanos MD Primary Care Provider [phone] Allergies No known active allergies Medications atorvastatin [...] EDT - 06/06/2025 12:30 PM EDT Surgery [facility] Endoscopy Admitting Dept Virtual Department [address] [place] [id number] Jamil Gonzalez MD ESOPHAGOGASTRODUODENOSCOPY 06/06/2025 11:54 AM EDT Anesthesia Event [facility] Endoscopy Admitting Dept Virtual Department [address] [place] [id number] Che Dash MD 06/06/2025 10:00 AM EDT - 06/06/2025 1:03 PM EDT Hospital Encounter [facility] Endoscopy Admitting Dept Virtual Department [address] [place] [id number] Jamil Gonzalez MD Discharge Disposition: Home or Self Care 06/06/2025 Procedure Pass [facility] Endoscopy Admitting Dept Virtual Department [address] [place] [id number] 06/03/2025 9:30 AM EDT Pre-Admission Testing Pre Procedure Evaluation [address] [place] [id number] Jamil Gonzalez MD from Last 3 Months [...] 06/04/2025 9:12 AM EDT Plan of Treatment Upcoming Encounters Date Type Department Care Team (Late st Contact Info) Description 09/05/2025 10:30 AM EST Office Visit [facility] [address] [place] [id number] Unknown, Unknown, Tatum Gotti, MORTGAGE UNDERWRITER [address] [place] [address] [email or web address] Health Maintenance Due Date Last Done Comments CREATININE LEVEL 1960 LIPID PANEL 1961 POTASSIUM LEVEL 1961 DEPRESSION SCREENING 1973 HEPATITIS C SCREENING 1979 HIV ONE-TIME SCREENING (18-6 5 YEARS) 1979 PAP SMEAR 1982 SCREENING FOR DIABETES 1996 MAMMOGRAM 2001 COLOGUARD 2006 FIT TEST 2006 FOBT 2006 SIGMOIDOSCOPY 2006 VIRTUAL COLONOSCOPY 2006 INFLUENZA VACCINE (#1) 2025 , 07/21/2023, 08/06/2022 COVID-19 VACCINE (4 - 2024-2 6 season) 2025 08/25/2022, 04/02/2021, [...] this topic Medical Devices Implanted Type Area Hr Specialist Device Identifier Shelf Expiration Date Model / [...] Gonzalez MD - 06/06/2025 11:53 AM EDT [facility] Patient Name: Grace Vin Ernst Attending MD:: JAMIL GONZALEZ MD, Procedure Date: 06/06/2025 11:53 AM Date of : 1960 Age: 65 Admit Type: Outpatient Gender: Female Room: [place] [address] Referring MD: MEHRDAD CASTELLANOS MD Exam Type: [...] 11:53 AM Procedure Code(s): --- Professional --- 24097, Esophagogastroduodenoscopy, flexible, transoral; with biopsy, single or multiple --- Technical --- 64723, Esophagogastroduodenoscopy, flexible, transoral; with biopsy, single or multiple Diagnosis Code(s): --- Professional --- K22.89, Other specified disease of esophagus K29.70, Gastritis, unspecified, without bleeding R13.10, Dysphagia, unspecified R12, Heartburn R11.0, Nausea --- Technical --- K22.89, Other specified disease of esophagus K29.70, Gastritis, unspecified, without bleeding R13.10, Dysphagia, unspecified R12, Heartburn R11.0, Nausea CPT copyright 2021 [employer]. All rights reserved. The codes documented in this report are preliminary and upon ball mill mixer reviewmay be revised to meet current compliance requirements. Procedure Date: 06/06/2025 11:53:[address] [place] [address] us Mehrdad Castellanos MD GI PROCEDURE ORDERABLES F inal Result * ENDOSCOPY, COLON (06/06/2025 11:53 AM EDT) Narrative Transcriptions Jamil Gonzalez MD - 06/06/2025 11:53 AM EDT [facility] Patient Name: Grace Ernst Attending MD:: JAMIL GONZALEZ MD, Procedure Date: 06/06/2025 11:53 AM Date of : 1960 Age: 65 Admit Type: Outpatient Gender: Female Room: [place] [address] Referring MD: MEHRDAD CASTELLANOS MD Exam Type: [...] 11:53 AM Procedure Code(s): --- Professional --- 01613, Colonoscopy, flexible; diagnostic, including collection of specimen(s) by brushing or washing, when performed (separateprocedure) --- Technical --- 85993, Colonoscopy, flexible; diagnostic, including collection of specimen(s) [...] Full incontinence of feces CPT copyright 2021 [employer]. All rights reserved. The codes documented in this report are preliminary and upon ball mill mixer reviewmay be revised to meet current compliance requirements. Procedure Date: 06/06/2025 11:53:[address] [place] [address] Mehrdad Castellanos MD GI PROCEDURE ORDERABLES F inal Result * Anatomic Pathology (06/06/2025 12:00 AM EDT) Report [address] [address] Pharmacogeneticist: Efren Patricio MD Surgical Pathology Report FINAL [...] cassette labeled B1. Grossed by: MARLI Butler, [facility]ET[facility] [id number] 06/06/2025 Grossing Staff: [id number] One or [...] performance characteristics have been determined by the [facility]. This laboratory is certified under the Clinical Laboratory Improvement Amendments of 1988 (CLIA-88) as qualified to perform high complexity clinical laboratory testing. Immunohistochemistry is performed on formalin-fixed paraffin-embedded sections (unless otherwise specified) and on a Benchmark Ultra immunostainer which utilizes a proprietary polymer detection system. Positive, negative and internal controls, when present, stain appropriately. Patient Name: GRACE PEREIRA : 1960 (Age: 65) Sex: F Institution: [facility] Location: [facility] Date of Operation: 06/06/2025 Date of Reported: 06/09/2025 12:36 Results To: Jamil Castellanos MD [facility] Clinical History Dysphagia, heartburn, suspected esophageal reflux, nausea [facility] Final Diagnosis A. STOMACH, BIOPSY: Inactive chronic gastritis with reactive changes, suggestive of a reactive/chemical gastropathy.B. GASTROESOPHAGEAL JUNCTION AT 30 CM, BIOPSY:Squamocolumnar junction with reactive changes.Negative for intestinal metaplasia and dysplasia.Note: Immunohistochemical stains for H. pylori are performed on the gastric biopsies and DO NOT DEMONSTRATE organisms with the morphologic characteristics of Helicobacter. [facility] Gross Description A. STOMACH, BIOPSY: Received in formalin are [...] cassette labeled B1. Grossed by: MARLI Butler, VELVET[facility] Conversion Type 06/06/2025 1:06 PM EDT us Jamil Gonzalez MD PATHOLOGY ORDERABLES Edited Re sult - Final [facility] [address] [place] [address] from Last 3 Months Insurance ACO ACO ACO Care Teams Chain Saw Operator Relationship Specialty Start Date End Date Mehrdad Castellanos MD [address] [place] [address] [address] [place], [place] [id number] PCP - General Internal Medicine 05/23/25 Additional Source Comments The information contained in this document represents components of the legal health record. It is not the complete legal health record.[facility]
== END 2025-08-01 14:12 | disposition home or self-care (01) ==
LOC: HO.ENCR 13:41
PROVIDERS: PCP Internal Medicine; Visit Provider Physician Assistant Medical
DX: E11.65 Type 2 diabetes mellitus with hyperglycemia (principal); Z79.4 Long term (current) use of insulin; E11.29 Type 2 diabetes mellitus with other diabetic kidney complication; R80.9 Proteinuria, unspecified; R79.89 Other specified abnormal findings of blood chemistry; E78.5 Hyperlipidemia, unspecified; I10 Essential (primary) hypertension

== ENCOUNTER → 2025-08-01 13:40 | Outpatient (BNVA) | payer OTHER, SELFPAY | PROVIDERS: PCP Internal Medicine; Visit Provider Physician Assistant Medical | DX: E11.65 Type 2 diabetes mellitus with hyperglycemia (principal); I10 Essential (primary) hypertension; R79.89 Other specified abnormal findings of blood chemistry; E78.5 Hyperlipidemia, unspecified; R80.9 Proteinuria, unspecified | CPT/HCPCS: 82947; 83036; 99212 ==

== ENCOUNTER 2025-08-22 09:31 | Outpatient (AMB) | payer OTHER, SELFPAY ==
[2025-08-22 09:33] VITALS: BP 144/74; PULSE 76; O2SAT 98; BMI 32.2
--- NOTE | 2025-08-22 09:33 | HO.NEPHOV ---
Vital Signs 08/22/25 09:33 Height 5 ft 2 in Weight 176 lb BMI 32.2 BP 144/74 H Blood Pressure Location Lt brachial Position Sitting Pulse 76 Pulse Source Pulse Oximeter Pulse Oximetry (%) 98 Oxygen Delivery Method Room Air Intake Visit Reasons: 6 MO FU conf Lean Leader Required: Yes Lean Leader Name: simon [id number] Accompanied by: Self / Same As Patient Allergies oyster extract Allergy (Verified 08/22/25 09:35) Anaphylaxis Medication List - Last Reconciled 08/22/25 by Jonathon Chandler MD acetaminophen 500 mg PO Q8H PRN albuterol sulfate 90 mcg/actuation (Ventolin HFA) 1 puff PO QID PRN atorvastatin 10 mg PO BEDTIME benzonatate 100 mg PO BID-TID PRN bisacodyl (Dulcolax (bisacodyl)) 20 mg (4 x 5 mg) PO ONCE 1 day blood sugar diagnostic (FreeStyle Lite Strips) As directed to check blood glucose 3 times daily. blood-glucose meter (Blood Glucose Monitoring kit) As directed blood-glucose meter (FreeStyle Lite Meter kit) Use to monitor blood glucose five times daily blood-glucose sensor (FreeStyle Maricel 3 Plus Sensor device) Use daily As directed to monitor glucose. Change sensor every 15 days. blood-glucose,military aircraft designer,cont (FreeStyle Maricel 3 [place]) Use daily As directed to monitor blood glucose cetirizine 10 mg PO DAILY PRN 90 days cholecalciferol (vitamin D3) 100 mcg PO DAILY cyclobenzaprine 10 mg PO TID PRN dulaglutide (Trulicity) 4.5 mg (0.5 mL) subcut QWEEK fluticasone propionate 50 mcg/actuation (Flonase Allergy Relief) 2 sprays intranasal DAILY kuwuiyidvjx-sdqwjnowp-zmiseixs 200-62.5-25 mcg (Trelegy Ellipta) 1 inh inhalation DAILY 30 days gabapentin 600 mg (2 x 300 mg) PO BEDTIME 30 days glucose (Dex4 Glucose) 16 grams (4 x 4 gram) PO Q15M PRN insulin glargine (Lantus Solostar U-100 Insulin) 12 units subcut BEDTIME ketoconazole 2% 1 appl topical BID 14 days lancets As directed lancets (FreeStyle Lancets) Use to monitor blood glucose 5 times daily. lisinopril 10 mg PO DAILY miconazole nitrate (Monistat 1 Combo Pack) place 1 insert into vagina at bedtime day 1;apply cream to area outside vagina twice daily for up to 7 days vaginal omeprazole 40 mg PO DAILY 90 days oxycodone 5 mg PO Q6H PRN pen needle, diabetic (BD Ultra-Fine Beatriz Pen Needle) As directed once a day pen needle, diabetic As directed to inject insulin once nightly. polyethylene glycol 3350 (Miralax) 17 grams PO DAILY 1 day sucralfate (Carafate) 10 mL PO BID 90 days tramadol 50 mg PO BID PRN HPI Comments Details: Pleasant 64-year-old man with a history of right renal stone has been referred for renal evaluation. Recently she has been having lower back pain. She has a positive for UTI. Currently on antibiotics and pain has improved. She was found to have serum creatinine of 1.6 which has improved 08/08/24 ;No new issues today ;No urinary symptoms 5!25 Here for follow up Has dysuria Recently completed Azithromycin 08/22/25 Doing well. 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 Upper airway resistance syndrome Uterine fibroid Abnormal cervical cytology Abnormal Pap smear of cervix History of COVID-19 Lumbar degenerative disc disease Allergic rhinitis Constipation Calcification of left breast Malignant neoplasm of breast Obesity (BMI 30-39.9) Diabetes mellitus with hyperglycemia Cancer of right breast COVID-19 Surgical History Hx of cholecystectomy History of bilateral tubal ligation History of bronchoscopy History of cataract surgery History of mastectomy Family History Sister Breast cancer Father HTN (hypertension) Heart attack Mother Diabetes HTN (hypertension) Social History Household Members: None Housing: Apartment Alcohol intake: never Patient Tobacco Use Status: Never used Tobacco e-Cigarette/Vaping Use: Never Used Second Hand Smoke Exposure: No service: No Current occupational status: employed 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 Sexual orientation: Straight/Heterosexual Gender identity: Female Cognitive needs: No Hearing needs: No Vision needs: Yes Female Reproductive History Menstrual Age of Menarche: 11 Physical Exam Vital Signs: Last Vital Signs Pulse 76 08/22/25 09:33 BP 144/74 H 08/22/25 09:33 Pulse Ox 98 08/22/25 09:33 Oxygen Delivery Method Room Air 08/22/25 09:33 BMI result Body Mass Index 32.2 Comfortable Neck supple no JVD. Lungs entry equal no rales. Heart S1-S2 heard no gallop or rub. Abdomen soft nontender. Neuro alert awake oriented. No asterixis. Extremities no edema. Assessment & Plan Assessment & Plan (1) ANEL (acute kidney injury): Code(s): N17.9 - Acute kidney failure, unspecified Category: Medical (2) Microalbuminuria due to type 2 diabetes mellitus: Code(s): E11.29 - Type 2 diabetes mellitus with other diabetic kidney complication; R80.9 - Proteinuria, unspecified Category: Medical Plan Middle-aged woman with diabetes mellitus and mild CKD. She had an episode of acute kidney injury due to hypoperfusion with a creatinine peaking at 1.6. Creatinine is improved and acute kidney injury is resolved. REcent creatinine : 1.12 mg/dL Repeat ordered Recent CT scan did not reveal any obstruction. She she had punctate calcification in the right kidney. Microalbuminuria in a setting of diabetes mellitus Agree with AB inhibitors. Maintain BP < 130/80 and A1C < 7% Overall blood pressure is well control encouraged her to stay on low-sodium diet Increase p.o. fluid intake. Orders: Orders Basic Metabolic Panel 3 Weeks N18.32 - Chronic kidney disease, stage 3b Creatinine Urine 3 Weeks N18.32 - Chronic kidney disease, stage 3b Total Protein Urine Random 3 Weeks N18.32 - Chronic kidney disease, stage 3b UA and rflx microscopic 3 Weeks N18.32 - Chronic kidney disease, stage 3b Coding Level of Care Code Est Pt Level 4 (51560) Diagnoses ANEL (acute kidney injury) N17.9 Microalbuminuria due to type 2 diabetes mellitus E11.29; R80.9
--- OUTSIDE RECORDS SUMMARY | 2025-08-22 10:54 | XMS_ITS | Clinical Summary ---
Author Organization [facility] Address [address] [place] [address] Phone Care Team Providers Care Gravel Wheeler Name Role Phone Mehrdad Castellanos MD Primary Care Provider [phone] Allergies No known active allergies Medications atorvastatin [...] EDT - 06/06/2025 12:30 PM EDT Surgery [facility] Endoscopy Admitting Dept Virtual Department [address] [place] [address] Jamil Gonzalez MD ESOPHAGOGASTRODUODENOSCOPY 06/06/2025 11:54 AM EDT Anesthesia Event [facility] Endoscopy Admitting Dept Virtual Department [address] [place] [address] Che Dash MD 06/06/2025 10:00 AM EDT - 06/06/2025 1:03 PM EDT Hospital Encounter [facility] Endoscopy Admitting Dept Virtual Department [address] [place] [address] Jamil Gonzalez MD Discharge Disposition: Home or Self Care 06/06/2025 Procedure Pass [facility] Endoscopy Admitting Dept Virtual Department [address] [place] [address] 06/03/2025 9:30 AM EDT Pre-Admission Testing Pre Procedure Evaluation [address] [place] [address] Jamil Gonzalez MD from Last 3 Months [...] Description 09/05/2025 10:30 AM EST Office Visit [facility] Gastro[facility]ology Clinic [address] [place] [id number] Unknown, Unknown, Tatum Gotti, [employer] BPM DEVELOPER [address] [place] [phone] [address] [place] [address] Health Maintenance Due Date Last Done Comments [...] this topic Medical Devices Implanted Type Area Caustic Plant Worker Device Identifier Shelf Expiration Date Model / [...] Gonzalez MD - 06/06/2025 11:53 AM EDT [facility] Patient Name: Grace Ernst Attending MD:: JAMIL GONZALEZ MD, Procedure Date: 06/06/2025 11:53 AM Date of : 1960 Age: 65 Admit Type: Outpatient Gender: Female Room: [place] [address] Referring MD: MEHRDAD CASTELLANOS MD Exam Type: [...] 11:53 AM Procedure Code(s): --- Professional --- 63676, Esophagogastroduodenoscopy, flexible, transoral; with biopsy, single or multiple --- Technical --- 42225, Esophagogastroduodenoscopy, flexible, transoral; with biopsy, single or multiple Diagnosis Code(s): --- Professional --- K22.89, Other specified disease of esophagus K29.70, Gastritis, unspecified, without bleeding R13.10, Dysphagia, unspecified R12, Heartburn R11.0, Nausea --- Technical --- K22.89, Other specified disease of esophagus K29.70, Gastritis, unspecified, without bleeding R13.10, Dysphagia, unspecified R12, Heartburn R11.0, Nausea CPT copyright 2021 [employer]. All rights reserved. The codes documented in this report are preliminary and upon certified medical coder reviewmay be revised to meet current compliance requirements. Procedure Date: 06/06/2025 11:53:[address] [place] [address] us Mehrdad Castellanos MD GI PROCEDURE ORDERABLES F inal Result * ENDOSCOPY, COLON (06/06/2025 11:53 AM EDT) Narrative Transcriptions Jamil Gonzalez MD - 06/06/2025 11:53 AM EDT [facility] Patient Name: Grace Vin Ernst Attending MD:: JAMIL GONZALEZ MD, Procedure Date: 06/06/2025 11:53 AM Date of : 1960 Age: 65 Admit Type: Outpatient Gender: Female Room: [place] [address] Referring MD: MEHRDAD CASTELLANOS MD Exam Type: [...] 11:53 AM Procedure Code(s): --- Professional --- 74859, Colonoscopy, flexible; diagnostic, including collection of specimen(s) by brushing or washing, when performed (separateprocedure) --- Technical --- 52896, Colonoscopy, flexible; diagnostic, including collection of specimen(s) [...] Full incontinence of feces CPT copyright 2021 [employer]. All rights reserved. The codes documented in this report are preliminary and upon certified medical coder reviewmay be revised to meet current compliance requirements. Procedure Date: 06/06/2025 11:53:[address] [place] [address] [id number] us Mehrdad Castellanos MD GI PROCEDURE ORDERABLES F inal Result * Anatomic Pathology (Non-MGB) (06/06/2025 12:00 AM EDT) Report [address] [address] Net Washer: Efren Patricio MD Surgical Pathology Report FINAL [...] single cassette labeled B1. Grossed by: MARLI Butler PA([facility]) [id number] 06/06/2025 Grossing Staff: [id number] One or [...] performance characteristics have been determined by the [facility]. This laboratory is certified under the [...] : 1960 (Age: 65) Sex: F Institution: [facility] Date of Operation: 06/06/2025 Date of Reported: 06/09/2025 12:36 Results To: Jamil Castellanos MD [facility] Clinical History Dysphagia, heartburn, suspected esophageal reflux, nausea [facility] Final Diagnosis A. STOMACH, BIOPSY: Inactive chronic gastritis with reactive changes, suggestive of a reactive/chemical gastropathy.B. GASTROESOPHAGEAL JUNCTION AT 30 CM, BIOPSY:Squamocolumnar junction with reactive changes.Negative for intestinal metaplasia and dysplasia.Note: Immunohistochemical stains for H. pylori are performed on the gastric biopsies and DO NOT DEMONSTRATE organisms with the morphologic characteristics of Helicobacter. [facility] Gross Description A. STOMACH, BIOPSY: Received in [...] single cassette labeled B1. Grossed by: MARLI Butler PA(ASCP) [facility] Conversion Type (Stomach) 06/06/2025 06/06/2025 1:06 PM EDT Conversion Type (Gastroesophageal Junction) 06/06/2025 06/06/2025 1:06 PM EDT Jamil Gonzalez MD LAB PATHOLOGY ORDERABLES Edite d Result - Final [address] [address] from Last 3 Months Insurance ACO ACO ACO ALLIANCE ACO Care Teams Gravel Wheeler Relationship Specialty Start Date End Date Mehrdad Castellanos MD [address] [place] [address] [place] [address] PCP - General Internal Medicine 05/23/25 Additional Source Comments The information contained in this document represents components of the legal health record. It is not the complete legal health record.[facility]
--- OUTSIDE RECORDS SUMMARY | 2025-08-22 10:54 | XMS_ITS | Encounter Summary ---
Author Organization [facility] Address [address] [place] [address] Phone Care Team Providers Care Phlebotomy Specialist Name Role Phone Mehrdad Chavez MD Primary Care Provider [phone] Encounter Details Date Type Department Care Team (Late st Contact Info) Description 06/06/2025 Procedure Pass [facility] Endoscopy Admitting Dept Virtual Department [address] [place], [place] [id number] Social History Tobacco Use Types Packs/Day Years [...] Description 09/05/2025 10:30 AM EST Office Visit [facility] Gastroenterology Clinic [address] [place] [address] Unknown, Unknown, Tatum Gotti, PAINTER BOTTOM [address] [place] [address] [address] [place] [address] documented as of this encounter Visit Diagnoses Not on filedocumented in this encounter Care Teams Phlebotomy Specialist Relationship Specialty Start Date End Date Mehrdad Chavez MD [address] [place] [address] [place] [address] PCP - General Internal Medicine 05/23/25 documented as of this encounter Additional Source Comments The information contained in this document represents components of the legal health record. It is not the complete legal health record.[facility]
--- OUTSIDE RECORDS SUMMARY | 2025-08-22 10:54 | XMS_ITS | Clinical Summary ---
Author Organization [employer] Address [address] 7 [place] [address] Care Team Providers Care Inspector Canned Food Reconditioning Name Role Phone Unavailable Primary Care Provider [...] patient's age to complete this topic Insurance [facility] ACO
== END 2025-08-22 09:46 | disposition home or self-care (01) ==
LOC: HO.HKA 09:32
PROVIDERS: PCP Internal Medicine; Visit Provider Internal Medicine Hypertension Specialist
DX: N17.9 Acute kidney failure, unspecified (principal); E11.29 Type 2 diabetes mellitus with other diabetic kidney complication; R80.9 Proteinuria, unspecified
CPT/HCPCS: 99214

== ENCOUNTER 2025-09-05 14:01 | Outpatient (AMB) | payer OTHER, SELFPAY ==
--- NOTE | 2025-09-05 14:04 | MHC.OFFVIS ---
Vital Signs 09/05/25 14:05 Height 5 ft 2 in Weight 170 lb 3.15 oz BMI 31.1 BP 128/68 Blood Pressure Location Lt radial Position Sitting Pulse 90 Pulse Source Pulse Oximeter Pulse Oximetry (%) 98 Oxygen Delivery Method Room Air Intake Visit Reasons: Type 2 diabetes Intake Note: Patient present today to follow up on Type 2 Diabetes Mellitus.? Last Diabetic Eye exam: January 2025 Last Podiatry Visit: Does not see a Stiff Neck Loader Random Glucose:?106 mg/dl HgA1C: 7.1% 08/01/2025 Paraprofessional Aide Teacher Required: Yes Paraprofessional Aide Teacher Language: Store Loss Prevention Manager Services: Paraprofessional Aide Teacher Present Paraprofessional Aide Teacher Name: Zena Houston [phone] Information Interpreted: non-clinical & clinical Accompanied by: Self / Same As Patient Allergies oyster extract Allergy (Verified 09/05/25 14:09) Anaphylaxis Medication List - Last Reconciled 09/05/25 by VELVET Galvin acetaminophen 500 mg PO Q8H PRN albuterol sulfate 90 mcg/actuation (Ventolin HFA) 1 puff PO QID PRN atorvastatin 10 mg PO BEDTIME benzonatate 100 mg PO BID-TID PRN bisacodyl (Dulcolax (bisacodyl)) 20 mg (4 x 5 mg) PO ONCE 1 day blood sugar diagnostic (FreeStyle Lite Strips) As directed to check blood glucose 3 times daily. blood-glucose meter (Blood Glucose Monitoring kit) As directed blood-glucose meter (FreeStyle Lite Meter kit) Use to monitor blood glucose five times daily blood-glucose sensor (FreeStyle Maricel 3 Plus Sensor device) Use daily As directed to monitor glucose. Change sensor every 15 days. blood-glucose,clinical educator,cont (FreeStyle Maricel 3 [place]) Use daily As directed to monitor blood glucose cetirizine 10 mg PO DAILY PRN 90 days cholecalciferol (vitamin D3) 100 mcg PO DAILY cyclobenzaprine 10 mg PO TID PRN dulaglutide (Trulicity) 4.5 mg (0.5 mL) subcut QWEEK fluticasone propionate 50 mcg/actuation (Flonase Allergy Relief) 2 sprays intranasal DAILY ibgpasjagon-eftqpqeyb-gimggtpy 200-62.5-25 mcg (Trelegy Ellipta) 1 inh inhalation DAILY 30 days gabapentin 600 mg (2 x 300 mg) PO BEDTIME 30 days glucose (Dex4 Glucose) 16 grams (4 x 4 gram) PO Q15M PRN insulin glargine (Lantus Solostar U-100 Insulin) 12 units subcut BEDTIME ketoconazole 2% 1 appl topical BID 14 days lancets As directed lancets (FreeStyle Lancets) Use to monitor blood glucose 5 times daily. lisinopril 10 mg PO DAILY miconazole nitrate (Monistat 1 Combo Pack) place 1 insert into vagina at bedtime day 1;apply cream to area outside vagina twice daily for up to 7 days vaginal omeprazole 40 mg PO DAILY 90 days oxycodone 5 mg PO Q6H PRN pen needle, diabetic (BD Ultra-Fine Beatriz Pen Needle) As directed once a day pen needle, diabetic As directed to inject insulin once nightly. polyethylene glycol 3350 (Miralax) 17 grams PO DAILY 1 day sucralfate (Carafate) 10 mL PO BID 90 days tramadol 50 mg PO BID PRN HPI Comments Details: Patient is a 65-year-old female with a significant past medical history of type 2 diabetes, hyperlipidemia, GERD, anemia presenting today for diabetic management. Video parking regulation enforcement officer used. She is visiting her brother who has metastatic cancer and her daughter who is struggling with anxiety/depression in [place] this month. Her hemoglobin A1c is 7.1% 08/01/25. Reviewed Maricel download CGM active 79% Average glucose 164 G NE 7.2% Glucose variability 30.5% Very high 7% High 23% Target range 70% 0% hypoglycemia Patient experiences hyperglycemia after breakfast. She drinks ensure in the morning. CGM alerts to lows in the morning sometimes, but she has no symptoms, and when she checks a fingerstick glucose it is normal. Current medication regimen: Lantus 12 units nightly, Trulicity 4.5 mg weekly. Denies side effects on medication. Past medication: Metformin discontinued in the past due to GI distress. 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 Patient's LEANDRA antibodies are negative, C-peptide normal. Hypertension is treated with lisinopril 10 mg daily. Her blood pressure is normal today. Hyperlipidemia is treated with 10 mg of atorvastatin. ROS: Constitutional: No unexplained weight loss, fever, chills Respiratory: No shortness of breath Cardiovascular: No chest pain Neurologic: No numbness or tingling in the extremities. Endocrine: No cold or heat intolerance. No polyuria or polydipsia. Physical exam: Constitutional: Alert, in no distress. Neck: Supple, Full range of motion. No lymphadenopathy. Respiratory: Clear to auscultation. Cardiovascular: S1 S2 regular. No murmurs. Right foot: Warm and well perfused. No clubbing, cyanosis or edema. Intact DP pulse. Decreased vibratory sensation. Intact sensation to monofilament. No open wounds. Left foot: Warm and well perfused. No clubbing, cyanosis or edema. Intact DP pulse. Decreased vibratory sensation. Intact sensation to monofilament. No open wounds. 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 Upper airway resistance syndrome Uterine fibroid Abnormal cervical cytology Abnormal Pap smear of cervix History of COVID-19 Lumbar degenerative disc disease Allergic rhinitis Constipation Calcification of left breast Malignant neoplasm of breast Obesity (BMI 30-39.9) Diabetes mellitus with hyperglycemia Cancer of right breast COVID-19 Surgical History Hx of cholecystectomy History of bilateral tubal ligation History of bronchoscopy History of cataract surgery History of mastectomy Family History Sister Breast cancer Father HTN (hypertension) Heart attack Mother Diabetes HTN (hypertension) Social History Household Members: None Housing: Apartment Alcohol intake: never Patient Tobacco Use Status: Never used Tobacco e-Cigarette/Vaping Use: Never Used Second Hand Smoke Exposure: No service: No Current occupational status: employed 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 Sexual orientation: Straight/Heterosexual Gender identity: Female Cognitive needs: No Hearing needs: No Vision needs: Yes Female Reproductive History Menstrual Age of Menarche: 11 Physical Exam Vital Signs: Last Vital Signs Pulse 90 09/05/25 14:05 BP 128/68 09/05/25 14:05 Pulse Ox 98 09/05/25 14:05 Oxygen Delivery Method Room Air 09/05/25 14:05 BMI result Body Mass Index 31.1 Office Procedures Glucose Monitoring Details Details: See HPI 24170 - Glucose monitoring, continuous-physician I&R Procedure code (CPT) selection complete Results Reviewed Results Reviewed: Laboratory Last Values Glucose (Clinic) 106 mg/dL (60-115) 09/05/25 14:14 Assessment & Plan Assessment & Plan (1) Uncontrolled type 2 diabetes mellitus with hyperglycemia, with long-term current use of insulin: Code(s): E11.65 - Type 2 diabetes mellitus with hyperglycemia; Z79.4 - intermediate teacher (current) use of insulin Category: Medical (2) Microalbuminuria due to type 2 diabetes mellitus: Code(s): E11.29 - Type 2 diabetes mellitus with other diabetic kidney complication; R80.9 - Proteinuria, unspecified Category: Medical (3) Low vitamin D level: Code(s): R79.89 - Other specified abnormal findings of blood chemistry Category: Medical (4) Dyslipidemia: Code(s): E78.5 - Hyperlipidemia, unspecified Category: Medical (5) Hypertension: Code(s): I10 - Essential (primary) hypertension Qualifiers: Hypertension type: primary hypertension Qualified Code(s): I10 - Essential (primary) hypertension Plan In summary this is a 65-year-old female with type 2 diabetes. A1c near goal. Continue Lantus to 12 units nightly. Continue Trulicity 4.5 mg weekly. Patient is going to lower carbohydrate intake in the morning to combat postprandial hyperglycemia to target A1c less than 7%. Diabetic diet reinforced. Reviewed the complications of diabetes with the patient. Reviewed treatment of hypoglycemia. She carries orange juice and glucose tablets with her. Advised not to drive if she does not have a reliable way to check blood sugar or has symptoms of low blood sugar. Confirm with fingerstick if CGM alerts to low sugar and you have no symptoms. Continue vitamin-D supplementation. Continue lisinopril. Blood pressure is well-controlled. Continue atorvastatin. Mediterranean diet encouraged. Follow up in 2 months. Orders: Orders Lipid Panel 7 Weeks E78.5 - Hyperlipidemia, unspecified Microalbumin, Random (w Creat) 7 Weeks E11.9 - Type 2 diabetes mellitus without complications Creatinine 7 Weeks E11.9 - Type 2 diabetes mellitus without complications Hemoglobin A1c 7 Weeks R73.9 - Hyperglycemia, unspecified Vitamin D 25-OH (D2 and D3) Today M85.80 - Other specified disorders of bone density and structure, unspecified site AMB Glucose Monitoring Today E11.9 - Type 2 diabetes mellitus without complications Medications: Refilled blood-glucose sensor (FreeStyle Maricel 3 Plus Sensor device) Use daily As directed to monitor glucose. Change sensor every 15 days. 2 ea 11RF E08.29 - Diabetes mellitus due to underlying condition with other diabetic kidney complication, R80.9 - Proteinuria, unspecified, Z79.4 - [facility] (current) use of insulin Coding Level of Care Code Est Pt Level 4 (58014) Diagnoses Uncontrolled type 2 diabetes mellitus with hyperglycemia, with long-term current use of insulin E11.65; Z79.4 Microalbuminuria due to type 2 diabetes mellitus E11.29; R80.9 Low vitamin D level R79.89 Dyslipidemia E78.5 Primary hypertension I10 Hypertension type: primary hypertension CPT Codes Details - CPT: 54653 - Glucose monitoring, continuous-physician I&R ([id number])
[2025-09-05 14:05] VITALS: BP 128/68; PULSE 90; O2SAT 98; BMI 31.1
[2025-09-05 14:18] LABS: Glucose, Whole Blood 106 mg/dL (60-115)
--- OUTSIDE RECORDS SUMMARY | 2025-09-05 14:26 | XMS_ITS | Encounter Summary ---
Author Organization [facility] Address [address] [place] [address] Phone Care Team Providers Care Balance Wheel Motion Inspector Name Role Phone Mehrdad Chavez MD Primary Care Provider [phone] [phone] Encounter Details Date Type Department Care Team (Late st Contact Info) Description 06/06/2025 Procedure Pass [facility] Endoscopy Admitting Dept Virtual Department [address] [place], [place] [id number] Social History Tobacco Use Types Packs/Day Years [...] Care Team (Late st Contact Info) Description 01/30/2026 11:30 AM EDT Office Visit [facility] [address] [place] [address] Tatum Ramirez CNP [address] [place] [address] [email or web address] documented as of this encounter Visit Diagnoses Not on filedocumented in this encounter Care Teams Balance Wheel Motion Inspector Relationship Specialty Start Date End Date Mehrdad Chavez MD [address] [place] [address] [place] [address] PCP - General Internal Medicine 05/23/25 documented as of this encounter Additional Source Comments The information contained in this document represents components of the legal health record. It is not the complete legal health record.[facility]
--- OUTSIDE RECORDS SUMMARY | 2025-09-05 14:26 | XMS_ITS | Clinical Summary ---
Author Organization [employer] Address [address] [facility] 7 [place] [address] Care Team Providers Care Feeder/Folder Name Role Phone Unavailable Primary Care Provider [...] of 2) 2011 COVID-19 Vaccine ( - 2024-2 6 season) 2025 Influenza Vaccine (#1) 2025 RSV [...] patient's age to complete this topic Insurance [facility]
--- OUTSIDE RECORDS SUMMARY | 2025-09-05 14:26 | XMS_ITS | Clinical Summary ---
Author Organization [facility] Address [address] [address] Phone Care Team Providers Care Circus Roustabout Name Role Phone Mehrdad Castellanos MD Primary Care Provider [phone] [phone] Allergies No known active allergies Medications atorvastatin [...] Surgery [facility] Endoscopy Admitting Dept Virtual Department [address] [place] [address] Jamil Gonzalez MD ESOPHAGOGASTRODUODENOSCOPY 06/06/2025 11:54 AM EDT Anesthesia Event [facility] Endoscopy Admitting Dept Virtual Department [address] [place] [address] Che Dash MD 06/06/2025 10:00 AM EDT - 06/06/2025 1:03 PM EDT Hospital Encounter [facility]oscopy Admitting Dept Virtual Department [address] [place] [address] Jamil Gonzalez MD Discharge Disposition: Home or Self Care 06/06/2025 Procedure Pass [facility] Endoscopy Admitting Dept Virtual Department [address] [place] [address] from Last 3 Months Social History Tobacco [...] Description 01/30/2026 11:30 AM EDT Office Visit [facility] [address] [place] [address] Tatum Ramirez CNP [address] [place] [address] Health Maintenance Due Date Last Done Comments [...] this topic Medical Devices Implanted Type Area Tube Sizer And Cutter Operator Device Identifier Shelf Expiration Date Model / Serial / Lot Breast Procedures Procedure Name Priority Date/Time Associated Diagnosis Comments ND COLSC FLX W/RMVL OF TUMOR POLYP LESION SNARE TQ 06/06/2025 11:54 AM EDT EGD/COLON Special Needs INTERPRETERDM-dulaglutideinsuiln ND COLONOSCOPY W/BIOPSY SINGLE/MULTIPLE 06/06/2025 11:54 AM EDT EGD/COLON Special Needs INTERPRETERDM-dulaglutideinsuiln ND COLONOSCOPY FLX DX W/IRMA J SPEC WHEN PFRMD 06/06/2025 11:54 AM EDT EGD/COLON Special Needs INTERPRETERDM-dulaglutideinsuiln ND EDG TRANSORAL BIOPSY SINGLE/MULTIPLE 06/06/2025 11:54 AM EDT EGD/COLON Special Needs INTERPRETERDM-dulaglutideinsuiln ND ESOPHAGOGASTRODUODENOSCOP Y TRANSORAL DIAGNOSTIC 06/06/2025 11:54 AM EDT EGD/COLON Special Needs INTERPRETERDM-dulaglutideinsuiln ENDOSCOPY PROCEDURE 06/06/2025 11:53 AM EDT ENDOSCOPY, COLON 06/06/2025 11:53 AM EDT ANATOMIC PATHOLOGY Routine 06/06/2025 12:00 AM EDT from Last 3 Months Results * ENDOSCOPY PROCEDURE (06/06/2025 11:53 AM EDT) Narrative Transcriptions Jamil Gonzalez MD - 06/06/2025 11:53 AM EDT [facility] Patient Name: Grace Ernst Attending MD:: JAMIL GONZALEZ MD, Procedure Date: 06/06/2025 11:53 AM Date of : 1960 Age: 65 Admit Type: Outpatient Gender: Female Room: [place] [address] Referring MD: MEHRDAD CASTELLANOS MD Exam Type: [...] 11:53 AM Procedure Code(s): --- Professional --- 21624, Esophagogastroduodenoscopy, flexible, transoral; with biopsy, single or multiple --- Technical --- 41612, Esophagogastroduodenoscopy, flexible, transoral; with biopsy, single or multiple Diagnosis Code(s): --- Professional --- K22.89, Other specified disease of esophagus K29.70, Gastritis, unspecified, without bleeding R13.10, Dysphagia, unspecified R12, Heartburn R11.0, Nausea --- Technical --- K22.89, Other specified disease of esophagus K29.70, Gastritis, unspecified, without bleeding R13.10, Dysphagia, unspecified R12, Heartburn R11.0, Nausea CPT copyright 2021 [employer]. All rights reserved. The codes documented in this report are preliminary and upon service center manager reviewmay be revised to meet current compliance requirements. Procedure Date: 06/06/2025 11:53:[address] [place] [address] [id number] us Mehrdad Castellanos MD GI PROCEDURE ORDERABLES F inal Result * ENDOSCOPY, COLON (06/06/2025 11:53 AM EDT) Narrative Transcriptions Jamil Gonzalez MD - 06/06/2025 11:53 AM EDT [facility] Patient Name: Grace Banuelos Klever Attending MD:: JAMIL GONZALEZ MD, Procedure Date: 06/06/2025 11:53 AM Date of : 1960 Age: 65 Admit Type: Outpatient Gender: Female Room: [place] [address] Referring MD: MEHRDAD CASTELLANOS MD Exam Type: [...] 11:53 AM Procedure Code(s): --- Professional --- 32427, Colonoscopy, flexible; diagnostic, including collection of specimen(s) by brushing or washing, when performed (separateprocedure) --- Technical --- 27669, Colonoscopy, flexible; diagnostic, including collection of specimen(s) [...] Full incontinence of feces CPT copyright 2021 [employer]. All rights reserved. The codes documented in this report are preliminary and upon service center manager reviewmay be revised to meet current compliance requirements. Procedure Date: 06/06/2025 11:53:[address] [place] [address] [id number] Mehrdad Castellanos MD GI PROCEDURE ORDERABLES F inal Result * Anatomic Pathology (Non-MGB) (06/06/2025 12:00 AM EDT) Report [address] [address] Finishing And Shipping Supervisor: Efren Patricio MD Surgical Pathology Report FINAL [...] cassette labeled B1. Grossed by: MARLI Butler, VELVET(ASCP) [id number] 06/06/2025 Grossing Staff: [id number] One or [...] performance characteristics have been determined by the [facility]. This laboratory is certified under the [...] : 1960 (Age: 65) Sex: F [facility] Date of Operation: 06/06/2025 Date of Reported: 06/09/2025 12:36 Results To: Jamil Castellanos MD [facility] Clinical History Dysphagia, heartburn, suspected esophageal reflux, nausea [facility] Final Diagnosis A. STOMACH, BIOPSY: Inactive chronic gastritis with reactive changes, suggestive of a reactive/chemical gastropathy.B. GASTROESOPHAGEAL JUNCTION AT 30 CM, BIOPSY:Squamocolumnar junction with reactive changes.Negative for intestinal metaplasia and dysplasia.Note: Immunohistochemical stains for H. pylori are performed on the gastric biopsies and DO NOT DEMONSTRATE organisms with the morphologic characteristics of Helicobacter. [facility] Gross Description A. STOMACH, BIOPSY: Received [...] cassette labeled B1. Grossed by: MARLI Butler, PA([facility]) [facility] Conversion Type (Stomach) 06/06/2025 06/06/2025 1:06 PM EDT Conversion Type (Gastroesophageal Junction) 06/06/2025 06/06/2025 1:06 PM EDT us Jamil Gonzalez MD LAB PATHOLOGY ORDERABLES Edite d Result - Final [address] [address] from Last 3 Months Insurance ACO ACO ACO ACO ACO ACO Care Teams Circus Roustabout Relationship Specialty Start Date End Date Mehrdad Castellanos MD [address] [place] [address] [place] [address] PCP - General Internal Medicine 05/23/25 Additional Source Comments The information contained in this document represents components of the legal health record. It is not the complete legal health record.[facility]
== END 2025-09-05 14:47 | disposition home or self-care (01) ==
LOC: HO.ENCR 14:02
PROVIDERS: PCP Internal Medicine; Visit Provider Physician Assistant Medical
DX: E11.65 Type 2 diabetes mellitus with hyperglycemia (principal); Z79.4 Long term (current) use of insulin; E11.29 Type 2 diabetes mellitus with other diabetic kidney complication; R80.9 Proteinuria, unspecified; R79.89 Other specified abnormal findings of blood chemistry; E78.5 Hyperlipidemia, unspecified; I10 Essential (primary) hypertension

== ENCOUNTER → 2025-09-05 14:01 | Outpatient (BNVA) | payer OTHER, SELFPAY | PROVIDERS: PCP Internal Medicine; Visit Provider Physician Assistant Medical | DX: E11.65 Type 2 diabetes mellitus with hyperglycemia (principal); I10 Essential (primary) hypertension; E78.5 Hyperlipidemia, unspecified; R80.9 Proteinuria, unspecified | CPT/HCPCS: 82947; 99212 ==

== ENCOUNTER 2025-10-07 08:14 | Outpatient (AMB) | payer OTHER, SELFPAY ==
--- OUTSIDE RECORDS SUMMARY | 2025-10-07 08:20 | XMS_ITS | Clinical Summary ---
Author Organization [employer] Address [address] [facility] 7 [place] [address] Care Team Providers Care Production Cell Leader Name Role Phone Unavailable Primary Care [...] patient's age to complete this topic Insurance [facility] A[facility]
--- OUTSIDE RECORDS SUMMARY | 2025-10-07 08:20 | XMS_ITS | Clinical Summary ---
Author Organization [facility] Address [address] [address] Phone Care Team Providers Care Artist Representative Name Role Phone Mehrdad Castellanos MD Primary Care Provider [phone] [phone] Allergies No known active allergies Medications atorvastatin [...] mouth 2 (two) times a day. Active Social History Tobacco Use Types Packs/Day Years [...] Upcoming Encounters Date Type Department Care Team ([facility] st Contact Info) Description 01/30/2026 11:30 AM EDT Office Visit [facility] [address] [place] [address] Tatum Ramirez, NURIA [address] [place] [address] [email or web address] Health Maintenance Due Date Last Done Comments [...] 2021 Adult Td,Tdap Booster 11/19/2031 11/19/2021 COLONOSCOPY 06/06/2032 06/06/2025 COLORECTAL CANCER SCREENING 06/06/2032 RSV VACCINE (1 - 1-dose 75+ series) [...] this topic Medical Devices Implanted Type Area Soil Expert Device Identifier Shelf Expiration Date Model / Serial / Lot Breast Procedures Procedure Name Priority Date/Time Associated Diagnosis Comments ENDOSCOPY, COLON 06/06/2025 11:5 3 AM EDT from Last 3 Months or Most Recently Relevant to Health Maintenance Results * ENDOSCOPY, COLON (06/06/2025 11:53 AM EDT) Narrative Transcriptions aJmil Gonzalez MD - 06/06/2025 11:53 AM EDT [facility] Patient Name: Eden Ernst Attending MD:: JAMIL GONZALEZ MD, Procedure Date: 06/06/2025 11:53 AM Date of : 1960 Age: 65 Admit Type: Outpatient Gender: Female Room: [place] [address] Referring MD: MEHRDAD CASTELLANOS MD Exam Type: [...] 11:53 AM Procedure Code(s): --- Professional --- 31308, Colonoscopy, flexible; diagnostic, including collection of specimen(s) by brushing or washing, when performed (separateprocedure) --- Technical --- 35835, Colonoscopy, flexible; diagnostic, including collection of specimen(s) [...] Full incontinence of feces CPT copyright 2021 [employer]. All rights reserved. The codes documented in this report are preliminary and upon canvas shop laborer reviewmay be revised to meet current compliance requirements. Procedure Date: 06/06/2025 11:53:[address] [place] [address] [phone] Mehrdad Castellanos MD GI PROCEDURE ORDERABLES F inal Result from Last 3 Months or Most Recently Relevant to Health Maintenance Insurance ACO ACO ACO Care Teams Artist Representative Relationship Specialty Start Date End Date Mehrdad Castellanos MD [address] [place] [address] [place] [address] PCP - General Internal Medicine 05/23/25 Additional Source Comments The information contained in this document represents components of the legal health record. It is not the complete legal health record.[facility]
--- OUTSIDE RECORDS SUMMARY | 2025-10-07 08:21 | XMS_ITS | Encounter Summary ---
Author Organization [facility] Address [address] [place] [address] Phone Care Team Providers Care Client Portfolio Manager Name Role Phone Mehrdad Chavez MD Primary Care Provider [phone] Encounter Details Date Type Department Care Team (Late st Contact Info) Description 06/06/2025 Procedure Pass [facility] Endoscopy Admitting Dept Virtual Department [address] [place], [place] [id number] Social History Tobacco Use Types Packs/Day Years [...] Description 01/30/2026 11:30 AM EDT Office Visit [facility] [address] [place] [address] Tatum Ramirez CNP [address] [place] [address] [email or web address] documented as of this encounter Visit Diagnoses Not on filedocumented in this encounter Care Teams Client Portfolio Manager Relationship Specialty Start Date End Date Mehrdad Chavez MD [address] [place] [address] [place] [address] PCP - General Internal Medicine 05/23/25 documented as of this encounter Additional Source Comments The information contained in this document represents components of the legal health record. It is not the complete legal health record.[facility]
--- NOTE | 2025-10-07 08:23 | A.OFFVIS_ITS ---
Vital Signs 10/07/25 08:25 Height 5 ft 2 in Weight 169 lb BMI 30.9 BP 116/68 Intake Visit Reasons: Annual/ cotest Clinic Nurse Required: Yes Clinic Nurse Language: Women'S Activities Adviser Services: Clinic Nurse Present (in person) Clinic Nurse Name: Katelyn ROBERTSON Information Interpreted: non-clinical & clinical Professor Of Fine Art: Professor Of Fine Art Present (Katelyn ROBERTSON) Accompanied by: Self / Same As Patient Allergies oyster extract Allergy (Verified 10/07/25 08:27) Anaphylaxis HPI Comments Details: Presenting for annual exam. Complaining of left-sided pelvic pain associated vaginal discharge or urinary or GI symptoms no fever or chills. 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 Upper airway resistance syndrome Uterine fibroid Abnormal cervical cytology Abnormal Pap smear of cervix History of COVID-19 Lumbar degenerative disc disease Allergic rhinitis Constipation Calcification of left breast Malignant neoplasm of breast Obesity (BMI 30-39.9) Diabetes mellitus with hyperglycemia Cancer of right breast COVID-19 Surgical History Hx of cholecystectomy History of bilateral tubal ligation History of bronchoscopy History of cataract surgery History of mastectomy Family History Sister Breast cancer Father HTN (hypertension) Heart attack Mother Diabetes HTN (hypertension) Social History Household Members: None Housing: Apartment Alcohol intake: never Patient Tobacco Use Status: Never used Tobacco e-Cigarette/Vaping Use: Never Used Second Hand Smoke Exposure: No service: No Current occupational status: employed 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 Sexual orientation: Straight/Heterosexual Gender identity: Female Cognitive needs: No Hearing needs: No Vision needs: Yes Female Reproductive History Menstrual Age of Menarche: 11 control method: permanent sterilization Date of last pap smear: 02/19/24 History of abnormal pap smear: Yes (HPV +) Date of Mammogram: 06/27/25 Review of Systems Const All systems reviewed & are unremarkable except as noted in HPI and below Card Reports as per HPI Resp Reports as per HPI GI Reports as per HPI and Reports no additional complaints Reports as per HPI Physical Exam Vital Signs: Last Vital Signs BP 116/68 10/07/25 08:25 BMI result Body Mass Index 30.9 Const General: cooperative, healthy appearing and comfortable Chest Chest palpation & inspection: normal inspection of the chest and normal palpation of entire chest wall Breast/axilla inspection: normal inspection of the breasts and normal inspection of the axillae Breast/axilla palpation: normal palpation of the breasts, normal palpation of the axillae and no axillary lymphadenopathy Resp Effort & Inspection: normal respiratory effort Auscultation: clear to auscultation bilaterally Percussion: percussion normal Cardio Palpation: normal PMI Rate: regular rate Rhythm: regular rhythm Heart sounds: no murmurs and no rubs Peripheral pulses: Peripheral pulses 2+ throughout GI Inspection: Yes normal to inspection Palpation (GI): Soft to palpation, nontender, no guarding, not rigid and No h epatosplenomegaly present Percussion: Yes normal to percussion Auscultation: normal bowel sounds Rectal Exam - Female: deferred General: Yes bladder normal to palpation External Female Exam: No lesion Speculum Exam - Vagina: normal appearance of the vagina, normal palpation, normal vaginal discharge and not erythematous Speculum Exam - Cervix: normal appearance of the cervix and normal palpation Bimanual exam- vagina & uterus: normal bimanual exam, normal palpation, uterine size normal, bladder normal to palpation, consistency normal and normal palpation Bimanual Exam- Adnexa, other: normal adnexae, no masses and no tenderness Assessment & Plan Assessment & Plan (1) Well woman exam: Code(s): Z01.419 - Encounter for gynecological examination (general) (routine) without abnormal findings Category: Medical Plan: Co testing done. Counseled the patient about the recommended dietary allowance of 1200 mg of Calcium & 600 IU of vitamin D. Mammogram scheduled in 01/08. DEXA scan ordered for 03/10, instructions given the patient to schedule follow-up appointment 2 weeks afterwards The patient was instructed to perform monthly self-breast exams and schedule annual exam in a year. All questions answered and the patient verbalized understanding. (2) Pelvic pain: Code(s): R10.20 - Pelvic and perineal pain unspecified side Category: Medical Plan: Urine dip done in the office was negative. GC and chlamydia taken and pelvic ultrasound ordered. Discussed with the patient the differential diagnosis of pelvic pain including but not limited to adnexal, uterine masses, pelvic infections (PID), GI the (Irritable bowel syndrome, diverticulitis, others), musculoskeletal, myofascial pain abdominal wall , adhesions, endometriosis, psychological and others causes. Will check results and treat accordingly. All questions answered, the patient verbalized understanding. Instructed the patient to schedule an ultrasound and a follow-up appointment in 2 weeks. All questions answered, the patient verbalized understanding and agreed with the plan. Orders: Orders US pelvic and transvaginal Today R10.20 - Pelvic and perineal pain unspecified side Pap Smear Today Z01.419 - Encounter for gynecological examination (general) (routine) without abnormal findings HPV High risk Today Z01.419 - Encounter for gynecological examination (general) (routine) without abnormal findings XR DEXA axial skeleton 5 Months Z78.0 - Asymptomatic menopausal state CT NG by PCR Vag/Cerv Today Z01.419 - Encounter for gynecological examination (general) (routine) without abnormal findings Coding Level of Care Code Est Pt Level 3 (63955) Est Pt Prev Care 40-64y(49193) Diagnoses Well woman exam Z01.419 Pelvic pain R10.20
[2025-10-07 08:25] VITALS: BP 116/68; BMI 30.9
== END 2025-10-07 09:02 | disposition home or self-care (01) ==
LOC: HO.HWS 08:16
PROVIDERS: PCP Internal Medicine; Visit Provider Obstetrics & Gynecology
DX: Z01.419 Encounter for gynecological examination (general) (routine) without abnormal findings (principal); R10.22 Pelvic and perineal pain left side
CPT/HCPCS: 99213; 99396; 99459

== ENCOUNTER 2025-10-07 08:14 | Outpatient (REF) | payer OTHER, SELFPAY ==
[2025-10-07 09:22] LABS: MANUAL DIFF FLAG NO
[2025-10-07 09:49] LABS: Hematocrit 34.1 % (37.0-47.0); Hemoglobin 11.5 g/dl (12.0-16.0); Imm Gran Abs Auto 0.01 X10*3/uL (0.00-0.03); Imm Gran Pct Auto 0.1 % (0.0-0.4); Lymphocytes Absolute Auto 2.5 X10*3/uL (1.2-4.9); Mean Corpuscular HGB Conc 33.7 g/dl (31.0-35.0); Mean Corpuscular Hemoglobin 26.4 pg (27.0-33.0); Mean Corpuscular Volume 78.4 fL (80.0-98.0); NRBC Abs Auto 0.000 X10*3/uL (0.0-0.012); NRBC Pct Auto 0.0 /100WBC (0.0-0.2); Platelet Count 231 X10*3/uL (160-400); Red Blood Count 4.35 X10*6/uL (4.20-5.50); White Blood Count 7.0 X10*3/uL (4.8-10.8)
[2025-10-07 10:11] LABS: Appearance Urine Clear; Glucose Urine UA >=1000 mg/dL (Negative); PH 6.0 (5.0-9.0); Specific Gravity - Urine 1.015 (1.005-1.025); UMIC TRIGGER UA YES; UMIC TRIGGER UACC YES
[2025-10-07 10:20] LABS: Cholesterol 153 mg/dL (<200); HDL Cholesterol 49 mg/dL (>40); Triglycerides 105 mg/dL (<150)
[2025-10-07 10:34] LABS: Alanine Aminotransferase 18 U/L (0-31); Albumin Level 4.0 g/dL (3.5-5.0); Alkaline Phosphatase 130 U/L (39-117); Anion Gap 12 (12-20); Aspartate Amino Transferase 20 U/L (5-31); Blood Urea Nitrogen 17 mg/dL (9-16); Calcium 9.4 mg/dL (8.4-10.2); Carbon Dioxide 25 mmol/L (22-29); Chloride 110 mmol/L (96-108); Cholesterol 155 mg/dL (<200); Estimated Glomerular Filt Rate > 60; HDL Cholesterol 48 mg/dL (>40); Potassium 4.0 mmol/L (3.3-5.1); Sodium 143 mmol/L (135-145); Total Protein 7.4 g/dL (6.5-8.0); Triglycerides 104 mg/dL (<150)
[2025-10-07 11:01] LABS: Total Protein Urine Random < 7 mg/dL (<12)
[2025-10-07 11:19] LABS: Free T4 (Free Thyroxine) 1.06 ng/dL (0.71-1.85)
[2025-10-07 13:31] LABS: Microalbum/Creatinine Ratio Ur 13.4 ug/mg cr (<30)
[2025-10-07 16:59] LABS: CT PCR NOT DETECTED (Not Detect.); NG PCR NOT DETECTED (Not Detect.)
== END 2025-10-07 08:15 | disposition home or self-care (01) ==
LOC: HO.LAB 08:14
PROVIDERS: Physician Assistant Medical; Absent Provider Internal Medicine; PCP Internal Medicine; Referring Provider Internal Medicine Hypertension Specialist; Visit Provider Obstetrics & Gynecology
DX: Z01.411 Encounter for gynecological examination (general) (routine) with abnormal findings (principal); R10.20 Pelvic and perineal pain unspecified side; D64.9 Anemia, unspecified; E55.9 Vitamin D deficiency, unspecified; E78.00 Pure hypercholesterolemia, unspecified; E11.22 Type 2 diabetes mellitus with diabetic chronic kidney disease; N18.32 Chronic kidney disease, stage 3b; M85.80 Other specified disorders of bone density and structure, unspecified site; E78.5 Hyperlipidemia, unspecified; Z20.2 Contact with and (suspected) exposure to infections with a predominantly sexual mode of transmission; Z13.6 Encounter for screening for cardiovascular disorders
CPT/HCPCS: 36415; 80048; 80053; 80061; 81001; 81003; 82043; 82306; 82570; 83036; 84156; 84439; 84443; 85025; 87491; 87591; 87626; 88175